=== PATIENT | female | born 1950 | race Caucasian/White ===

== ENCOUNTER → 2016-04-25 | Outpatient (CLI) | payer BC, OTHER ==
[~2016-04-25] MED LIST: BENA25CA2 PO; HYDRLIQ11 PO; LATA5OPD OU; NICO21PAT TD; OSEL75CA PO; PRED10TA PO; PROA1AER INH; SPIR1CAP INH; SYMB16INH INH
[2016-04-25 11:26] LABS: BASO % 0.6 % (0.0-1.0); EOS # 0.2 K/mm3 (0.0-0.50); EOS % 2.4 % (0.0-3.0); LARGE UNSTAINED CELL # 0.2 K/mm3 (0.0-0.4); LARGE UNSTAINED CELL % 2.7 % (0.0-4.0); LYMPH # 1.8 K/mm3 (1.5-4.5); LYMPH % 22.3 % (24.0-44.0); MEAN CORPUSCULAR HEMOGLOBIN 30.5 pg (27.0-33.0); MEAN CORPUSCULAR HGB CONC 31.4 g/dl (32.0-36.5); MONO # 0.5 K/mm3 (0.0-0.8); MONO % 6.4 % (0.0-5.0); NEUTROPHILS # 5.2 K/mm3 (1.8-7.7); NEUTROPHILS % 65.6 % (36.0-66.0); PLATELET COUNT, AUTOMATED 328 k/mm3 (150-450); RED CELL DISTRIBUTION WIDTH 12.5 % (11.5-14.5); WHITE BLOOD COUNT 7.9 K/mm3 (4.0-10.0)
[2016-04-25 11:40] LABS: ALBUMIN 3.9 GM/DL (3.2-5.2); ALBUMIN/GLOBULIN RATIO 1.15 (1.00-1.93); BILIRUBIN,TOTAL 0.4 MG/DL (0.2-1.0); CALCIUM LEVEL 9.1 MG/DL (8.8-10.2); CREATININE FOR GFR 1.33 MG/DL (0.55-1.02); GLOMERULAR FILTRATION RATE 42.8 (>45); POTASSIUM SERUM 5.1 MEQ/L (3.5-5.1); TOTAL PROTEIN 7.3 GM/DL (6.4-8.2)
== END | disposition home or self-care (01) ==
LOC: M WUC 09:20
PROVIDERS: ATTEND Family Medicine
DX: R73.01 Impaired fasting glucose (principal)

== ENCOUNTER → 2017-02-16 | Outpatient (CLI) | payer BC, OTHER ==
[~2017-02-16] MED LIST changes: +HYDR5LIQ2 PO; -HYDRLIQ11 PO; -PROA1AER INH; +PROAAER10 INH
[2017-02-16 20:01] LABS: MEAN CORPUSCULAR HEMOGLOBIN 32.1 pg (27.0-33.0); MEAN CORPUSCULAR HGB CONC 33.6 g/dl (32.0-36.5); MEAN CORPUSCULAR VOLUME 95.6 fl (80.0-96.0); PLATELET COUNT, AUTOMATED 347 10^3/uL (150-450)
[2017-02-16 20:07] LABS: ALBUMIN 3.2 GM/DL (3.2-5.2); ALBUMIN/GLOBULIN RATIO 0.8 (1.00-1.93); BILIRUBIN,TOTAL 0.9 MG/DL (0.2-1.0); CALCIUM LEVEL 9.3 MG/DL (8.8-10.2); CREATININE FOR GFR 1.38 MG/DL (0.55-1.02); GLOMERULAR FILTRATION RATE 40.8 (>45); POTASSIUM SERUM 4.8 MEQ/L (3.5-5.1); TOTAL PROTEIN 7.2 GM/DL (6.4-8.2)
[2017-02-16 20:16] LABS: ADD MANUAL DIFFER YES; DIFF SLIDE NUMBER 311; POSITIVE DIFF POS FLAG
[2017-02-16 21:09] LABS: BANDS 1 % (< 11)
== END ==
LOC: M WUC 16:21
PROVIDERS: ATTEND Family Medicine
DX: J18.1 Lobar pneumonia, unspecified organism (principal)

== ENCOUNTER → 2017-02-16 | Outpatient (CLI) | payer BC, OTHER ==
--- NOTE | 2017-02-16 17:34 | REP ---
Chest two views HISTORY: Cough Comparison: 06/14/2015 The lungs are hyperinflated. An increase in interstitial markings is present in the lungs consistent with chronic interstitial change. Patchy density is present in the left lower lobe consistent with an infiltrate. The heart is normal in size. The pulmonary vasculature is normal in appearance. Degenerative change is present in the thoracic spine. IMPRESSION: 1. Chronic interstitial fibrosis. 2. Left lower lobe infiltrate. Signed by Juan David Fisher MD 02/16/2017 05:26 P
== END ==
LOC: M WUC 16:26
PROVIDERS: ATTEND Family Medicine
DX: J18.1 Lobar pneumonia, unspecified organism (principal)

== ENCOUNTER → 2018-01-26 | Outpatient (REF) | payer BC, OTHER ==
[2018-01-29 10:12] LABS: HPV HYBRID CAPTURE II Negative (Negative)
== END ==
LOC: M LAB REF 13:33
DX: Z01.419 Encounter for gynecological examination (general) (routine) without abnormal findings (principal)

== ENCOUNTER → 2018-12-15 | Outpatient (CLI) | payer MEDICARE, BC, OTHER ==
[~2018-12-15] MED LIST changes: +BREO1INH INH; +INCR1INH INH; +LATA0.0013 OU; -LATA5OPD OU; +LISI-542 PO; +NICO21DI3 TD; -NICO21PAT TD; +PRED-351 PO; -PRED10TA PO
[2018-12-15 13:34] LABS: BASO # 0.1 10^3/uL (0.0-0.2); BASO % 0.7 % (0.0-1.0); EOS # 0.3 10^3/uL (0.0-0.5); EOS % 3.4 % (0.0-3.0); HEMATOCRIT 49.1 % (36.0-47.0); HEMOGLOBIN 15.9 g/dl (12.0-15.5); LYMPH # 1.8 10^3/uL (1.5-5.0); LYMPH % 25.1 % (24.0-44.0); MEAN CORPUSCULAR HEMOGLOBIN 30.1 pg (27.0-33.0); MEAN CORPUSCULAR HGB CONC 32.4 g/dl (32.0-36.5); MONO # 0.9 10^3/uL (0.0-0.8); MONO % 12.5 % (0.0-5.0); NEUTROPHILS # 4.3 10^3/uL (1.5-8.5); PLATELET COUNT, AUTOMATED 248 10^3/uL (150-450); RED BLOOD COUNT 5.28 10^6/uL (4.00-5.40); WHITE BLOOD COUNT 7.3 10^3/uL (4.0-10.0)
[2018-12-15 14:10] LABS: BILIRUBIN,TOTAL 0.5 MG/DL (0.2-1.0); CALCIUM LEVEL 9.2 MG/DL (8.8-10.2); CREATININE FOR GFR 1.18 MG/DL (0.55-1.30); GLOMERULAR FILTRATION RATE 48.8 (>45); POTASSIUM SERUM 5.1 MEQ/L (3.5-5.1); THYROID STIMULATING HORMONE 0.929 uIU/ML (0.358-3.740); TOTAL PROTEIN 7.6 GM/DL (6.4-8.2)
[2018-12-15 14:31] LABS: CHOLESTEROL RISK RATIO 1.381 (<5)
== END ==
LOC: M WUC 10:21
PROVIDERS: ATTEND Family Medicine
DX: R03.0 Elevated blood-pressure reading, without diagnosis of hypertension (principal)

== ENCOUNTER → 2018-12-22 | Outpatient (REF) | payer MEDICARE, OTHER ==
[~2018-12-22] MED LIST changes: -BREO1INH INH; -INCR1INH INH; -LISI-542 PO
[2018-12-22 17:10] LABS: PLATELET COUNT, AUTOMATED 234 10^3/uL (150-450)
[2018-12-22 17:32] LABS: INR 0.92
[2018-12-22 17:33] LABS: PARTIAL THROMBOPLASTIN TIME 29.8 SECONDS (25.0-38.4)
== END ==
LOC: M LAB REF 16:47
PROVIDERS: ATTEND Internal Medicine Pulmonary Disease
DX: R91.8 Other nonspecific abnormal finding of lung field (principal)

== ENCOUNTER → 2019-01-04 | Outpatient (CLI) | payer MEDICARE, BC, OTHER ==
[~2019-01-04] MED LIST changes: +BREO1INH INH; +INCR1INH INH; +LIDOCAINE 1% MDV 20ML VIAL As Ordered ONE; +LISI-542 PO
[2019-01-04 14:30] VITALS: BP 139/71
--- NOTE | 2019-01-04 15:21 | REP ---
CHEST, SINGLE VIEW: Single expiratory view of the chest is performed, status post left lung biopsy. There is no pneumothorax. Left retrocardiac mass is again seen. Mild dependent atelectatic changes are seen in the lung bases. IMPRESSION: No pneumothorax, status post left lung biopsy. Electronically Signed by Gianfranco Lacy MD 01/06/2019 12:55 A
--- NOTE | 2019-01-07 17:29 | REP ---
CT-guided left lower lobe lung biopsy The procedure is performed by NILA Wolf, under the direct supervision of Dr. Lacy. The risks and benefits of the procedure were explained to the patient and informed consent was obtained both orally and written. Directly prior to the start of the procedure, a formal timeout was done in the exam room. The left lower lobe lung nodule was localized using CT guidance. Skin was prepped and draped in the usual sterile fashion. 4 ml of 1% lidocaine was used as a local anesthetic. Using CT guidance a 19/20 gauge coaxial needle biopsy system was inserted and advanced into the nodule. 4 core biopsy samples were obtained and sent to the lab. CT images obtained directly after the biopsy show no evidence of pneumothorax. After the appropriate amount of monitored convalescence the patient was discharged from the department. Reviewed by NILA Szymanski 01/04/2019 03:16 P Electronically Signed by Gianfranco Lacy MD 01/07/2019 05:20 P
== END ==
LOC: M IRPRO 10:41
PROVIDERS: ATTEND Internal Medicine Pulmonary Disease
DX: R84.7 Abnormal histological findings in specimens from respiratory organs and thorax (principal)

== ENCOUNTER → 2019-01-17 | Outpatient (CLI) | payer MEDICARE, BC, OTHER ==
[~2019-01-17] MED LIST changes: +ALBU83IN NEB; +AUGM875T28 PO; -LIDOCAINE 1% MDV 20ML VIAL As Ordered ONE; +PROC10TA4 PO; +ZOFR8TAB24 PO
--- NOTE | 2019-01-18 07:12 | REP ---
PET/CT: HISTORY: Malignant neoplasm of the lower lobe of the left lung. Adenocarcinoma. Biopsy-proven in the left lower lobe. There is also an ill-defined nodule in the right middle lobe on recent CT. COMPARISONS: Comparison CT study of the chest is from December 19, 2018. TECHNIQUE: 45 minutes following the intravenous injection of a 8.54 mCi dose of F-18 FDG, three-dimensional PET scintigraphy is acquired from the skull base to the proximal thighs. Triplanar noncontrast CT scanning is acquired through the same anatomic range for attenuation correction, and image registration with scan parameters optimized to minimize radiation exposure to the patient. PET scintigraphy and CT datasets were fused and displayed on a workstation with multiplanar and projection display capability. PET/CT FINDINGS: The biopsy-proven left lower lobe adenocarcinoma is hypermetabolic, maximum standard uptake value is 16.59. There is mildly hypermetabolic uptake visible in aortopulmonary window region lymph nodes, maximum standard uptake value 3.88. These are normal in size. There is a visible but non-hypermetabolic uptake in the right middle lobe nodule. Nevertheless this may be considered somewhat suspicious given the small, subcentimeter size of this nodule. Maximum standard uptake value is 2.02. No other abnormal hypermetabolic uptake is seen in the chest. Head and neck soft tissues are unremarkable, except for the presence of a mildly hypermetabolic 1 cm focus of increased uptake in the deep lobe of the left parotid gland. Maximum standard uptake value here is 5.07. No abnormal adrenal hypermetabolic uptake is seen. No abnormal hypermetabolic uptake is seen in the abdomen or pelvis. IMPRESSION: There is hypermetabolic uptake in the known adenocarcinoma in the left lower lobe. Mildly hypermetabolic uptake is seen in two normal-sized lymph nodes in the aortopulmonary window region of the mediastinum. There is discernible but not hypermetabolic uptake in the right middle lobe nodule. Lastly, there is a hypermetabolic 1 cm focus of increased uptake in the deep lobe of the left parotid gland. This is of uncertain significance. Electronically Signed by Tam Sanchez MD 01/18/2019 07:53 A
== END ==
LOC: M PLARAD 15:07
PROVIDERS: ATTEND Internal Medicine Pulmonary Disease
DX: C34.32 Malignant neoplasm of lower lobe, left bronchus or lung (principal)
CPT/HCPCS: 78815; A9552

== ENCOUNTER → 2019-01-31 | Outpatient (CLI) | payer MEDICARE, BC, OTHER ==
[~2019-01-31] MED LIST changes: -ALBU83IN NEB; -AUGM875T28 PO; -PROC10TA4 PO; -ZOFR8TAB24 PO
--- NOTE | 2019-02-02 08:26 | RADONC ---
RADIATION ONCOLOGY CONSULTATION NOTE DATE OF SERVICE: 01/31/2019 CHART #: [id number] DIAGNOSIS: Left lower lobe lung cancer. STAGE: IIIA, T1c, N2, M0. ECOG PERFORMANCE STATUS: 1. CONSULTATION NOTE: Ms. Arellano is a 68-year-old white female with a diagnosis of what appears to be a Stage IIIA, T1c, N2, M0, highly suggestive atypical cells consistent with an adenocarcinoma of the left lower lobe who has an exceedingly poor pulmonary function and is presenting to us today to see whether or not external beam radiation therapy could be used as part of a combined modality treatment approach. HISTORY OF PRESENT ILLNESS: The patient has a long history of severe chronic obstructive pulmonary disease and a 76.5 pack year smoking history. In the past, the patient has been hospitalized for acute respiratory failure and overall has been unable to discontinue her smoking addiction until just a few weeks ago. Most recently, a CT scan of the chest was done on 12/19/2018. This revealed a 2.1 cm x 2.2 cm x 1.6 cm spiculated nodule in the left lower lobe. There were noted to be hyperexpanded and emphysematous changes throughout. There was an additional right middle lobe nodule as well. On 01/04/2019, the patient underwent a CT guided needle biopsy and pathology revealed highly atypical cells most suggestive of an adenocarcinoma. Subsequent PET scan done on 01/17/2019 revealed a hypermetabolic left lower lobe nodule with a SUV value of 16.59. There also was noted to be hypermetabolic uptake in the visible aortopulmonary window region lymph nodes with a maximum standard value of 3.88. The nodes were normal size. There was a visible, but non hypermetabolic uptake in the right middle lobe nodule, but this was still considered suspicious given the small sub centimeter size of this nodule. The SUV value was 2.02. Of greater significance, the patient had pulmonary function tests done and was found to have an FEV1 of 0.70. Her diffusion capacity was only 16%. PAST MEDICAL HISTORY: The patient's past medical history of course is positive for severe COPD and emphysema. She has had a history of influenza with respiratory failure in 2016 requiring hospitalization. She also has a history of hypertension. She has had kidney infections in the past, arthritis and cataracts. ALLERGIES: The patient is allergic to SULFA DRUGS and ALEVE. SOCIAL HISTORY: The patient has a 76.5 pack year smoking history, having smoked 1.5 packs of cigarettes per day for 51 years. She drinks alcohol daily. FAMILY HISTORY: The patient's family history is positive for cancer in her father, sister and brother. REVIEW OF SYSTEMS: The patient's review of systems is positive for some anxiety, anorexia and shortness of breath. Denies nausea, vomiting, fevers, chills, night sweats, diplopia, chest pain, urinary or bowel difficulties, bone pain or neurological problems. PHYSICAL EXAMINATION: The patient is a well-developed, well-nourished female in no acute distress. HEENT exam is normocephalic, atraumatic. Extraocular movements are intact. There is no palpable cervical, supraclavicular, infraclavicular, axillary, or inguinal lymphadenopathy present. Lungs have decreased breath sounds bilaterally, but are generally clear to auscultation and percussion. Heart has a regular rate and rhythm. Abdomen is benign with no hepatosplenomegaly, masses, or tenderness. Breast examination reveals no masses or discharge bilaterally. Skeletal examination reveals no tenderness to pressure or percussion of the bony skeleton. Extremities reveal no clubbing, cyanosis, or edema. Neurologic exam is grossly intact, as is the remainder of the physical examination. ASSESSMENT: I have been in close contact with her medical oncologist, Dr. Alfred Davis, as well as, with her thoracic surgeon, Dr. Lio Mckeon. I discussed with Dr. Mckeon whether or not he thinks it would be possible to biopsy the mediastinal lymph node safely in this patient with such an extremely poor pulmonary function. Dr. Mckeon did not believe the patient could tolerate such a procedure and that these nodes were not reachable safely. He made clear that he would consider these nodes positive, making this a minimum of Stage III A disease. Clearly, with this patient's extremely poor pulmonary function, she would not be able to tolerate radiation to the lymph node drainage sites and the primary site. Indeed, I do not believe she would be able to tolerate radiation just to the lung nodule itself. Its location puts it between the heart and spinal cord, thereby limiting the directions the beam can travel. In order to incorporate it, there would be undoubtedly a not insignificant portion of normal lung tissue that this patient would not be able to tolerate. Indeed, if this is actually Stage III disease, she would be undergoing radiation to the nodule for no clear reason as the disease has spread beyond this. The patient is scheduled for a redo of her CT guided lung biopsy. More tissue needs to be obtained to make a definitive diagnosis in order to choose the correct systemic agents which can be used to treat this. She is scheduled to have a port placed as well. In light of the fact that no radiation can be given to this patient safely, I have not set her up for any followup in our office except on a as needed basis. She has been instructed to feel free and contact us if we could answer any questions she may have. I have set her up to discuss her issues with our clinica nurse navigator, Maye Mason, as well. As noted above, the patient is scheduled for her biopsy and then to return to her medical oncologist for further discussion. Thank you for allowing us to participate in the care of this very pleasant woman. I wish that we could have been of more benefit to her. If I can provide you with any information, please feel free to contact me at any time. cc: MD Lio Vincetn MD Karen Williams, MD
== END ==
LOC: M ONCR 13:46
PROVIDERS: ATTEND Radiology Radiation Oncology
DX: C34.90 Malignant neoplasm of unspecified part of unspecified bronchus or lung (principal)

== ENCOUNTER → 2019-02-07 | Outpatient (CLI) | payer MEDICARE, BC, OTHER ==
[~2019-02-07] MED LIST changes: +ALBU83IN NEB; +AUGM875T28 PO; +LIDOCAINE 1% MDV 20ML VIAL As Ordered ONE; +PROC10TA4 PO; +ZOFR8TAB24 PO
[2019-02-07 12:50] VITALS: BP 134/73
--- NOTE | 2019-02-07 14:00 | REP ---
CHEST, SINGLE VIEW: Single view of the chest is performed status post left lung biopsy. There is no evidence of a pneumothorax. Mild bibasilar atelectatic changes are seen. The heart is normal in size. IMPRESSION: No evidence of pneumothorax status post left lung biopsy. Electronically Signed by Gianfranco Lacy MD 02/07/2019 02:33 P
--- NOTE | 2019-02-07 14:20 | REP ---
CT-guided left lobe lung biopsy The procedure is performed by NILA Wolf, under the direct supervision of Dr. Lacy. The risks and benefits of the procedure were explained to the patient and informed consent was obtained both orally and written. Directly prior to the start of the procedure, a formal timeout was done in the exam room. The left lobe lesion was localized using CT guidance. Skin was prepped and draped in the usual sterile fashion. 2 ml of 1% lidocaine was used as a local anesthetic. Under CT guidance multiple attempts were made from this position to access the lesion. It was decided to reposition the patient, and try a different window for targeted. The skin was then prepped and draped in the usual sterile fashion. Another 2 ml as a 1% lidocaine was used as a local anesthetic. Using CT guidance a 19/20 gauge coaxial needle biopsy system was inserted and advanced into the nodule. 5 core biopsy samples were obtained and sent to the lab. CT images obtained directly after the biopsy show no evidence of pneumothorax. After the appropriate amount of monitored convalescence the patient was discharged from the department. Reviewed by NILA Szymanski 02/07/2019 01:48 P Electronically Signed by Gianfranco Lacy MD 02/07/2019 02:12 P
== END ==
LOC: M IRPRO 08:12
PROVIDERS: ATTEND Internal Medicine Hematology
DX: C34.90 Malignant neoplasm of unspecified part of unspecified bronchus or lung (principal); Z79.899 Other long term (current) drug therapy

== ENCOUNTER → 2019-03-13 | Outpatient (CLI) | payer MEDICARE, BC, OTHER ==
[~2019-03-13] MED LIST changes: +B-12100021 PO; +DEXT30SU29 PO; +FOLI800C PO; -LIDOCAINE 1% MDV 20ML VIAL As Ordered ONE
--- NOTE | 2019-03-13 15:20 | REP ---
Two-view chest: 03/13/2019. Indication: Dyspnea. Comparison: 02/07/2019. Findings: There is no focal airspace consolidation. There is no pleural effusion or pneumothorax. Right-sided Port-A-Cath is present. The cardiomediastinal silhouette is unremarkable. The lungs are hyperinflated with chronic interstitial fibrotic changes consistent with COPD. The left lung mass is better demonstrated on the recent CT. Impression: No acute cardiopulmonary process. COPD. Electronically Signed by Ruslan Donahue DO 03/13/2019 03:11 P
== END ==
LOC: M RAD 14:43
PROVIDERS: ATTEND Internal Medicine Hematology
DX: J18.9 Pneumonia, unspecified organism (principal)

== ENCOUNTER → 2019-03-21 | Outpatient (POV) | payer MEDICARE, BC, OTHER ==
[~2019-03-21] VITALS: Ht 149.9 cm; Wt 50.0 kg
[~2019-03-21] MED LIST changes: +MARI5CAP PO
[2019-03-21 08:10] VITALS: BP 159/88
--- NOTE | 2019-03-22 16:33 | IRPN ---
[facility] IR Progress Note IR Progress Note DATE: Mar 21, 2019 FOLLOW-UP: Doing well status post port placement. No fevers, chills, pain or discomfort. Port functioning without any issues. ON EXAMINATION: Port site appears to be healing well. No pain, tenderness, fluctuance or discharge. IMPRESSION: Doing well status post port placement. No further follow-up scheduled unless initiated by patient or infusion. Thank you for this referral Allergies Coded Allergies: Sulfa (Sulfonamide Antibiotics) (Verified Allergy, Unknown, ITCHING/RASH, 01/04/19) naproxen (Verified Allergy, Unknown, RASH/ITCHING, 01/04/19) VS,Fishbone, I+O VS, Fishbone, I+O Vital Signs Date Time Temp Pulse Resp B/P (MAP) Pulse Ox O2 Delivery O2 Flow Rate FiO2 03/21/19 08:10 97.8 91 18 159/88 (111) 94 Room Air NICOLE DEY MD Mar 22, 2019 16:33
== END ==
LOC: M IRPOV 07:44
PROVIDERS: ATTEND Radiology Diagnostic Radiology
DX: Z45.2 Encounter for adjustment and management of vascular access device (principal); Z88.2 Allergy status to sulfonamides

== ENCOUNTER 2019-04-21 12:52 | Inpatient (IN) | payer MEDICARE, BC, OTHER ==
[~2019-04-21] VITALS: Ht 149.9 cm; Wt 49.9 kg
[~2019-04-21 12:52] MED LIST changes: +BREO1INH3 INH; +SODI1TAB12 PO
[2019-04-21] MEDS ORDERED: NS 1,000 ML IV SCH (13:27)
[2019-04-21] MEDS ORDERED: SODI1TAB6 PO (14:11)
[2019-04-21] MEDS ORDERED: [UNRECOGNIZED DRUG - OTHER] PO (14:11)
[2019-04-21] MEDS ORDERED: BREO1INH3 INH (14:11)
[2019-04-21] MEDS ORDERED: FOLI800C PO (14:11)
[2019-04-21] MEDS ORDERED: ONDANSETRON 4MG/2ML VIAL (J2405) IV PRN (15:15)
[2019-04-21] MEDS ORDERED: IPRATROPIUM 0.5MG/ALBUTEROL 2.5MG INH SOL UD 3ML (DUONEB)(J7620) NEB PRN (15:15)
--- NOTE | 2019-04-21 15:20 | REP ---
Chest x-ray: Sitting AP and lateral views. History: Short of breath. Comparison chest x-ray: March 13, 2019. Findings: A right-sided Rovlul-Z-Omhu catheter is seen in place with its tip in the expected location of the SVC right atrial junction. The patient is rotated somewhat to the right. The lungs are symmetrically aerated and free of infiltrate. There are somewhat hyperinflated overall. Pleural angles are sharp. Heart is not enlarged. Pulmonary vasculature is not increased. No significant bony abnormality is appreciated. Impression: Mild hyperinflation. Kdgmmk-H-Sxyx catheter. Otherwise no acute disease. Electronically Signed by Tam Sanchez MD 04/21/2019 03:11 P
[2019-04-21 16:00] VITALS: BP 168/83
--- NOTE | 2019-04-21 16:16 | HPEPDOC ---
[facility] Medical History & Physical Date of Admission Apr 21, 2019 Date of Service: Apr 21, 2019 Attending Physician: RAPHEAL CACERES MD History and Physical CHIEF COMPLAINT: Shortness of breath, macular rash and decreased appetite HISTORY OF PRESENT ILLNESS: This is a 68-year-old female with adenocarcinoma of the lungs presents to the ER for shortness of breath, macular rash and decreased appetite. She was sent to us from her oncologist office who she went to go see for an unscheduled visit. She states ever since she was discharged from the hospital shes been relatively well but after her last chemotherapy on April 13 she knows she is unable to keep down food and has had significant nausea as well. She also endorse a worsening cough and dyspnea but is unsure if it is secondary to her using her oxygen concentrator wrong. Noticed she is back at baseline oxygen status in the ER with no intervention but fluids. Lastly she also notes that she has a generalized erythematous rash that is very pruritic, which appeared 2-3 days ago. She is unsure if this is secondary to chemotherapy. She states that she has no new medications and she is compliant with all the medications prescribed to her. She denies any change in urine color or any painful urination. She denies any blood in her stool or urine as well. PAST MEDICAL HISTORY: 1. Adenocarcinoma of the lung, medically unresectable, stage I, 2. Severe emphysema secondary to chronic tobacco use 3. Hypertension HOME MEDICATIONS: Please see below. ALLERGIES: Please see below PAST SURGICAL HISTORY: 1. Tubal ligation SOCIAL HISTORY: Lives with: , Tobacco use: One pack per day for almost 50 years quit smoking December 2018. ETOH: Denies Illicit drug use: Denies, CODE STATUS: DNR/DNI FAMILY HISTORY: Reviewed, father lung cancer secondary to heavy tobacco use at the age of 73, mother , complications of stroke. Brother alive history of lymphoma. REVIEW OF SYSTEMS: 10 systems reviewed and negative other than HPI PHYSICAL EXAMINATION: VITAL SIGNS: See below GENERAL: Pleasant 68-year-old female laying comfortably in bed awake alert oriented speaking in complete sentences no acute distress HEENT: Atraumatic, normocephalic, pupils equal round and reactive, dry mucous membrane with no JVD trachea is midline. CARDIOVASCULAR: S1-S2, tachycardic rate regular rhythm, no audible murmurs rubs or gallops RESPIRATORY: Crackles appreciated bilaterally up to mid lung right worse than left. ABDOMINAL: Bowel sounds presents, abdomen is soft nontender nondistended EXTREMITIES: No lower extremity edema or calf tenderness noted NEUROLOGICAL: No gross focal deficits appreciated PSYCHOLOGICAL: Appropriate INTEGUMENTARY: Diffuse erythematous macular rash blanchable noted on the breast bilaterally, abdomen, upper thighs bilaterally and lateral aspect of the back. M inimal petechia appreciated on the shins bilaterally as well. No open wounds or ulcerations noted. LABORATORY DATA: See below. MICROBIOLOGY: Please see below. IMAGING: Chest x-ray 04/21/2019 Mild hyperinflation. Kzsinx-C-Tzec catheter. Otherwise no acute disease. ASSESSMENT & PLAN: This is a this is a 68-year-old female with a medically unresectable adenocarcinoma of the lung presented to SOB, macular rash and decreased appetite. PROBLEMS: 1. Acute on chronic kidney disease. Baseline creatinine in early March was 1.29 but she was admitted [facility] for a KATIA with a high of 3.51. When she was discharged on the the creatinine came down to a low of 2.34. They are creatinine is 2.67. Theyre treating this to volume depletion due to poor oral intake in the setting of cisplatin being induced renal damage. At this time well do aggressive IV hydration 150 mls/hr of normal saline the next 2 days. Zofran 16 mg every 24 hours. Because Zofran can cause QTC prolongation will meet her baseline EKG to document the QTC prior to giving the Zofran. Will also monitor her on telemetry while on high dose Zofran even though she is DNR/DNI. 2. Diffuse erythematous macular rash blanchable. Etiology rash is uncertain. It appeared last 3 days. Possible causes or medication toxicity versus allergic reaction versus viral exanthema. Decadron 10 mg IV every 24 hours for 2 days and we will monitor improvement of the rash. A call has been placed to Dr. Hathaway, Dermatology, and we will discuss the case with him prior to placing consult. I would like a punch biopsy while she is admitted. 3. History of adenocarcinoma of the lung. Medically unresectable stage I diagnosis. CEA has been rising and there is questioning of changing patients chemotherapy regimen due to problem 1. Chest x-ray negative for any acute processes. During our exam she was on 2 L of nasal cannula and not in any distress. This is her baseline O2 oxygen requirement. Maintain o2 stat 88-92%, Duonobs on board. 4. History of Hypertension. Hold home Lisinpril due katia. We will play her on Amlopdine 10mg qhs, and we will monitor her BP. DVT PROPHYLAXIS: Lovenox DISPOSITION: Input Med/Surg with telemetry at least 2 midnight Vital Signs Vital Signs Date Time Temp Pulse Resp B/P (MAP) Pulse Ox O2 Delivery O2 Flow Rate FiO2 04/21/19 15:10 114 18 160/83 (108) 94 Room Air 04/21/19 13:27 98.5 04/21/19 13:08 3.0 Home Medications Scheduled Calcium Carb/Mag Ox/Zinc Gluc (Rafwdqc-Tzvwbxaop-Aknz Tablet) 1 Each Tablet, 1 TAB PO DAILY Cyanocobalamin (Vitamin B-12) (B-12) 1,000 Mcg Tablet, 1,000 MCG PO QWEEK THURSDAYS Dronabinol (Marinol) 5 Mg Capsule, 5 MG PO BID for nausea/vomiting Take 5 mg po twice daily Folic Acid (Folic Acid) 0.8 Mg Capsule, 0.8 MG PO DAILY Lisinopril (Lisinopril) 5 Mg Tablet, 5 MG PO DAILY Ondansetron HCl (Zofran) 8 Mg Tablet, 8 MG PO TID for nausea/vomiting Take 8 mg t.i.d. for 3 days after [place] chemotherapy, then q 8 hrs prn nausea Sodium Chloride (Sodium Chloride) 1 Gm Tablet, 1 GM PO BID Scheduled PRN Albuterol Sulf (Albuterol Sulfate) 2.5 Mg/3 Ml Vial.neb, 1 VIAL NEB Q4H PRN for SHORTNESS OF BREATH Albuterol Sulfate (Proair Hfa) 8.5 Gm Hfa.aer.ad, 2 PUFF INH Q6H PRN for SHORTNESS OF BREATH Fluticasone/Vilanterol (Breo Ellipta 200-25 Mcg INH) 1 Each Blst.w.dev, 1 PUFF INH DAILY PRN for SHORTNESS OF BREATH PATIENT STATES USES ONLY WHEN NEEDED Prochlorperazine Maleate (Prochlorperazine Maleate) 10 Mg Tablet, 10 MG PO Q6H PRN for NAUSEA OR VOMITING Take 10 mg po q 6 hours prn nausea from chemotherapy not relieved by Zofran Allergies Coded Allergies: Sulfa (Sulfonamide Antibiotics) (Verified Allergy, Intermediate, ITCHING/RASH, 03/29/19) naproxen (Verified Allergy, Intermediate, RASH/ITCHING, 03/29/19) GME ATTESTATION GME ATTESTATION My faculty preceptor for this patient encounter was physically present during the encounter and was fully available. All aspects of the patient interview, examination, medical decision making process, and medical care plan development were reviewed and approved by the faculty preceptor. The faculty preceptor is aware and concurs with the plan as stated in the body of this note and will attest to such by his/her cosignature. ATTENDING NOTE Ms Arellano is a 68 yo W prior chronic smoker with a medically unresectable adenocarcinoma initially treated with cisplatin/premetrexed/pembro c/b KATIA and thus cisplatin was held and she was continued on premetrexed/pembro c/b some diarrhea for which she has been taking some loperamide who now presents with acute worsening of N/V/D and some SOB and new macular pruritic erythematouos rash and found to have persistent renal injury. She was sent in by her oncologist who is concerned about her renal function worsening as it had appeared to be improving since the initial insult in early 03/2019 and she now also has poor PO, N/V/D and a new confluent macular pruritic rash. In agreement with her oncologist, she appears dry on exam and will give cautious fluids as she has some R basilar crackles, review her UA for an active sediment, monitor her renal function with urine electrolytes, renal ultrasound and call dermatology for her rash while empirically starting her on dexamethasone. We may involve nephrology depending on the course of her KATIA. REBA WOODS DO Apr 21, 2019 16:16 RAPHAEL CACERES MD Apr 22, 2019 07:27
[2019-04-21 16:35] VITALS: BP 168/83
[2019-04-21] MEDS: NS 1,000 ML IV SCH ×2 (16:59→20:29)
[2019-04-21] MEDS: dexameTHASONE 4 MG/ML 1ML VIAL (J1100) IV SCH (16:59)
[2019-04-21] MEDS: amLODIPine 10 MG TAB PO SCH (20:17)
--- NOTE | 2019-04-21 20:19 | ECGEPIP ---
[facility] Test Date: 2019-04-21 Pat Name: KECIA RUSSELL Department: Room: [place] [address] Gender: Female [employer]ley [employer] Over[employer]uler: erlin : 1950 Requested By: REBA Worthington Order Number: [id number] Reading MD: Nelly Carrillo Measurements Intervals [place] Rate: 93 P: 73 WV: 136 QRS: 66 QRSD: 78 T: 59 QT: 354 QTc: 442 Interpretive Statements SINUS RHYTHM SINCE 06/14/15 T WAVE INVERSIONS ARE NO LONGER PRESENT Electronically Signed on 04-21-2019 20:18:51 EST by Nelly Carrillo
[2019-04-21 22:00] VITALS: BP 156/78
[2019-04-22] MEDS: NS 1,000 ML IV SCH ×3 (03:13→18:57)
[2019-04-22 06:00] VITALS: BP 137/83
[2019-04-22 07:08] LABS: HEMATOCRIT 27.4 % (36.0-47.0); HEMOGLOBIN 8.6 g/dl (12.0-15.5); MEAN CORPUSCULAR HEMOGLOBIN 28.8 pg (27.0-33.0); MEAN CORPUSCULAR HGB CONC 31.4 g/dl (32.0-36.5); MEAN CORPUSCULAR VOLUME 91.6 fl (80.0-96.0); PLATELET COUNT, AUTOMATED 102 10^3/uL (150-450); RED BLOOD COUNT 2.99 10^6/uL (4.00-5.40)
[2019-04-22 07:12] LABS: WHITE BLOOD COUNT 1.9 10^3/uL (4.0-10.0)
[2019-04-22 07:29] LABS: CALCIUM LEVEL 7.9 MG/DL (8.8-10.2); CREATININE FOR GFR 2.18 MG/DL (0.55-1.30); MAGNESIUM LEVEL 1.4 MG/DL (1.8-2.4); POTASSIUM SERUM 5.1 MEQ/L (3.5-5.1)
[2019-04-22] MEDS: ENOXAPARIN 40 MG/0.4 ML SYRINGE (J1650) SC SCH ×2 (07:49→07:53)
[2019-04-22] MEDS: MAG SULF 1GM/100ML (MAG RUN) 1 GM in IV 1 EA IV SCH ×2 (09:54→10:55)
[2019-04-22] MEDS ORDERED: ONDANSETRON 4MG/2ML VIAL (J2405) IV PRN (11:45)
--- NOTE | 2019-04-22 12:01 | IPNPDOC ---
Date Seen The patient was seen on 04/22/19. Progress Note SUBJECTIVE: Patient seen and examined this morning. She states she is doing a lot better since hes been admitted. She continues to urinate with no problems. The rash is still present on her breast, abdomen and legs but it is improving. She knows she is not as itchy as she was yesterday. She does notes that she has dry skin on her arms, legs and back and would like some lotion, if possible. Otherwise patient denies chest pain, shortness breath, nausea, vomiting, fevers, or chills OBJECTIVE PHYSICAL EXAMINATION: VITAL SIGNS: Please see below. GENERAL: Pleasant 68-year-old female laying comfortably in bed awake alert oriented speaking in complete sentences no acute distress stating appropriately on 2 L of oxygen HEENT: Atraumatic, normocephalic, pupils equal round and reactive, dry mucous membrane with chapped lips, no JVD, trachea is midline. CARDIOVASCULAR: S1-S2, Regular rate regular rhythm, no audible murmurs rubs or gallops RESPIRATORY: Bibasilar crackles right worse than left (improved from yesterday). ABDOMINAL: Bowel sounds presents, abdomen is soft nontender nondistended EXTREMITIES: No lower extremity edema or calf tenderness noted NEUROLOGICAL: No gross focal deficits appreciated PSYCHOLOGICAL: Appropriate INTEGUMENTARY: Diffuse erythematous macular rash blanchable noted on the breast bilaterally, abdomen, upper thighs bilaterally and lateral aspect of the back (improving). Minimal petechia appreciated on the shins bilaterally as well. No open wounds or ulcerations noted. Xerosis on arms, back and legs as well noted. LABORATORY DATA, MICROBIOLOGY: Please see below. IMAGING: Chest x-ray 04/21/2019 Mild hyperinflation. [id number] catheter. Otherwise no acute disease. ASSESSMENT & PLAN: This is a this is a 68-year-old female with a medically unresectable adenocarcinoma of the lung presented to SOB, macular rash and decreased appetite. PROBLEMS: 1. Acute on chronic kidney disease 2/2 decreased PO intake, chemotherapy and nausea -improving -Baseline creatinine in early March was 1.29 -c/w IV hydration, Zofran 4mg q6h prn nausea -continue to encourage good PO intake 2. Diffuse erythematous macular rash blanchable Etiology uncertain, possible causes: medication toxicity vs allergic reaction vs viral exanthema. -reponding to Decadron 10 mg IV q24h -will need to follow up with dermatology outpatient for the patient might be discharge prior to being seen inpatient 3. History of adenocarcinoma of the lung. Medically unresectable stage I diagnosis. - baseline 2L O2 -Maintain o2 stat >90%, -Duonobs on board -stable 4. History of Hypertension. -Hold home Lisinpril due KATIA -c/w Amlopdine 10mg qhs, possible will need to be discharged on this due to KATIA 5. Xerosis. -c/w Aquafor for arms, back and legs. 6. PFS -while working w/ PT that she is desaturating to low 80s, when using home c oncentrator -consults placed for concern with home portable oxygen concentrator 7. PT/OT -consult placed. DVT PROPHYLAXIS: Lovenox DISPOSITION: Possible discharge in 2 days. VS, I&O, 24H, Fishbone Vital Signs/I&O Vital Signs Date Time Temp Pulse Resp B/P (MAP) Pulse Ox O2 Delivery O2 Flow Rate FiO2 04/22/19 06:00 96.4 93 20 137/83 (101) 100 Nasal Cannula 3.0 I&O- Last 24 Hours up to 6 AM 04/22/19 06:00 Intake Total 2730 ml Output Total 1300 ml Balance 1430 ml Laboratory Data 24H LABS Laboratory Tests 2 04/22/19 06:27: Nucleated Red Blood Cells % (auto) 0.0, Anion Gap 6L, Glomerular Filtration Rate 24.0L, Calcium Level 7.9L, Magnesium Level 1.4L CBC/BMP Laboratory Tests 04/22/19 06:27 GME ATTESTATION GME ATTESTATION My faculty preceptor for this patient encounter was physically present during the encounter and was fully available. All aspects of the patient interview, examination, medical decision making process, and medical care plan development were reviewed and approved by the faculty preceptor. The faculty preceptor is aware and concurs with the plan as stated in the body of this note and will attest to such by his/her cosignature. ATTENDING NOTE 68 yo W with NSCLC recently on premetrexed/pembro with cisplatin held after development of KATIA who now presents with N/V/D and new macular pruritic rash, and found to have worsening KATIA who is now much improved after fluids and steroids. We attempted to consult derm as an inpatient without a response. Will continue dex for a 2nd day and may likely discharge her home tomorrow to follow up with onc and be directly to derm if rash persists. REBA WOODS DO Apr 22, 2019 12:01 RAPHAEL CACERES MD Apr 23, 2019 06:56
[2019-04-22 14:00] VITALS: BP 156/78
[2019-04-22] MEDS: DIMETHICONE 2% OINTMENT(VANIPLY) 70GM TUBE TOP SCH ×2 (16:14→20:27)
[2019-04-22] MEDS: dexameTHASONE 4 MG/ML 1ML VIAL (J1100) IV SCH (16:14)
[2019-04-22] MEDS ORDERED: CEPACOL LOZENGE PO PRN (18:45)
[2019-04-22] MEDS: amLODIPine 10 MG TAB PO SCH (20:28)
[2019-04-22 22:00] VITALS: BP 138/72
[2019-04-23 06:00] VITALS: BP 152/82
[2019-04-23 06:17] LABS: HEMATOCRIT 26.8 % (36.0-47.0); HEMOGLOBIN 8.6 g/dl (12.0-15.5); MEAN CORPUSCULAR HEMOGLOBIN 28.9 pg (27.0-33.0); MEAN CORPUSCULAR HGB CONC 32.1 g/dl (32.0-36.5); MEAN CORPUSCULAR VOLUME 89.9 fl (80.0-96.0); RED BLOOD COUNT 2.98 10^6/uL (4.00-5.40); WHITE BLOOD COUNT 2.3 10^3/uL (4.0-10.0)
[2019-04-23 06:25] LABS: CALCIUM LEVEL 8.4 MG/DL (8.8-10.2); CREATININE FOR GFR 1.92 MG/DL (0.55-1.30); GLOMERULAR FILTRATION RATE 27.7 (>45); MAGNESIUM LEVEL 1.7 MG/DL (1.8-2.4); POTASSIUM SERUM 5.4 MEQ/L (3.5-5.1)
[2019-04-23 06:47] LABS: PLATELET COUNT, AUTOMATED 80 10^3/uL (150-450)
[2019-04-23] MEDS: NS 1,000 ML IV SCH (08:00)
[2019-04-23] MEDS: DIMETHICONE 2% OINTMENT(VANIPLY) 70GM TUBE TOP SCH ×3 (08:00→21:00)
[2019-04-23] MEDS ORDERED: MAG SULF 1GM/100ML (MAG RUN) 1 GM in IV 1 EA IV ONE (08:15)
[2019-04-23] MEDS: ENOXAPARIN 40 MG/0.4 ML SYRINGE (J1650) SC SCH (08:56)
--- NOTE | 2019-04-23 11:58 | IPNPDOC ---
Text Note Date of Service The patient was seen on 04/23/19. NOTE SUBJECTIVE: -continues to feel better since admission. -Yesterday had some nausea and dry heaving after lunch but otherwise rash is improving with less itching now and resolving redness. -Worked with PT and walked with respiratory and did well and unfortunately her privately bought concentrator is mulfunctioning and they will try to return it. OBJECTIVE PHYSICAL EXAMINATION: VITAL SIGNS: Please see below. GENERAL:Sitting up comfortably in bed awake alert oriented speaking in complete sentences no acute distress stating appropriately on her home 2 L of oxygen HEENT: Atraumatic, normocephalic, pupils equal round and reactive, dry MM, no JVD CARDIOVASCULAR: S1-S2, Regular rate regular rhythm, no audible murmurs rubs or gallops RESPIRATORY: R>L bibasilar crackles persist ABDOMINAL: Normoactive bowel sounds, NTND EXTREMITIES: No lower extremity edema or calf tenderness, WWP, 2+ DP pulses NEUROLOGICAL: No gross focal deficits appreciated PSYCHOLOGICAL: Appropriate INTEGUMENTARY: Diffuse now resolving erythematous macular rash blanchable noted on the breast bilaterally, abdomen, upper thighs bilaterally and lateral aspect of the back . Minimal petechia appreciated on the shins bilaterally as well. No open wounds or ulcerations noted. Xerosis on arms, back and legs as well noted. LABORATORY DATA, MICROBIOLOGY: Please see below. ReviewedWBC 2.3, platelets downtrended to 80, Na 134, K 5.4, Cr 1.92, mag 1.7 (repleted) IMAGING: Chest x-ray 04/21/2019 Mild hyperinflation. Mdnbgi-D-Ttup catheter. Otherwise no acute disease. ASSESSMENT: 68-year-old W with a medically unresectable adenocarcinoma of the lung presented to SOB, macular rash and decreased appetite while on premetrexed/pembro as well as subchronic worsening KATIA. PROBLEMS: 1. Acute on subchronic kidney disease 2/2 decreased PO intake, chemotherapy and nausea -improving with hydration and better PO -Baseline creatinine in early March was 1.29 -c/w IV hydration, Zofran 4mg q6h prn nausea -continue to encourage good PO intake 2. Diffuse erythematous macular rash blanchable Etiology uncertain, possible causes: medication toxicity vs allergic reaction. -C/w to Decadron 10 mg IV q24h, will likely discontinue tomorrow given improvement, will need to follow up with dermatology outpatient for the patient might be discharge prior to being seen inpatient -continue topical lotion 3. History of adenocarcinoma of the lung. Medically unresectable stage I diagnosis on baseline 2L O2 -Maintain o2 stat >88% -Duonebs on board -stable 4. History of Hypertension. -Hold home Lisinpril in the setting of KATIA -c/w Amlopdine 10mg qhs 5. Xerosis. -c/w Aquafor for arms, back and legs. 6. PFS -while working w/ PT that she is desaturating to low 80s, when using home concentrator-->consult placed for concern with home portable oxygen concentrator 7. PT/OT -consult placed, doing well with them DVT PROPHYLAXIS: Hold lovenox DISPOSITION: Likely discharge home tomorrow VS,Rhonda, I+O VS, Rhonda, I+O Laboratory Tests 04/23/19 05:23 Vital Signs Date Time Temp Pulse Resp B/P (MAP) Pulse Ox O2 Delivery O2 Flow Rate FiO2 04/23/19 06:00 99.0 102 18 152/82 (105) 8 Room Air 04/22/19 21:00 2.0 I&O- Last 24 Hours up to 6 AM 04/23/19 06:00 Intake Total 2145 ml Output Total 3250 ml Balance -1105 ml RAPHAEL CACERES MD Apr 23, 2019 11:58
[2019-04-23 14:00] VITALS: BP 156/72
[2019-04-23 21:00] VITALS: BP 142/84
[2019-04-23] MEDS: amLODIPine 10 MG TAB PO SCH (21:00)
[2019-04-23 22:00] VITALS: BP 142/84
[2019-04-24 06:00] VITALS: BP 127/76
[2019-04-24 06:00] LABS: HEMOGLOBIN 8.4 g/dl (12.0-15.5); MEAN CORPUSCULAR HEMOGLOBIN 29.1 pg (27.0-33.0); MEAN CORPUSCULAR HGB CONC 32.3 g/dl (32.0-36.5); RED BLOOD COUNT 2.89 10^6/uL (4.00-5.40); WHITE BLOOD COUNT 2.8 10^3/uL (4.0-10.0)
[2019-04-24 06:22] LABS: CALCIUM LEVEL 8.1 MG/DL (8.8-10.2); CREATININE FOR GFR 1.88 MG/DL (0.55-1.30); GLOMERULAR FILTRATION RATE 28.4 (>45); MAGNESIUM LEVEL 1.7 MG/DL (1.8-2.4); POTASSIUM SERUM 4.9 MEQ/L (3.5-5.1)
[2019-04-24 06:42] LABS: PLATELET COUNT, AUTOMATED 50 10^3/uL (150-450)
[2019-04-24] MEDS: DIMETHICONE 2% OINTMENT(VANIPLY) 70GM TUBE TOP SCH (08:17)
[2019-04-24] MEDS ORDERED: LOPERAMIDE 2 MG CAPLET PO ONE (10:30)
--- NOTE | 2019-04-24 12:00 | DS.PDOC ---
Discharge Summary General Date of Admission Apr 21, 2019 at 13:57 Date of Discharge 04/24/2019 Attending Physician: RAPHAEL CACERES MD Discharge Summary PROCEDURES PERFORMED DURING STAY: None ADMITTING DIAGNOSES: 1. Acute pruritic macular rash 2. KATIA on subchronic CKD 3. N/V/D with poor nutritional status DISCHARGE DIAGNOSES: 1. Adenocarcinoma of the lung, medically unresectable, stage I 2. Severe emphysema secondary to chronic tobacco use 3. Hypertension 4. Chemo induced pancytopenia, nausea and diarrhea 5. Pruritic macular rash of unclear etiology likely chemo-induced vs. contact dermatitis COMPLICATIONS/CHIEF COMPLAINT: Acute Kidney Injury,Lung Cancer,Rash. HISTORY OF PRESENT ILLNESS: Ms Arellano is a 68 yo W prior chronic smoker with a medically unresectable a denocarcinoma initially treated with cisplatin/premetrexed/pembro c/b KATIA and thus cisplatin was held and she was continued on premetrexed/pembro c/b some diarrhea for which she has been taking some loperamide who now presents with acute worsening of N/V/D and some SOB and new macular pruritic erythematous rash and found to have persistent renal injury. HOSPITAL COURSE: She was sent in by her oncologist who was concerned about her renal function worsening as it had appeared to be improving since the initial insult in early 03/2019 and has recently been having poor PO, N/V/D and a new confluent macular pruritic rash. In the outpatient clinic note on the day of admission, her oncologist had suggested admission for fluids, dexamethasone 10 for a few days with possible dermatology consultation and monitoring of her worsening renal function with workup if not improving. In agreement with her oncologist, she appeared dry on exam on admission and we gave her cautious fluids as she has trace R basilar crackles, reviewed her UA for an active sediment but was bland, and monitor her renal function that improved with hydration to ~1.9 from ~2.6 and held resending urine electrolytes and a renal ultrasound that were recently done on last admission. We also gave her 3 days of dexamethasone 10mg daily with tremendous improvement in her pruritic rash and called dermatology for a consult without a response despite leaving multiple messages. Of note, on presentation she was on her home 2-3L but while working with respiratory and PT, it was noted that she was desaturating on ambulation using her home privately bought concentrator and it was investigated and found to not be functioning. Her returned it to the top tile decorator and she will use her portable tank for now. I am now discharging her home to follow up with her oncologist. While she was inpatient she was noted to have likely chemo-induced pancytopenia that was stable and did not require any blood transfusions. DISCHARGE MEDICATIONS: Please see below. ALLERGIES: Please see below. PHYSICAL EXAMINATION ON DISCHARGE: VITAL SIGNS: Please see below. GENERAL:Sitting up comfortably in bed awake alert oriented speaking in complete sentences no acute distress stating appropriately on her home 2 L of oxygen HEENT: Atraumatic, normocephalic, pupils equal round and reactive, dry MM, no JVD CARDIOVASCULAR: S1-S2, Regular rate regular rhythm, no audible murmurs rubs or gallops RESPIRATORY: Clear to auscultation, trace rare bibasilar crackles, no wheezing for rhonchi ABDOMINAL: Normoactive bowel sounds, NTND EXTREMITIES: No lower extremity edema or calf tenderness, WWP, 2+ DP pulses NEUROLOGICAL: No gross focal deficits appreciated PSYCHOLOGICAL: Appropriate INTEGUMENTARY: Mostly resolved erythematous macular rash blanchable noted on the breast bilaterally, abdomen, upper thighs bilaterally and lateral aspect of the back . Minimal petechia appreciated on the shins bilaterally are resolving as well. No open wounds or ulcerations noted. LABORATORY DATA: Please see below. IMAGING: CXR with no focal opacities or effusions PROGNOSIS: Fair ACTIVITY: As tolerated DIET: Regular DISCHARGE PLAN: Home with PCP and onc follow up DISPOSITION: Home DISCHARGE INSTRUCTIONS: 1. Please see your oncologist in the next few days to follow up on resolution of your rash and improvement of your appetite and possible referral to dermatology. ITEMS TO FOLLOWUP ON ON OUTPATIENT: 1. Chemo induced N/V/D management that affects nutritional status 2. Progression of renal injury in continuing improvement 3. Resolution pruritic macular rash 4. Lung cancer follow up and follow up of treatment plan with oncologist DISCHARGE CONDITION: Stable TIME SPENT ON DISCHARGE: 50 minutes. Vital Signs/I&Os Vital Signs Date Time Temp Pulse Resp B/P (MAP) Pulse Ox O2 Delivery O2 Flow Rate FiO2 04/24/19 08:30 2.0 04/24/19 06:00 98.5 94 17 127/76 (93) 99 Nasal Cannula I&O- Last 24 Hours up to 6 AM 04/24/19 05:59 Intake Total 2190 ml Output Total 2600 ml Balance -410 ml Laboratory Data Labs 24H Laboratory Tests 2 04/24/19 05:12: Nucleated Red Blood Cells % (auto) 0.0, Anion Gap 6L, Glomerular Filtration Rate 28.4L, Calcium Level 8.1L, Magnesium Level 1.7L CBC/BMP Laboratory Tests 04/24/19 05:12 Discharge Medications Scheduled Calcium Carb/Mag Ox/Zinc Gluc (Ztmwvdc-Cbayyftba-Pyxf Tablet) 1 Each Tablet, 1 TAB PO DAILY, (Reported) Cyanocobalamin (Vitamin B-12) (B-12) 1,000 Mcg Tablet, 1,000 MCG PO QWEEK, (Reported) THURSDAYS Dronabinol (Marinol) 5 Mg Capsule, 5 MG PO BID for nausea/vomiting Take 5 mg po twice daily Folic Acid (Folic Acid) 0.8 Mg Capsule, 0.8 MG PO DAILY, (Reported) Lisinopril (Lisinopril) 5 Mg Tablet, 5 MG PO DAILY, (Reported) Ondansetron HCl (Zofran) 8 Mg Tablet, 8 MG PO TID for nausea/vomiting Take 8 mg t.i.d. for 3 days after [facility] chemotherapy, then q 8 hrs prn nausea Sodium Chloride (Sodium Chloride) 1 Gm Tablet, 1 GM PO BID, (Reported) Scheduled PRN Albuterol Sulf (Albuterol Sulfate) 2.5 Mg/3 Ml Vial.neb, 1 VIAL NEB Q4H PRN for SHORTNESS OF BREATH, (Reported) Albuterol Sulfate (Proair Hfa) 8.5 Gm Hfa.aer.ad, 2 PUFF INH Q6H PRN for SHORTNESS OF BREATH, (Reported) Fluticasone/Vilanterol (Breo Ellipta 200-25 Mcg INH) 1 Each Blst.w.dev, 1 PUFF INH DAILY PRN for SHORTNESS OF BREATH, (Reported) PATIENT STATES USES ONLY WHEN NEEDED Prochlorperazine Maleate (Prochlorperazine Maleate) 10 Mg Tablet, 10 MG PO Q6H PRN for NAUSEA OR VOMITING Take 10 mg po q 6 hours prn nausea from chemotherapy not relieved by Zofran Allergies Coded Allergies: Sulfa (Sulfonamide Antibiotics) (Verified Allergy, Intermediate, ITCHING/RASH, 03/29/19) naproxen (Verified Allergy, Intermediate, RASH/ITCHING, 03/29/19) RAPHAEL CACERES MD Apr 24, 2019 11:46
[2019-04-24] MEDS ORDERED: AMLO10TA5 PO (13:29)
[2019-04-26] MEDS ORDERED: SLOWTAB2 PO (08:51)
[2019-04-26] MEDS ORDERED: [UNRECOGNIZED DRUG - CODE] (08:55)
[2019-04-26] MEDS ORDERED: [UNRECOGNIZED DRUG - OTHER] (14:32)
[2019-04-26] MEDS ORDERED: [UNRECOGNIZED DRUG - OTHER] (14:32)
== END 2019-04-24 13:20 | disposition home or self-care (01) | DRG 682 ==
LOC: M ED 12:52 → M ED INP 13:57 → ENRESERVDT 15:47 → ENRESERVTM 15:47 → M MSPAV 16:35
PROVIDERS: ADMIT Internal Medicine; ATTEND Internal Medicine
DX: N17.9 Acute kidney failure, unspecified (principal); D61.810 Antineoplastic chemotherapy induced pancytopenia; C34.90 Malignant neoplasm of unspecified part of unspecified bronchus or lung; L85.3 Xerosis cutis; J43.9 Emphysema, unspecified; N18.9 Chronic kidney disease, unspecified; L25.9 Unspecified contact dermatitis, unspecified cause; I12.9 Hypertensive chronic kidney disease with stage 1 through stage 4 chronic kidney disease, or unspecified chronic kidney disease; D69.6 Thrombocytopenia, unspecified; Z99.81 Dependence on supplemental oxygen; T45.1X5A Adverse effect of antineoplastic and immunosuppressive drugs, initial encounter; Z87.891 Personal history of nicotine dependence; Z79.899 Other long term (current) drug therapy; Z88.2 Allergy status to sulfonamides; Z88.6 Allergy status to analgesic agent

== ENCOUNTER → 2019-05-02 | Outpatient (CLI) | payer MEDICARE, BC, OTHER ==
[~2019-05-02] VITALS: Ht 149.9 cm; Wt 49.1 kg
[~2019-05-02] MED LIST changes: +ACETAMINOPHEN 325 MG TAB PO ONE; +AMLO10TA5 PO; +FOLI1TAB11 PO; +NS 1,000 ML IV ONE; +SLOWTAB2 PO; +SODI1TAB6 PO; +SODIUM CHLORIDE 0.9% INJ 10 ML SYR IV PRN; +SODIUM CHLORIDE 0.9% INJ 10 ML SYR IV SCH; +[UNRECOGNIZED DRUG - CODE]; +[UNRECOGNIZED DRUG - OTHER]; +[UNRECOGNIZED DRUG - OTHER]; +[UNRECOGNIZED DRUG - OTHER] PO; +diphenhydrAMINE 25 MG CAP PO ONE
[2019-05-02 12:00] VITALS: BP 134/58
[2019-05-02 14:00] VITALS: BP 115/60
[2019-05-02 15:00] VITALS: BP 102/57
[2019-05-02 15:50] VITALS: BP 121/63
[2019-05-02 17:05] VITALS: BP 136/82
[2019-05-02 19:08] VITALS: BP 143/72
== END ==
LOC: M INFU 11:55
PROVIDERS: ATTEND Internal Medicine Hematology
DX: C34.92 Malignant neoplasm of unspecified part of left bronchus or lung (principal); Z88.2 Allergy status to sulfonamides
CPT/HCPCS: 36430; 36591; 80053; 83735; 85027; 85049; 85055; 86850; 86900; 86901; 86920; 96360; 96361; G0463; J1642; P9016

== ENCOUNTER → 2019-05-20 | Outpatient (REF) | payer MEDICARE, BC, OTHER ==
[~2019-05-20] MED LIST changes: -ACETAMINOPHEN 325 MG TAB PO ONE; -NS 1,000 ML IV ONE; -SODIUM CHLORIDE 0.9% INJ 10 ML SYR IV PRN; -SODIUM CHLORIDE 0.9% INJ 10 ML SYR IV SCH; -diphenhydrAMINE 25 MG CAP PO ONE
== END ==
LOC: M LAB REF 11:28
PROVIDERS: ATTEND Physician Assistant
DX: J02.9 Acute pharyngitis, unspecified (principal)

== ENCOUNTER 2019-06-02 08:43 | Outpatient (CLI) | payer MEDICARE, BC, OTHER ==
[~2019-06-02] VITALS: Ht 149.9 cm; Wt 49.3 kg
[2019-06-02 08:45] VITALS: BP 139/67
[2019-06-02 09:55] VITALS: BP 111/62
[2019-06-02] MEDS ORDERED: diphenhydrAMINE 25 MG CAP PO ONE (10:00)
[2019-06-02] MEDS ORDERED: ACETAMINOPHEN TAB 650MG DOSE (2X325MG) PO ONE (10:00)
[2019-06-02 10:50] VITALS: BP 105/56
[2019-06-02 11:20] VITALS: BP 110/60
[2019-06-02 14:15] VITALS: BP 145/78
[2019-06-02] MEDS ORDERED: SODIUM CHLORIDE 0.9% INJ 10 ML SYR IV PRN (14:15)
[2019-06-03] MEDS ORDERED: SODIUM CHLORIDE 0.9% INJ 10 ML SYR IV SCH (09:00)
== END 2019-06-02 14:15 | disposition home or self-care (01) ==
LOC: M INFU 08:43
PROVIDERS: ATTEND Internal Medicine Hematology
DX: D64.9 Anemia, unspecified (principal); C34.90 Malignant neoplasm of unspecified part of unspecified bronchus or lung; Z88.2 Allergy status to sulfonamides; Z88.8 Allergy status to other drugs, medicaments and biological substances
CPT/HCPCS: J1642; P9016

== ENCOUNTER 2019-06-06 12:21 | Outpatient (CLI) | payer MEDICARE, BC, OTHER ==
[~2019-06-06] VITALS: Ht 149.9 cm; Wt 49.3 kg
[2019-06-06 12:30] VITALS: BP 139/68
[2019-06-06] MEDS ORDERED: D5W/0.45% SODIUM CHLORIDE 1,000 ML IV SCH (13:00)
[2019-06-06] MEDS ORDERED: SODIUM CHLORIDE 0.9% INJ 10 ML SYR IV ONE (14:00)
[2019-06-06] MEDS ORDERED: SODIUM CHLORIDE 0.9% INJ 10 ML SYR IV PRN (14:00)
[2019-06-06 16:20] VITALS: BP 142/66
== END 2019-06-07 16:20 | disposition home or self-care (01) ==
LOC: M INFU 12:21
PROVIDERS: ATTEND Internal Medicine Hematology
DX: D64.9 Anemia, unspecified (principal); C34.92 Malignant neoplasm of unspecified part of left bronchus or lung; Z88.2 Allergy status to sulfonamides; Z88.6 Allergy status to analgesic agent
CPT/HCPCS: 96365; 96366; J1642

== ENCOUNTER 2019-06-22 09:15 | Inpatient (IN) | payer MEDICARE, BC, OTHER ==
[2019-06-22] VITALS (11 sets, daily range): BP systolic 93–137; BP diastolic 55–74
[~2019-06-22] VITALS: Ht 149.9 cm; Wt 51.6 kg
[2019-06-22] MEDS ORDERED: [UNRECOGNIZED DRUG - CODE] (10:06)
--- NOTE | 2019-06-22 10:50 | HPEPDOC ---
[facility] Medical History & Physical Date of Admission Jun 22, 2019 Date of Service: Jun 22, 2019 Other Provider PCP- Dr. Jose Angel Hart Attending Physician: Elissa Rosas MD History and Physical CHIEF COMPLAINT: Abnormal blood levels HISTORY OF PRESENT ILLNESS: The patient is a 68-year-old female with past medical history of Stage I adenocarcinoma of the lung currently under going chemotherapy, chronic anemia, chronic kidney disease stage unknown, hypertension, COPD, vitamin B12 deficiency, iron deficiency anemia, hypomagnesemia, history of alcohol and tobacco use who presented to [facility] emergency room after being directly sent there from her oncology office for abnormal blood levels. The patient had originally presented to her oncologist office for chemotherapy. She is diagnosed with adenocarcinoma of the lung in December 2018. Since then she is undergone several different regimens for cancer treatment. She is currently on chemotherapy with carboplatin, alimta, katruda, last dose 3 weeks ago. She has had a history of pancytopenia with intermittent transfusions. Her last transfusion was 3 weeks ago. Also has a history of a GI bleed in the past. At her oncology office today H&H was found to be 4.4/13.0. A CMP showed a creatinine of 3.88, several weeks ago it was found to be 2.6. The patient admits to increased lethargy, nausea, vomiting, increased on bloody diarrhea from baseline, , weakness, lightheadedness and dizziness. She denies fevers, sick contacts, recent travel, cough, chest pain, hematuria, rectal bleeding. She does admit to some epistaxis several weeks ago. She has not had a good intake of fluids or food over the past week. She also states have some dark stools at home. In the emergency room the patient's blood pressure was 101/69, heart rate 92, temperature 97.4, respiratory rate 1922, 90% on 2 L NC. In trending labs the patient had labs done on 06/01/2019 showing creatinine 2.6 at the time. 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 She has seen a senior technical project manager in the past; however, does not follow regularly. She was resting comfortably in bed. She had some dry oral mucosa. Patient was admitted under inpatient status for symptomatic anemia, acute on chronic kidney disease, dehydration, pancytopenia. This admission was discussed in detail with Dr. Hart, oncology who was also consulted. REVIEW OF SYSTEMS: CONSTITUTIONAL: Denies unexplained weight gain fever, night sweats EYES: Denies eye drainage, eye pain, visual changes, dry/irritated eye EARS, NOSE, MOUTH, THROAT: Denies difficulty hearing, ringing in ears, mouth sores, loose teeth, sore throat, facial numbness or pain NECK: Denies swollen glands CARDIOVASCULAR: Denies irregular heartbeat, racing heart, chest pains, swelling of feet or legs, pain in legs with walking RESPIRATORY: Denies night sweats, wheezing, sputum production, oxygen at home, coughing up blood, cough lasting > 1 month GASTROINTESTINAL: Denies abdominal pain, constipation, bloody stool, diarrhea, heartburn GENITOURINARY: Denies painful urination, bloody urine, frequent urination, urgency, leaking urine, impotence MUSCULOSKELETAL: Denies joint pain, muscle pain, leg swelling INTEGUMENTARY: Denies rash, itching, new skin lesion, change in existing skin lesion, hair loss or increase, breast changes. NEUROLOGICAL: Denies headaches, dizziness, difficulty walking, numbness or tingling PSYCHIATRIC: Denies depression, anxiety, recurrent bad thoughts, mood swings, hallucinations PAST MEDICAL HISTORY: 1. Adenocarcinoma of the lung, medically unresectable, stage I 2. COPD 3. Hypertension 4. Hx of alcohol abuse 5. Hx of tobacco abuse PAST SURGICAL HISTORY: 1. Tubal ligation FAMILY HISTORY: Motherhypertension. at 91 years old Fatherlung cancer, at 73 years old Brotherdiabetes mellitus type 2, testicular cancer, lymph node cancer. Alive. SOCIAL HISTORY: Patient is a prior smoker 1 pack per day for 40 years. States to have quit 5 months ago. She does not wish to have a nicotine patch. She is a history of alcohol abuse but denies drinking over the past 5 months. She denies any drug use. She does not use a walker and is independent at home ambulating. Her primary care doctor is Nelly Uribe MD. Inter[employer] Professor/oncologistDrServando Davis, pulmonologistDr. [place]. The patient used to see nephrology; however, has not seen them in some time. She is a full code. ALLERGIES: Please see below. HOME MEDICATIONS: Please see below. PHYSICAL EXAMINATION: CONSTITUTIONAL: Thin appearing female, pale in color. No acute distress, resting comfortably, AAO x 3 EYES: PERRLA, EOM intact, pale conjunctivae HENT, MOUTH: Normocephalic, atraumatic, dry oral mucous membranes NECK: SUPPLE, no JVD, no lymphadenopathy, no carotid bruit CV: Regular rate and rhythm, S1S2 normal, no murmurs/rubs/gallops BACK: Mild kyphosis RESPIRATORY: Clear to auscultation bilaterally, no rales/rhonchi/wheezes GI: thin abdomen, BS positive in 4 quadrants, soft, nontender, nondistended, no rebound or guarding, no organomegaly : Deferred MUSCULOSKELETAL: Normal ROM. No cyanosis, clubbing, swelling, joint deformity, extremity edema INTEGUMENTARY: Dry skin, intact, no rashes, no lesions, no erythema NEUROLOGIC: Cranial Nerves II-XII are intact, no focal deficits PSYCHIATRIC: Mood and affect are normal LABORATORY DATA: Please see below Iron, TIBC, ferritin, LDH, haptoglobin, UA, troponin, BNP pending IMAGING: F/u renal US, CXR ASSESSMENT: The patient is a 68-year-old female admitted under inpatient status for symptomatic anemia, lung adenocarcinoma currently undergoing chemotherapy, pancytopenia, acute on chronic kidney disease. PLAN: 1. Symptomatic anemia. Hx of iron deficiency and Vitamin B12 anemia. History of frequent transfusions currently undergoing chemotherapy, last being 3 weeks ago. H&H 4.4. Ordered 3 units of PRBC to be transfused, follow-up posttransfusion H&H. Will cycle CBC every 6 hours, monitor for signs of bleeding. Follow-up occult blood with history of GI bleed. Monitor for any signs of bleeding. Avoid anticoagulation at this time. 2. Acute on chronic kidney disease, stage IIIIV. The patient does not follow with nephrology but did in the past. Baseline creatinine has been trending upwards over the past year, history of nephrotoxic chemotherapy. While transfusing attempting to avoid additional fluid that may dilute H/H, so will hold on continuous fluids for now. Consider starting gentle IVF hydration after transfusions. Follow-up daily CMP, consulting nephrology. 3. Hypotension likely secondary to dehydration. Hx of HTN. Baseline systolic blood pressures in the 130s mmHg, currently last blood pressure 101/69. Continue with transfusion of 3 units and monitor blood pressure closely. Can intermittently bolus small amounts of fluid if needed. Monitor on telemetry. Encourage fluid intake at the bedside. Avoid antihypertensive medications. 4. Acute on chronic diarrhea. Patient states that she has diarrhea at baseline; however, over the past several days it has picked up, nonbloody. Will order GI panel and rule out C. difficile. Contact precautions initiated. 5. Acute thrombocytopenia. Hx of intermittent thrombocytopenia. PLTs 14, on 05/31 PLTs were 74. Monitor with daily CBC. Heme/onc consulted to follow, monitor for signs of bleeding. 6. Epistaxis. States she had nose bleed over the past 2 weeks, will monitor closely with current hematological results. 7. Shortness of breath, likely due to acute anemia with hx of COPD. C/w plan under problem #1. F/u CXR, albuterol PRN. 8. Adenocarcinoma of the lung, medically unresectable, stage I. Currently undergoing chemotherapy with carboplatin, alimta, katruda, last dose 3 weeks ago. Heme/onc following. 9. Vitamin B12 deficiency. C/w supplementation. 10. Hypomagnesemia. F/u mag 11. DVT px. AC contraindicated at this time, SCDs TEDs DISPOSITION: Currently admitted under inpatient status. Plan on discharging home when medically improved. Heme/onc and nephrology consulted. Vital Signs Vital Signs Date Time Temp Pulse Resp B/P (MAP) Pulse Ox O2 Delivery O2 Flow Rate FiO2 06/22/19 10:30 89 102/55 (71) 100 06/22/19 09:45 Nasal Cannula 2.0 06/22/19 09:33 97.4 22 Home Medications Scheduled Amlodipine Besylate (Amlodipine Besylate) 10 Mg Tablet, 10 MG PO DAILY Cyanocobalamin (Vitamin B-12) (B-12) 1,000 Mcg Tablet, 1,000 MCG PO QWEEK THURSDAYS Folic Acid (Folic Acid) 1 Mg Tablet, 1 MG PO DAILY Magnesium Chloride (Slow-Mag) 71.5 Mg Tablet.dr, 1 TAB PO BID for hypomagnesemia Take 1 tablet po B.I.D. Ondansetron HCl (Zofran) 8 Mg Tablet, 8 MG PO TID for nausea/vomiting Take 8 mg t.i.d. for 3 days after [place] chemotherapy, then q 8 hrs prn nausea Sodium Chloride (Sodium Chloride) 1 Gm Tablet, 1 GM PO BID Scheduled PRN Albuterol Sulf (Albuterol Sulfate) 2.5 Mg/3 Ml Vial.neb, 1 VIAL NEB Q4H PRN for SHORTNESS OF BREATH Albuterol Sulfate (Proair Hfa) 8.5 Gm Hfa.aer.ad, 2 PUFF INH Q6H PRN for SHORTNESS OF BREATH Fluticasone/Vilanterol (Breo Ellipta 200-25 Mcg INH) 1 Each Blst.w.dev, 1 PUFF INH DAILY PRN for SHORTNESS OF BREATH PATIENT STATES USES ONLY WHEN NEEDED Prochlorperazine Maleate (Prochlorperazine Maleate) 10 Mg Tablet, 10 MG PO Q6H PRN for NAUSEA OR VOMITING Take 10 mg po q 6 hours prn nausea from chemotherapy not relieved by Zofran Tranexamic Acid (Tranexamic Acid) 1,000 Mg/10 Ml Vial, 1 SPRAY NA Q4H PRN for NOSE BLEEDS DRAW UP 10ML AND ADD TO SALINE NASAL SPRAY BOTTLE ACCORDING TO MD DIRECTIONS AND USE NASALLY EVERY 4 HOURS NEEDED FOR NOSE BLEEDING Allergies Coded Allergies: Sulfa (Sulfonamide Antibiotics) (Verified Allergy, Intermediate, ITCHING/RASH, 03/29/19) naproxen (Verified Allergy, Intermediate, RASH/ITCHING, 03/29/19) A-FIB/CHADSVASC A-FIB History Current/History of A-Fib/PAF?: No Current PO Anticoag Therapy: No Age/Risk Factor Scoring CHADSVASC: CHADSVASC Response (Comments) Value Age Risk Factor Age 65-74 years old 1 Gender Risk Factor Female 1 Hx of CHF No 0 Hx of HTN Yes 1 Hx of Stroke/TIA/or VTE No 0 Hx of Diabetes No 0 Hx of Vascular Disease No 0 Total 3 Treatment Treatment ordered: NONE Reason Anticoagulant not given: Other Other reason anticoagulant not: r/o bleed, anemia Elissa Rosas MD Jun 22, 2019 10:50
[2019-06-22] MEDS ORDERED: ALBUTEROL SULFATE 2.5 MG/0.5 ML INH NEB SOLN NEB PRN (13:30)
--- NOTE | 2019-06-22 14:12 | REP ---
CHEST, TWO VIEWS: Two views of the chest were performed and compared to prior studies, most recently 04/21/2019. I suspect a small right pleural effusion. There is hyperinflation. No acute infiltrate is seen. The heart is not enlarged. Mediastinal silhouette is unchanged. There is calcification of the thoracic aorta. Right central venous catheter is again noted. There are degenerative changes of the spine. IMPRESSION: Suspect small right pleural effusion. No evidence of acute infiltrate. Electronically Signed by Gianfranco Lacy MD 06/22/2019 02:49 P
[2019-06-22] MEDS ORDERED: SLF 3 ML SYR IV PRN (14:15)
--- NOTE | 2019-06-22 14:34 | REP ---
RENAL ULTRASOUND: Real-time sonographic evaluation of the kidneys performed. Right kidney is atrophic 6.6 x 4.7 x 3.4 cm. Left kidney is mildly atrophic 9.2 x 4.6 x 5.0 cm. There is no hydronephrosis bilaterally. There is a cyst in the upper pole of the right kidney 1.5 cm maximally and a cyst in the lower pole of the right kidney 1.9 cm maximally. There is a cyst in the mid to lower left kidney 1.4 cm maximally. Urinary bladder is mildly distended. Ureteral jets are not seen with Doppler color evaluation. IMPRESSION: Bilateral renal atrophy more so on the right than on the left. No hydronephrosis. Bilateral renal cysts. Electronically Signed by Gianfranco Lacy MD 06/22/2019 02:50 P
[2019-06-22] MEDS: FOLIC ACID 1 MG TAB PO SCH (14:40)
[2019-06-22] MEDS: MAGNESIUM CHLORIDE 64 MG TABCR (SLO MAG) PO SCH ×2 (14:40→21:14)
[2019-06-22] MEDS: SODIUM CHLORIDE 1 GM TAB PO SCH ×2 (14:41→21:13)
[2019-06-22] MEDS: ONDANSETRON 4 MG TAB (S0181) PO SCH ×3 (14:41→23:59)
[2019-06-22 15:17] LABS: APPEARANCE, URINE CLEAR (CLEAR); BACTERIA, URINE AUTO 1+ (NEGATIVE); BILIRUBIN, URINE AUTO NEGATIVE (NEGATIVE); BLOOD, URINE BLOOD 1+ (NEGATIVE); COLOR, URINE STRAW (YELLOW); GLUCOSE, URINE (UA) AUTO NEGATIVE (NEGATIVE); KETONE, URINE AUTO NEGATIVE (NEGATIVE); LEUKOCYTE ESTERASE, URINE AUTO NEGATIVE (NEGATIVE); NITRITE, URINE AUTO NEGATIVE (NEGATIVE); PROTEIN, URINE AUTO NEGATIVE (NEGATIVE); RBC, URINE AUTO 2 /HPF (0-3); SPECIFIC GRAVITY URINE AUTO 1.006 (1.002-1.035); SQUAMOUS EPITHELIAL CELL UR AU 1 /HPF (0-6); UROBILINOGEN, URINE AUTO 0.2 mg/dL (0.0-2.0); WBC, URINE AUTO 6 /HPF (0-3)
[2019-06-22 19:28] LABS: HEMOGLOBIN 8.5 g/dl (12.0-15.5)
[2019-06-22] MEDS: SYMBICORT 160/4.5MCG INHALER 6GM INH SCH (19:47)
[2019-06-22 19:53] LABS: FERRITIN 3180 NG/ML (8-252); IRON (FE) 238 UG/DL (50-170); LDH LACTATE DEHYDROGENASE 215 U/L (84-246); MAGNESIUM LEVEL 1.4 MG/DL (1.8-2.4); NT-PRO BNP 1024 PG/ML (<125); PERCENT SATURATION 94.4 % (13.2-45.0); PHOSPHORUS LEVEL 5.2 MG/DL (2.5-4.9); TOTAL IRON BINDING CAPACITY 252 UG/DL (250-450); TROPONIN I < 0.02 NG/ML (< 0.10)
[2019-06-22] MEDS: SLF 3 ML SYR IV SCH (21:14)
[2019-06-22] MEDS: VANCOMYCIN ORAL SOL 250MG/5ML ORAL SYRINGE PO SCH (23:59)
[2019-06-23] VITALS: BP 120/61
[2019-06-23 04:00] VITALS: BP_SYST 103; BP_SYST 120; BP_DIAS 56; BP_DIAS 71
[2019-06-23] MEDS: VANCOMYCIN ORAL SOL 250MG/5ML ORAL SYRINGE PO SCH ×4 (05:33→23:27)
[2019-06-23] MEDS: ONDANSETRON 4 MG TAB (S0181) PO SCH ×4 (05:33→23:27)
[2019-06-23] MEDS: SLF 3 ML SYR IV SCH ×3 (05:35→20:11)
[2019-06-23 06:16] LABS: EOS % 0.4 % (0.0-3.0); HEMATOCRIT 23.8 % (36.0-47.0); HEMOGLOBIN 8.2 g/dl (12.0-15.5); LYMPH # 0.8 10^3/uL (1.5-5.0); MEAN CORPUSCULAR HEMOGLOBIN 30.4 pg (27.0-33.0); MEAN CORPUSCULAR HGB CONC 34.5 g/dl (32.0-36.5); MEAN CORPUSCULAR VOLUME 88.1 fl (80.0-96.0); MONO # 0.5 10^3/uL (0.0-0.8); MONO % 17.1 % (0.0-5.0); NEUTROPHILS # 1.4 10^3/uL (1.5-8.5); NEUTROPHILS % 52.1 % (36.0-66.0); WHITE BLOOD COUNT 2.6 10^3/uL (4.0-10.0)
[2019-06-23 06:17] LABS: PLATELET COUNT, AUTOMATED 16 10^3/uL (150-450)
[2019-06-23 06:32] LABS: ALBUMIN 2.4 GM/DL (3.2-5.2); BILIRUBIN,TOTAL 0.3 MG/DL (0.2-1.0); CALCIUM LEVEL 8.5 MG/DL (8.8-10.2); CREATININE FOR GFR 3.54 MG/DL (0.55-1.30); GLOMERULAR FILTRATION RATE 13.7 (>45); POTASSIUM SERUM 4.6 MEQ/L (3.5-5.1); TOTAL PROTEIN 5.4 GM/DL (6.4-8.2)
[2019-06-23] MEDS: SYMBICORT 160/4.5MCG INHALER 6GM INH SCH ×2 (07:24→19:15)
[2019-06-23 08:00] VITALS: BP 97/54
[2019-06-23] MEDS ORDERED: MAG SULF 1GM/100ML (MAG RUN) SINGLE DOSE IV STA ×2 (08:06)
[2019-06-23] MEDS: FOLIC ACID 1 MG TAB PO SCH (08:33)
[2019-06-23] MEDS: SODIUM CHLORIDE 1 GM TAB PO SCH ×2 (08:33→20:10)
[2019-06-23] MEDS: MAGNESIUM CHLORIDE 64 MG TABCR (SLO MAG) PO SCH ×2 (08:33→20:10)
[2019-06-23] MEDS: NS 1,000 ML IV SCH ×2 (08:34→17:58)
[2019-06-23] MEDS ORDERED: MAG SULF 1GM/100ML (MAG RUN) SINGLE DOSE IV ONE ×2 (09:00)
[2019-06-23 12:00] VITALS: BP 114/57
--- NOTE | 2019-06-23 13:06 | CR ---
DATE OF CONSULTATION: 06/23/2019 CONSULTATION FOR: Elissa Rosas MD REASON FOR CONSULTATION: Acute renal failure superimposed on chronic kidney disease. HISTORY OF PRESENT ILLNESS: Mrs. Arellano is a 68-year-old female with multiple chronic medical problems including history of hypertension, chronic obstructive pulmonary disease (COPD), chronic kidney disease, anemia and adenocarcinoma of the lung. She has been on chemotherapy for the last few months and was not doing well. She was seen in the oncology office yesterday and hemoglobin was about 4 and creatinine was up to 3.88, due to which she was sent to the emergency room and got admitted. She has been given 3 units of packed red blood cells (RBCs) with improvement in her anemia. She is currently receiving IV fluid and a nephrology consultation was requested due to acute renal failure superimposed on chronic kidney disease. The patient does not have any recent nephrology followup and reportedly her baseline creatinine was about 2.6 mg/dl in May of this year. PAST MEDICAL AND SURGICAL HISTORY (Significant for): 1. Adenocarcinoma of the lung surgically unresectable. 2. COPD. 3. Hypertension. 4. History of chronic kidney disease. 5. Anemia. 6. History of alcohol use. 7. History of tobacco use in the past. PAST SURGICAL HISTORY: Significant for tubal ligation. PERSONAL AND SOCIAL HISTORY: The patient has prior history of smoking and heavy alcohol use, but she reports that she quit for about 5 months ago. FAMILY HISTORY: Noncontributory for this admission. ALLERGIES: She has allergy to SULFA and NAPROXEN. MEDICATIONS: Her home medications include amlodipine 10 mg daily, vitamin B12 1000 mcg daily, folic acid 1 mg daily, magnesium chloride 71.5 mg twice a day, Zofran 8 mg three times a day for nausea, and sodium chloride tablet 1 gram twice a day. She also uses albuterol inhaler and nebulizers as needed, Breo Ellipta 1 inhalation as needed. REVIEW OF SYSTEMS: She denies any fever or chills. She was feeling weak and nauseated prior to admission. Yesterday, she was very weak and had a hemoglobin of only 4. She has a [id number] in place which is currently being used for IV fluids. Ears, nose and throat are unremarkable. Cardiovascular system is significant for dyspnea on exertion, but denies any leg edema. Respiratory system with history of adenocarcinoma of the lung. She denies any hemoptysis or pleuritic type of chest pain. GI system is significant for nausea and poor oral intake. system negative for dysuria or hematuria. Endocrine system is negative for diabetes or thyroid problems. Hematological system is as per history of present illness. She has history of rectal bleeding and severe symptomatic anemia. She has been transfused frequently. Neurological system negative for seizures or stroke. Skin is negative for rash or ulcers. PHYSICAL EXAMINATION: Temperature 98.4 degrees Fahrenheit, heart rate 88 per minute and respiratory rate 18 per minute. Blood pressure 97/54 mmHg and oxygen saturation between 91% and 95%. Head is atraumatic. Neck is supple and jugular venous distention (JVD) not abnormally elevated. She has no oral thrush or ulcers. She has an Pohsar-H-Iplv on the right upper chest which is currently being used for IV fluids. Heart sounds are regular and lungs sound clear to auscultation. Abdomen: Soft and nontender. Bowel sounds are normal. Extremities have no cyanosis or clubbing. Neurologically, she seems to be grossly intact. LABORATORY DATA: Her stool has tested positive for Clostridium difficile and blood cultures are pending. Occult blood was also positive in her stools. Other labs today show WBC count 2.6, hemoglobin 8.2 and hematocrit 23.8. Platelets 16,000. Sodium 137, potassium 4.6, CO2 19, BUN 69 and creatinine 3.54. Glucose 8.5. PROBLEMS: 1. Acute renal failure superimposed on chronic kidney disease. The patient has known history of chronic kidney disease with atrophic right kidney and mildly atrophic left kidney. There was no hydronephrosis noticed on the renal ultrasound. Most likely her acute renal failure is due to dehydration and is gradually improving with IV fluid hydration. 2. Anemia. Most likely her anemia is multifactorial as she has been on chemotherapy and also reports rectal bleeding. She has been transfused 3 units of packed RBCs and is likely to require further transfusion. 3. Thrombocytopenia. Patient has severe thrombocytopenia related to her chemotherapy. I will defer any decision for platelet transfusion to oncology service. 4. Clostridium difficile colitis. Her stool tested positive for C diff and she is very high risk for a prolonged episode. She is currently on oral vancomycin and I would recommend to consider Dificid. 5. Metabolic acidosis. She has mild metabolic acidosis related to diarrhea and acute renal failure. At present, we will hold off on sodium bicarbonate and continue with IV normal saline. Chemistry should be checked again tomorrow. Thank you for involving the nephrology service in the care of Ms. Arellano. We will follow her along with you.
--- NOTE | 2019-06-23 14:40 | CR.PDOC ---
General Date of Consultation: Jun 23, 2019 Consultation THIS IS A TELEHEALTH NOTE GIVEN THE COVID19 PANDEMIC REASON FOR CONSULTATION/CHIEF COMPLAINT: [Pancytopenia, unresectable non-small cell carcinoma of the lung]. HISTORY OF PRESENT ILLNESS: Jamila Arellano is a 68-year-old woman with a long history of tobacco use who presents for follow-up with regards to her non-small cell carcinoma of the left lung, medically unresectable. This has been complicated by severe chronic exertional dyspnea, with emphysema that has been documented both by imaging studies as well as pulmonary function testing. In 2018, she underwent CT scan that documented an abnormality suspicious for a left-sided lung cancer. CT-guided core biopsy performed February 07, 2019 ultimately documented poorly differentiated non small cell carcinoma of the lung (pathology specimen number [id number]). PD-L1 target protein expression was 80%. No other molecular targets were identified. She began systemic antineoplastic therapy using cisplatin with Alimta in February 2019. A second cycle of treatment was administered on March 16, 2019, but was complicated by nausea, vomiting and volume depletion with acute kidney injury. She was hospitalized at [facility] on March 29, 2019 with creatinine markedly elevated at 3.51 mg per deciliter and sodium depressed at 117. With hydration, she improved clinically and was discharged home on March 31, 2019. She returned for outpatient evaluation on April 21, 2019, at which time, she was experiencing recurrent nausea along with a generalized erythematous rash. She was again hospitalized and received high-dose dexamethasone for 3 days together with intravenous fluid hydration. With this intervention, creatinine fell to 1.88 mg per deciliter and rash resolved. Throughout April 2019, the patient experienced recurrent episodes of fatigue and anorexia and required outpatient intravenous fluid hydration. She developed severe pancytopenia in mid April 2019 with platelet count falling to 14,000 per microliter. Chemotherapy was therefore deferred and she continued to receive outpatient intravenous fluid hydration. Her Karnofsky performance status gradually improved, and antineoplastic therapy was changed from cisplatin to carboplatin together with pemetrexed at and pembrolizumab. The patient received pembrolizumab with pemetrexed without a paiute-shoshone agent on March 27, 2019, and received her first cycle of carboplatin with pemetrexed and pembrolizumab on May 11, 2019. She has since been receiving intravenous fluid hydration as an outpatient. The patient last received carboplatin, Alimta, and Keytruda on 06/01/19. She also received 1 L D5 1/2 normal saline on that date. She required transfusion of 2 units packed red blood cells as well. The patient presented to [facility] for cancer care on 06/22/2023 cycle 3, day 1 of carboplatin, Alimta, and kidney treated. She was noted to have shortness of breath, fatigue, and pallor. She was noting occasional diarrhea. Laboratory data was found to show severe anemia and thrombocytopenia as well as neutropenia and acute on chronic kidney disease. Physical exam revealed tachycardia. As result, the patient was sent to [facility] emergency Department for further evaluation. She is now been admitted for further care. Since admission, she has received transfusion of 2 units packed red blood cell. She was noted to have blood in her stool. Testing revealed Clostridium difficile colitis. She is currently receiving oral vancomycin. Renal ultrasound was performed which shows new hydronephrosis. Nephrology has been consulted. I called the patient and her room to talk to her. She notes she feels much better today after transfusion of blood. She did have some slightly pink disch arge from her nose yesterday. She has noticed dark stools. However, these are resolving. Her respiratory status has improved and she is no longer requiring supplemental oxygen. She has had return of appetite and eating lunch. ALLERGIES: Please see below. HOME MEDICATIONS: Please see below. REVIEW OF SYSTEMS: A 14 point review of systems was conducted and negative other than as stated above. PHYSICAL EXAMINATION: VITAL SIGNS: Please see below. Unable to perform as this is a telehealth visit. LABORATORY DATA: Please see below. ASSESSMENT/PLAN: 1. [Pancytopenia]. Leukopenia and thrombocytopenia likely secondary to chemotherapy. Both are stable today. However, anemia is likely multifactorial and related to chemotherapy, acute blood loss from epistaxis and GI bleeding, and chronic kidney disease. LDH is within normal limits and thus the patient is not hemolyzing. She may benefit from erythropoietin injections. I recommend transfusing the patient to maintain hemoglobin greater than 8. We recommend transfusing platelets to maintain greater than 10. If the patient is actively bleeding, we would recommend transfusing platelets to maintain greater than 50. I recommend continuing to closely monitor the patient's hemoglobin and hematocrit for need for further transfusion. 2. [Unresectable non-small cell carcinoma of the lung]: The patient was due to receive cycle 3 of carboplatin AUC 5, Alimta (at 50% dose reduction), and Keytruda yesterday this will be held given profound pancytopenia as well as acute on chronic kidney injury. It is unclear when we will resume chemotherapy at this time. This was discussed with the patient and she voiced understanding. 3. [Acute on chronic kidney injury]: The patient's serum creatinine has slightly improved today. Renal ultrasound was reviewed and shows new hydronephrosis. Nephrology is following. 4. [GI bleeding]: Per primary team. Monitor carefully hemoglobin and hematocrit. The patient may need platelet transfusion if GI bleeding becomes more brisk. 5. [Clostridium difficile colitis]: The patient is on oral vancomycin. This is likely a contributing source to the patient's GI bleeding. Restasis per primary team. We appreciate their assistance in care in this complicated patient. The case was discussed in detail with Dr. Rosas. Please call over the weekend with questions. Vital Signs/I&O Vital Signs Date Time Temp Pulse Resp B/P (MAP) Pulse Ox O2 Delivery O2 Flow Rate FiO2 06/23/19 12:00 98.0 84 18 114/57 (76) 94 Room Air 06/22/19 18:17 2.0 I&O- Last 24 Hours up to 6 AM 06/23/19 06:00 Intake Total 1100 ml Output Total 1900 ml Balance -800 ml Laboratory Data Labs 24H Laboratory Tests 2 06/22/19 18:57: Phosphorus Level 5.2H, Magnesium Level 1.4L, Iron Level 238H, Total Iron Binding Capacity 252, Transferrin % Saturation 94.4H, Ferritin 3180H, Lactate Dehydrogenase 215, Troponin I < 0.02, QY-Abk-S-Type Natriuretic Peptide 1024H 06/23/19 05:42: Immature Granulocyte % (Auto) 0.4, Neutrophils (%) (Auto) 52.1, Lymphocytes (%) (Auto) 30.0, Monocytes (%) (Auto) 17.1H, Eosinophils (%) (Auto) 0.4, Basophils (%) (Auto) 0.0, Neutrophils # (Auto) 1.4L, Lymphocytes # (Auto) 0.8L, Monocytes # (Auto) 0.5, Eosinophils # (Auto) 0.0, Basophils # (Auto) 0.0, Nucleated Red Blood Cells % (auto) 0.0, Anion Gap 8, Glomerular Filtration Rate 13.7L, Calcium Level 8.5L, Total Bilirubin 0.3#, Aspartate Amino Transf (AST/SGOT) 36, Alanine Aminotransferase (ALT/SGPT) 40, Alkaline Phosphatase 92, Total Protein 5.4L, Albumin 2.4L, Albumin/Globulin Ratio 0.80L CBC/BMP Laboratory Tests 06/22/19 18:57 06/23/19 05:42 Microbiology Microbiology 06/23/19 Blood Culture, Received Pending 06/23/19 Blood Culture, Received Pending 06/22/19 Stool Occult Blood (MAYDA) - Final, Complete 06/22/19 Gastrointestinal Tract Panel (PCR) - Final, Complete Clostridium Difficile A/B Allergies Coded Allergies: Sulfa (Sulfonamide Antibiotics) (Verified Allergy, Intermediate, ITCHING/RASH, 03/29/19) naproxen (Verified Allergy, Intermediate, RASH/ITCHING, 03/29/19) Home Medications Scheduled Amlodipine Besylate (Amlodipine Besylate) 10 Mg Tablet, 10 MG PO DAILY, (Reported) Cyanocobalamin (Vitamin B-12) (B-12) 1,000 Mcg Tablet, 1,000 MCG PO QWEEK, (R eported) THURSDAYS Folic Acid (Folic Acid) 1 Mg Tablet, 1 MG PO DAILY, (Reported) Magnesium Chloride (Slow-Mag) 71.5 Mg Tablet.dr, 1 TAB PO BID for hypomagnesemia for 30 Days, #60 Take 1 tablet po B.I.D. Ondansetron HCl (Zofran) 8 Mg Tablet, 8 MG PO TID for nausea/vomiting for 10 Days, #30 Take 8 mg t.i.d. for 3 days after paiute-shoshone chemotherapy, then q 8 hrs prn nausea Sodium Chloride (Sodium Chloride) 1 Gm Tablet, 1 GM PO BID, (Reported) Scheduled PRN Albuterol Sulf (Albuterol Sulfate) 2.5 Mg/3 Ml Vial.neb, 1 VIAL NEB Q4H PRN for SHORTNESS OF BREATH, (Reported) Albuterol Sulfate (Proair Hfa) 8.5 Gm Hfa.aer.ad, 2 PUFF INH Q6H PRN for SHORTNESS OF BREATH, (Reported) Fluticasone/Vilanterol (Breo Ellipta 200-25 Mcg INH) 1 Each Blst.w.dev, 1 PUFF INH DAILY PRN for SHORTNESS OF BREATH, (Reported) PATIENT STATES USES ONLY WHEN NEEDED Prochlorperazine Maleate (Prochlorperazine Maleate) 10 Mg Tablet, 10 MG PO Q6H PRN for NAUSEA OR VOMITING for 5 Days, #40 Take 10 mg po q 6 hours prn nausea from chemotherapy not relieved by Zofran Tranexamic Acid (Tranexamic Acid) 1,000 Mg/10 Ml Vial, 1 SPRAY NA Q4H PRN for NOSE BLEEDS, (Reported) DRAW UP 10ML AND ADD TO SALINE NASAL SPRAY BOTTLE ACCORDING TO MD DIRECTIONS AND USE NASALLY EVERY 4 HOURS NEEDED FOR NOSE BLEEDING OTF MCCRARY MD Jun 23, 2019 14:40
[2019-06-23 16:00] VITALS: BP 102/59
--- NOTE | 2019-06-23 19:25 | IPNPDOC ---
Date Seen The patient was seen on 06/23/19. Progress Note SUBJECTIVE: C. difficile positive, started on vancomycin over the evening. The patient feels as though her diarrhea has decreased since admission. I spoke with both nephrology and hematology/oncology and they are to see the patient today. The patient appears more awake, alert and comfortable sitting in bed on evaluation. She denies chest pain, shortness of breath, nausea, vomiting, fevers or chills. OBJECTIVE: VITAL SIGNS: Please see below PHYSICAL EXAMINATION: CONSTITUTIONAL: Thin appearing female. No acute distress, resting in bed, AAO x 3 EYES: PERRLA, EOM intact HENT, MOUTH: Normocephalic, atraumatic, dry oral mucous membranes NECK: SUPPLE, no JVD, no lymphadenopathy, no carotid bruit CV: Regular rate and rhythm, S1S2 normal, no murmurs/rubs/gallops BACK: Mild kyphosis RESPIRATORY: Clear to auscultation bilaterally, no rales/rhonchi/wheezes GI: thin abdomen, BS positive in 4 quadrants, soft, nontender, nondistended, no rebound or guarding, no organomegaly : Deferred MUSCULOSKELETAL: Normal ROM. No cyanosis, clubbing, swelling, joint deformity, extremity edema INTEGUMENTARY: Improved skin turgor, skin intact, no rashes, no lesions, no erythema NEUROLOGIC: Cranial Nerves II-XII are intact, no focal deficits PSYCHIATRIC: Mood and affect are normal LABORATORY DATA: Please see below IMAGING: Renal US: Bilateral renal atrophy more so on the right than on the left. No hydronephrosis. Bilateral renal cysts. CXR: Suspect small right pleural effusion ASSESSMENT: The patient is a 68-year-old female admitted under inpatient status for symptomatic anemia, lung adenocarcinoma currently undergoing chemotherapy, pancytopenia, acute on chronic kidney disease. PLAN: 1. Anemia likely multifactorial and related to chemotherapy, acute blood loss fr om epistaxis, chronic kidney disease. Low syspicion but cannot r/o GI bleed. S/p 2 units PRBC transfused, H/H corrected appropriately. History of frequent transfusions currently undergoing chemotherapy, last being 3 weeks ago. LDH is within normal limits and patient is not hemolyzing. Occult blood + ;however, with C. diff present this may be cause. She may benefit from erythropoietin injections per heme/onc. Goal Hgb >8. Cycle CBC Q12 hrs, monitor for signs of bleeding. Monitor for any signs of bleeding. Avoid anticoagulation at this time. Heme/onc following. 2. Thrombocytopenia, pancytopenia 2/2 to chemotherapy. PLTs 16, goal >10. If the patient is actively bleeding, we would recommend transfusing platelets to maintain greater than 50. CBC Q12 hrs. 3. Acute on chronic kidney disease likely prerenal cause. Known history of chronic kidney disease with atrophic right kidney and mildly atrophic left kidney. Renal US above. There was no hydronephrosis noticed on the renal ultrasound. C/w IVF hydration, monitoring CBC Q12hrs and watching for hemodilution. Nephrology consulted. 4. C. difficile infection. <4 BM today, loose, at times watery. Started on oral vancomycin 125 mg QID x 14 days. Contact precautions in place. 5. Right pleural effusion. R/o HF with BNP elevated, new pleural effusion. Monitor for worsening SOB, fluid status while hydrating for KATIA. On RA, albuterol PRN. 6. Hypomagnesemia. Mag 1.4, s/p 2 gm IV mag sulfate. F/u mag in AM. 7. Adenocarcinoma of the lung, medically unresectable, stage I. Currently undergoing chemotherapy with carboplatin, alimta, keytruda, last dose 3 weeks ago. Heme/onc following. 8. Vitamin B12 deficiency. C/w supplementation. 9. DVT px. AC contraindicated at this time, SCDs TEDs DISPOSITION: Currently admitted under inpatient status. Plan on discharging home when medically improved. Heme/onc and nephrology consulted. VS, I&O, 24H, Fishbone Vital Signs/I&O Vital Signs Date Time Temp Pulse Resp B/P (MAP) Pulse Ox O2 Delivery O2 Flow Rate FiO2 06/23/19 16:00 98.2 77 18 102/59 (73) 94 Room Air 06/22/19 18:17 2.0 I&O- Last 24 Hours up to 6 AM 06/23/19 06:00 Intake Total 1100 ml Output Total 1900 ml Balance -800 ml Laboratory Data 24H LABS Laboratory Tests 2 06/23/19 05:42: Immature Granulocyte % (Auto) 0.4, Neutrophils (%) (Auto) 52.1, Lymphocytes (%) (Auto) 30.0, Monocytes (%) (Auto) 17.1H, Eosinophils (%) (Auto) 0.4, Basophils (%) (Auto) 0.0, Neutrophils # (Auto) 1.4L, Lymphocytes # (Auto) 0.8L, Monocytes # (Auto) 0.5, Eosinophils # (Auto) 0.0, Basophils # (Auto) 0.0, Nucleated Red Blood Cells % (auto) 0.0, Anion Gap 8, Glomerular Filtration Rate 13.7L, Calcium Level 8.5L, Total Bilirubin 0.3#, Aspartate Amino Transf (AST/SGOT) 36, Alanine Aminotransferase (ALT/SGPT) 40, Alkaline Phosphatase 92, Total Protein 5.4L, Albumin 2.4L, Albumin/Globulin Ratio 0.80L CBC/BMP Laboratory Tests 06/23/19 05:42 Microbiology Microbiology 06/23/19 Blood Culture, Received Pending 06/23/19 Blood Culture, Received Pending 06/22/19 Stool Occult Blood (MAYDA) - Final, Complete 06/22/19 Gastrointestinal Tract Panel (PCR) - Final, Complete Clostridium Difficile A/B Current Medications Current Medications Medications (Trade) Dose Ordered Sig/Alonso Route PRN Reason Start Time Stop Time Status Last Admin Dose Admin Albuterol Sulfate (Proventil Neb) 2.5 mg Q2HP PRN NEB SOB/WHEEZING 06/22/19 13:30 Budesonide/ Formoterol Fumarate (Symbicort 160/ 4.5mcg) 2 puff RBID INH 06/22/19 20:00 06/23/19 19:15 Folic Acid (Folic Acid) 1 mg DAILY PO 06/22/19 09:00 06/23/19 08:33 Home Med (Med Rec Complete!) ASDIRECTED XX 06/22/19 10:15 06/22/19 10:10 DC Magnesium Chloride (Slow-Mag) 64 mg BID PO 06/22/19 09:00 06/23/19 08:33 Magnesium Sulfate/ Dextrose 1 gm/IV Miscellaneous Supplies 100 ml @ 100 mls/hr STAT STAT IV 06/23/19 08:06 06/23/19 09:05 DC 06/23/19 08:34 Ondansetron HCl (Zofran) 4 mg Q6H PO 06/22/19 12:00 06/23/19 18:37 Sodium Chloride 1,000 ml @ 100 mls/hr Q10H IV 06/23/19 07:45 06/23/19 17:58 Sodium Chloride (Saline Lock Flush) 2 ml ASDIRECTED PRN IV SEE LABEL COMMENTS 06/22/19 14:15 Sodium Chloride (Saline Lock Flush) 2 ml SLF IV 06/22/19 22:00 06/23/19 14:01 Sodium Chloride (Sodium Chloride) 1 gm BID PO 06/22/19 09:00 06/23/19 08:33 Vancomycin HCl (First-Vancomycin 50(Firvanq)- 250mg/5ml) 125 mg Q6H PO 06/23/19 00:00 06/23/19 18:41 Allergies Coded Allergies: Sulfa (Sulfonamide Antibiotics) (Verified Allergy, Intermediate, ITCHING/RASH, 03/29/19) naproxen (Verified Allergy, Intermediate, RASH/ITCHING, 03/29/19) Elissa Rosas MD Jun 23, 2019 19:25
[2019-06-23 20:00] VITALS: BP 118/66
[2019-06-23 21:05] LABS: EOS % 0.4 % (0.0-3.0); HEMATOCRIT 23.1 % (36.0-47.0); HEMOGLOBIN 7.9 g/dl (12.0-15.5); LYMPH # 0.8 10^3/uL (1.5-5.0); LYMPH % 30.1 % (24.0-44.0); MEAN CORPUSCULAR HEMOGLOBIN 29.8 pg (27.0-33.0); MEAN CORPUSCULAR HGB CONC 34.2 g/dl (32.0-36.5); MEAN CORPUSCULAR VOLUME 87.2 fl (80.0-96.0); MONO # 0.4 10^3/uL (0.0-0.8); MONO % 16.4 % (0.0-5.0); NEUTROPHILS # 1.4 10^3/uL (1.5-8.5); NEUTROPHILS % 53.1 % (36.0-66.0); RED BLOOD COUNT 2.65 10^6/uL (4.00-5.40); WHITE BLOOD COUNT 2.6 10^3/uL (4.0-10.0)
[2019-06-23 21:07] LABS: PLATELET COUNT, AUTOMATED 15 10^3/uL (150-450)
[2019-06-24] VITALS: BP 139/64
[2019-06-24] MEDS: SLF 3 ML SYR IV SCH ×3 (03:42→21:01)
[2019-06-24] MEDS: NS 1,000 ML IV SCH (03:42)
[2019-06-24 04:00] VITALS: BP 101/56
[2019-06-24 05:55] LABS: ALBUMIN 1.9 GM/DL (3.2-5.2); BILIRUBIN,TOTAL 0.2 MG/DL (0.2-1.0); CALCIUM LEVEL 7.7 MG/DL (8.8-10.2); CREATININE FOR GFR 3.45 MG/DL (0.55-1.30); GLOMERULAR FILTRATION RATE 14.1 (>45); POTASSIUM SERUM 3.9 MEQ/L (3.5-5.1); TOTAL PROTEIN 5.2 GM/DL (6.4-8.2)
[2019-06-24] MEDS: ONDANSETRON 4 MG TAB (S0181) PO SCH ×4 (05:55→23:32)
[2019-06-24] MEDS: VANCOMYCIN ORAL SOL 250MG/5ML ORAL SYRINGE PO SCH ×4 (05:55→23:32)
[2019-06-24 07:42] VITALS: BP 110/57
[2019-06-24] MEDS: FOLIC ACID 1 MG TAB PO SCH (08:16)
[2019-06-24] MEDS: MAGNESIUM CHLORIDE 64 MG TABCR (SLO MAG) PO SCH ×2 (08:16→21:01)
[2019-06-24] MEDS: SODIUM CHLORIDE 1 GM TAB PO SCH (08:16)
[2019-06-24] MEDS: SYMBICORT 160/4.5MCG INHALER 6GM INH SCH ×2 (08:16→21:07)
[2019-06-24] MEDS ORDERED: DARBEPOETIN 100 MCG/0.5 ML *NON-DIALYSIS* SYRINGE (J0881) SC SCH (09:00)
[2019-06-24 09:13] LABS: EOS % 0.3 % (0.0-3.0); HEMATOCRIT 25.4 % (36.0-47.0); HEMOGLOBIN 8.7 g/dl (12.0-15.5); LYMPH # 0.7 10^3/uL (1.5-5.0); LYMPH % 24.8 % (24.0-44.0); MEAN CORPUSCULAR HEMOGLOBIN 30.4 pg (27.0-33.0); MEAN CORPUSCULAR HGB CONC 34.3 g/dl (32.0-36.5); MEAN CORPUSCULAR VOLUME 88.8 fl (80.0-96.0); MONO # 0.4 10^3/uL (0.0-0.8); MONO % 12.6 % (0.0-5.0); NEUTROPHILS # 1.8 10^3/uL (1.5-8.5); RED BLOOD COUNT 2.86 10^6/uL (4.00-5.40); WHITE BLOOD COUNT 2.9 10^3/uL (4.0-10.0)
[2019-06-24 09:15] LABS: PLATELET COUNT, AUTOMATED 19 10^3/uL (150-450)
[2019-06-24] MEDS: SODIUM BICARBONATE 75 MEQ in NS 0.45% 1,000 ML IV SCH ×2 (11:35→23:33)
[2019-06-24 11:56] VITALS: BP 113/59
--- NOTE | 2019-06-24 13:45 | IPNPDOC ---
Date Seen The patient was seen on 06/24/19. Progress Note SUBJECTIVE: < 2 BMs over the evening. IVFs switched to sodium bicarb at 80 cc/hr. Saturating well on RA, faint crackles heard at lung bases- careful to no overload due to getting hydrated. Addressed code status and changed MOLST form to designate DNR/DNI. Switching from Q12 hr labs to Qdaily. PLTs improved slightly. She denies chest pain, shortness of breath, nausea, vomiting, fevers or chills. OBJECTIVE: VITAL SIGNS: Please see below PHYSICAL EXAMINATION: CONSTITUTIONAL: Thin appearing female. No acute distress, resting in bed, AAO x 3 EYES: PERRLA, EOM intact HENT, MOUTH: Normocephalic, atraumatic, dry oral mucous membranes NECK: SUPPLE, no JVD, no lymphadenopathy, no carotid bruit CV: Regular rate and rhythm, S1S2 normal, no murmurs/rubs/gallops BACK: Mild kyphosis RESPIRATORY: Faint crackles in bilateral lower lung matute. no rales/rhonchi/wheezes GI: thin abdomen, BS positive in 4 quadrants, soft, nontender, nondistended, no rebound or guarding, no organomegaly : Deferred MUSCULOSKELETAL: Normal ROM. No cyanosis, clubbing, swelling, joint deformity, e xtremity edema INTEGUMENTARY: Improved skin turgor, skin intact, no rashes, no lesions, no erythema NEUROLOGIC: Cranial Nerves II-XII are intact, no focal deficits PSYCHIATRIC: Mood and affect are normal LABORATORY DATA: Please see below IMAGING: No new imaging. ASSESSMENT: The patient is a 68-year-old female admitted under inpatient status for acute on chronic kidney disease, anemia, lung adenocarcinoma currently undergoing chemotherapy, pancytopenia. PLAN: 1. Acute on chronic kidney disease likely prerenal cause. Cr slightly improved with worsened acidosis, stopped NS and started sodium bicarb at 80 cc/hr. C/w IVF hydration, monitoring CMP daily. Nephrology following. 2. Hyperchloremic metabolic acidosis 2/2 to normal saline fluids. Stopped fluids, nephrology started sodium bicarbonate. Monitor closely. 3. Thrombocytopenia, pancytopenia 2/2 to chemotherapy. PLTs 19, goal >10. If the patient is actively bleeding, we would recommend transfusing platelets to maintain greater than 50. CBC Q12 hrs. 4. Anemia likely multifactorial and related to chemotherapy, acute blood loss from epistaxis, chronic kidney disease. Low suspicion but cannot r/o GI bleed. No acute bleeding, H/H slightly lower today but likely dilutional effect from fluids. Goal Hgb >8. Cycle CBC daily, avoid anticoagulation at this time. Heme/onc following. 5. C. difficile infection. <2 BM today, more firm today. C/w oral vancomycin 125 mg QID x 14 days. Contact precautions in place. 6. Right pleural effusion. On room air, denies shortness of breath or cough. May need to intermittently diureses if signs of fluid overload. F/u echocardiogram to r/o HF with BNP elevated, new pleural effusion. Monitor for worsening SOB, fluid status while hydrating for KATIA. On RA, albuterol PRN. 7. Hypomagnesemia. Mag 2.0, wnl s/p 2 gm IV mag sulfate. F/u mag daily. 8. Adenocarcinoma of the lung, medically unresectable, stage I. Currently undergoing chemotherapy with carboplatin, alimta, keytruda, last dose 3 weeks ago. Holding chemo for now, Heme/onc following. 9. Vitamin B12 deficiency. C/w supplementation. 10. DVT px. AC contraindicated at this time, SCDs TEDs DISPOSITION: Currently admitted under inpatient status. Plan on discharging home when medically improved. Heme/onc and nephrology consulted. VS, I&O, 24H, Fishbone Vital Signs/I&O Vital Signs Date Time Temp Pulse Resp B/P (MAP) Pulse Ox O2 Delivery O2 Flow Rate FiO2 06/24/19 11:56 97.2 91 18 113/59 (77) 95 Room Air 06/22/19 18:17 2.0 I&O- Last 24 Hours up to 6 AM 06/24/19 06:00 Intake Total 2500 ml Output Total 2150 ml Balance 350 ml Laboratory Data 24H LABS Laboratory Tests 2 06/23/19 20:54: Immature Granulocyte % (Auto) 0.0, Neutrophils (%) (Auto) 53.1, Lymphocytes (%) (Auto) 30.1, Monocytes (%) (Auto) 16.4H, Eosinophils (%) (Auto) 0.4, Basophils (%) (Auto) 0.0, Neutrophils # (Auto) 1.4L, Lymphocytes # (Auto) 0.8L, Monocytes # (Auto) 0.4, Eosinophils # (Auto) 0.0, Basophils # (Auto) 0.0, Nucleated Red Blood Cells % (auto) 0.0, Immature Platelet Fraction 1.9 06/24/19 04:56: Anion Gap 10, Glomerular Filtration Rate 14.1L, Calcium Level 7.7L, Magnesium Level 2.0, Total Bilirubin 0.2, Aspartate Amino Transf (AST/SGOT) 26, Alanine Aminotransferase (ALT/SGPT) 30, Alkaline Phosphatase 87, Total Protein 5.2L, Albumin 1.9#L, Albumin/Globulin Ratio 0.58L 06/24/19 09:00: Immature Granulocyte % (Auto) 0.3, Neutrophils (%) (Auto) 62.0, Lymphocytes (%) (Auto) 24.8, Monocytes (%) (Auto) 12.6H, Eosinophils (%) (Auto) 0.3, Basophils (%) (Auto) 0.0, Neutrophils # (Auto) 1.8, Lymphocytes # (Auto) 0.7L, Monocytes # (Auto) 0.4, Eosinophils # (Auto) 0.0, Basophils # (Auto) 0.0, Nucleated Red Blood Cells % (auto) 0.0 CBC/BMP Laboratory Tests 06/23/19 20:54 06/24/19 04:56 06/24/19 09:00 Microbiology Microbiology 06/23/19 Blood Culture - Preliminary, Resulted No growth after 24 hours . All specim... 06/23/19 Blood Culture - Preliminary, Resulted No growth after 24 hours . All specim... 06/22/19 Stool Occult Blood (MAYDA) - Final, Complete 06/22/19 Gastrointestinal Tract Panel (PCR) - Final, Complete Clostridium Difficile A/B Current Medications Current Medications Medications (Trade) Dose Ordered Sig/Alonso Route PRN Reason Start Time Stop Time Status Last Admin Dose Admin Albuterol Sulfate (Proventil Neb) 2.5 mg Q2HP PRN NEB SOB/WHEEZING 06/22/19 13:30 Budesonide/ Formoterol Fumarate (Symbicort 160/ 4.5mcg) 2 puff RBID INH 06/22/19 20:00 06/24/19 08:16 Folic Acid (Folic Acid) 1 mg DAILY PO 06/22/19 09:00 06/24/19 08:16 Home Med (Med Rec Complete!) ASDIRECTED XX 06/22/19 10:15 06/22/19 10:10 DC Magnesium Chloride (Slow-Mag) 64 mg BID PO 06/22/19 09:00 06/24/19 08:16 Magnesium Sulfate/ Dextrose 1 gm/IV Miscellaneous Supplies 100 ml @ 100 mls/hr STAT STAT IV 06/23/19 08:06 06/23/19 09:05 DC 06/23/19 08:34 Ondansetron HCl (Zofran) 4 mg Q6H PO 06/22/19 12:00 06/24/19 12:18 Sodium Bicarbonate 75 meq/Sodium Chloride 1,075 ml @ 80 mls/hr [id number] IV 06/24/19 11:00 06/24/19 11:35 Sodium Chloride 1,000 ml @ 80 mls/hr [id number] IV 06/23/19 07:45 06/24/19 09:39 DC 06/24/19 03:42 Sodium Chloride (Saline Lock Flush) 2 ml ASDIRECTED PRN IV SEE LABEL COMMENTS 06/22/19 14:15 Sodium Chloride (Saline Lock Flush) 2 ml SLF IV 06/22/19 22:00 06/23/19 20:11 Sodium Chloride (Sodium Chloride) 1 gm BID PO 06/22/19 09:00 06/24/19 09:37 DC 06/24/19 08:16 Vancomycin HCl (First-Vancomycin 50(Firvanq)- 250mg/5ml) 125 mg Q6H PO 06/23/19 00:00 06/24/19 12:18 Allergies Coded Allergies: Sulfa (Sulfonamide Antibiotics) (Verified Allergy, Intermediate, ITCHING/RASH, 03/29/19) naproxen (Verified Allergy, Intermediate, RASH/ITCHING, 03/29/19) Elissa Rosas MD Jun 24, 2019 13:45
[2019-06-24 16:00] VITALS: BP 107/55
[2019-06-24 20:00] VITALS: BP 132/59
[2019-06-25] VITALS: BP 121/68
[2019-06-25 04:00] VITALS: BP 133/72
[2019-06-25] MEDS: VANCOMYCIN ORAL SOL 250MG/5ML ORAL SYRINGE PO SCH ×3 (05:20→18:06)
[2019-06-25] MEDS: ONDANSETRON 4 MG TAB (S0181) PO SCH ×3 (05:20→18:04)
[2019-06-25] MEDS: SLF 3 ML SYR IV SCH ×2 (05:21→13:27)
[2019-06-25 06:07] LABS: EOS % 0.3 % (0.0-3.0); HEMOGLOBIN 7.2 g/dl (12.0-15.5); LYMPH # 0.8 10^3/uL (1.5-5.0); LYMPH % 25.6 % (24.0-44.0); MEAN CORPUSCULAR HEMOGLOBIN 30.8 pg (27.0-33.0); MEAN CORPUSCULAR HGB CONC 34.8 g/dl (32.0-36.5); MEAN CORPUSCULAR VOLUME 88.5 fl (80.0-96.0); MONO # 0.5 10^3/uL (0.0-0.8); MONO % 16.7 % (0.0-5.0); NEUTROPHILS # 1.8 10^3/uL (1.5-8.5); NEUTROPHILS % 57.4 % (36.0-66.0); RED BLOOD COUNT 2.34 10^6/uL (4.00-5.40); WHITE BLOOD COUNT 3.1 10^3/uL (4.0-10.0)
[2019-06-25 06:11] LABS: HEMATOCRIT 20.7 % (36.0-47.0)
[2019-06-25 06:12] LABS: PLATELET COUNT, AUTOMATED 21 10^3/uL (150-450)
[2019-06-25 06:19] LABS: BILIRUBIN,TOTAL 0.2 MG/DL (0.2-1.0); CALCIUM LEVEL 7.4 MG/DL (8.8-10.2); CREATININE FOR GFR 3.35 MG/DL (0.55-1.30); GLOMERULAR FILTRATION RATE 14.6 (>45); POTASSIUM SERUM 3.9 MEQ/L (3.5-5.1); TOTAL PROTEIN 4.8 GM/DL (6.4-8.2)
[2019-06-25] MEDS: SYMBICORT 160/4.5MCG INHALER 6GM INH SCH ×2 (07:17→20:04)
[2019-06-25 07:35] VITALS: BP 111/62
[2019-06-25] MEDS: MAGNESIUM CHLORIDE 64 MG TABCR (SLO MAG) PO SCH ×2 (08:46→20:17)
[2019-06-25] MEDS: FOLIC ACID 1 MG TAB PO SCH (08:46)
[2019-06-25] MEDS ORDERED: FUROSEMIDE 40 MG/4 ML VIAL (J1940) IV SCH (09:00)
--- NOTE | 2019-06-25 12:55 | IPNPDOC ---
Date Seen The patient was seen on 06/25/19. Progress Note SUBJECTIVE: + 700-900 daily over past 2 days with decrease in resting O2. Given 40 mg IV lasix, started daily. 1 BM over past 24 hours. H/H slightly lower today, could be dilutional so watching closely. Cr slowly improving. PLTs continue to improve, no signs of acute bleeding. She denies chest pain, shortness of breath, nausea, vomiting, fevers or chills. OBJECTIVE: VITAL SIGNS: Please see below PHYSICAL EXAMINATION: CONSTITUTIONAL: Thin appearing female. No acute distress, resting in bed, AAO x 3 EYES: PERRLA, EOM intact HENT, MOUTH: Normocephalic, atraumatic, dry oral mucous membranes NECK: SUPPLE, no JVD, no lymphadenopathy, no carotid bruit CV: Regular rate and rhythm, S1S2 normal, no murmurs/rubs/gallops CHEST: Right side chest port BACK: Mild kyphosis RESPIRATORY: Faint crackles in bilateral lower lung matute. no rales/rhonchi/wheezes GI: thin abdomen, BS positive in 4 quadrants, soft, nontender, nondistended, no rebound or guarding, no organomegaly : Deferred MUSCULOSKELETAL: Normal ROM. No cyanosis, clubbing, swelling, joint deformity, extremity edema INTEGUMENTARY: Improved skin turgor, skin intact, no rashes, no lesions, no erythema NEUROLOGIC: Cranial Nerves II-XII are intact, no focal deficits PSYCHIATRIC: Mood and affect are normal LABORATORY DATA: Please see below IMAGING: No new imaging. ASSESSMENT: The patient is a 68-year-old female admitted under inpatient status for acute on chronic kidney disease, anemia, lung adenocarcinoma currently undergoing chemotherapy, pancytopenia. PLAN: 1. Acute kidney injury on chronic kidney disease likely prerenal cause. Cr and acidosis improving slowly. C/w IVF hydration, monitoring CMP daily. Nephrology following. 2. Right pleural effusion. On room air, but lower O2 sat than previous days at rest. Crackles, denies shortness of breath or cough. Given lasix 40 mg IV x 1. F/u echocardiogram likely after weekend to r/o HF with BNP elevated, new pleural effusion. Albuterol PRN. 3. Thrombocytopenia, pancytopenia 2/2 to chemotherapy. PLTs 21, goal >10. If the patient is actively bleeding, we would recommend transfusing platelets to maintain greater than 50. CBC daily. 4. Anemia likely multifactorial and related to chemotherapy, acute blood loss from epistaxis, chronic kidney disease. Low suspicion but cannot r/o GI bleed. No acute bleeding, H/H slightly lower today but could be dilutional effect from fluids. Goal Hgb >7. Cycle CBC daily, avoid anticoagulation at this time. Heme/onc following. 5. C. difficile infection. 1 BM over past 24 hrs. C/w oral vancomycin 125 mg QID x 14 days (Day 3). Contact precautions in place. 6. Hypomagnesemia. F/u mag daily. 7. Adenocarcinoma of the lung, medically unresectable, stage I. Currently undergoing chemotherapy with carboplatin, alimta, keytruda, last dose 3 weeks ago. Holding chemo for now, Heme/onc following. 8. Vitamin B12 deficiency. C/w supplementation. 9. DVT px. AC contraindicated at this time, SCDs TEDs DISPOSITION: Currently admitted under inpatient status. Plan on discharging home when medically improved. Heme/onc and nephrology consulted. VS, I&O, 24H, Fishbone Vital Signs/I&O Vital Signs Date Time Temp Pulse Resp B/P (MAP) Pulse Ox O2 Delivery O2 Flow Rate FiO2 06/25/19 07:35 97.3 86 18 111/62 (78) 91 Room Air 06/22/19 18:17 2.0 I&O- Last 24 Hours up to 6 AM 06/25/19 06:00 Intake Total 3370 ml Output Total 2300 ml Balance 1070 ml Laboratory Data 24H LABS Laboratory Tests 2 06/25/19 05:21: Immature Granulocyte % (Auto) 0.0, Neutrophils (%) (Auto) 57.4, Lymphocytes (%) (Auto) 25.6, Monocytes (%) (Auto) 16.7H, Eosinophils (%) (Auto) 0.3, Basophils (%) (Auto) 0.0, Neutrophils # (Auto) 1.8, Lymphocytes # (Auto) 0.8L, Monocytes # (Auto) 0.5, Eosinophils # (Auto) 0.0, Basophils # (Auto) 0.0, Nucleated Red Blood Cells % (auto) 0.0, Immature Platelet Fraction 2.9, Anion Gap 8, Glomerular Filtration Rate 14.6L, Calcium Level 7.4L, Total Bilirubin 0.2, Aspartate Amino Transf (AST/SGOT) 24, Alanine Aminotransferase (ALT/SGPT) 31, Alkaline Phosphatase 106, Total Protein 4.8L, Albumin 2.0L, Albumin/Globulin Ratio 0.71L CBC/BMP Laboratory Tests 06/25/19 05:21 Microbiology Microbiology 06/23/19 Blood Culture - Preliminary, Resulted No Growth after 48 hours. All Specime... 06/23/19 Blood Culture - Preliminary, Resulted No Growth after 48 hours. All Specime... 06/22/19 Stool Occult Blood (MAYDA) - Final, Complete 06/22/19 Gastrointestinal Tract Panel (PCR) - Final, Complete Clostridium Difficile A/B Current Medications Current Medications Medications (Trade) Dose Ordered Sig/Alonso Route PRN Reason Start Time Stop Time Status Last Admin Dose Admin Albuterol Sulfate (Proventil Neb) 2.5 mg Q2HP PRN NEB SOB/WHEEZING 06/22/19 13:30 Budesonide/ Formoterol Fumarate (Symbicort 160/ 4.5mcg) 2 puff RBID INH 06/22/19 20:00 06/25/19 07:17 Darbepoetin Felipe (Aranesp) 100 mcg Sa@09 SC 06/24/19 09:00 06/24/19 18:35 Folic Acid (Folic Acid) 1 mg DAILY PO 06/22/19 09:00 06/25/19 08:46 Furosemide (LASIX injection) 40 mg DAILY IV 06/25/19 09:00 06/25/19 08:47 Home Med (Med Rec Complete!) ASDIRECTED XX 06/22/19 10:15 06/22/19 10:10 DC Magnesium Chloride (Slow-Mag) 64 mg BID PO 06/22/19 09:00 06/25/19 08:46 Magnesium Sulfate/ Dextrose 1 gm/IV Miscellaneous Supplies 100 ml @ 100 mls/hr STAT STAT IV 06/23/19 08:06 06/23/19 09:05 DC 06/23/19 08:34 Ondansetron HCl (Zofran) 4 mg Q6H PO 06/22/19 12:00 06/25/19 05:20 Sodium Bicarbonate 75 meq/Sodium Chloride 1,075 ml @ 80 mls/hr [id number] IV 06/24/19 11:00 06/24/19 23:33 Sodium Chloride 1,000 ml @ 80 mls/hr [id number] IV 06/23/19 07:45 06/24/19 09:39 DC 06/24/19 03:42 Sodium Chloride (Saline Lock Flush) 2 ml ASDIRECTED PRN IV SEE LABEL COMMENTS 06/22/19 14:15 Sodium Chloride (Saline Lock Flush) 2 ml SLF IV 06/22/19 22:00 06/24/19 21:01 Sodium Chloride (Sodium Chloride) 1 gm BID PO 06/22/19 09:00 06/24/19 09:37 DC 06/24/19 08:16 Vancomycin HCl (First-Vancomycin 50(Firvanq)- 250mg/5ml) 125 mg Q6H PO 06/23/19 00:00 06/25/19 05:20 Allergies Coded Allergies: Sulfa (Sulfonamide Antibiotics) (Verified Allergy, Intermediate, ITCHING/RASH, 03/29/19) naproxen (Verified Allergy, Intermediate, RASH/ITCHING, 03/29/19) Elissa Rosas MD Jun 25, 2019 12:55
[2019-06-25] MEDS: SODIUM BICARBONATE 75 MEQ in NS 0.45% 1,000 ML IV SCH (13:26)
[2019-06-25 14:02] VITALS: BP 117/84
--- NOTE | 2019-06-25 19:18 | IPN ---
DATE: 06/25/2019 SUBJECTIVE: The patient was seen and examined at the bedside today in the afternoon. She is awake and alert. She is making good amount of urine; however, renal function is very slowly improving. Metabolic acidosis is improving with the intravenous (IV) bicarbonate-containing fluid. She reports that frequency of the diarrhea is improving and also stools are more formed. OBJECTIVE: VITAL SIGNS: Temperature is 98.6 degrees Fahrenheit, blood pressure 117/84, pulse is 96, respiratory rate of 16, saturating 96% on room air. INTAKE AND OUTPUT: Urine output recorded is 2.1 liters yesterday, 1.5 liters so far today since overnight. Weight in the bed scale is 51.6 kg. PHYSICAL EXAMINATION: GENERAL: The patient is awake, alert, oriented times three, sitting up in the bed in no apparent distress. HEAD AND NECK EXAM: Extraocular muscles intact. Pupils equally round and reactive to light. Mucous membranes are moist. Neck is supple. There is no jugular venous distention (JVD). CARDIOVASCULAR: S1, S2. Regular rate. No edema of the bilateral lower extremities. RESPIRATORY: Chest is clear to auscultation bilaterally. Bilateral equal air entry. No rales or rhonchi. She has a right anterior chest wall Port-A-Cath. ABDOMEN: Soft, positive bowel sounds. Nontender. No organomegaly. MUSCULOSKELETAL: No clubbing or cyanosis. Pulses are 2+. CENTRAL NERVOUS SYSTEM (PARAPROFESSIONAL INTERPRETER): No focal deficit. Power is 05/05 in all extremities. LABORATORY REVIEW: Complete blood count (CBC) showed a WBC of 3.1, hemoglobin 7.2, platelets are 21. Basic metabolic panel (BMP) showed sodium 142, potassium 3.9, chloride 112, bicarbonate 22, BUN 43, creatinine is 3.3, it was 3.4 yesterday, calcium 7.4, albumin is 2. CURRENT INPATIENT MEDICATIONS: The patient is getting bicarbonate-containing IV fluid. I have changes the stop date to 06/25/2019 at 08:00 p.m. today. She was also given a dose of Lasix 40 mg IV. I am going to stop it and make it as needed only. She was given a dose of Aranesp 100 mcg subcutaneous yesterday morning. No other change in the medications today as compared with yesterday. PROBLEMS: 1. Acute kidney injury superimposed on chronic kidney disease. Majority of the renal function is from the left kidney. Acute kidney injury (KATIA) is most likely secondary to dehydration and use of chemotherapy. Renal function is improving. Patient is nonoliguric. Electrolytes are within the acceptable range. Continue to monitor for renal improvement. No urgent need of hemodialysis. 2. Metabolic acidosis. The patient is getting bicarbonate-containing fluid. Bicarbonate level is improved. IV fluid will be stopped tonight. If needed, she will be started on oral bicarbonate tomorrow morning. 3. Anemia. The patient was started on Aranesp injections yesterday. Hemoglobin level is still low. If hemoglobin drops below 7, she will be given packed red blood cells (PRBC) transfusion. 4. Thrombocytopenia. Platelet levels are improving. 5. Clostridium (C) difficile colitis. The patient's diarrhea is improving. IV fluids will be stopped tonight. Continue to encourage oral hydration. She continues to be on oral vancomycin. 6. Non small-cell cancer of the lung. Patient was getting chemotherapy as outpatient. Management will be done as per hematology/oncology recommendations.
[2019-06-25 22:00] VITALS: BP 116/80
[2019-06-26] VITALS (8 sets, daily range): BP systolic 112–130; BP diastolic 60–75
[2019-06-26] MEDS: ONDANSETRON 4 MG TAB (S0181) PO SCH ×4 (00:07→18:07)
[2019-06-26] MEDS: SLF 3 ML SYR IV SCH ×4 (00:07→22:10)
[2019-06-26] MEDS: VANCOMYCIN ORAL SOL 250MG/5ML ORAL SYRINGE PO SCH ×4 (00:07→18:07)
[2019-06-26 06:16] LABS: MEAN CORPUSCULAR HEMOGLOBIN 30.1 pg (27.0-33.0); MEAN CORPUSCULAR HGB CONC 34.3 g/dl (32.0-36.5); MEAN CORPUSCULAR VOLUME 87.8 fl (80.0-96.0); RED BLOOD COUNT 2.29 10^6/uL (4.00-5.40); WHITE BLOOD COUNT 3.6 10^3/uL (4.0-10.0)
[2019-06-26 06:19] LABS: HEMATOCRIT 20.1 % (36.0-47.0); HEMOGLOBIN 6.9 g/dl (12.0-15.5); PLATELET COUNT, AUTOMATED 25 10^3/uL (150-450)
[2019-06-26 06:46] LABS: ALBUMIN 2.1 GM/DL (3.2-5.2); BILIRUBIN,TOTAL 0.5 MG/DL (0.2-1.0); CALCIUM LEVEL 7.7 MG/DL (8.8-10.2); CREATININE FOR GFR 3.28 MG/DL (0.55-1.30); GLOMERULAR FILTRATION RATE 14.9 (>45); MAGNESIUM LEVEL 1.4 MG/DL (1.8-2.4); POTASSIUM SERUM 3.9 MEQ/L (3.5-5.1); TOTAL PROTEIN 4.7 GM/DL (6.4-8.2)
[2019-06-26] MEDS: SYMBICORT 160/4.5MCG INHALER 6GM INH SCH ×2 (07:42→19:23)
[2019-06-26] MEDS: FOLIC ACID 1 MG TAB PO SCH (10:10)
[2019-06-26] MEDS: MAGNESIUM OXIDE 400 MG TAB (MAG-OX) PO SCH ×2 (10:11→20:16)
--- NOTE | 2019-06-26 11:46 | IPN ---
DATE OF SERVICE: 06/26/2019 SUBJECTIVE: The patient was seen and examined at the bedside today morning. The patient is afebrile, hemodynamically stable. Renal function is very slowly improving. Her hemoglobin level has dropped. She is supposed to get 20 units of packed red blood cells (PRBC) transfusion today. She reports diarrhea is significantly better. OBJECTIVE: Vital signs: Temperature is 98.9 degree Fahrenheit, blood pressure 112/74, pulse is 96, respiratory of 18, saturating 92% on room air. Intake and output - urine output recorded is 2 liters yesterday, 815 mL so far today since overnight. Weight in the bed scale was 51.6 mL yesterday. PHYSICAL EXAMINATION: General: The patient is awake, alert, oriented times three, sitting up in the bed in no apparent distress. Head and neck exam: Extraocular muscles intact. Pupils equally round and reactive to light. Mucous membranes are moist. Neck is supple. There is no jugular venous distention (JVD). Cardiovascular: S1, S2 regular rate. No edema of the bilateral lower extremities. Respiratory: Chest is clear to auscultation in the upper lung zones, mild crepitations in bases on deep inspiration. She has a right anterior chest wall [id number]. Abdomen: Soft, positive bowel sounds. Nontender. Musculoskeletal: No clubbing or cyanosis. Pulses are 2+. RESEARCH STATISTICIAN: No focal deficit. Power is 5/5 in all extremities. LAB REVIEW: CBC showed a WBC of 3.6, hemoglobin 6.9, platelets are 25. BMP showed sodium 137, potassium 3.9, chloride 104, bicarb 28, BUN 38, creatinine is 3.2, it was 3.3 yesterday, magnesium 1.4, Pro-BNP is 1686. CURRENT INPATIENT MEDICATIONS: The patient's medications were all reviewed by myself. IV bicarb drip was stopped yesterday. No other change in the medications today as compared with yesterday. ASSESSMENT AND PLAN: 1. Acute kidney injury superimposed on chronic kidney disease. Patient's renal function is improving very slowly. Her electrolytes are within the acceptable range. Metabolic acidosis is improving. 2. Anemia. The patient recently had chemotherapy done, hemoglobin level has dropped to 6.9. She is going to get 1 unit of PRBC transfusion. She is also receiving once a week Aranesp injections. 3. Thrombocytopenia. Platelet count is slowly and steadily coming up. There are no signs of active bleeding. 4. C. diff colitis. She continues to be on vancomycin. Diarrhea is significantly better. 5. [id number] cancer of the lung. Management is as per Hematology/Oncology. Chemotherapy is on hold because of pancytopenia and acute renal failure. 6. Disposition. If patient's renal function continues to improve and her hemoglobin level stays stable hopefully we should be able to send her home over the next 1-2 days.
[2019-06-26] MEDS ORDERED: FUROSEMIDE 40 MG/4 ML VIAL (J1940) IV ONE (14:00)
--- NOTE | 2019-06-26 18:01 | REP ---
CHEST, TWO VIEWS: Two views of the chest is performed. COMPARISON: 06/22/2019 as well as other prior exams. There appear to be small bilateral pleural effusions. There is mild patchy infiltrate in each lung base. The heart is not enlarged. Mediastinal structures unchanged. Central venous catheter is unchanged. There are mild degenerative changes of the spine. IMPRESSION: Small bilateral effusions with mild bibasilar infiltrate. Electronically Signed by Gianfranco Lacy MD 06/26/2019 07:52 P
[2019-06-26] MEDS ORDERED: ACETAMINOPHEN TAB 650MG DOSE (2X325MG) PO PRN (18:15)
[2019-06-26 19:24] LABS: HEMATOCRIT 26.3 % (36.0-47.0); MEAN CORPUSCULAR HEMOGLOBIN 30.3 pg (27.0-33.0); MEAN CORPUSCULAR HGB CONC 34.2 g/dl (32.0-36.5); MEAN CORPUSCULAR VOLUME 88.6 fl (80.0-96.0); RED BLOOD COUNT 2.97 10^6/uL (4.00-5.40); WHITE BLOOD COUNT 4.6 10^3/uL (4.0-10.0)
--- NOTE | 2019-06-26 19:30 | ECHO ---
DATE OF PROCEDURE: 06/26/2019 REFERRING PHYSICIAN: Elissa Rosas MD. REFERRING DIAGNOSIS: Congestive heart failure. HEIGHT: 150 cm. WEIGHT: 50 kg. DIMENSIONS: IVS - 0.7 LV - 4.1 LVPW - 0.7 LA - 3.1 Aorta - 2.9 IVC - 1.7 Mitral E wave velocity - 62, A-wave 82 E prime septal - 6.7 E prime lateral -12.0 FINDINGS: The study is of fair technical quality with somewhat challenging visualization. The patient is in sinus rhythm. Normal LV size with preserved LV systolic function and estimated LVEF 60-65%. Right ventricle does not appear enlarged and appears normally contractile. Both atria appear normal. Aortic valve is minimally sclerotic but has normal mobility. Mitral, tricuspid and pulmonic valves appear normal. No pericardial effusion is present. Inferior vena cava is normal size and appropriately collapses with respiration suggestive of normal central venous pressure. Aortic root is normal. Aortic arch and abdominal aorta were not well seen. Doppler interrogation reveals competent aortic valve. There is mild mitral and trace tricuspid insufficiency. Calculated pulmonary artery pressure is in high 30s corresponding to mild pulmonary hypertension. Pulmonic valve is functionally competent. Mitral inflow pattern and tissue Doppler imaging of mitral annulus reveal grade 1 diastolic dysfunction. CONCLUSION: 1. Study is of acceptable technical quality, the patient is in sinus rhythm. 2. Normal LV size and systolic function, grade 1 diastolic dysfunction. 3. No hemodynamically significant valvular disease. 4. Likely normal central venous pressure and mild pulmonary hypertension. COMMENT: Subacute bacterial endocarditis (SBE) prophylaxis is not recommended. The study is not overly supportive of diagnosis of congestive heart failure.
[2019-06-26 20:00] LABS: PLATELET COUNT, AUTOMATED 32 10^3/uL (150-450)
[2019-06-26] MEDS ORDERED: LevoFLOXacin 750 MG TABLET PO SCH (21:00)
--- NOTE | 2019-06-26 22:17 | IPNPDOC ---
Date Seen The patient was seen on 06/26/19. Progress Note SUBJECTIVE: + 500. Increased SOB with desaturation into 70's with movement. Placed on 2 L NC. Repeat CXR showed small bilateral pleural effusions, mild patchy infiltrates in each lung. Spiked fever of 100.1-100.8F throughout day. Started on HCAP coverage. F/u blood cultures, UA. Cr improving, stopped fluid due to effusions, incr BNP. PLTs improving. Transfused 1 unit PRBC with Hgb from 6.9 to 9.0. She denies chest pain, shortness of breath, nausea, vomiting, fevers or chills. OBJECTIVE: VITAL SIGNS: Please see below PHYSICAL EXAMINATION: CONSTITUTIONAL: Thin appearing female. No acute distress, resting in bed, AAO x 3 EYES: PERRLA, EOM intact HENT, MOUTH: Normocephalic, atraumatic, dry oral mucous membranes NECK: SUPPLE, no JVD, no lymphadenopathy, no carotid bruit CV: Regular rate and rhythm, S1S2 normal, no murmurs/rubs/gallops CHEST: Right side chest port BACK: Mild kyphosis RESPIRATORY: Increased rhonchi on exam, crackles in lower lung matute. no rales/rhonchi/wheezes GI: thin abdomen, BS positive in 4 quadrants, soft, nontender, nondistended, no rebound or guarding, no organomegaly : Deferred MUSCULOSKELETAL: Normal ROM. No cyanosis, clubbing, swelling, joint deformity, extremity edema INTEGUMENTARY: Improved skin turgor, skin intact, no rashes, no lesions, no erythema NEUROLOGIC: Cranial Nerves II-XII are intact, no focal deficits PSYCHIATRIC: Mood and affect are normal LABORATORY DATA: Please see below IMAGING: CXR: There appear to be small bilateral pleural effusions. There is mild patchy infiltrate in each lung base. The heart is not enlarged. Mediastinal structures unchanged. Central venous catheter is unchanged. There are mild degenerative changes of the spine. Echo: Normal LV size and systolic function, grade 1 diastolic dysfunction. No hemodynamically significant valvular disease. Likely normal central venous pressure and mild pulmonary hypertension, estimated LVEF 60-65%. ASSESSMENT: The patient is a 68-year-old female admitted under inpatient status for healthcare associated PNA, bilateral pleural effusions, acute on chronic kidney disease, anemia, lung adenocarcinoma currently undergoing chemotherapy, pancytopenia. PLAN: 1. Healthcare associated PNA. Fevers with increased SOB, acute hypoxia earlier. Started on levofloxacin and, depending on MRSA PCR, may add Vancomycin. Hx of C. diff and with current incr BNP cautious not to add abx if not indicated at this time. F/u sputum culture, repeat blood cultures, acapella, daily labs. 2. Bilateral pleural effusion, CHF. Increased BNP after receiving gently fluids for kidney injury. On 2 L NC, increased crackles and rhonchi. S/p 40 mg lasix today. Started daiyl. F/u echocardiogram likely after weekend to r/o HF with BNP elevated, new pleural effusion. Albuterol PRN. 3. Acute kidney injury on chronic kidney disease likely prerenal cause. Cr and acidosis improving slowly. Stopped hydration due to fluid overload, monitoring CMP daily. There is no "goal" Cr for this patient so if she is showing improvement steadily then can hopefully discharge with follow up with Nephrology. 4. Diastolic CHF, EF 60-65%. See echo above. C/w lasix, consider adding BB if tolerates with diuresis. 5. Thrombocytopenia, pancytopenia 2/2 to chemotherapy. PLTs 25, goal >10. CBC daily. Heme/onc consulted. 6. Anemia likely multifactorial and related to chemotherapy, acute blood loss from epistaxis, chronic kidney disease. S/p 1 unit of PRBC today, improved H/H. Goal Hgb >7. CBC daily, avoid anticoagulation at this time. 7. C. difficile infection. C/w oral vancomycin 125 mg QID x 14 days (Day 4). Contact precautions in place. 8. Hypomagnesemia. Improved. 9. Adenocarcinoma of the lung, medically unresectable, stage I. Currently u ndergoing chemotherapy with carboplatin, alimta, keytruda, last dose 3 weeks ago. Holding chemo for now. 10. Vitamin B12 deficiency. C/w supplementation. 11. DVT px. AC contraindicated at this time, SCDs TEDs DISPOSITION: Currently admitted under inpatient status. Plan on discharging home when medically improved. Heme/onc and nephrology consulted. VS, I&O, 24H, Fishbone Vital Signs/I&O Vital Signs Date Time Temp Pulse Resp B/P (MAP) Pulse Ox O2 Delivery O2 Flow Rate FiO2 06/26/19 15:30 100.8 95 15 126/64 90 Nasal Cannula 2.0 I&O- Last 24 Hours up to 6 AM 06/26/19 06:00 Intake Total 1800 ml Output Total 1600 ml Balance 200 ml Laboratory Data 24H LABS Laboratory Tests 2 06/26/19 05:29: Nucleated Red Blood Cells % (auto) 0.0, Immature Platelet Fraction 3.8, Anion Gap 5L, Glomerular Filtration Rate 14.9L, Calcium Level 7.7L, Magnesium Level 1.4L, Total Bilirubin 0.5#, Aspartate Amino Transf (AST/SGOT) 23, Alanine Aminotransferase (ALT/SGPT) 26, Alkaline Phosphatase 102, [id number] Natriuretic Peptide 1686H, Total Protein 4.7L, Albumin 2.1L, Albumin/Globulin Ratio 0.81L 06/26/19 18:20: Urine Color COLORLESS, Urine Appearance CLEAR, Urine pH 5.0, Urine Specific [place] 1.003, Urine Protein NEGATIVE, Urine Glucose (UA) NEGATIVE, Urine Ketones NEGATIVE, Urine Blood NEGATIVE, Urine Nitrite NEGATIVE, Urine Bilirubin NEGATIVE, Urine Urobilinogen 0.2, Urine Leukocyte Esterase NEGATIVE, Urine WBC (Auto) 1, Urine RBC (Auto) 0, Urine Hyaline Casts (Auto) 0, Urine Bacteria (Auto) NEGATIVE, Urine Squamous Epithelial Cells 1, Urine Sperm (Auto) 06/26/19 19:06: Nucleated Red Blood Cells % (auto) 0.0 06/26/19 20:38: Methicillin-Resist S.aureus DNA PCR NOT DETECTED CBC/BMP Laboratory Tests 06/26/19 05:29 06/26/19 19:06 Microbiology Microbiology 06/26/19 Blood Culture, Received Pending 06/26/19 Blood Culture, Received Pending 06/26/19 Stool Occult Blood (MAYDA) - Final, Complete 06/23/19 Blood Culture - Preliminary, Resulted No Growth after 72 hours. All specime... 06/23/19 Blood Culture - Preliminary, Resulted No Growth after 72 hours. All specime... 06/22/19 Stool Occult Blood (MAYDA) - Final, Complete 06/22/19 Gastrointestinal Tract Panel (PCR) - Final, Complete Clostridium Difficile A/B Current Medications Current Medications Medications (Trade) Dose Ordered Sig/Alonso Route PRN Reason Start Time Stop Time Status Last Admin Dose Admin Acetaminophen (Tylenol Tab) 650 mg Q6HP PRN PO PAIN / FEVER 06/26/19 18:15 06/26/19 18:43 Albuterol Sulfate (Proventil Neb) 2.5 mg Q2HP PRN NEB SOB/WHEEZING 06/22/19 13:30 Budesonide/ Formoterol Fumarate (Symbicort 160/ 4.5mcg) 2 puff RBID INH 06/22/19 20:00 06/26/19 19:23 Darbepoetin Felipe (Aranesp) 100 mcg Sa@09 SC 06/24/19 09:00 06/24/19 18:35 Folic Acid (Folic Acid) 1 mg DAILY PO 06/22/19 09:00 06/26/19 10:10 Furosemide (LASIX injection) 40 mg DAILY IV 06/25/19 09:00 06/25/19 18:57 DC 06/25/19 08:47 Furosemide (LASIX injection) 40 mg DAILY IV 06/27/19 09:00 Home Med (Med Rec Complete!) ASDIRECTED XX 06/22/19 10:15 06/22/19 10:10 DC Levofloxacin (Levaquin) 500 mg Q48H PO 06/28/19 21:00 Levofloxacin (Levaquin) 750 mg DAILY@2100 PO 06/26/19 21:00 06/26/19 21:01 DC 06/26/19 20:16 Magnesium Chloride (Slow-Mag) 64 mg BID PO 06/22/19 09:00 06/26/19 07:43 DC 06/25/19 20:17 Magnesium Oxide (Mag-Ox) 400 mg BID PO 06/26/19 09:00 06/26/19 20:16 Magnesium Sulfate/ Dextrose 1 gm/IV Miscellaneous Supplies 100 ml @ 100 mls/hr STAT STAT IV 06/23/19 08:06 06/23/19 09:05 DC 06/23/19 08:34 Ondansetron HCl (Zofran) 4 mg Q6H PO 06/22/19 12:00 06/26/19 18:07 Sodium Bicarbonate 75 meq/Sodium Chloride 1,075 ml @ 80 mls/hr [id number] IV 06/24/19 11:00 06/25/19 20:00 DC 06/25/19 13:26 Sodium Chloride 1,000 ml @ 80 mls/hr [id number] IV 06/23/19 07:45 06/24/19 09:39 DC 06/24/19 03:42 Sodium Chloride (Saline Lock Flush) 2 ml ASDIRECTED PRN IV SEE LABEL COMMENTS 06/22/19 14:15 Sodium Chloride (Saline Lock Flush) 2 ml SLF IV 06/22/19 22:00 06/26/19 22:10 Sodium Chloride (Sodium Chloride) 1 gm BID PO 06/22/19 09:00 06/24/19 09:37 DC 06/24/19 08:16 Vancomycin HCl (First-Vancomycin 50(Firvanq)- 250mg/5ml) 125 mg Q6H PO 06/23/19 00:00 06/26/19 18:07 Allergies Coded Allergies: Sulfa (Sulfonamide Antibiotics) (Verified Allergy, Intermediate, ITCHING/RASH, 03/29/19) naproxen (Verified Allergy, Intermediate, RASH/ITCHING, 03/29/19) Elissa Rosas MD Jun 26, 2019 22:17
[2019-06-27] MEDS: VANCOMYCIN ORAL SOL 250MG/5ML ORAL SYRINGE PO SCH ×3 (00:09→12:17)
[2019-06-27] MEDS: ONDANSETRON 4 MG TAB (S0181) PO SCH ×3 (00:10→12:16)
[2019-06-27] MEDS: SLF 3 ML SYR IV SCH (05:28)
[2019-06-27 05:46] LABS: HEMATOCRIT 24.5 % (36.0-47.0); HEMOGLOBIN 8.4 g/dl (12.0-15.5); MEAN CORPUSCULAR HEMOGLOBIN 30.3 pg (27.0-33.0); MEAN CORPUSCULAR HGB CONC 34.3 g/dl (32.0-36.5); MEAN CORPUSCULAR VOLUME 88.4 fl (80.0-96.0); RED BLOOD COUNT 2.77 10^6/uL (4.00-5.40); WHITE BLOOD COUNT 4.2 10^3/uL (4.0-10.0)
[2019-06-27 05:56] LABS: PLATELET COUNT, AUTOMATED 32 10^3/uL (150-450)
[2019-06-27 06:00] VITALS: BP 100/60
[2019-06-27 06:16] LABS: BILIRUBIN,TOTAL 0.6 MG/DL (0.2-1.0); CREATININE FOR GFR 3.54 MG/DL (0.55-1.30); GLOMERULAR FILTRATION RATE 13.7 (>45); POTASSIUM SERUM 3.9 MEQ/L (3.5-5.1); TOTAL PROTEIN 4.9 GM/DL (6.4-8.2)
[2019-06-27] MEDS: SYMBICORT 160/4.5MCG INHALER 6GM INH SCH (07:47)
[2019-06-27] MEDS ORDERED: FUROSEMIDE 40 MG/4 ML VIAL (J1940) IV SCH (09:00)
[2019-06-27] MEDS ORDERED: MAG SULF 1GM/100ML (MAG RUN) 1 GM in IV 1 EA IV ONE (09:00)
[2019-06-27] MEDS: MAGNESIUM OXIDE 400 MG TAB (MAG-OX) PO SCH (09:41)
[2019-06-27] MEDS: FOLIC ACID 1 MG TAB PO SCH (09:41)
[2019-06-27] MEDS ORDERED: MAG400TA PO (10:45)
[2019-06-27] MEDS ORDERED: FIRV50SO PO (10:45)
[2019-06-27] MEDS ORDERED: LEVA1TAB2 PO (10:45)
--- NOTE | 2019-06-27 11:13 | IPN ---
DATE: 06/24/2019 SUBJECTIVE: The patient was seen and examined at the bedside. The patient is awake and alert. She was getting intravenous (IV) normal saline, which was changed to bicarbonate-containing fluid because of her worsening metabolic acidosis. There is no significant improvement in the renal function. Creatinine has been fluctuating at 3.4; however, patient is nonoliguric at this time, and she reports that she is feeling better today as compared with yesterday, and her diarrhea is also getting better. OBJECTIVE: Vital signs: Temperature is 97.8 degrees Fahrenheit, blood pressure 107/55, pulse is 91, respiratory of 16, saturating 100% on room air. Intake and output: Urine output recorded is 1.8 liters yesterday, 1.3 liters so far today since overnight. Weight in the bed scale is 51.5 kg. PHYSICAL EXAMINATION: GENERAL: The patient is awake, alert, oriented times three, sitting up in the bed in no apparent distress. HEAD AND NECK: Extraocular muscles intact. Pupils equally round and reactive to light. Mucous membranes are moist. Neck is supple. There is no jugular venous distention (JVD). CARDIOVASCULAR: S1, S2, regular rate. No edema of the bilateral lower extremities. RESPIRATORY: Chest is clear to auscultation bilaterally. Bilateral equal air entry. She has a Port-A-Cath in the right anterior chest wall. ABDOMEN: Soft. Positive bowel sounds. Nontender. No organomegaly. MUSCULOSKELETAL: No clubbing or cyanosis. Pulses are 2+. CENTRAL NERVOUS SYSTEM: No focal deficit. At this time power is 5/5 in all extremities. LABORATORY REVIEW: CBC showed WBC 2.9, hemoglobin 8.7, platelets are . BMP showed sodium 139, potassium 3.9, chloride 115, bicarbonate 14, BUN 53, creatinine is 3.4; it was 3.5 yesterday. Calcium 7.7, magnesium is 2 Albumin 1.9. CURRENT INPATIENT MEDICATIONS: The patient's medications were all reviewed by myself. I stopped her IV normal saline today, and I changed the fluid to half-normal saline with 75 mEq of bicarbonate at 80 mL an hour. Her oral sodium chloride tablets have been stopped. She continues to be on vancomycin 125 mg by mouth every hours, which was started yesterday. ASSESSMENT AND PLAN: 1. Acute nonoliguric renal failure. Patient has atrophic right kidney and mildly atrophic left kidney. Most likely majority of the function is coming from the left kidney. The patient has Clostridium (C) difficile colitis and pancytopenia. She is getting IV fluid hydration. She is making good amount of urine. I am hopeful over the next 2-3 days her renal function should start improving. No urgent need of hemodialysis. 2. Anemia. The patient has adequate are not levels. She is on chemotherapy. She has been started on Aranesp injections. 3. C. difficile colitis. The patient is currently on oral vancomycin. Diarrhea is getting better. Continue the IV fluid hydration. 4. Metabolic acidosis. The patient was getting normal saline. IV fluids have been changed to bicarbonate-containing fluids. 5. Thrombocytopenia. Platelet count is slowly improving. No need of platelet transfusion until the platelet count drops to below 10. 6. Neutropenia. White cell count is slowly improving. Further management is as per recommendations by hematology/oncology. 7. [id number] cancer of the lung. The patient is getting chemotherapy as outpatient. Chemotherapy on hold because of acute renal failure and C. difficile colitis.
--- NOTE | 2019-06-27 13:01 | IPN ---
DATE OF SERVICE: 06/27/2019 SUBJECTIVE: Patient was seen and examined at the bedside today morning. She is afebrile, hemodynamically stable. She got 1 unit of packed red blood cells (PRBC) transfusion. Hemoglobin is stable. No significant improvement in the renal function. However, patient was given Lasix with blood transfusion and she is made more than 2 liters of urine. Patient denies any diarrhea at this time. OBJECTIVE: VITAL SIGNS: Temperature is 98.8 degrees Fahrenheit, blood pressure 100/60, pulse is 84, respiratory rate of 15, saturating 95% on nasal cannula at 1 liter. INTAKE AND OUTPUT: Urine output recorded is 2.7 liters yesterday. Weight in the bed scale is not available. PHYSICAL EXAMINATION: GENERAL: Patient is awake, alert, oriented times three, sitting up in the bed, in no apparent distress. HEAD AND NECK EXAM: Extraocular muscles intact. Pupils equally round and reactive to light. Mucous membranes are moist. Neck is supple. There is no jugular venous distention (JVD). CARDIOVASCULAR: S1, S2, regular rate. No edema of the bilateral lower extremities. RESPIRATORY: Mildly decreased breath sounds at the bases with mild respiratory crackles. Otherwise, no active rales or rhonchi. Right anterior chest wall Port-a-Cath was noted. ABDOMEN: Soft. Positive bowel sounds. Nontender. No organomegaly. MUSCULOSKELETAL: No clubbing or cyanosis. Pulses are 2+. 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 Power is 5/5 in all extremities. LAB REVIEW: CBC showed WBC 4.2, hemoglobin 8.4, platelets are 32. Urinalysis done yesterday showed no proteinuria or hematuria. BMP done today morning showed sodium 134, potassium 3.9, chloride 100, bicarbonate 29, BUN 41. Creatinine is 3.58, it was 3.2 yesterday. AST, ALT, and alkaline phosphatase are within the acceptable range. Albumin is 2. IMAGING: A chest x-ray was done yesterday, which showed small bilateral pleural effusions with mild bibasilar infiltrates. CURRENT INPATIENT MEDICATIONS: The patient's medications were all reviewed by myself. She was given a run of magnesium sulfate today morning. She was started on Lasix 40 mg IV daily and she has been started on Levaquin 500 mg by mouth every 48 hours. No other change in the medications today as compared with yesterday. ASSESSMENT AND PLAN: 1. Acute kidney injury superimposed on chronic kidney disease. There is no significant improvement in the renal function. Creatinine has been fluctuating about 3. However, patient is nonoliguric. Electrolytes are within the acceptable range. Acid base status is acceptable. No urgent need of dialysis at this time. Patient has only solitary functioning left kidney. Right kidney is atrophic. 2. Anemia after recent chemotherapy. Patient is status post 1 unit of PRBC transfusion yesterday. She was also started on Aranesp. She might need erythropoietin stimulating agent (GEETHA) as outpatient as well. 3. Clostridium (C) difficile colitis. It is controlled with oral vancomycin now. 4. Thrombocytopenia. Platelet counts are gradually improving every day. 5. Bilateral infiltrates on chest x-ray. Patient is empirically being covered with Levaquin. However, she has non-small cell cancer as well. 6. Non-small cell carcinoma of the lung. Chemotherapy is on hold because of acute renal failure. She will need to followup with Hematology/Oncology as outpatient. DISPOSITION: Although there is no significant improvement in patient's renal function and there is no urgent need of dialysis, the patient that can be discharged and she will need to followup with nephrology within 1 week after discharge from the hospital. The patient's labs will be closely monitored as outpatient.
--- NOTE | 2019-06-27 13:07 | DS.PDOC ---
Discharge Summary General Date of Admission Jun 22, 2019 at 11:01 Date of Discharge 06/27/19 Discharge Summary PROCEDURES PERFORMED DURING STAY: None. ADMITTING DIAGNOSES: 1. Healthcare associated pneumonia. DISCHARGE DIAGNOSES: 1. Healthcare associated pneumonia, bilateral pleural effusion, C. difficile infection. Acute on chronic renal failure, carcinoma lung, COPD, hypertension, vitamin B12 deficiency, iron deficiency anemia, hypomagnesemia, pancytopenia. COMPLICATIONS/CHIEF COMPLAINT: Acute On Chronic Renal Failure. HISTORY OF PRESENT ILLNESS: The patient is a 68-year-old female with past [facility] history of Stage I adenocarcinoma of the lung currently under going chemotherapy, chronic anemia, chronic kidney disease stage unknown, hypertension, COPD, vitamin B12 deficiency, iron deficiency anemia, hypomagnesemia, history of alcohol and tobacco use who presented to [facility] emergency room after being directly sent there from her oncology office for abnormal blood levels. The patient had originally presented to her oncologist office for chemotherapy. She is diagnosed with adenocarcinoma of the lung in December 2018. Since then she is undergone several different regimens for cancer treatment. She is currently on chemotherapy with carboplatin, alimta, katruda, last dose 3 weeks ago. She has had a history of pancytopenia with intermittent transfusions. Her last transfusion was 3 weeks ago. Also has a history of a GI bleed in the past. At her oncology office today H&H was found to be 4.4/13.0. A CMP showed a creatinine of 3.88, several weeks ago it was found to be 2.6. The patient admits to increased lethargy, nausea, vomiting, increased on bloody diarrhea from baseline, , weakness, lightheadedness and dizziness. She denies fevers, sick contacts, recent travel, cough, chest pain, hematuria, rectal bleeding. She does admit to some epistaxis several weeks ago. She has not had a good intake of fluids or food over the past week. She also states have some dark stools at home. In the emergency room the patient's blood pressure was 101/69, heart rate 92, temperature 97.4, respiratory rate 1922, 90% on 2 L NC. In trending labs the patient had labs done on 06/01/2019 showing creatinine 2.6 at the time. 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 She has seen a supervisor slate splitting in the past; however, does not follow regularly. She was resting comfortably in bed. She had some dry oral mucosa. Patient was admitted under inpatient status for symptomatic anemia, acute on chronic kidney disease, dehydration, pancytopenia. This admission was discussed in detail with Dr. Hart, oncology who was also consulted. . HOSPITAL COURSE: Patient was admitted with the diagnoses of pancytopenia from oncology office. Patient has been receiving chemotherapy for stage I adenocarcinoma of lung. Patient was admitted with increasing lethargy, nausea, vomiting and bloody diarrhea. She was started on IV fluids. Oncology also was called for consultation. Patient was started on darbipoitin and was also started on Vanco and Levaquin as well. That was started by mouth for C. difficile infection and Levaquin for healthcare associated pneumonia. Patient is clinically stable, afebrile, asymptomatic. Laboratory work is essentially normal. She'll be discharged home on by mouth Levaquin and vancomycin, as per recommended dose and follow with oncology clinic as an outpatient.. DISCHARGE MEDICATIONS: Please see below. ALLERGIES: Please see below. PHYSICAL EXAMINATION ON DISCHARGE: VITAL SIGNS: Please see below. GENERAL: Normal HEENT: PERRLA. Extraocular muscles intact NECK: Supple CARDIOVASCULAR EXAMINATION: S1, S2, regular RESPIRATORY EXAMINATION: Clear to A&P ABDOMINAL EXAMINATION: , Soft, nontender, bowel sounds present EXTREMITIES: No clubbing, cyanosis, edema SKIN: Normal NEUROLOGICAL EXAMINATION: . No focal motor sensory deficit PSYCHIATRIC EXAMINATION: Normal LABORATORY DATA: Please see below. IMAGING: Chest x-ray:Small bilateral effusions with mild bibasilar infiltrate. PROGNOSIS: Good ACTIVITY: As tolerated. DIET: As tolerated DISCHARGE PLAN: Home DISPOSITION: . Home DISCHARGE INSTRUCTIONS: 1. As per discharge instructions. ITEMS TO FOLLOWUP ON ON OUTPATIENT: 1. Follow with oncology clinic in one week. DISCHARGE CONDITION: Stable. TIME SPENT ON DISCHARGE: 46 minutes. Vital Signs/I&Os Vital Signs Date Time Temp Pulse Resp B/P (MAP) Pulse Ox O2 Delivery O2 Flow Rate FiO2 06/27/19 06:00 98.8 84 15 100/60 (73) 95 Nasal Cannula 1.0 I&O- Last 24 Hours up to 6 AM 06/27/19 06:00 Intake Total 1760 ml Output Total 2450 ml Balance -690 ml Laboratory Data Labs 24H Laboratory Tests 2 06/26/19 18:20: Urine Color COLORLESS, Urine Appearance CLEAR, Urine pH 5.0, Urine Specific Hamilton 1.003, Urine Protein NEGATIVE, Urine Glucose (UA) NEGATIVE, Urine Ketones NEGATIVE, Urine Blood NEGATIVE, Urine Nitrite NEGATIVE, Urine Bilirubin NEGATIVE, Urine Urobilinogen 0.2, Urine Leukocyte Esterase NEGATIVE, Urine WBC (Auto) 1, Urine RBC (Auto) 0, Urine Hyaline Casts (Auto) 0, Urine Bacteria (Auto) NEGATIVE, Urine Squamous Epithelial Cells 1, Urine Sperm (Auto) 06/26/19 19:06: Nucleated Red Blood Cells % (auto) 0.0 06/26/19 20:38: Methicillin-Resist S.aureus DNA PCR NOT DETECTED 06/27/19 05:15: Nucleated Red Blood Cells % (auto) 0.0 06/27/19 05:16: Anion Gap 5L, Glomerular Filtration Rate 13.7L, Calcium Level 8.0L, Total Bilirubin 0.6, Aspartate Amino Transf (AST/SGOT) 20, Alanine Aminotransferase (ALT/SGPT) 26, Alkaline Phosphatase 96, Total Protein 4.9L, Albumin 2.0L, Albumin/Globulin Ratio 0.69L 06/27/19 08:50: CBC/BMP Laboratory Tests 06/26/19 19:06 06/27/19 05:15 06/27/19 05:16 Microbiology Microbiology 06/26/19 Blood Culture, Received Pending 06/26/19 Blood Culture, Received Pending 06/26/19 Stool Occult Blood (MAYDA) - Final, Complete 06/23/19 Blood Culture - Preliminary, Resulted No Growth after 72 hours. All specime... 06/23/19 Blood Culture - Preliminary, Resulted No Growth after 72 hours. All specime... 06/22/19 Stool Occult Blood (MAYDA) - Final, Complete 06/22/19 Gastrointestinal Tract Panel (PCR) - Final, Complete Clostridium Difficile A/B Discharge Medications Scheduled Amlodipine Besylate (Amlodipine Besylate) 10 Mg Tablet, 10 MG PO DAILY, (Reported) Cyanocobalamin (Vitamin B-12) (B-12) 1,000 Mcg Tablet, 1,000 MCG PO QWEEK, (Reported) THURSDAYS Folic Acid (Folic Acid) 1 Mg Tablet, 1 MG PO DAILY, (Reported) Levofloxacin (Levaquin) 500 Mg Tablet, 500 MG PO Q48H Magnesium Oxide (Magnesium Oxide) 400 Mg Tablet, 400 MG PO BID Ondansetron HCl (Zofran) 8 Mg Tablet, 8 MG PO TID for nausea/vomiting Take 8 mg t.i.d. for 3 days after [facility] chemotherapy, then q 8 hrs prn nausea Sodium Chloride (Sodium Chloride) 1 Gm Tablet, 1 GM PO BID, (Reported) Vancomycin HCl (Firvanq) 50 Mg/1 Ml Soln.recon, 125 MG PO Q6H Scheduled PRN Albuterol Sulf (Albuterol Sulfate) 2.5 Mg/3 Ml Vial.neb, 1 VIAL NEB Q4H PRN for SHORTNESS OF BREATH, (Reported) Albuterol Sulfate (Proair Hfa) 8.5 Gm Hfa.aer.ad, 2 PUFF INH Q6H PRN for SHORTNESS OF BREATH, (Reported) Fluticasone/Vilanterol (Breo Ellipta 200-25 Mcg INH) 1 Each Blst.w.dev, 1 PUFF INH DAILY PRN for SHORTNESS OF BREATH, (Reported) PATIENT STATES USES ONLY WHEN NEEDED Prochlorperazine Maleate (Prochlorperazine Maleate) 10 Mg Tablet, 10 MG PO Q6H PRN for NAUSEA OR VOMITING Take 10 mg po q 6 hours prn nausea from chemotherapy not relieved by Zofran Tranexamic Acid (Tranexamic Acid) 1,000 Mg/10 Ml Vial, 1 SPRAY NA Q4H PRN for NOSE BLEEDS, (Reported) DRAW UP 10ML AND ADD TO SALINE NASAL SPRAY BOTTLE ACCORDING TO MD DIRECTIONS AND USE NASALLY EVERY 4 HOURS NEEDED FOR NOSE BLEEDING Allergies Coded Allergies: Sulfa (Sulfonamide Antibiotics) (Verified Allergy, Intermediate, ITCHING/RASH, 03/29/19) naproxen (Verified Allergy, Intermediate, RASH/ITCHING, 03/29/19) CAMELIA LONG MD Jun 27, 2019 13:07
[2019-06-28] MEDS ORDERED: LevoFLOXacin 500 MG TABLET PO SCH (21:00)
== END 2019-06-27 13:15 | disposition home or self-care (01) | DRG 808 ==
LOC: M ED 09:15 → M ED INP 11:01 → ENRESERVTM 11:21 → ENRESERVDT 11:21 → M PCU 12:35 → M MSPAV 06-25 13:56
PROVIDERS: ADMIT Internal Medicine; ATTEND Internal Medicine
PROC: 30233N1 Transfusion of Nonautologous Red Blood Cells into Peripheral Vein, Percutaneous Approach (ICD-10-PCS; principal; 2019-06-22)
DX: D61.810 Antineoplastic chemotherapy induced pancytopenia (principal); J18.9 Pneumonia, unspecified organism; A04.72 Enterocolitis due to Clostridium difficile, not specified as recurrent; C34.92 Malignant neoplasm of unspecified part of left bronchus or lung; N18.4 Chronic kidney disease, stage 4 (severe); E87.2 Acidosis; N17.9 Acute kidney failure, unspecified; K92.2 Gastrointestinal hemorrhage, unspecified; J90 Pleural effusion, not elsewhere classified; I50.32 Chronic diastolic (congestive) heart failure; D62 Acute posthemorrhagic anemia; Z66 Do not resuscitate; I12.9 Hypertensive chronic kidney disease with stage 1 through stage 4 chronic kidney disease, or unspecified chronic kidney disease; J44.9 Chronic obstructive pulmonary disease, unspecified; E53.8 Deficiency of other specified B group vitamins; E86.0 Dehydration; I95.9 Hypotension, unspecified; D50.9 Iron deficiency anemia, unspecified; D64.81 Anemia due to antineoplastic chemotherapy; E83.42 Hypomagnesemia; Z87.891 Personal history of nicotine dependence; Z79.899 Other long term (current) drug therapy; Z88.2 Allergy status to sulfonamides; Z88.6 Allergy status to analgesic agent; Y95 Nosocomial condition

== ENCOUNTER → 2019-07-07 | Outpatient (REF) | payer MEDICARE, OTHER ==
[~2019-07-07] MED LIST changes: +FIRV50SO PO; +LEVA1TAB2 PO; +MAG400TA PO; +NU-M1TAB PO
[2019-07-07 18:18] LABS: PERCENT SATURATION 14.2 % (13.2-45.0)
== END ==
LOC: M LAB REF 16:38
PROVIDERS: ATTEND Internal Medicine Nephrology
DX: D64.9 Anemia, unspecified (principal)

== ENCOUNTER → 2019-07-11 | Outpatient (CLI) | payer MEDICARE, BC, OTHER ==
--- NOTE | 2019-07-11 10:25 | REP ---
PET/CT: HISTORY: Non-small cell lung carcinoma left lung. Treated with chemotherapy. Therapy interrupted due to pancytopenia and renal insufficiency. COMPARISONS: Comparison PET/CT study January 17, 2019. Comparison chest CT study December 19, 2018. TECHNIQUE: 55 minutes following the intravenous injection of a 9.20 mCi dose of F-18 FDG, three-dimensional PET scintigraphy is acquired from the skull base to the proximal thighs. Triplanar noncontrast CT scanning is acquired through the same anatomic range for attenuation correction, and image registration with scan parameters optimized to minimize radiation exposure to the patient. PET scintigraphy and CT datasets were fused and displayed on a workstation with multiplanar and projection display capability. PET/CT FINDINGS: There is a new small right pleural effusion. There is a tiny zone of linear discoid atelectasis in the left upper lobe. There is a peribronchovascular nodular neodensity in the left upper lobe on page 52 of 227 in series 2 of today's study. This is a new finding 6 mm in diameter. There is plate-like atelectasis in the right upper lobe, which is a new finding. Both the left lower lobe malignant nodule and the previously noted right middle lobe nodule have regressed significantly since the prior PET/CT and chest CT studies from January and December 2018. No other new pulmonary parenchymal nodule. The previously noted focus of hypermetabolic uptake in the deep lobe of the left parotid gland is again seen. It has decreased metabolic uptake compared to the prior study with maximum standard uptake value today 2.61, previously 5.07. Head and neck soft tissues are otherwise unremarkable on today's PET scintigraphy. There is a small stable non hypermetabolic lymph node at the thoracic inlet along the right lateral margin of the upper thoracic esophagus. This is unchanged. There is minimally hypermetabolic uptake in a pretracheal lymph node 1 cm in diameter, maximum SUV value 2.55. AP window region lymph node uptake is again seen, only slightly increased at that 2.54 today. There is a possible ronald focus of uptake in the right hilus today which is new, maximum standard uptake value 2.89. The right pleural space does not show hypermetabolic uptake. There is no hypermetabolic uptake at the regressed left lower lobe nodule, 0.95, previously 16.59. Similarly there is no discernible FDP uptake at the regressed right middle lobe nodule. The new nodular opacity in the left upper lobe is also not metabolically active, maximum SUV value 0.75. In the abdomen and pelvis, there is normal distribution of tracer. No abnormal hypermetabolic uptake is seen in the abdomen or pelvis. IMPRESSION: 1. Significant improvement in the previously noted malignant left lower lobe nodule, the previously noted right middle lobe nodule, and decreased in avidity in the AP window region lymph node and in the left parotid focus noted previously. 2. New small right pleural effusion. Suspect new ronald focus of mildly hypermetabolic uptake right hilus. 3. New 6 mm spiculated nodule in the left upper lobe. This does not show FDG accumulation. Electronically Signed by Tam Sanchez MD 07/11/2019 01:16 P
== END ==
LOC: M PLARAD 07:29
PROVIDERS: ATTEND Internal Medicine Medical Oncology
DX: C34.82 Malignant neoplasm of overlapping sites of left bronchus and lung (principal)
CPT/HCPCS: 78815; A9552

== ENCOUNTER → 2019-08-30 | Outpatient (REF) | payer MEDICARE, OTHER ==
[~2019-08-30] MED LIST changes: +FERR32TA PO
[2019-08-31 19:18] LABS: CHOLESTEROL LEVEL 221 MG/DL (<200); CHOLESTEROL RISK RATIO 2.351 (<5); HDL CHOLESTEROL 94 MG/DL (>40); LDL CHOLESTEROL 107 MG/DL (<100); NON-HDL-C 127 MG/DL; TRIGLYCERIDES LEVEL 100 MG/DL (<150)
[2019-09-01 19:03] LABS: HEPATITIS B SURFACE ANTIBODY NEGATIVE (POSITIVE)
[2019-09-01 19:13] LABS: HEPATITIS B SURFACE ANTIGEN NEGATIVE (NEGATIVE)
[2019-09-01 19:41] LABS: HEPATITIS C VIRUS ABY INDEX 0.2 INDEX (<0.8)
[2019-09-01 19:42] LABS: HEPATITIS B CORE ANTIBODY IGM NEGATIVE (NEGATIVE)
== END ==
LOC: M LAB REF 16:33
PROVIDERS: ATTEND Internal Medicine Nephrology
DX: N17.9 Acute kidney failure, unspecified (principal); Z85.118 Personal history of other malignant neoplasm of bronchus and lung; I12.9 Hypertensive chronic kidney disease with stage 1 through stage 4 chronic kidney disease, or unspecified chronic kidney disease

== ENCOUNTER → 2019-09-06 | Outpatient (CLI) | payer MEDICARE, BC, OTHER ==
[~2019-09-06] MED LIST changes: +LIDOCAINE 1% MDV 20ML VIAL As Ordered ONE; +MIDAZOLAM INJ 2MG/2ML VIAL (J2250 PER 1MG) As Ordered ONE; +ceFAZolin 2 GM/D5W 50 ML IV BAG (J0690 PER 500MG) As Ordered ONE; +diphenhydrAMINE 50MG/ML VIAL (J1200) As Ordered ONE; +fentaNYL 100 MCG/2 ML INJECTION (J3010) As Ordered ONE
[2019-09-06 16:15] VITALS: BP 105/61
--- NOTE | 2019-09-07 07:37 | POST-OPPD ---
Postoperative Procedure Note Date Of Procedure: Sep 06, 2019 Time Of Procedure: 14:00 PREOPERATIVE DIAGNOSIS: RF POSTOPERATIVE DIAGNOSIS: same FINDINGS: patent left IJ. right sided port in place PROCEDURE: left sided permcath placed. ready to use SURGEON: Katie ANESTHESIA: mod sed ESTIMATED BLOOD LOSS: < 5 ml COMPLICATIONS: none POSTOPERATIVE CONDITION: stable NICOLE DEY MD Sep 07, 2019 07:37
--- NOTE | 2019-09-07 12:31 | REP ---
IR Permcath placement. IR Ultrasound of the left neck. IR Permcath insertion under fluoroscopy and ultrasound guidance. IR Moderate sedation. Clinical information: Renal failure. Needs dialysis. Physician: Dr. Wilson. Procedure: The patient was advised of the benefits, risks and alternatives of the procedure and informed consent was obtained. The time-out was performed with verification of the patient's name, MRN, site of procedure and type of procedure to be performed. The patient was positioned in the supine position on the angiographic table. The site was prepped and draped in the usual sterile fashion. Moderate sedation was performed by the physician including the presence of an independent trained observer that assisted in monitoring the patient's level of consciousness and physiologic status. Following the administration of fentanyl and Versed , the physician spent 45 minutes of continuous face to face time with the patient. Ultrasound of the left neck reveals a patent and compressible left internal jugular vein. A brake drum lathe operator radiograph reveals a right-sided port. The neck and anterior chest wall were anesthetized with lidocaine. The internal jugular vein was accessed under ultrasound guidance, using a micro introducer needle, via a lateral approach. An 018 cope wire was advanced into the inferior vena cava. Incision at the internal jugular access site and anterior chest wall were made using a scalpel. The needle was removed and the tract was serially dilated under fluoroscopy guidance. A peel away sheath was advanced over the wire under fluoroscopy guidance into the Superior vena cava. The catheter was inserted through the subcutaneous tissues of the chest wall with a tunneling device. The catheter was then advanced through the peel-away sheath under fluoroscopy guidance to the right atrium. The peel-away sheath was removed. The catheter was positioned with the tip in the right atrium. The puncture site was closed. The catheter was secured in place using 2-0 Prolene. Both sites were cleansed and sterile dressings applied. At the conclusion of the procedure, the ports of the catheter aspirate and flush freely. The catheter was locked with high-dose heparin. The patient tolerated the procedure well and was returned to the PRU in stable condition. EBL: < 5 ml. Complications: None. Conclusion: Successful placement of left sided Palindrome Permcath for dialysis. The catheter is ready for immediate use. Thank you this referral. Electronically Signed by Shaila Wilson MD 09/07/2019 12:30 P
== END ==
LOC: M IRPRO 12:18
PROVIDERS: ATTEND Internal Medicine Nephrology
DX: N17.9 Acute kidney failure, unspecified (principal); I10 Essential (primary) hypertension; Z85.118 Personal history of other malignant neoplasm of bronchus and lung
CPT/HCPCS: 36558; 99152; 99153; C1750; C1769; C1894; J0690; J1644; J2250; J3010

== ENCOUNTER → 2019-10-19 | Outpatient (CLI) | payer MEDICARE, BC, OTHER ==
[~2019-10-19] MED LIST changes: +ADVA230A; -AMLO10TA5 PO; +AMLO1TAB25 PO; +ISOVUE-370 76% 100ML VIAL As Ordered ONE; +KEYT1INJ IV; -LIDOCAINE 1% MDV 20ML VIAL As Ordered ONE; -MIDAZOLAM INJ 2MG/2ML VIAL (J2250 PER 1MG) As Ordered ONE; +PERC5TAB12 PO; +RENV2TAB PO; -ceFAZolin 2 GM/D5W 50 ML IV BAG (J0690 PER 500MG) As Ordered ONE; -diphenhydrAMINE 50MG/ML VIAL (J1200) As Ordered ONE; -fentaNYL 100 MCG/2 ML INJECTION (J3010) As Ordered ONE
--- NOTE | 2019-12-06 07:50 | REP ---
CT CHEST WITH IV CONTRAST HISTORY: Follow-up lung cancer. Patient has a history of renal failure on dialysis. COMPARISON: Chest CT study 12/19/2018. Follow-up PET CT scan 07/11/2019. CT CONTRAST DOSE: 75 mL of intravenous Isovue-[address] FINDINGS: The previously noted spiculated left lower lobe nodule has decreased since the 12/19/[address] study and currently measures 9 mm in greatest diameter. It is a little less prominent than on the 07/11/2019 study. The previously noted right pleural effusion is resolved. Emphysematous changes are again noted in the lung matute bilaterally. There is a right hilar lymph node measuring 12 x 17 mm, which is essentially unchanged from the comparison CT study with contrast. No new adenopathy is appreciated. The small spiculated nodule identified on the PET CT 07/11/2019 in the left upper lobe is seen 4-5 mm in greatest diameter on todays CT study unchanged. The right middle lobe nodular changes are improved the 07/11/2019 CT study and new when compared with the 12/19/2018 exam. There is a new 7 mm pleural-based nodular opacity in the right lower lobe medially adjacent to the lumbar spine, which is not apparent on the 12/19/2018 study. It was not apparent on CT from 07/11/2019; however, there was a right pleural effusion in this region. This may be pleural parenchymal scarring. No adrenal lesion is seen. Bilateral renal cortical atrophy is observed. This is unchanged. No bony destructive lesion is seen. There is an accessory splenule. Preliminary insurance territory manager radiograph demonstrates a tunnel catheter via the left and an Infusaport catheter via the right internal jugular veins. IMPRESSION: Stable spiculated nodule left lower lobe. Stable small nodule left upper lobe. Right pleural effusion resolved. New pleural-based 7 mm nodule right lower lobe. Left upper lobe nodule seen on prior PET CT is unchanged. There is a small subpleural nodule in the left lower lobe as well 5 mm in diameter. This is a new finding also. MTDD
== END ==
LOC: M RAD 09:25
PROVIDERS: ATTEND Internal Medicine Hematology & Oncology
DX: N18.9 Chronic kidney disease, unspecified (principal); Z99.2 Dependence on renal dialysis; Z85.118 Personal history of other malignant neoplasm of bronchus and lung
CPT/HCPCS: 71260; Q9967

== ENCOUNTER → 2019-11-07 | Outpatient (CLI) | payer MEDICARE, BC, OTHER ==
[~2019-11-07] MED LIST changes: -ISOVUE-370 76% 100ML VIAL As Ordered ONE
--- NOTE | 2019-11-21 15:22 | REP ---
BILATERAL UPPER EXTREMITY ARTERIAL AND VENOUS DOPPLER ULTRASOUND: VEIN MAPPING STUDY HISTORY: Arteriovenous fistula placement, chronic kidney disease stage IV end- stage, renal dialysis. SONOGRAPHIC FINDINGS: There is no evidence of superficial or deep venous thrombosis in the upper extremities on either side on two-dimensional and pulsed wave Doppler interrogation. Normal triphasic arterial waveforms are seen throughout. No evidence of stenosis or occlusion in the arterial tree in either upper extremity. RIGHT UPPER EXTREMITY VEIN DIAMETER CHART: RIGHT BASILIC CEPHALIC Upper humerus 7.7 mm 4.2 mm Lower humerus 4.7 mm 3.8 mm Upper forearm 3.2 mm 3.2 mm Lower forearm 1.2 mm 2.6 mm Median cubital 3.0 mm LEFT UPPER EXTREMITY VEIN DIAMETER CHART: LEFT BASILIC CEPHALIC Upper humerus 7.8 mm 4.0 mm Lower humerus 4.4 mm 4.0 mm Upper forearm 1.3 mm 1.5 mm Lower forearm 1.1 mm 3.2 mm Median cubital 3.0 mm RIGHT UPPER EXTREMITY ARTERIAL DOPPLER VELOCITY AND SIZE DIAMETER CHART: RIGHT PSV Axillary artery 51 cm/s, 5.7 mm Brachial artery 79 cm/s, 3.1 mm Proximal radial artery 48 cm/s, 2.5 mm Proximal ulnar artery 57 cm/s, 2.0 mm LEFT UPPER EXTREMITY ARTERIAL DOPPLER VELOCITY AND SIZE DIAMETER CHART: LEFT PSV Axillary artery 59 cm/s, 4.7 mm Brachial artery 69 cm/s, 3.8 mm Proximal radial artery 55 cm/s, 2.6 mm Proximal ulnar artery 55 cm/s, 2.9 mm MTDD
== END ==
LOC: M RAD 10:44
PROVIDERS: ATTEND Physician Assistant
DX: N18.6 End stage renal disease (principal)

== ENCOUNTER → 2019-12-29 | Outpatient (CLI) | payer MEDICARE, BC, OTHER ==
--- NOTE | 2019-12-29 16:19 | ECGEPIP ---
[facility] Test Date: 2019-12-29 Pat Name: KECIA RUSSELL Department: Room: - Gender: Female [employer]: : 1950 Requested By: Ignacio Burks Order Number: [id number] Reading MD: Elham Whyte Measurements Intervals [place] Rate: 96 P: 81 CT: 144 QRS: 69 QRSD: 81 T: 82 QT: 348 QTc: 440 Interpretive Statements SINUS RHYTHM POSSIBLE RIGHT ATRIAL ENLARGEMENT SIMILAR TO 04/21/19 Electronically Signed on 12-29-2019 16:19:28 EDT by Elham Whyte
== END ==
LOC: M EKG 15:30
PROVIDERS: ATTEND Anesthesiology
DX: R00.0 Tachycardia, unspecified (principal); Z86.2 Personal history of diseases of the blood and blood-forming organs and certain disorders involving the immune mechanism

== ENCOUNTER → 2020-01-06 | Outpatient (CLI) | payer MEDICARE, BC, OTHER | LOC: M LABSMTC 08:39 | PROVIDERS: ATTEND Anesthesiology | DX: Z01.812 Encounter for preprocedural laboratory examination (principal); Z20.828 Contact with and (suspected) exposure to other viral communicable diseases | CPT/HCPCS: C9803; U0003 ==

== ENCOUNTER 2020-01-11 09:52 | Day surgery (SDC) | payer MEDICARE, BC, OTHER ==
[~2020-01-11] VITALS: Ht 149.9 cm; Wt 50.8 kg
[~2020-01-11 09:52] MED LIST changes: +LR 1,000 ML IV ONE; +MIDAZOLAM INJ 2MG/2ML VIAL (J2250 PER 1MG) IV SCH; -PERC5TAB12 PO; +ceFAZolin SOD 2 GM in IV 1 EA IV ONE; +fentaNYL 100 MCG/2 ML INJECTION (J3010) IV SCH
[2020-01-11] MEDS ORDERED: ROPIvacaine 0.5% 30ML INJECTION (J2795 PER 1MG) ONE (09:53)
[2020-01-11] MEDS ORDERED: EPINEPHrine INJ 1 MG/ML 1ML AMP ONE (09:53)
[2020-01-11] MEDS ORDERED: NS 1,000 ML IV ONE (10:45)
[2020-01-11] MEDS ORDERED: LIDOCAINE 1% SDV 30ML VIAL As Ordered ONE (11:56)
[2020-01-11] MEDS ORDERED: HEPARIN SOD (PORCINE) 5000UNITS/ML 1ML VIAL/SYRINGE As Ordered ONE (11:57)
[2020-01-11] MEDS ORDERED: ISOVUE-300 61% 50ML VIAL As Ordered ONE (11:57)
[2020-01-11] MEDS ORDERED: BUPIVACAINE HCL 0.5% 30 ML VIAL As Ordered ONE (11:57)
[2020-01-11] MEDS ORDERED: MIDAZOLAM INJ 2MG/2ML VIAL (J2250 PER 1MG) As Ordered ONE ×2 (12:22→12:45)
[2020-01-11] MEDS ORDERED: fentaNYL 100 MCG/2 ML INJECTION (J3010) As Ordered ONE ×2 (12:22→12:45)
[2020-01-11] MEDS ORDERED: BUPIVACAINE/EPIN 0.5% 30 ML VIAL As Ordered ONE (12:25)
[2020-01-11] MEDS ORDERED: propofoL 200 MG/20 ML VIAL As Ordered ONE (12:45)
[2020-01-11] MEDS ORDERED: LIDOCAINE 2% 100MG/5ML SDV (FOR ANES.) As Ordered ONE (12:45)
[2020-01-11] MEDS ORDERED: ePHEDrine SULFATE 25 MG/5 ML(5MG/ML) SYRINGE As Ordered ONE (13:36)
[2020-01-11] MEDS ORDERED: PHENYLephrine HCL 500 MCG/5 ML (100MCG/ML) SYRINGE (J2370) As Ordered ONE (13:53)
[2020-01-11] MEDS ORDERED: dexameTHASONE 4 MG/ML 1ML VIAL (J1100 PER 1MG) As Ordered ONE (13:55)
[2020-01-11] MEDS ORDERED: ONDANSETRON 4MG/2ML VIAL As Ordered ONE (13:55)
--- NOTE | 2020-01-11 14:40 | ROOPDOC ---
[facility] Report Of Operation Report of Operation DATE OF PROCEDURE: 01/11/20 PREPROCEDURE DIAGNOSES: End-stage renal disease requiring access for dialysis POSTPROCEDURE DIAGNOSES: Same PROCEDURE: Left brachiocephalic AV fistula creation SURGEON: Donald Christianson MD ANESTHESIA: Monitored anesthesia care, left scalene nerve block, local anesthesia INDICATION FOR PROCEDURE: This a very pleasant 69-year-old patient with renal failure requiring access for dialysis. Risks benefits and alternatives to left brachiocephalic AV fistula were discussed with the patient and she is agreeable to proceed. Informed consent was obtained. REPORT OF OPERATION: Patient was brought to the OR in stable condition after a left scalene nerve block was placed in preop holding. Monitored anesthesia care and antibiotics were administered without complication. Her left upper extremity was prepped and draped in a sterile fashion. A timeout was performed. Local anesthesia was a computer installation engineer to the skin and subcutaneous tissue 1 finger breadth distal to the antecubital crease over the brachial artery pulse. A transverse incision was made and carried down to the subcutaneous tissues. The cephalic vein was skeletonized proximally and distally within the incision. 2 distal branch points were suture ligated and divided. The branch points were combined with a pot scissors to make a larger patch for anastomosis. Serial dilators were passed through the fistula including 3, 3.5, and 4 mm dilated. A bulldog clamp was placed on the vein after flushing with saline. Next, we dissected down to the brachial artery which was skeletonized proximally and distally. Vessels were placed on the vessel and secured and a 5 mm arteriotomy was made. The vein was anastomosed to the artery and an end-to-side fashion. Both the artery and the vein were a little small, but the vein seem to dilate well. 6-0 Prolene suture was using a running fashion to anastomose the vessels and before the final sutures are placed with flushed the inflow and outflow arteries and flushed with saline. Final sutures are placed and will flow was restored through the inflow artery and the vein, then the outflow artery to the hand. Her hand was warm and well-perfused. There was excellent thrill over the cephalic vein. There was strong Doppler flow distal to the anastomosis and the brachial artery. We irrigated with saline, additional local anesthesia was administered, the deep tissues were approximated with 2-0 Vicryl suture, the superficial fascia was closed with 3-0 Vicryl suture, the deep dermal layer was approximated with interrupted 4-0 Vicryl suture and the skin was closed with 4-0 subcuticular Monocryl suture. The incision was clean and dry. Mastisol and Steri-Strips were used to dress the incision, and a 2 x 2 and Tegaderm were placed over the incision at the final dressing. The patient was led to waking from anesthesia and taken to recovery in stable condition. She tolerated the sedation and the procedure well. ESTIMATED BLOOD LOSS: Approximately 15 mL. COMPLICATIONS: None. PLAN: Okay to remove sling after nerve block wears off and motor and sensory function returned. Okay to remove Tegaderm and gauze after 24 hours. The Steri- Strips intact 7 days. Okay if the Steri-Strips get wet in the shower, just paten t dry. No swimming or tub baths for 3 weeks. Continue to use squeeze ball to help mature fistula and improve circulation left upper extremity. Follow-up in one week to check incision and thrill. We appreciate the opportunity to participate in the care of this patient. DONALD CHRISTIANSON MD Jan 11, 2020 14:40
[2020-01-11] MEDS ORDERED: PERC5TAB12 PO (14:46)
[2020-01-11 15:15] VITALS: BP 88/52
== END 2020-01-11 16:10 | disposition home or self-care (01) ==
LOC: M SDC 09:52
PROVIDERS: ATTEND Surgery Vascular Surgery
DX: N18.6 End stage renal disease (principal); I12.0 Hypertensive chronic kidney disease with stage 5 chronic kidney disease or end stage renal disease; C34.90 Malignant neoplasm of unspecified part of unspecified bronchus or lung; J44.9 Chronic obstructive pulmonary disease, unspecified; R19.7 Diarrhea, unspecified; F41.9 Anxiety disorder, unspecified; M12.9 Arthropathy, unspecified; F32.9 Major depressive disorder, single episode, unspecified; Z79.899 Other long term (current) drug therapy; Z87.891 Personal history of nicotine dependence; Z88.2 Allergy status to sulfonamides; Z88.6 Allergy status to analgesic agent; Z92.21 Personal history of antineoplastic chemotherapy; Z92.3 Personal history of irradiation; Z96.1 Presence of intraocular lens; Z98.51 Tubal ligation status; Z99.2 Dependence on renal dialysis
CPT/HCPCS: 36415; 36821; 84132; J0171; J0690; J1100; J1644; J2250; J2370; J2405; J2795; J3010

== ENCOUNTER → 2020-01-30 | Outpatient (CLI) | payer MEDICARE, BC, OTHER ==
[~2020-01-30] MED LIST changes: -LR 1,000 ML IV ONE; -MIDAZOLAM INJ 2MG/2ML VIAL (J2250 PER 1MG) IV SCH; +PERC5TAB12 PO; -ceFAZolin SOD 2 GM in IV 1 EA IV ONE; -fentaNYL 100 MCG/2 ML INJECTION (J3010) IV SCH
--- NOTE | 2020-01-30 11:36 | REP ---
INDICATION: END STAGE RENAL DISEASE---UPPER EXTREMITY COMPARISON: None. TECHNIQUE: Real time compression and duplex Doppler evaluation of the Bilateral upper extremity deep venous system is performed. The right upper extremity study was performed with a tourniquet, the left without. FINDINGS: The Bilateral subclavian, jugular, axillary, brachial, basilic and cephalic veins are fully compressible where accessible with transducer pressure, and demonstrate no intraluminal thrombus and normal venous waveforms. There is no evidence of deep venous thrombosis. However there is thrombosis and occlusion of the left forearm AV fistula. Right: Basilic vein size (mm)/ Cephalic vein size (mm) Upper humerus: 4/5 Lower humerus:4/3 Upper forearm: 3/3 Lower forearm/wrist: 2/3 Median cubital:3 Right arterial structures: Peak systolic velocity (cm/s)/waveform/size (mm) Axillary: 61.2/biphasic/5 Brachial: 82.4/triphasic/3 Radial: 46.5/triphasic/2 Ulnar:62.5/triphasic/2 Left: Basilic vein size (mm)/ Cephalic vein size (mm) Upper humerus: 4/4 Lower humerus:4/3 Upper forearm: 2/- Lower forearm/wrist:1/ Median cubital:3 Left arterial structures: Peak systolic velocity (cm/s)/waveform/size (mm) Axillary: 48.9/monophasic/5 Brachial: -/monophasic/2 Radial: 30.4/monophasic/1 Ulnar: 24.7/monophasic/1 IMPRESSION: No evidence of deep venous thrombosis of the Bilateral upper extremity deep vein system. Arterial and venous sizes are given above. Occluded left forearm AV fistula. <Electronically signed by Gianfranco Lacy > 01/30/20 0136
== END ==
LOC: M RAD 07:17
PROVIDERS: ATTEND Surgery Vascular Surgery
DX: Z01.818 Encounter for other preprocedural examination (principal); N18.6 End stage renal disease; T82.898A Other specified complication of vascular prosthetic devices, implants and grafts, initial encounter; Y83.1 Surgical operation with implant of artificial internal device as the cause of abnormal reaction of the patient, or of later complication, without mention of misadventure at the time of the procedure

== ENCOUNTER → 2020-02-02 | Outpatient (REF) | payer MEDICARE, BC, OTHER ==
[2020-02-02 10:26] LABS: CHOLESTEROL RISK RATIO 1.747 (<5)
[2020-02-02 10:33] LABS: TOTAL 25(OH) VITAMIN D 84.9 NG/ML (30.0-100.0)
== END ==
LOC: M LAB REF 09:27
PROVIDERS: ATTEND Nurse Practitioner Family
DX: I10 Essential (primary) hypertension (principal)

== ENCOUNTER → 2020-03-30 | Outpatient (CLI) | payer MEDICARE, BC, OTHER ==
[~2020-03-30] MED LIST changes: -ADVA230A; +ADVA230A INH
== END ==
LOC: M LABSMTC 08:40
PROVIDERS: ATTEND Anesthesiology
DX: Z01.812 Encounter for preprocedural laboratory examination (principal); Z20.822 Contact with and (suspected) exposure to COVID-19

== ENCOUNTER 2020-04-04 07:17 | Day surgery (SDC) | payer MEDICARE, BC, OTHER ==
[~2020-04-04] VITALS: Ht 149.9 cm; Wt 51.7 kg
[~2020-04-04 07:17] MED LIST changes: +D5W/0.2% SODIUM CHLORIDE 1,000 ML IV ONE; -LISI-542 PO; +LISI-898 PO; -MAG400TA PO; +MAGN400T35 PO; +MIDAZOLAM INJ 2MG/2ML VIAL (J2250 PER 1MG) IV PRN; +ceFAZolin SOD 2 GM in IV 1 EA IV ONE; +fentaNYL 100 MCG/2 ML INJECTION (J3010) IV PRN
--- OUTSIDE RECORDS SUMMARY | 2020-04-04 07:22 | CCD | Continuity of Care Document ---
Author Author Jamila [facility] Organization Unknown Address [address] [place] [address] Phone [phone] Care Team Providers Care Solution Engineer Name Role Phone Mariusz Will MD AUTM [phone] MD Corrina Christianson AUTM [phone] Problems Active Problems Provider Date Impaired fasting glycemia Nelly Uribe M.D. Onset: Essential hypertension Nelly Uribe M.D. Onset: 05/26 Essential hypertension Nelly Uribe M.D. Onset: 11/22 Social History Type Date Description Comments Sex Unknown Tobacco Use Start: Unknown Never Used Smokeless Tobacco ETOH Use Consumes 4-5 beers per day Recreational Drug Use Denies Drug Use Tobacco Use Start: Unknown End: Unknown Patient is a former smoker quit smoking 12/22/18 after 1 ppd since age 20. Smoking Status Reviewed: 03/27/20 Patient is a former smoker qu it smoking 12/22/18 after 1 ppd since age 20. Exercise Type/Frequency Does not exercise Tattoo/Piercing Pierced ears Sun Exposure Minimum amount of sun exposure Sun Exposure Does not use sunscreen Seat Belt/Car Seat Always uses seat belt Smoke Alarms Yes Smoke Alarms Carbon Monoxide Detector: Yes Allergies, Adverse Reactions, Alerts Active Allergies Reaction Severity Comments Date Aleve severe skin rash with itchin g 03/10/2006 Sulfamethoxazole w/Trimethoprim icthing a ll over 10/28/2012 Medications Active Medications SIG Qnty Indications Ordering Provide r Date Tranexamic Acid Nasal [place] 1000 mg/10 ml 1 spray in e ffected nare for nosebleed.as needed Unknown 06/27/2019 Folic Acid 1mg Tablets 1 by mouth every day Unknown 06/26/2019 Albuterol Sulfate (2 .5mg/3ML) 0.083% Nebulizer 1 unit dose ampule in nebulizer and inha led up to 4 times a day for coughing and wheezing Unknown 06/26/2019 Vitamin B-12 1000mcg Tablets 1 by mouth every day Unknown 04/24/2019 Proair HFA 108(90Base) mcg/Act Aer osol inhale two puffs by mouth every 4 hours as needed 8.5units J06.9 Nelly Uribe M.D. 06/14/2014 Magnesium 500mg Tablets 1 by mouth daily Unknown Advair HFA 230-21mcg/Act Aerosol 2 puffs every 12 hours for maintenance Unknown 0 Renvela 800mg Tablets 1 tab po prior to meals Unknown Keytruda 100mg/4ML Solution every 3 weeks Unknown Immunizations CPT Code Status Date Vaccine Lot # 52870 Given 12/29/2018 Influenza Virus Vaccine, Quadrivalent,age 3 and up,multidose vial [id number] Given 01/26/2018 Prevnar 13 For Adults [id number] Given 12/28/2017 Boostrix (Tdap) Tetnus, Diphtheria Toxoids & Acellular Pertussis [id number] Given 12/28/2017 Influenza Virus Vaccine, Quadrivalent,age 3 and up,multidose vial [id number] 37625 Given 11/13/2016 Influenza Vaccination/preser vative free [id number] 70852 Given 11/19/2015 Pneumococcal Vaccine 31600 Given 11/19/2015 Influenza Vaccination Vital Signs Date Vital Result Comment 03/27/2020 9:38am BP Systolic 149 mmHg BP Diastolic 95 mmHg BP Systolic Recheck 143 mmHg recheck BP Diastolic Recheck 79 mmHg recheck Heart Rate 122 /min Body Temperature 96.9 F Respiratory Rate 18 /min Height 59 inches 4'11" Weight 117.38 lb O2 % BldC Oximetry 95 % Peak Expiratory Flow Rate 292 Estimated Peak Flow Rate [place] Body Weight 100 lb BMI (Body Mass Index) 23.7 kg/m2 01/25/2020 10:49am BP Systolic 127 mmHg BP Diastolic 84 mmHg Heart Rate 125 /min Body Temperature 97.5 F Respiratory Rate 22 /min Height 59 inches 4'11" Weight 116.00 lb O2 % dC Oximetry 90 % 2L oxygen Peak Expiratory Flow Rate 292 Estimated Peak Flow Rate [place] Body Weight 100 lb BMI (Body Mass Index) 23.4 kg/m2 Results Test Acquired Date Facility Test Result H/L Range Note CBC With Differential 03/13/2020 [place] [address] [phone] White Blood Count 8.9 10 Normal 4.0-10.0 Red Blood Count 3.48 10 Low 4.00-5.40 Hemoglobin 11.0 g/dL Low 12.0-15.5 Hematocrit 36.6 % Normal 36.0-47.0 Mean Corpuscular Volume 105.2 fl High 80.0-96.0 Mean Corpuscular Hemoglobin 31.6 pg Normal 27.0-33.0 Mean Corpuscular HGB Conc 30.1 g/dL Low 32.0-36.5 Red Cell Distribution Width 13.6 % Normal 11.5-14.5 Platelet Count, Automated 132 10 Low 150-450 Neutrophils % 61.6 % Normal 36.0-66.0 Lymph % 21.4 % Low 24.0-44.0 [place] % 10.8 % High 0.0-5.0 Eos % 5.2 % High 0.0-3.0 Baso % 0.5 % Normal 0.0-1.0 Immature Granulocyte % 0.5 % Normal 0-3.0 Nucleated Red Blood Cell % 0.0 % Normal 0-0 Neutrophils # 5.5 10 Normal 1.5-8.5 Lymph # 1.9 10 Normal 1.5-5.0 [place] # 1.0 10 High 0.0-0.8 Eos # 0.5 10 Normal 0.0-0.5 Baso # 0.0 10 Normal 0.0-0.2 Comprehensive Metabolic Profil 03/13/2020 [place] [address] [phone] Glucose, Fasting 113 mg/dL High 70-100 Blood Urea Nitrogen 27 mg/dL High 7-18 Creatinine For GFR 4.66 mg/dL High 0.55-1.30 Glomerular Filtration Rate 9.9 Low >45 1 Sodium Level 139 mEq/L Normal 136-145 Potassium Serum 3.6 mEq/L Normal 3.5-5.1 Chloride Level 101 mEq/L Normal 98-107 Carbon Dioxide Level 33 mEq/L High 21-32 Anion Gap 5 mEq/L Low 8-16 Calcium Level 9.1 mg/dL Normal 8.8-10.2 Ast/Sgot 16 U/L Normal 7-37 Alt/SGPT 18 U/L Normal 12-78 Alkaline Phosphatase 108 U/L Normal 45-117 Bilirubin,Total 0.2 mg/dL Normal 0.2-1.0 Total Protein 7.7 GM/DL Normal 6.4-8.2 Albumin 3.5 GM/DL Normal 3.2-5.2 Albumin/Globulin Ratio 0.8 Low 1.2-2.2 Laboratory test finding 03/13/2020 [facility] [place], [place] [id number] [phone] Thyroid Stimulating Hormone 1.210 uIU/ML Normal 0. 358-3.740 2 Free T4 0.97 ng/dL Normal 0.76-1.46 3 CBC With Differential 02/23/2020 Patient [facility]ter [place], [place] [id number] [phone] White Blood Count 7.7 10 Normal 4.0-10.0 Red Blood Count 3.48 10 Low 4.00-5.40 Hemoglobin 11.1 g/dL Low 12.0-15.5 Hematocrit 36.7 % Normal 36.0-47.0 Mean Corpuscular Volume 105.5 fl High 80.0-96.0 Mean Corpuscular Hemoglobin 31.9 pg Normal 27.0-33.0 Mean Corpuscular HGB Conc 30.2 g/dL Low 32.0-36.5 Red Cell Distribution Width 14.8 % High 11.5-14.5 Platelet Count, Automated 108 10 Low 150-450 Neutrophils % 57.8 % Normal 36.0-66.0 Lymph % 23.9 % Low 24.0-44.0 [place] % 11.4 % High 0.0-5.0 Eos % 6.1 % High 0.0-3.0 Baso % 0.5 % Normal 0.0-1.0 Immature Granulocyte % 0.3 % Normal 0-3.0 Nucleated Red Blood Cell % 0.3 % High 0-0 Neutrophils # 4.5 10 Normal 1.5-8.5 Lymph # 1.9 10 Normal 1.5-5.0 [place] # 0.9 10 High 0.0-0.8 Eos # 0.5 10 Normal 0.0-0.5 Baso # 0.0 10 Normal 0.0-0.2 Comprehensive Metabolic Profil 02/23/2020 [facility] [place] [facility] [place] [address] [phone] Glucose, Fasting 153 mg/dL High 70-100 Blood Urea Nitrogen 20 mg/dL High 7-18 Creatinine For GFR 4.77 mg/dL High 0.55-1.30 Glomerular Filtration Rate 9.7 Low >45 4 Sodium Level 138 mEq/L Normal 136-145 Potassium Serum 3.0 mEq/L Low 3.5-5.1 Chloride Level 100 mEq/L Normal 98-107 Carbon Dioxide Level 32 mEq/L Normal 21-32 Anion Gap 6 mEq/L Low 8-16 Calcium Level 9.3 mg/dL Normal 8.8-10.2 Ast/Sgot 13 U/L Normal 7-37 Alt/SGPT 21 U/L Normal 12-78 Alkaline Phosphatase 108 U/L Normal 45-117 Bilirubin,Total 0.3 mg/dL Normal 0.2-1.0 Total Protein 7.5 GM/DL Normal 6.4-8.2 Albumin 3.5 GM/DL Normal 3.2-5.2 Albumin/Globulin Ratio 0.9 Low 1.2-2.2 Laboratory test finding 02/23/2020 [place] [address] [phone] Thyroid Stimulating Hormone 1.260 uIU/ML Normal 0. 358-3.740 5 Free T4 1.02 ng/dL Normal 0.76-1.46 6 CBC With Differential 02/02/2020 [place] [address] [phone] White Blood Count 6.8 10 Normal 4.0-10.0 Red Blood Count 3.34 10 Low 4.00-5.40 Hemoglobin 10.5 g/dL Low 12.0-15.5 Hematocrit 34.9 % Low 36.0-47.0 Mean Corpuscular Volume 104.5 fl High 80.0-96.0 Mean Corpuscular Hemoglobin 31.4 pg Normal 27.0-33.0 Mean Corpuscular HGB Conc 30.1 g/dL Low 32.0-36.5 Red Cell Distribution Width 14.4 % Normal 11.5-14.5 Platelet Count, Automated 135 10 Low 150-450 Neutrophils % 55.9 % Normal 36.0-66.0 Lymph % 25.7 % Normal 24.0-44.0 [place] % 11.8 % High 0.0-5.0 Eos % 6.1 % High 0.0-3.0 Baso % 0.4 % Normal 0.0-1.0 Immature Granulocyte % 0.1 % Normal 0-3.0 Nucleated Red Blood Cell % 0.0 % Normal 0-0 Neutrophils # 3.8 10 Normal 1.5-8.5 Lymph # 1.8 10 Normal 1.5-5.0 [place] # 0.8 10 Normal 0.0-0.8 Eos # 0.4 10 Normal 0.0-0.5 Baso # 0.0 10 Normal 0.0-0.2 Comprehensive Metabolic Profil 02/02/2020 Patient S [place], [place] [id number] [phone] Glucose, Fasting 97 mg/dL Normal 70-100 Blood Urea Nitrogen 33 mg/dL High 7-18 Creatinine For GFR 5.65 mg/dL High 0.55-1.30 Glomerular Filtration Rate 8.0 Low >45 7 Sodium Level 136 mEq/L Normal 136-145 Potassium Serum 3.4 mEq/L Low 3.5-5.1 Chloride Level 99 mEq/L Normal 98-107 Carbon Dioxide Level 32 mEq/L Normal 21-32 Anion Gap 5 mEq/L Low 8-16 Calcium Level 8.8 mg/dL Normal 8.8-10.2 Ast/Sgot 13 U/L Normal 7-37 Alt/SGPT 14 U/L Normal 12-78 Alkaline Phosphatase 102 U/L Normal 45-117 Bilirubin,Total 0.2 mg/dL Normal 0.2-1.0 Total Protein 7.4 GM/DL Normal 6.4-8.2 Albumin 3.4 GM/DL Normal 3.2-5.2 Albumin/Globulin Ratio 0.9 Low 1.2-2.2 Laboratory test finding 02/02/2020 [place] [address] [phone] Thyroid Stimulating Hormone 1.040 uIU/ML Normal 0. 358-3.740 8 Free T4 1.06 ng/dL Normal 0.76-1.46 9 Lipid Panel 02/02/2020 [facility] nter [phone] Triglycerides Level 127 mg/dL Normal <150 Cholesterol Level 215 mg/dL High <200 HDL Cholesterol 123 mg/dL Normal >40 LDL Cholesterol 67 mg/dL Normal <100 Non-HDL-C 92 mg/dL Normal Cholesterol Risk Ratio 1.747 Normal <5 Laboratory test finding 02/02/2020 [facility] [phone] Total 25(Oh) Vitamin D 84.9 NG/ML Normal 30.0-100. 0 10 Laboratory test finding 01/12/2020 Patient Service [place], [place] [id number] [phone] Magnesium Level 2.1 mg/dL Normal 1.8-2.4 11 Thyroid Stimulating Hormone 0.637 uIU/ML Normal 0.358-3.740 12 Free T4 1.07 ng/dL Normal 0.76-1.46 13 Vitamin B12 Level 1171 pg/mL High 247-911 14 Folate > 24.0 NG/ML Normal >5.4 15 Comprehensive Metabolic Profil 01/12/2020 [place] [address] [phone] Glucose, Fasting 93 mg/dL Normal 70-100 Blood Urea Nitrogen 32 mg/dL High 7-18 Creatinine For GFR 6.09 mg/dL High 0.55-1.30 Glomerular Filtration Rate 7.3 Low >45 1 6 Sodium Level 138 mEq/L Normal 136-145 Potassium Serum 3.7 mEq/L Normal 3.5-5.1 Chloride Level 102 mEq/L Normal 98-107 Carbon Dioxide Level 29 mEq/L Normal 21-32 Anion Gap 7 mEq/L Low 8-16 Calcium Level 8.9 mg/dL Normal 8.8-10.2 Ast/Sgot 17 U/L Normal 7-37 Alt/SGPT 8 U/L Low 12-78 Alkaline Phosphatase 98 U/L Normal 45-117 Bilirubin,Total 0.2 mg/dL Normal 0.2-1.0 Total Protein 6.8 GM/DL Normal 6.4-8.2 Albumin 3.4 GM/DL Normal 3.2-5.2 Albumin/Globulin Ratio 1.0 Low 1.2-2.2 CBC With Differential 01/12/2020 [place] [address] [phone] White Blood Count 10.2 10 High 4.0-10.0 Red Blood Count 3.10 10 Low 4.00-5.40 Hemoglobin 9.6 g/dL Low 12.0-15.5 Hematocrit 31.6 % Low 36.0-47.0 Mean Corpuscular Volume 101.9 fl High 80.0-96.0 Mean Corpuscular Hemoglobin 31.0 pg Normal 27.0-33.0 Mean Corpuscular HGB Conc 30.4 g/dL Low 32.0-36.5 Red Cell Distribution Width 13.3 % Normal 11.5-14.5 Platelet Count, Automated 110 10 Low 150-450 Neutrophils % 67.7 % High 36.0-66.0 Lymph % 20.6 % Low 24.0-44.0 [place] % 9.4 % High 0.0-5.0 Eos % 1.5 % Normal 0.0-3.0 Baso % 0.3 % Normal 0.0-1.0 Immature Granulocyte % 0.5 % Normal 0-3.0 Nucleated Red Blood Cell % 0.0 % Normal 0-0 Neutrophils # 6.9 10 Normal 1.5-8.5 Lymph # 2.1 10 Normal 1.5-5.0 [place] # 1.0 10 High 0.0-0.8 Eos # 0.2 10 Normal 0.0-0.5 Baso # 0.0 10 Normal 0.0-0.2 Laboratory test finding 01/11/2020 [place] [address] [phone] Potassium Serum 3.6 mEq/L Normal 3.5-5.1 17 CBC With Differential 12/22/2019 [place] [address] [phone] White Blood Count 6.5 10 Normal 4.0-10.0 Red Blood Count 3.62 10 Low 4.00-5.40 Hemoglobin 11.6 g/dL Low 12.0-15.5 Hematocrit 37.8 % Normal 36.0-47.0 Mean Corpuscular Volume 104.4 fl High 80.0-96.0 Mean Corpuscular Hemoglobin 32.0 pg Normal 27.0-33.0 Mean Corpuscular HGB Conc 30.7 g/dL Low 32.0-36.5 Red Cell Distribution Width 14.5 % Normal 11.5-14.5 Platelet Count, Automated 129 10 Low 150-450 Neutrophils % 50.7 % Normal 36.0-66.0 Lymph % 28.4 % Normal 24.0-44.0 [place] % 11.0 % High 0.0-5.0 Eos % 9.0 % High 0.0-3.0 Baso % 0.6 % Normal 0.0-1.0 Immature Granulocyte % 0.3 % Normal 0-3.0 Nucleated Red Blood Cell % 0.0 % Normal 0-0 Neutrophils # 3.3 10 Normal 1.5-8.5 Lymph # 1.8 10 Normal 1.5-5.0 [place] # 0.7 10 Normal 0.0-0.8 Eos # 0.6 10 High 0.0-0.5 Baso # 0.0 10 Normal 0.0-0.2 Comprehensive Metabolic Profil 12/22/2019 Patient S [place] [id number] [phone] Glucose, Fasting 167 mg/dL High 70-100 Blood Urea Nitrogen 18 mg/dL Normal 7-18 Creatinine For GFR 5.08 mg/dL High 0.55-1.30 Glomerular Filtration Rate 9.0 Low >45 1 8 Sodium Level 139 mEq/L Normal 136-145 Potassium Serum 3.2 mEq/L Low 3.5-5.1 Chloride Level 98 mEq/L Normal 98-107 Carbon Dioxide Level 34 mEq/L High 21-32 Anion Gap 7 mEq/L Low 8-16 Calcium Level 9.2 mg/dL Normal 8.8-10.2 Ast/Sgot 19 U/L Normal 7-37 Alt/SGPT 17 U/L Normal 12-78 Alkaline Phosphatase 81 U/L Normal 45-117 Bilirubin,Total 0.3 mg/dL Normal 0.2-1.0 Total Protein 7.5 GM/DL Normal 6.4-8.2 Albumin 3.5 GM/DL Normal 3.2-5.2 Albumin/Globulin Ratio 0.9 Low 1.2-2.2 Laboratory test finding 12/22/2019 [place] [address] [phone] Thyroid Stimulating Hormone 1.050 uIU/ML Normal 0. 358-3.740 19 Free T4 1.11 ng/dL Normal 0.76-1.46 20 CBC With Differential 11/30/2019 [place] [address] [phone] White Blood Count 6.7 10 Normal 4.0-10.0 Red Blood Count 3.57 10 Low 4.00-5.40 Hemoglobin 11.6 g/dL Low 12.0-15.5 Hematocrit 36.9 % Normal 36.0-47.0 Mean Corpuscular Volume 103.4 fl High 80.0-96.0 Mean Corpuscular Hemoglobin 32.5 pg Normal 27.0-33.0 Mean Corpuscular HGB Conc 31.4 g/dL Low 32.0-36.5 Red Cell Distribution Width 14.1 % Normal 11.5-14.5 Platelet Count, Automated 117 10 Low 150-450 Neutrophils % 70.7 % High 36.0-66.0 Lymph % 11.1 % Low 24.0-44.0 [place] % 11.4 % High 0.0-5.0 Eos % 6.4 % High 0.0-3.0 Baso % 0.3 % Normal 0.0-1.0 Immature Granulocyte % 0.1 % Normal 0-3.0 Nucleated Red Blood Cell % 0.0 % Normal 0-0 Neutrophils # 4.7 10 Normal 1.5-8.5 Lymph # 0.7 10 Low 1.5-5.0 [place] # 0.8 10 Normal 0.0-0.8 Eos # 0.4 10 Normal 0.0-0.5 Baso # 0.0 10 Normal 0.0-0.2 Comprehensive Metabolic Profil 11/30/2019 Patient [place] [address] [phone] Glucose, Fasting 129 mg/dL High 70-100 Blood Urea Nitrogen 26 mg/dL High 7-18 Creatinine For GFR 5.06 mg/dL High 0.55-1.30 Glomerular Filtration Rate 9.1 Low >45 2 1 Sodium Level 135 mEq/L Low 136-145 Potassium Serum 3.9 mEq/L Normal 3.5-5.1 Chloride Level 99 mEq/L Normal 98-107 Carbon Dioxide Level 32 mEq/L Normal 21-32 Anion Gap 4 mEq/L Low 8-16 Calcium Level 9.3 mg/dL Normal 8.8-10.2 Ast/Sgot 18 U/L Normal 7-37 Alt/SGPT 23 U/L Normal 12-78 Alkaline Phosphatase 111 U/L Normal 45-117 Bilirubin,Total 0.3 mg/dL Normal 0.2-1.0 Total Protein 7.7 GM/DL Normal 6.4-8.2 Albumin 3.5 GM/DL Normal 3.2-5.2 Albumin/Globulin Ratio 0.8 Low 1.2-2.2 Laboratory test finding 11/30/2019 [place] [address] [phone] Thyroid Stimulating Hormone 1.060 uIU/ML Normal 0. 358-3.740 22 Free T4 0.94 ng/dL Normal 0.76-1.46 23 CBC With Differential 11/24/2019 Patient Service [place], [place] [address] [phone] White Blood Count 6.4 10 Normal 4.0-10.0 Red Blood Count 3.38 10 Low 4.00-5.40 Hemoglobin 11.0 g/dL Low 12.0-15.5 Hematocrit 35.7 % Low 36.0-47.0 Mean Corpuscular Volume 105.6 fl High 80.0-96.0 Mean Corpuscular Hemoglobin 32.5 pg Normal 27.0-33.0 Mean Corpuscular HGB Conc 30.8 g/dL Low 32.0-36.5 Red Cell Distribution Width 14.6 % High 11.5-14.5 Platelet Count, Automated 127 10 Low 150-450 Neutrophils % 60.6 % Normal 36.0-66.0 Lymph % 21.3 % Low 24.0-44.0 [place] % 11.2 % High 0.0-5.0 Eos % 6.1 % High 0.0-3.0 Baso % 0.5 % Normal 0.0-1.0 Immature Granulocyte % 0.3 % Normal 0-3.0 Nucleated Red Blood Cell % 0.0 % Normal 0-0 Neutrophils # 3.9 10 Normal 1.5-8.5 Lymph # 1.4 10 Low 1.5-5.0 [place] # 0.7 10 Normal 0.0-0.8 Eos # 0.4 10 Normal 0.0-0.5 Baso # 0.0 10 Normal 0.0-0.2 CBC With Differential 11/03/2019 [place] [address] [phone] White Blood Count 10.9 10 High 4.0-10.0 Red Blood Count 3.09 10 Low 4.00-5.40 Hemoglobin 9.9 g/dL Low 12.0-15.5 Hematocrit 32.0 % Low 36.0-47.0 Mean Corpuscular Volume 103.6 fl High 80.0-96.0 Mean Corpuscular Hemoglobin 32.0 pg Normal 27.0-33.0 Mean Corpuscular HGB Conc 30.9 g/dL Low 32.0-36.5 Red Cell Distribution Width 14.5 % Normal 11.5-14.5 Platelet Count, Automated 132 10 Low 150-450 Neutrophils % 65.3 % Normal 36.0-66.0 Lymph % 20.3 % Low 24.0-44.0 [place] % 7.6 % High 0.0-5.0 Eos % 4.9 % High 0.0-3.0 Baso % 0.5 % Normal 0.0-1.0 Immature Granulocyte % 1.4 % Normal 0-3.0 Nucleated Red Blood Cell % 0.0 % Normal 0-0 Neutrophils # 7.1 10 Normal 1.5-8.5 Lymph # 2.2 10 Normal 1.5-5.0 [place] # 0.8 10 Normal 0.0-0.8 Eos # 0.5 10 Normal 0.0-0.5 Baso # 0.1 10 Normal 0.0-0.2 Comprehensive Metabolic Profil 11/03/2019 [place] [address] [phone] Glucose, Fasting 111 mg/dL High 70-100 Blood Urea Nitrogen 43 mg/dL High 7-18 Creatinine For GFR 4.85 mg/dL High 0.55-1.30 Glomerular Filtration Rate 9.5 Low >45 2 4 Sodium Level 140 mEq/L Normal 136-145 Potassium Serum 3.9 mEq/L Normal 3.5-5.1 Chloride Level 103 mEq/L Normal 98-107 Carbon Dioxide Level 32 mEq/L Normal 21-32 Anion Gap 5 mEq/L Low 8-16 Calcium Level 9.1 mg/dL Normal 8.8-10.2 Ast/Sgot 21 U/L Normal 7-37 Alt/SGPT 24 U/L Normal 12-78 Alkaline Phosphatase 141 U/L High 45-117 Bilirubin,Total 0.2 mg/dL Normal 0.2-1.0 Total Protein 7.2 GM/DL Normal 6.4-8.2 Albumin 3.6 GM/DL Normal 3.2-5.2 Albumin/Globulin Ratio 1.0 Low 1.2-2.2 Laboratory test finding 11/03/2019 [place] [address] [phone] Thyroid Stimulating Hormone 1.370 uIU/ML Normal 0. 358-3.740 25 Free T4 0.95 ng/dL Normal 0.76-1.46 26 CBC With Differential 10/13/2019 [place] [address] [phone] White Blood Count 6.2 10 Normal 4.0-10.0 Red Blood Count 3.10 10 Low 4.00-5.40 Hemoglobin 9.6 g/dL Low 12.0-15.5 Hematocrit 31.4 % Low 36.0-47.0 Mean Corpuscular Volume 101.3 fl High 80.0-96.0 Mean Corpuscular Hemoglobin 31.0 pg Normal 27.0-33.0 Mean Corpuscular HGB Conc 30.6 g/dL Low 32.0-36.5 Red Cell Distribution Width 14.3 % Normal 11.5-14.5 Platelet Count, Automated 131 10 Low 150-450 Neutrophils % 52.8 % Normal 36.0-66.0 Lymph % 22.4 % Low 24.0-44.0 [place] % 12.8 % High 0.0-5.0 Eos % 11.2 % High 0.0-3.0 Baso % 0.6 % Normal 0.0-1.0 Immature Granulocyte % 0.2 % Normal 0-3.0 Nucleated Red Blood Cell % 0.0 % Normal 0-0 Neutrophils # 3.3 10 Normal 1.5-8.5 Lymph # 1.4 10 Low 1.5-5.0 [place] # 0.8 10 Normal 0.0-0.8 Eos # 0.7 10 High 0.0-0.5 Baso # 0.0 10 Normal 0.0-0.2 Comprehensive Metabolic Profil 10/13/2019 [facility] [place] [facility] [place] [address] [phone] Glucose, Fasting 137 mg/dL High 70-100 Blood Urea Nitrogen 24 mg/dL High 7-18 Creatinine For GFR 3.74 mg/dL High 0.55-1.30 Glomerular Filtration Rate 12.8 Low >45 2 7 Sodium Level 138 mEq/L Normal 136-145 Potassium Serum 3.9 mEq/L Normal 3.5-5.1 Chloride Level 98 mEq/L Normal 98-107 Carbon Dioxide Level 32 mEq/L Normal 21-32 Anion Gap 8 mEq/L Normal 8-16 Calcium Level 8.9 mg/dL Normal 8.8-10.2 Ast/Sgot 23 U/L Normal 7-37 Alt/SGPT 19 U/L Normal 12-78 Alkaline Phosphatase 122 U/L High 45-117 Bilirubin,Total 0.2 mg/dL Normal 0.2-1.0 Total Protein 7.5 GM/DL Normal 6.4-8.2 Albumin 3.5 GM/DL Normal 3.2-5.2 Albumin/Globulin Ratio 0.9 Low 1.2-2.2 Laboratory test finding 10/13/2019 [place] [address] [phone] Thyroid Stimulating Hormone 1.210 uIU/ML Normal 0. 358-3.740 28 Free T4 0.99 ng/dL Normal 0.76-1.46 29 1 Units are mL/min/1.73 m2 Chronic Kidney Disease Staging per NKF: Stage I & II GFR >=60 Normal to Mildly Decreased Stage III GFR 30-59 Moderately Decreased Stage IV GFR 15-29 Severely Decreased Stage V GFR <15 Very Little GFR Left ESRD GFR <15 on PRICING DIRECTOR 2 note:<nlbl:demographic_ ed> 3 note:<nlbl:demographic_ ed> 4 Units are mL/min/1.73 m2 Chronic Kidney Disease Staging per NKF: Stage I & II GFR >=60 Normal to Mildly Decreased Stage III GFR 30-59 Moderately Decreased Stage IV GFR 15-29 Severely Decreased Stage V GFR <15 Very Little GFR Left ESRD GFR <15 on PRICING DIRECTOR 5 note:<nlbl:demographic_ ed> 6 note:<nlbl:demographic_ ed> 7 Units are mL/min/1.73 m2 Chronic Kidney Disease Staging per NKF: Stage I & II GFR >=60 Normal to Mildly Decreased Stage III GFR 30-59 Moderately Decreased Stage IV GFR 15-29 Severely Decreased Stage V GFR <15 Very Little GFR Left ESRD GFR <15 on PRICING DIRECTOR 8 note:<nlbl:demographic_ ed> 9 note:<nlbl:demographic_ ed> 10 note:<nlbl:demographic_ ed> note:<nlbl:demographic_changed> 11 note:<nlbl:demographic_ ed> 12 note:<nlbl:demographic_ ed> 13 note:<nlbl:_ ed> 14 VITAMIN B12 NORMAL RANGE NORMAL 247 - 911 PG/ML INDETERMINATE 211 - 246 PG/ML DEFICIENT LESS THAN 211 PG/ML 15 FOLATE NORMAL RANGE NORMAL GREATER THAN 5.4 NG/ML INDETERMINATE 3.4-5.4 NG/ML DEFICIENT LESS THAN 3.4 NG/ML 16 Units are mL/min/1.73 m2 Chronic Kidney Disease Staging per NKF: Stage I & II GFR >=60 Normal to Mildly Decreased Stage III GFR 30-59 Moderately Decreased Stage IV GFR 15-29 Severely Decreased Stage V GFR <15 Very Little GFR Left ESRD GFR <15 on PRICING DIRECTOR 17 By: QI Time: 958 note:<nlbl:demographic_changed> By: Time: 958 18 Units are mL/min/1.73 m2 Chronic Kidney Disease Staging per NKF: Stage I & II GFR >=60 Normal to Mildly Decreased Stage III GFR 30-59 Moderately Decreased Stage IV GFR 15-29 Severely Decreased Stage V GFR <15 Very Little GFR Left ESRD GFR <15 on PRICING DIRECTOR 19 note:<nlbl:demographic_ ed> 20 note:<nlbl:demographic_ ed> 21 Units are mL/min/1.73 m2 Chronic Kidney Disease Staging per NKF: Stage I & II GFR >=60 Normal to Mildly Decreased Stage III GFR 30-59 Moderately Decreased Stage IV GFR 15-29 Severely Decreased Stage V GFR <15 Very Little GFR Left ESRD GFR <15 on PRICING DIRECTOR 22 note:<nlbl:demographic_chang ed> 23 note:<nlbl:demographic_ ed> 24 Units are mL/min/1.73 m2 Chronic Kidney Disease Staging per NKF: Stage I & II GFR >=60 Normal to Mildly Decreased Stage III GFR 30-59 Moderately Decreased Stage IV GFR 15-29 Severely Decreased Stage V GFR <15 Very Little GFR Left ESRD GFR <15 on PRICING DIRECTOR 25 note:<nlbl:demographic_ ed> note:<nlbl:demographic_changed> note:<nlbl:demographic_changed> 26 note:<nlbl:demographic_ ed> note:<nlbl:demographic_changed> note:<nlbl:demographic_changed> 27 Units are mL/min/1.73 m2 Chronic Kidney Disease Staging per NKF: Stage I & II GFR >=60 Normal to Mildly Decreased Stage III GFR 30-59 Moderately Decreased Stage IV GFR 15-29 Severely Decreased Stage V GFR <15 Very Little GFR Left ESRD GFR <15 on PRICING DIRECTOR 28 note:<nlbl:demographic_ ed> 29 note:<nlbl:demographic_ ed> Procedures Description No Information Available Medical Devices Description No Information Available Encounters Type Date Location Provider Dx Diagnosis Office Visit 03/27/2020 9:30a Main Office Lynda Clifton FNP Z01.8 18 Encounter for other preprocedural examination N18.5 Chronic kidney disease, stag e 5 I10 Essential (primary) hyperten yadi J44.9 Chronic obstructive pulmonar y disease, unspecified 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 Office Visit 01/25/2020 10:45a Main Office Lynda Clifton [employer] I10 Essential (primary) hypertension J44.9 Chronic obstructive pulmonar y disease, unspecified 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 Office Visit 12/29/2019 10:45a Main Office Lynda Clifton [employer] I10 Essential (primary) hypertension J44.9 Chronic obstructive pulmonar y disease, unspecified 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 Z71.89 Other specified counseling Office Visit 10/17/2019 10:15a Main Office Lynda Clifton, [employer] I10 Essential (primary) hypertension Assessments Date Code Description Provider 03/27/2020 Z01.818 Encounter for other preprocedura l examination Lynda Clifton, [employer] 03/27/2020 N18.5 Chronic kidney disease, stage 5 Pleskach Lynda, [employer] 03/27/2020 I10 Essential (primary) hypertension Pleskach, Lynda, SANDWICH PEDDLER 03/27/2020 J44.9 Chronic obstructive pulmonary di sease, unspecified Pleskach, Lynda, SANDWICH PEDDLER 03/27/2020 C34.92 Malignant neoplasm o f unspecified part of left bronchus or lung Pleskach, Lynda, SANDWICH PEDDLER 01/25/2020 I10 Essential (primary) hypertension Pleskach, Lynda, SANDWICH PEDDLER 01/25/2020 J44.9 Chronic obstructive pulmonary di sease, unspecified Pleskach, Lynda, SANDWICH PEDDLER 01/25/2020 C34.92 Malignant neoplasm o f unspecified part of left bronchus or lung Pleskach, Lynda, SANDWICH PEDDLER 12/29/2019 I10 Essential (primary) hypertension Pleskach, Lynda, SANDWICH PEDDLER 12/29/2019 J44.9 Chronic obstructive pulmonary di sease, unspecified Pleskach, Lynda, SANDWICH PEDDLER 12/29/2019 C34.92 Malignant neoplasm o f unspecified part of left bronchus or lung Pleskach, Lynda, SANDWICH PEDDLER 12/29/2019 Z71.89 Other specified counseling Plesk ach, Lynda, SANDWICH PEDDLER 10/17/2019 I10 Essential (primary) hypertension Pleskach, Lynda, SANDWICH PEDDLER Plan of Treatment Future Appointment(s):* 07/25/2020 10:30 am - Lynda Clifton FNP at Main Office 03/27/2020 - Lynda Clifton, SANDWICH PEDDLER* Z01.818 Encounter for other preprocedural examination* Comments:* Patient is medically optimized for the planned procedure. * N18.5 Chronic kidney disease, stage 5* Comments:* scheduled for fistula removal (it is not usable) Receives dialysis three times a weekFollows with Dr. Cerda * I10 Essential (primary) hypertension* Comments:* well controlled off medications, continue to monitor * J44.9 Chronic obstructive pulmonary disease, unspecified* Comments:* uses continuous O2, continue inhalers. Follows with pulmonology. * C34.92 Malignant neoplasm of unspecified part of left bronchus or lung* Comments:* in remission, following with oncology and pulmonology Functional Status Functional Condition Comment Date Status Complete lower and upper and lower dentures Active Independent with all ADL's Activ e Independent with all IADL's Acti ve Glasses magnifiers for reading Active dialysis 3 times per week Active Mental Status Mental Condition Comment Date Status None Active Referrals Description No Information Available
--- OUTSIDE RECORDS SUMMARY | 2020-04-04 07:22 | CCD | Continuity of Care Document ---
Author Author Jamila [facility] Organization Unknown Address [address] [place] [address] Phone [phone] Care Team Providers Care Special Education Science Teacher Name Role Phone Mariusz Will MD AUTM [phone] Problems Active Problems Provider Date Impaired fasting [...] Ordering Provide r Date Tranexamic Acid Nasal [place] 1000 mg/10 ml 1 spray in e [...] CPT Code Status Date Vaccine Lot # [id number] Given 12/29/2018 Influenza Virus Vaccine, Quadrivalent,age 3 and up,multidose vial [id number] Given 01/26/2018 Prevnar 13 For Adults [id number] Given 12/28/2017 Boostrix (Tdap) Tetnus, Diphtheria Toxoids & Acellular Pertussis [id number] 15601 Given 12/28/2017 Influenza Virus Vaccine, Quadrivalent,age 3 and up,multidose vial [id number] 55492 Given 11/13/2016 Influenza Vaccination/preser vative free [id number] 53002 Given 11/19/2015 Pneumococcal Vaccine [id number] Given 11/19/2015 Influenza Vaccination Vital Signs Date [...] Flow Rate 292 Estimated Peak Flow Rate [place] Body Weight 100 lb BMI (Body Mass Index) 23.7 kg/m2 01/25/2020 10:49am BP Systolic 127 mmHg BP Diastolic 84 mmHg Heart Rate 125 /min Body Temperature 97.5 F Respiratory Rate 22 /min Height 59 inches 4'11" Weight 116.00 lb O2 % BldC Oximetry 90 % 2L oxygen Peak Expiratory Flow Rate 292 Estimated Peak Flow Rate [place] Body Weight 100 lb BMI (Body Mass Index) 23.4 kg/m2 Results Test Acquired Date Facility Test Result H/L Range Note CBC With Differential 03/13/2020 [place] [address] [phone] White Blood Count 8.9 10 Normal 4.0-10.0 [...] 36.0-66.0 Lymph % 21.4 % Low 24.0-44.0 [place] % 10.8 % High 0.0-5.0 Eos % 5.2 % High 0.0-3.0 Baso % 0.5 % Normal 0.0-1.0 Immature Granulocyte % 0.5 % Normal 0-3.0 Nucleated Red Blood Cell % 0.0 % Normal 0-0 Neutrophils # 5.5 10 Normal 1.5-8.5 Lymph # 1.9 10 Normal 1.5-5.0 [place] # 1.0 10 High 0.0-0.8 Eos # 0.5 10 Normal 0.0-0.5 Baso # 0.0 10 Normal 0.0-0.2 Comprehensive Metabolic Profil 03/13/2020 [place] [address] [phone] Glucose, Fasting 113 mg/dL High 70-100 Blood [...] Laboratory test finding 03/13/2020 [place] [address] [phone] Thyroid Stimulating Hormone 1.210 uIU/ML Normal 0. 358-3.740 2 Free T4 0.97 ng/dL Normal 0.76-1.46 3 CBC With Differential 02/23/2020 [place] [address] [phone] White Blood Count 7.7 10 Normal 4.0-10.0 [...] 36.0-66.0 Lymph % 23.9 % Low 24.0-44.0 [place] % 11.4 % High 0.0-5.0 Eos % 6.1 % High 0.0-3.0 Baso % 0.5 % Normal 0.0-1.0 Immature Granulocyte % 0.3 % Normal 0-3.0 Nucleated Red Blood Cell % 0.3 % High 0-0 Neutrophils # 4.5 10 Normal 1.5-8.5 Lymph # 1.9 10 Normal 1.5-5.0 [place] # 0.9 10 High 0.0-0.8 Eos # 0.5 10 Normal 0.0-0.5 Baso # 0.0 10 Normal 0.0-0.2 Comprehensive Metabolic Profil 02/23/2020 Patient S ervice [place], [place] [id number] [phone] Glucose, Fasting 153 mg/dL High 70-100 Blood [...] 1.2-2.2 Laboratory test finding 02/23/2020 [place] [address] [phone] Thyroid Stimulating Hormone 1.260 uIU/ML Normal 0. 358-3.740 5 Free T4 1.02 ng/dL Normal 0.76-1.46 6 CBC With Differential 02/02/2020 [place] [address] [phone] White Blood Count 6.8 10 Normal 4.0-10.0 [...] 36.0-66.0 Lymph % 25.7 % Normal 24.0-44.0 [place] % 11.8 % High 0.0-5.0 Eos % 6.1 % High 0.0-3.0 Baso % 0.4 % Normal 0.0-1.0 Immature Granulocyte % 0.1 % Normal 0-3.0 Nucleated Red Blood Cell % 0.0 % Normal 0-0 Neutrophils # 3.8 10 Normal 1.5-8.5 Lymph # 1.8 10 Normal 1.5-5.0 [place] # 0.8 10 Normal 0.0-0.8 Eos # 0.4 10 Normal 0.0-0.5 Baso # 0.0 10 Normal 0.0-0.2 Comprehensive Metabolic Profil 02/02/2020 [place] [address] [phone] Glucose, Fasting 97 mg/dL Normal 70-100 Blood [...] 1.2-2.2 Laboratory test finding 02/02/2020 [place] [address] [phone] Thyroid Stimulating Hormone 1.040 uIU/ML Normal 0. 358-3.740 8 Free T4 1.06 ng/dL Normal 0.76-1.46 9 Lipid Panel 02/02/2020 [facility]ter [phone] Triglycerides Level 127 mg/dL Normal <150 Cholesterol Level 215 mg/dL High <200 HDL Cholesterol 123 mg/dL Normal >40 LDL Cholesterol 67 mg/dL Normal <100 Non-HDL-C 92 mg/dL Normal Cholesterol Risk Ratio 1.747 Normal <5 Laboratory test finding 02/02/2020 [facility] [phone] Total 25(Oh) Vitamin D 84.9 NG/ML Normal 30.0-100. 0 10 Laboratory test finding 01/12/2020 [place] [address] [phone] Magnesium Level 2.1 mg/dL Normal 1.8-2.4 11 Thyroid Stimulating Hormone 0.637 uIU/ML Normal 0.358-3.740 12 Free T4 1.07 ng/dL Normal 0.76-1.46 13 Vitamin B12 Level 1171 pg/mL High 247-911 14 Folate > 24.0 NG/ML Normal >5.4 15 Comprehensive Metabolic Profil 01/12/2020 Patient [place], [place] [id number] [phone] Glucose, Fasting 93 mg/dL Normal 70-100 Blood [...] CBC With Differential 01/12/2020 [place] [address] [phone] White Blood Count 10.2 10 High 4.0-10.0 [...] 36.0-66.0 Lymph % 20.6 % Low 24.0-44.0 [place] % 9.4 % High 0.0-5.0 Eos % 1.5 % Normal 0.0-3.0 Baso % 0.3 % Normal 0.0-1.0 Immature Granulocyte % 0.5 % Normal 0-3.0 Nucleated Red Blood Cell % 0.0 % Normal 0-0 Neutrophils # 6.9 10 Normal 1.5-8.5 Lymph # 2.1 10 Normal 1.5-5.0 [place] # 1.0 10 High 0.0-0.8 Eos # 0.2 10 Normal 0.0-0.5 Baso # 0.0 10 Normal 0.0-0.2 Laboratory test finding 01/11/2020 [place] [address] [phone] Potassium Serum 3.6 mEq/L Normal 3.5-5.1 17 CBC With Differential 12/22/2019 [place] [address] [phone] White Blood Count 6.5 10 Normal 4.0-10.0 [...] 36.0-66.0 Lymph % 28.4 % Normal 24.0-44.0 [place] % 11.0 % High 0.0-5.0 Eos % 9.0 % High 0.0-3.0 Baso % 0.6 % Normal 0.0-1.0 Immature Granulocyte % 0.3 % Normal 0-3.0 Nucleated Red Blood Cell % 0.0 % Normal 0-0 Neutrophils # 3.3 10 Normal 1.5-8.5 Lymph # 1.8 10 Normal 1.5-5.0 [place] # 0.7 10 Normal 0.0-0.8 Eos # 0.6 10 High 0.0-0.5 Baso # 0.0 10 Normal 0.0-0.2 Comprehensive Metabolic Profil 12/22/2019 Patient S [place] [id number] [phone] Glucose, Fasting 167 mg/dL High 70-100 Blood [...] Laboratory test finding 12/22/2019 [place] [address] [phone] Thyroid Stimulating Hormone 1.050 uIU/ML Normal 0. 358-3.740 19 Free T4 1.11 ng/dL Normal 0.76-1.46 20 CBC With Differential 11/30/2019 [place] [address] [phone] White Blood Count 6.7 10 Normal 4.0-10.0 [...] 36.0-66.0 Lymph % 11.1 % Low 24.0-44.0 [place] % 11.4 % High 0.0-5.0 Eos % 6.4 % High 0.0-3.0 Baso % 0.3 % Normal 0.0-1.0 Immature Granulocyte % 0.1 % Normal 0-3.0 Nucleated Red Blood Cell % 0.0 % Normal 0-0 Neutrophils # 4.7 10 Normal 1.5-8.5 Lymph # 0.7 10 Low 1.5-5.0 [place] # 0.8 10 Normal 0.0-0.8 Eos # 0.4 10 Normal 0.0-0.5 Baso # 0.0 10 Normal 0.0-0.2 Comprehensive Metabolic Profil 11/30/2019 Patient [place] [address] [phone] Glucose, Fasting 129 mg/dL High 70-100 Blood [...] 1.2-2.2 Laboratory test finding 11/30/2019 [place] [address] [phone] Thyroid Stimulating Hormone 1.060 uIU/ML Normal 0. 358-3.740 22 Free T4 0.94 ng/dL Normal 0.76-1.46 23 CBC With Differential 11/24/2019 [place] [address] [phone] White Blood Count 6.4 10 Normal 4.0-10.0 [...] 36.0-66.0 Lymph % 21.3 % Low 24.0-44.0 [place] % 11.2 % High 0.0-5.0 Eos % 6.1 % High 0.0-3.0 Baso % 0.5 % Normal 0.0-1.0 Immature Granulocyte % 0.3 % Normal 0-3.0 Nucleated Red Blood Cell % 0.0 % Normal 0-0 Neutrophils # 3.9 10 Normal 1.5-8.5 Lymph # 1.4 10 Low 1.5-5.0 [place] # 0.7 10 Normal 0.0-0.8 Eos # 0.4 10 Normal 0.0-0.5 Baso # 0.0 10 Normal 0.0-0.2 CBC With Differential 11/03/2019 [place] [address] [phone] White Blood Count 10.9 10 High 4.0-10.0 [...] 36.0-66.0 Lymph % 20.3 % Low 24.0-44.0 [place] % 7.6 % High 0.0-5.0 Eos % 4.9 % High 0.0-3.0 Baso % 0.5 % Normal 0.0-1.0 Immature Granulocyte % 1.4 % Normal 0-3.0 Nucleated Red Blood Cell % 0.0 % Normal 0-0 Neutrophils # 7.1 10 Normal 1.5-8.5 Lymph # 2.2 10 Normal 1.5-5.0 [place] # 0.8 10 Normal 0.0-0.8 Eos # 0.5 10 Normal 0.0-0.5 Baso # 0.1 10 Normal 0.0-0.2 Comprehensive Metabolic Profil 11/03/2019 [place] [address] [phone] Glucose, Fasting 111 mg/dL High 70-100 Blood [...] 1.2-2.2 Laboratory test finding 11/03/2019 [facility] [place], [place] [address] [phone] Thyroid Stimulating Hormone 1.370 uIU/ML Normal 0. 358-3.740 25 Free T4 0.95 ng/dL Normal 0.76-1.46 26 CBC With Differential 10/13/2019 [place] [address] [phone] White Blood Count 6.2 10 Normal 4.0-10.0 [...] 36.0-66.0 Lymph % 22.4 % Low 24.0-44.0 [place] % 12.8 % High 0.0-5.0 Eos % 11.2 % High 0.0-3.0 Baso % 0.6 % Normal 0.0-1.0 Immature Granulocyte % 0.2 % Normal 0-3.0 Nucleated Red Blood Cell % 0.0 % Normal 0-0 Neutrophils # 3.3 10 Normal 1.5-8.5 Lymph # 1.4 10 Low 1.5-5.0 [place] # 0.8 10 Normal 0.0-0.8 Eos # 0.7 10 High 0.0-0.5 Baso # 0.0 10 Normal 0.0-0.2 Comprehensive Metabolic Profil 10/13/2019 [facility] [place], [place] [address] [phone] Glucose, Fasting 137 mg/dL High 70-100 Blood [...] 1.2-2.2 Laboratory test finding 10/13/2019 Patient Service [place], [place] [address] [phone] Thyroid Stimulating Hormone 1.210 uIU/ML Normal 0. 358-3.740 28 Free T4 0.99 ng/dL Normal 0.76-1.46 29 1 Units are mL/min/1.73 m2 Chronic Kidney Disease Staging per NKF: Stage I & II GFR >=60 Normal to Mildly Decreased Stage III GFR 30-59 Moderately Decreased Stage IV GFR 15-29 Severely Decreased Stage V GFR <15 Very Little GFR Left ESRD GFR <15 on J[employer]EL [employer] FINISH OPENER 2 note:<nlbl:demographic_chang ed> 3 note:<nlbl:demographic_ ed> 4 Units are mL/min/1.73 m2 Chronic Kidney Disease Staging per NKF: Stage I & II GFR >=60 Normal to Mildly Decreased Stage III GFR 30-59 Moderately Decreased Stage IV GFR 15-29 Severely Decreased Stage V GFR <15 Very Little GFR Left ESRD GFR <15 on JEWEL [employer] FINISH OPENER 5 note:<nlbl:demographic_ ed> 6 note:<nlbl:demographic_ ed> 7 Units are mL/min/1.73 m2 Chronic Kidney Disease Staging per NKF: Stage I & II GFR >=60 Normal to Mildly Decreased Stage III GFR 30-59 Moderately Decreased Stage IV GFR 15-29 Severely Decreased Stage V GFR <15 Very Little GFR Left ESRD GFR <15 on JEWEL [employer] FINISH OPENER 8 note:<nlbl:_ ed> 9 note:<nlbl:_ ed> 10 note:<nlbl:demographic_ ed> note:<nlbl:demographic_changed> 11 note:<nlbl:_ ed> 12 note:<nlbl:_ ed> 13 note:<nlbl: ed> 14 VITAMIN B12 NORMAL RANGE NORMAL [...] Little GFR Left ESRD GFR <15 on [employer]ENER 17 By: Time: 958 note:<nlbl:demographic_changed> By: Time: 958 18 Units are mL/min/1.73 m2 Chronic Kidney Disease Staging per NKF: Stage I & II GFR >=60 Normal to Mildly Decreased Stage III GFR 30-59 Moderately Decreased Stage IV GFR 15-29 Severely Decreased Stage V GFR <15 Very Little GFR Left ESRD GFR <15 on [employer]ENER 19 note:<nlbl:_ ed> 20 note:<nlbl:_ ed> 21 Units are mL/min/1.73 m2 Chronic Kidney Disease Staging per NKF: Stage I & II GFR >=60 Normal to Mildly Decreased Stage III GFR 30-59 Moderately Decreased Stage IV GFR 15-29 Severely Decreased Stage V GFR <15 Very Little GFR Left ESRD GFR <15 on JEWEL [employer] OPENER 22 note:<nlbl:demographic_chang ed> 23 note:<nlbl:demographic_chang ed> 24 Units are mL/min/1.73 m2 Chronic Kidney Disease Staging per NKF: Stage I & II GFR >=60 Normal to Mildly Decreased Stage III GFR 30-59 Moderately Decreased Stage IV GFR 15-29 Severely Decreased Stage V GFR <15 Very Little GFR Left ESRD GFR <15 on JEW[employer] OPENER 25 note:<nlbl:demographic_chang ed> note:<nlbl:demographic_changed> note:<nlbl:demographic_changed> 26 note:<nlbl:demographic_chang ed> note:<nlbl:demographic_changed> note:<nlbl:demographic_changed> 27 Units are mL/min/1.73 m2 Chronic Kidney Disease Staging per NKF: Stage I & II GFR >=60 Normal to Mildly Decreased Stage III GFR 30-59 Moderately Decreased Stage IV GFR 15-29 Severely Decreased Stage V GFR <15 Very Little GFR Left ESRD GFR <15 on JEWEL [employer]ISH OPENER 28 note:<nlbl:demographic_ ed> 29 note:<nlbl:demographic_ ed> Procedures Description No Information Available Medical Devices Description No Information Available Encounters Type Date Location Provider Dx Diagnosis Office Visit 03/27/2020 9:30a Main Office Lynda Clifton, CIGARETTE INSPECTOR Z01.8 18 Encounter for other preprocedural examination N18.5 Chronic kidney disease, stag e 5 I10 Essential (primary) hyperten yadi J44.9 Chronic obstructive pulmonar y disease, unspecified 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 Office Visit 01/25/2020 10:45a Main Office Lynda Clifton, CIGARETTE INSPECTOR I10 Essential (primary) hypertension J44.9 Chronic obstructive pulmonar y disease, unspecified 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 Office Visit 12/29/2019 10:45a Main Office Lynda Clifton, CIGARETTE INSPECTOR I10 Essential (primary) hypertension J44.9 Chronic obstructive pulmonar y disease, unspecified 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 Z71.89 Other specified counseling Office Visit 10/17/2019 10:15a Main Office PleLien puentesy, CIGARETTE INSPECTOR I10 Essential (primary) hypertension Assessments Date Code Description Provider 03/27/2020 Z01.818 Encounter for other preprocedura l examination Lien Cliftony, CIGARETTE INSPECTOR 03/27/2020 N18.5 Chronic kidney disease, stage 5 Pleskach, Lynda, CIGARETTE INSPECTOR 03/27/2020 I10 Essential (primary) hypertension Pleskach, Lynda, CIGARETTE INSPECTOR 03/27/2020 J44.9 Chronic obstructive pulmonary di sease, unspecified Pleskach, Lynda, CIGARETTE INSPECTOR 03/27/2020 C34.92 Malignant neoplasm o f unspecified part of left bronchus or lung Pleskach, Lynda, CIGARETTE INSPECTOR 01/25/2020 I10 Essential (primary) hypertension Pleskach, Lynda, CIGARETTE INSPECTOR 01/25/2020 J44.9 Chronic obstructive pulmonary di sease, unspecified Pleskach, Lynda, CIGARETTE INSPECTOR 01/25/2020 C34.92 Malignant neoplasm o f unspecified part of left bronchus or lung Pleskach, Lynda, CIGARETTE INSPECTOR 12/29/2019 I10 Essential (primary) hypertension Pleskach, Lynda, CIGARETTE INSPECTOR 12/29/2019 J44.9 Chronic obstructive pulmonary di sease, unspecified Pleskach, Lynda, CIGARETTE INSPECTOR 12/29/2019 C34.92 Malignant neoplasm o f unspecified part of left bronchus or lung Pleskach, Lynda, CIGARETTE INSPECTOR 12/29/2019 Z71.89 Other specified counseling Plesk ach Lynda, CIGARETTE INSPECTOR 10/17/2019 I10 Essential (primary) hypertension Pleskach, Lynda, CIGARETTE INSPECTOR Plan of Treatment Future Appointment(s):* 07/25/2020 10:30 am - Lynda Clifton CIGARETTE INSPECTOR at Main Office 03/27/2020 - PleLien puentesy, CIGARETTE INSPECTOR* Z01.818 Encounter for other preprocedural examination* Comments:* [...]
--- OUTSIDE RECORDS SUMMARY | 2020-04-04 07:23 | CCD | Continuity of Care Document ---
Author Author Jamila CHRISTIANSON MD Organization Unknown Address [address] [facility] [address] [facility], [address] [place] [address] Phone [phone] Care Team Providers Care Operating System Designer Name Role Phone Nelly Uribe M.D. AUTM [phone] Alfred Davis M.D. AUTM [phone] Tory Jackson M.D. AUTM AUTM Unavailable Problems Active Problems Provider Date Essential hypertension PATY Lowery Onset: 09/12/2019 Social History Type Date Description Comments Sex Unknown ETOH Use Denies alcohol use Tobacco Use Start: Unknown End: Unknown Patient is a former smoker 1 PPD FOR 47 YEARS QUIT 2019 Recreational Drug Use Denies Drug Use Smoking Status Reviewed: 01/18/20 Patient is a former smoker 1 PPD FOR 47 YEARS QUIT 2019 Allergies, Adverse Reactions, Alerts Active Allergies Reaction Severity Comments Date Sulfa 12/22/2018 Aleve 12/22/2018 Medications Active Medications SIG Qnty Indications Ordering Provide r Date Advair HFA 230-21mcg/Act Aerosol 2 puff twice a day 12gm Luoie Birmingham MD 12/26/2019 Albuterol Sulfate (2 .5mg/3ML) 0.083% Nebulizer 1 vial four times a day as needed 1080ml J44.9 Padmini Birmingham MD 01/12/2019 Oxygen 2L 24hours-Verónica Cardoso 01/03/2019 Proair HFA 108(90Base) mcg/Act Aer osol 2 puffs every 4 hours as needed 8.500gm Unknown Magnesium Oxide 400mg Tablets Take One Tablet By Mouth Once A Day Unknown Folic Acid 1mg Tablets one tablet by mouth every day after meals Unknown Vitamin B 12 1 tab once weekly Unknown Iron Infusion Gets at dialysis Unknown Renvela 800mg Tablets 1 Tab 3 times daily with meals Unknown Keytruda 100mg/4ML Solution once every 3 weeks Unknown Vitamin D (Ergocalciferol) 1.25mg (30489 Ut) Capsules 1 Q Week Unknown Immunizations Description No Information Available Vital Signs Date Vital Result Comment 02/15/2020 10:29am BP Systolic 106 mmHg BP Diastolic 71 mmHg Height 58.5 inches 4'10.50" Weight 116.00 lb BMI (Body Mass Index) 23.8 kg/m2 [place] Body Weight 100 lb Weight 52.618 kg BSA (Body Surface Area) 1.45 m2 01/18/2020 8:46am BP Systolic 122 mmHg BP Diastolic 56 mmHg Height 58.5 inches 4'10.50" Weight 112.50 lb BMI (Body Mass Index) 23.1 kg/m2 [place] Body Weight 100 lb Weight 51.030 kg BSA (Body Surface Area) 1.44 m2 Results Test Acquired Date Facility Test Result H/L Range Note Laboratory test finding 01/11/2020 [facility] Lab [address] [place] [address] [phone] Potassium Serum 3.6 mEq/L Normal 3.5-5.1 1 1 By: Time: 958 note:<nlbl:demographic_changed> By: Time: 958 Procedures Date Code Description Status 01/11/[address] Fistula Artery-Vein Completed 12/26/2019 92816 Spirometry Completed Medical Devices Description No Information Available Encounters Type Date Location Provider Dx Diagnosis Office Visit 01/18/2020 9:00a [facility] PATY Hernandez N18.6 End stage renal disease Z99.2 Dependence on renal dialysis Z48.812 Encntr for surgical aftcr fo llowing surgery on the circ sys Office Visit 12/26/2019 1:45p [facility] Pulmonary/Thoracic Padmini Birmingham MD J43.1 Panlobular emphysema J96.11 Chronic respiratory failure with hypoxia 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 Z87.891 Personal history of nicotine dependence Z85.118 Personal history of malignan t neoplasm of bronchus and lung Z79.899 Other nursing home (current) dr ava therapy Office Visit 11/27/2019 1:30p [facility] PATY Hernandez N18.6 End stage renal disease Z99.2 Dependence on renal dialysis Office Visit 09/14/2019 9:15a [facility] PATY Hernandez N18.6 End stage renal disease Z99.2 Dependence on renal dialysis Office Visit 09/11/2019 11:30a [facility] Pulmonary/Thoracic Lawreli Birmingham MD J43.1 Panlobular emphysema J96.11 Chronic respiratory failure with hypoxia 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 Z87.891 Personal history of nicotine dependence Z85.118 Personal history of malignan t neoplasm of bronchus and lung Assessments Date Code Description Provider 01/18/2020 N18.6 End stage renal disease PATY Torres 01/18/2020 Z99.2 Dependence on renal dialysis PATY Serna 01/18/2020 Z48.812 Encounter for surgic al aftercare following surgery on the circulatory system PATY Lowery 01/11/2020 N18.6 End stage renal disease Corrina funk MD 12/26/2019 J43.1 Panlobular emphysema Louie peoples MD 12/26/2019 J96.11 Chronic respiratory failure with hypoxia Louie Birmingham MD 12/26/2019 Z99.81 Dependence on supplemental oxyge n Louie Birmingham MD 12/26/2019 Z87.891 Personal history of nicotine dep endence Louie Birmingham MD 12/26/2019 Z85.118 Personal history of other malignant neoplasm of bronchus and lung Louie Birmingham MD 12/26/2019 Z79.899 Other nursing home (current) drug t herapy Louie Birmingham MD 11/27/2019 N18.6 End stage renal disease PATY Torres 11/27/2019 Z99.2 Dependence on renal dialysis PATY Serna 09/14/2019 N18.6 End stage renal disease PATY Torres 09/14/2019 Z99.2 Dependence on renal dialysis PATY Serna 09/11/2019 J43.1 Panlobular emphysema Louie peoples MD 09/11/2019 J96.11 Chronic respiratory failure with hypoxia Louie Birmingham MD 09/11/2019 Z99.81 Dependence on supplemental oxyge n Louie Birmingham MD 09/11/2019 Z87.891 Personal history of nicotine dep endence Louie Birmingham MD 09/11/2019 Z85.118 Personal history of other malignant neoplasm of bronchus and lung Louie Birmingham MD Plan of Treatment Future Appointment(s):* 04/09/2020 9:30 am - Louie Birmingham MD at [facility] Pulmonary/Thoracic 01/18/2020 - PATY Lowery* N18.6 End stage renal disease * Z99.2 Dependence on renal dialysis * Z48.812 Encounter for surgical aftercare following surgery on the circulatory system Functional Status Description No Information Available Mental Status Description No Information Available Referrals Refer to Reason for Referral Status Appt Date Corrina Christianson MD [facility] Closed 09/14/2019 [address] [facility] [facility], [address] [place] [address] [phone]
--- OUTSIDE RECORDS SUMMARY | 2020-04-04 07:23 | CCD | Continuity of Care Document ---
Author Author Jamila DICKSON M.D. Organization Unknown Address [address] [place] [address] Phone [phone] Care Team Providers Care Plasterer Tender Name Role Phone Mariusz Will MD AUTM [phone] Problems Active Problems Provider Date Impaired fasting glycemia Nelly Dickson M.D. Onset: Essential hypertension Nelly Dickson M.D. Onset: 05/26 Essential hypertension Nelly Dickson M.D. Onset: 11/22 Social History Type Date Description Comments Sex Unknown Tobacco Use Start: Unknown Never Used Smokeless Tobacco ETOH Use Consumes 4-5 beers per day Recreational Drug Use Denies Drug Use Tobacco Use Start: Unknown End: Unknown Patient is a former smoker quit smoking 12/22/18 after 1 ppd since age 20. Smoking Status Reviewed: 01/25/20 Patient is a former smoker qu it [...] Ordering Provide r Date Tranexamic Acid Nasal Zenda 1000 mg/10 ml 1 spray in e [...] 4 hours as needed 8.5units J06.9 Nelly Dickson M.D. 06/14/2014 Magnesium 500mg Tablets 1 by mouth daily Unknown Vitamin D 2 [id number] Capsules 1 by mouth weekly Unknown Advair HFA 230-21mcg/Act Aerosol 2 puffs every 12 hours for maintenance Unknown 0 Renvela 800mg Tablets 1 tab po prior to meals Unknown Keytruda 100mg/4ML Solution every 3 weeks Unknown History Medications Amlodipine Besylate 5mg Tablets take one/half tablet by mouth every day for blood pressure 90tabs Lynda Clifton FNP 09/14/2019 - 01/25/2020 Immunizations CPT Code Status Date Vaccine Lot # [id number] Given 12/29/2018 Influenza Virus Vaccine, Quadrivalent,age 3 and up,multidose vial [id number] Given 01/26/2018 Prevnar 13 For Adults [id number] Given 12/28/2017 Boostrix (Tdap) Tetnus, Diphtheria Toxoids & Acellular Pertussis [id number] Given 12/28/2017 Influenza Virus Vaccine, Quadrivalent,age 3 and up,multidose vial [id number] 83823 Given 11/13/2016 Influenza Vaccination/preser vative free [id number] 14250 Given 11/19/2015 Pneumococcal Vaccine [id number] Given 11/19/2015 Influenza Vaccination Vital Signs Date Vital Result Comment 01/25/2020 10:49am BP Systolic 127 mmHg BP Diastolic 84 mmHg Heart Rate 125 /min Body Temperature 97.5 F Respiratory Rate 22 /min Height 59 inches 4'11" Weight 116.00 lb O2 % BldC Oximetry 90 % 2L oxygen Peak Expiratory Flow Rate 292 Estimated Peak Flow Rate [place] Body Weight 100 lb BMI (Body Mass Index) 23.4 kg/m2 12/29/2019 11:02am BP Systolic 140 mmHg BP Diastolic 71 mmHg Heart Rate 112 /min Body Temperature 96.8 F Respiratory Rate 20 /min Height 59 inches 4'11" Weight 116.00 lb O2 % BldC Oximetry 97 % 02 2L Peak Expiratory Flow Rate 292 Estimated Peak Flow Rate [place]ia Body Weight 100 lb BMI (Body Mass Index) 23.4 kg/m2 Results Test Acquired Date Facility Test Result H/L Range Note CBC With Differential 02/23/2020 Patient Service [facility] [place] [address] [phone] White Blood Count 7.7 10 Normal 4.0-10.0 [...] 36.0-66.0 Lymph % 23.9 % Low 24.0-44.0 Ch[place]ot % 11.4 % High 0.0-5.0 Eos % 6.1 % High 0.0-3.0 Baso % 0.5 % Normal 0.0-1.0 Immature Granulocyte % 0.3 % Normal 0-3.0 Nucleated Red Blood Cell % 0.3 % High 0-0 Neutrophils # 4.5 10 Normal 1.5-8.5 Lymph # 1.9 10 Normal 1.5-5.0 Chicot # 0.9 10 High 0.0-0.8 Eos # 0.5 10 Normal 0.0-0.5 Baso # 0.0 10 Normal 0.0-0.2 Comprehensive Metabolic Profil 02/23/[place] [address] [phone] Glucose, Fasting 153 mg/dL High 70-100 Blood Urea Nitrogen 20 mg/dL High 7-18 Creatinine For GFR 4.77 mg/dL High 0.55-1.30 Glomerular Filtration Rate 9.7 Low >45 1 Sodium Level 138 mEq/L Normal 136-145 Potassium [...] 1.2-2.2 Laboratory test finding 02/23/2020 [facility] [place] [id number] [phone] Thyroid Stimulating Hormone 1.260 uIU/ML Normal 0. 358-3.740 2 Free T4 1.02 ng/dL Normal 0.76-1.46 3 Laboratory test finding 02/02/2020 [facility] [phone] Total 25(Oh) Vitamin D 84.9 NG/ML Normal 30.0-100. 0 4 Lipid Panel 02/02/2020 [facility] nt [phone] Triglycerides Level 127 mg/dL Normal <150 Cholesterol Level 215 mg/dL High <200 HDL Cholesterol 123 mg/dL Normal >40 LDL Cholesterol 67 mg/dL Normal <100 Non-HDL-C 92 mg/dL Normal Cholesterol Risk Ratio 1.747 Normal <5 Laboratory test finding 02/02/2020 [place] [address] [phone] Thyroid Stimulating Hormone 1.040 uIU/ML Normal 0. 358-3.740 5 Free T4 1.06 ng/dL Normal 0.76-1.46 6 Comprehensive Metabolic Profil 02/02/2020 [place] [address] [phone] Glucose, Fasting 97 mg/dL Normal 70-100 Blood [...] Normal 3.2-5.2 Albumin/Globulin Ratio 0.9 Low 1.2-2.2 CBC With Differential 02/02/2020 Patient Service [place] [id number] [phone] White Blood Count 6.8 10 Normal 4.0-10.0 [...] 36.0-66.0 Lymph % 25.7 % Normal 24.0-44.0 Chicot % 11.8 % High 0.0-5.0 Eos % 6.1 % High 0.0-3.0 Baso % 0.4 % Normal 0.0-1.0 Immature Granulocyte % 0.1 % Normal 0-3.0 Nucleated Red Blood Cell % 0.0 % Normal 0-0 Neutrophils # 3.8 10 Normal 1.5-8.5 Lymph # 1.8 10 Normal 1.5-5.0 Chicot # 0.8 10 Normal 0.0-0.8 Eos # 0.4 10 Normal 0.0-0.5 Baso # 0.0 10 Normal 0.0-0.2 CBC With Differential 01/12/2020 [place] [address] [phone] White Blood Count 10.2 10 High 4.0-10.0 [...] 36.0-66.0 Lymph % 20.6 % Low 24.0-44.0 Chicot % 9.4 % High 0.0-5.0 Eos % 1.5 % Normal 0.0-3.0 Baso % 0.3 % Normal 0.0-1.0 Immature Granulocyte % 0.5 % Normal 0-3.0 Nucleated Red Blood Cell % 0.0 % Normal 0-0 Neutrophils # 6.9 10 Normal 1.5-8.5 Lymph # 2.1 10 Normal 1.5-5.0 Chicot # 1.0 10 High 0.0-0.8 Eos # 0.2 10 Normal 0.0-0.5 Baso # 0.0 10 Normal 0.0-0.2 Comprehensive Metabolic Profil 01/12/2020 [place] [address] [phone] Glucose, Fasting 93 mg/dL Normal 70-100 Blood Urea Nitrogen 32 mg/dL High 7-18 Creatinine For GFR 6.09 mg/dL High 0.55-1.30 Glomerular Filtration Rate 7.3 Low >45 8 Sodium Level 138 mEq/L Normal 136-145 Potassium [...] Ratio 1.0 Low 1.2-2.2 Laboratory test finding 01/12/2020 [place] [address] [phone] Magnesium Level 2.1 mg/dL Normal 1.8-2.4 9 Thyroid Stimulating Hormone 0.637 uIU/ML Normal 0.358-3.740 10 Free T4 1.07 ng/dL Normal 0.76-1.46 11 Vitamin B12 Level 1171 pg/mL High 247-911 12 Folate > 24.0 NG/ML Normal >5.4 13 Laboratory test finding 01/11/2020 [place] [address] [phone] Potassium Serum 3.6 mEq/L Normal 3.5-5.1 14 CBC With Differential 12/22/2019 [place] [address] [phone] White Blood Count 6.5 10 Normal 4.0-10.0 [...] 36.0-66.0 Lymph % 28.4 % Normal 24.0-44.0 Chicot % 11.0 % High 0.0-5.0 Eos % 9.0 % High 0.0-3.0 Baso % 0.6 % Normal 0.0-1.0 Immature Granulocyte % 0.3 % Normal 0-3.0 Nucleated Red Blood Cell % 0.0 % Normal 0-0 Neutrophils # 3.3 10 Normal 1.5-8.5 Lymph # 1.8 10 Normal 1.5-5.0 Chicot # 0.7 10 Normal 0.0-0.8 Eos # 0.6 10 High 0.0-0.5 Baso # 0.0 10 Normal 0.0-0.2 Comprehensive Metabolic Profil 12/22/2019 [place] [address] [phone] Glucose, Fasting 167 mg/dL High 70-100 Blood Urea Nitrogen 18 mg/dL Normal 7-18 Creatinine For GFR 5.08 mg/dL High 0.55-1.30 Glomerular Filtration Rate 9.0 Low >45 1 5 Sodium Level 139 mEq/L Normal 136-145 Potassium [...] Laboratory test finding 12/22/2019 [place] [address] [phone] Thyroid Stimulating Hormone 1.050 uIU/ML Normal 0. 358-3.740 16 Free T4 1.11 ng/dL Normal 0.76-1.46 17 Laboratory test finding 11/30/2019 [place] [address] [phone] Thyroid Stimulating Hormone 1.060 uIU/ML Normal 0. 358-3.740 18 Free T4 0.94 ng/dL Normal 0.76-1.46 19 Comprehensive Metabolic Profil 11/30/2019 Patient [place], [place] [id number] [phone] Glucose, Fasting 129 mg/dL High 70-100 Blood Urea Nitrogen 26 mg/dL High 7-18 Creatinine For GFR 5.06 mg/dL High 0.55-1.30 Glomerular Filtration Rate 9.1 Low >45 2 0 Sodium Level 135 mEq/L Low 136-145 Potassium [...] Normal 3.2-5.2 Albumin/Globulin Ratio 0.8 Low 1.2-2.2 CBC With Differential 11/30/2019 Patient Service [place], [place] [id number] [phone] White Blood Count 6.7 10 Normal 4.0-10.0 [...] 36.0-66.0 Lymph % 11.1 % Low 24.0-44.0 Chicot % 11.4 % High 0.0-5.0 Eos % 6.4 % High 0.0-3.0 Baso % 0.3 % Normal 0.0-1.0 Immature Granulocyte % 0.1 % Normal 0-3.0 Nucleated Red Blood Cell % 0.0 % Normal 0-0 Neutrophils # 4.7 10 Normal 1.5-8.5 Lymph # 0.7 10 Low 1.5-5.0 Chicot # 0.8 10 Normal 0.0-0.8 Eos # 0.4 10 Normal 0.0-0.5 Baso # 0.0 10 Normal 0.0-0.2 CBC With Differential 11/24/2019 [place] [address] [phone] White Blood Count 6.4 10 Normal 4.0-10.0 [...] 36.0-66.0 Lymph % 21.3 % Low 24.0-44.0 Chicot % 11.2 % High 0.0-5.0 Eos % 6.1 % High 0.0-3.0 Baso % 0.5 % Normal 0.0-1.0 Immature Granulocyte % 0.3 % Normal 0-3.0 Nucleated Red Blood Cell % 0.0 % Normal 0-0 Neutrophils # 3.9 10 Normal 1.5-8.5 Lymph # 1.4 10 Low 1.5-5.0 Chicot # 0.7 10 Normal 0.0-0.8 Eos # 0.4 10 Normal 0.0-0.5 Baso # 0.0 10 Normal 0.0-0.2 CBC With Differential 11/03/2019 [place] [address] [phone] White Blood Count 10.9 10 High 4.0-10.0 [...] 36.0-66.0 Lymph % 20.3 % Low 24.0-44.0 Chicot % 7.6 % High 0.0-5.0 Eos % 4.9 % High 0.0-3.0 Baso % 0.5 % Normal 0.0-1.0 Immature Granulocyte % 1.4 % Normal 0-3.0 Nucleated Red Blood Cell % 0.0 % Normal 0-0 Neutrophils # 7.1 10 Normal 1.5-8.5 Lymph # 2.2 10 Normal 1.5-5.0 Chicot # 0.8 10 Normal 0.0-0.8 Eos # 0.5 10 Normal 0.0-0.5 Baso # 0.1 10 Normal 0.0-0.2 Comprehensive Metabolic Profil 11/03/2019 [place] [address] [phone] Glucose, Fasting 111 mg/dL High 70-100 Blood Urea Nitrogen 43 mg/dL High 7-18 Creatinine For GFR 4.85 mg/dL High 0.55-1.30 Glomerular Filtration Rate 9.5 Low >45 2 1 Sodium Level 140 mEq/L Normal 136-145 Potassium [...] Laboratory test finding 11/03/2019 [place] [address] [phone] Thyroid Stimulating Hormone 1.370 uIU/ML Normal 0. 358-3.740 22 Free T4 0.95 ng/dL Normal 0.76-1.46 23 Laboratory test finding 10/13/2019 [place] [address] [phone] Thyroid Stimulating Hormone 1.210 uIU/ML Normal 0. 358-3.740 24 Free T4 0.99 ng/dL Normal 0.76-1.46 25 Comprehensive Metabolic Profil 10/13/2019 [place] [address] [phone] Glucose, Fasting 137 mg/dL High 70-100 Blood Urea Nitrogen 24 mg/dL High 7-18 Creatinine For GFR 3.74 mg/dL High 0.55-1.30 Glomerular Filtration Rate 12.8 Low >45 2 6 Sodium Level 138 mEq/L Normal 136-145 [...] Normal 3.2-5.2 Albumin/Globulin Ratio 0.9 Low 1.2-2.2 CBC With Differential 10/13/2019 [place] [address] [phone] White Blood Count 6.2 10 Normal 4.0-10.0 [...] 36.0-66.0 Lymph % 22.4 % Low 24.0-44.0 Chicot % 12.8 % High 0.0-5.0 Eos % 11.2 % High 0.0-3.0 Baso % 0.6 % Normal 0.0-1.0 Immature Granulocyte % 0.2 % Normal 0-3.0 Nucleated Red Blood Cell % 0.0 % Normal 0-0 Neutrophils # 3.3 10 Normal 1.5-8.5 Lymph # 1.4 10 Low 1.5-5.0 Chicot # 0.8 10 Normal 0.0-0.8 Eos # 0.7 10 High 0.0-0.5 Baso # 0.0 10 Normal 0.0-0.2 Type & Screen -Incl Blood Type,Quan,AB SC 09/22/2019 [place] [address] [phone] Blood Type O POSITIVE Normal AB Screen (Indirect Maggie)Vis NEGATIVE Normal Laboratory test finding 09/22/2019 [place] [address] [phone] Packed Cells TRANSFUSED PRODU <SEE NOTE> 27 CBC With Differential 09/22/2019 [place] [address] [phone] White Blood Count 7.0 10 Normal 4.0-10.0 Red Blood Count 2.59 10 Low 4.00-5.40 Hemoglobin 8.1 g/dL Low 12.0-15.5 Hematocrit 25.6 % Low 36.0-47.0 Mean Corpuscular Volume 98.8 fl High 80.0-96.0 Mean Corpuscular Hemoglobin 31.3 pg Normal 27.0-33.0 Mean Corpuscular HGB Conc 31.6 g/dL Low 32.0-36.5 Red Cell Distribution Width 13.1 % Normal 11.5-14.5 Platelet Count, Automated 172 10 Normal 150-450 Neutrophils % 60.3 % Normal 36.0-66.0 Lymph % 20.4 % Low 24.0-44.0 Chicot % 11.8 % High 0.0-5.0 Eos % 6.5 % High 0.0-3.0 Baso % 0.6 % Normal 0.0-1.0 Immature Granulocyte % 0.4 % Normal 0-3.0 Nucleated Red Blood Cell % 0.0 % Normal 0-0 Neutrophils # 4.2 10 Normal 1.5-8.5 Lymph # 1.4 10 Low 1.5-5.0 Chicot # 0.8 10 Normal 0.0-0.8 Eos # 0.5 10 Normal 0.0-0.5 Baso # 0.0 10 Normal 0.0-0.2 Comprehensive Metabolic Profil 09/22/2019 Patient S [place] [id number] [phone] Glucose, Fasting 160 mg/dL High 70-100 Blood Urea Nitrogen 22 mg/dL High 7-18 Creatinine For GFR 3.69 mg/dL High 0.55-1.30 Glomerular Filtration Rate 13.0 Low >45 2 8 Sodium Level 136 mEq/L Normal 136-145 Potassium Serum 3.5 mEq/L Normal 3.5-5.1 Chloride Level 98 mEq/L Normal 98-107 Carbon Dioxide Level 34 mEq/L High 21-32 Anion Gap 4 mEq/L Low 8-16 Calcium Level 9.1 mg/dL Normal 8.8-10.2 Ast/Sgot 23 U/L Normal 7-37 Alt/SGPT 12 U/L Normal 12-78 Alkaline Phosphatase 105 U/L Normal 45-117 Bilirubin,Total 0.2 mg/dL Normal 0.2-1.0 Total Protein 7.9 GM/DL Normal 6.4-8.2 Albumin 3.1 GM/DL Low 3.2-5.2 Albumin/Globulin Ratio 0.6 Low 1.2-2.2 Laboratory test finding 09/22/2019 [place] [address] [phone] Thyroid Stimulating Hormone 0.954 uIU/ML Normal 0. 358-3.740 29 Free T4 1.07 ng/dL Normal 0.76-1.46 30 CBC With Differential 09/01/2019 [place] [address] [phone] White Blood Count 7.0 10 Normal 4.0-10.0 Red Blood Count 2.85 10 Low 4.00-5.40 Hemoglobin 8.8 g/dL Low 12.0-15.5 Hematocrit 27.8 % Low 36.0-47.0 Mean Corpuscular Volume 97.5 fl High 80.0-96.0 Mean Corpuscular Hemoglobin 30.9 pg Normal 27.0-33.0 Mean Corpuscular HGB Conc 31.7 g/dL Low 32.0-36.5 Red Cell Distribution Width 14.6 % High 11.5-14.5 Platelet Count, Automated 149 10 Low 150-450 Neutrophils % 58.2 % Normal 36.0-66.0 Lymph % 21.3 % Low 24.0-44.0 Chicot % 9.9 % High 0.0-5.0 Eos % 9.8 % High 0.0-3.0 Baso % 0.4 % Normal 0.0-1.0 Immature Granulocyte % 0.4 % Normal 0-3.0 Nucleated Red Blood Cell % 0.0 % Normal 0-0 Neutrophils # 4.0 10 Normal 1.5-8.5 Lymph # 1.5 10 Normal 1.5-5.0 Ch[place]ot # 0.7 10 Normal 0.0-0.8 Eos # 0.7 10 High 0.0-0.5 Baso # 0.0 10 Normal 0.0-0.2 Comprehensive Metabolic Profil 09/01/2019 [place] [address] [phone] Glucose, Fasting 163 mg/dL High 70-100 Blood Urea Nitrogen 48 mg/dL High 7-18 Creatinine For GFR 4.12 mg/dL High 0.55-1.30 Glomerular Filtration Rate 11.5 Low >45 3 1 Sodium Level 140 mEq/L Normal 136-145 Potassium Serum 3.9 mEq/L Normal 3.5-5.1 Chloride Level 105 mEq/L Normal 98-107 Carbon Dioxide Level 28 mEq/L Normal 21-32 Anion Gap 7 mEq/L Low 8-16 Calcium Level 9.0 mg/dL Normal 8.8-10.2 Ast/Sgot 17 U/L Normal 7-37 Alt/SGPT 17 U/L Normal 12-78 Alkaline Phosphatase 104 U/L Normal 45-117 Bilirubin,Total 0.2 mg/dL Normal 0.2-1.0 Total Protein 7.8 GM/DL Normal 6.4-8.2 Albumin 3.2 GM/DL Normal 3.2-5.2 Albumin/Globulin Ratio 0.7 Low 1.2-2.2 Laboratory test finding 09/01/2019 Patient [facility] [place], [place] [address] [phone] Thyroid Stimulating Hormone 2.050 uIU/ML Normal 0. 358-3.740 32 Free T4 0.99 ng/dL Normal 0.76-1.46 33 1 Units are mL/min/1.73 m2 Chronic Kidney Disease Staging per NKF: Stage I & II GFR >=60 Normal to Mildly Decreased Stage III GFR 30-59 Moderately Decreased Stage IV GFR 15-29 Severely Decreased Stage V GFR <15 Very Little GFR Left ESRD GFR <15 on CHARGE MANAGER 2 note:<nlbl:demographic_chang ed> 3 note:<nlbl:demographic_chang ed> 4 note:<nlbl:demographic_chang ed> note:<nlbl:demographic_changed> 5 note:<nlbl:demographic_chang ed> 6 note:<nlbl:demographic_chang ed> 7 Units are mL/min/1.73 m2 Chronic Kidney Disease Staging per NKF: Stage I & II GFR >=60 Normal to Mildly Decreased Stage III GFR 30-59 Moderately Decreased Stage IV GFR 15-29 Severely Decreased Stage V GFR <15 Very Little GFR Left ESRD GFR <15 on CHARGE MANAGER 8 Units are mL/min/1.73 m2 Chronic Kidney Disease Staging per NKF: Stage I & II GFR >=60 Normal to Mildly Decreased Stage III GFR 30-59 Moderately Decreased Stage IV GFR 15-29 Severely Decreased Stage V GFR <15 Very Little GFR Left ESRD GFR <15 on CHARGE MANAGER 9 note:<nlbl:demographic_chang ed> 10 note:<nlbl:demographic_ ed> 11 note:<nlbl:_ ed> 12 VITAMIN B12 NORMAL RANGE NORMAL 247 - 911 PG/ML INDETERMINATE 211 - 246 PG/ML DEFICIENT LESS THAN 211 PG/ML 13 FOLATE NORMAL RANGE NORMAL GREATER THAN 5.4 NG/ML INDETERMINATE 3.4-5.4 NG/ML DEFICIENT LESS THAN 3.4 NG/ML 14 By: Time: 958 note:<nlbl:demographic_changed> By: Time: 958 15 Units are mL/min/1.73 m2 Chronic Kidney Disease Staging per NKF: Stage I & II GFR >=60 Normal to Mildly Decreased Stage III GFR 30-59 Moderately Decreased Stage IV GFR 15-29 Severely Decreased Stage V GFR <15 Very Little GFR Left ESRD GFR <15 on CHARGE MANAGER 16 note:<nlbl:demographic_ ed> 17 note:<nlbl:demographic_ ed> 18 note:<nlbl:_ ed> 19 note:<nlbl:_ ed> 20 Units are mL/min/1.73 m2 Chronic Kidney Disease Staging per NKF: Stage I & II GFR >=60 Normal to Mildly Decreased Stage III GFR 30-59 Moderately Decreased Stage IV GFR 15-29 Severely Decreased Stage V GFR <15 Very Little GFR Left ESRD GFR <15 on CHARGE MANAGER 21 Units are mL/min/1.73 m2 Chronic Kidney Disease Staging per NKF: Stage I & II GFR >=60 Normal to Mildly Decreased Stage III GFR 30-59 Moderately Decreased Stage IV GFR 15-29 Severely Decreased Stage V GFR <15 Very Little GFR Left ESRD GFR <15 on CHARGE MANAGER 22 note:<nlbl:demographic_ ed> note:<nlbl:demographic_changed> note:<nlbl:demographic_changed> 23 note:<nlbl:demographic_ ed> note:<nlbl:demographic_changed> note:<nlbl:demographic_changed> 24 note:<nlbl:demographic_ ed> 25 note:<nlbl:demographic_ ed> 26 Units are mL/min/1.73 m2 Chronic Kidney Disease Staging per NKF: Stage I & II GFR >=60 Normal to Mildly Decreased Stage III GFR 30-59 Moderately Decreased Stage IV GFR 15-29 Severely Decreased Stage V GFR <15 Very Little GFR Left ESRD GFR <15 on CHARGE MANAGER 27 TRANSFUSED PRODUCT: PACKED C ELLS COUNT: 1 28 Units are mL/min/1.73 m2 Chronic Kidney Disease Staging per NKF: Stage I & II GFR >=60 Normal to Mildly Decreased Stage III GFR 30-59 Moderately Decreased Stage IV GFR 15-29 Severely Decreased Stage V GFR <15 Very Little GFR Left ESRD GFR <15 on CHARGE MANAGER 29 note:<nlbl:demographic_[facility] ed> 30 note:<nlbl:demographic_[facility] ed> 31 Units are mL/min/1.73 m2 Chronic Kidney Disease Staging per NKF: Stage I & II GFR >=60 Normal to Mildly Decreased Stage III GFR 30-59 Moderately Decreased Stage IV GFR 15-29 Severely Decreased Stage V GFR <15 Very Little GFR Left ESRD GFR <15 on CHARGE MANAGER 32 note:<nlbl:demographic_[facility] ed> 33 note:<nlbl:[facility] ed> Procedures Description No Information Available Medical Devices Description No Information Available Encounters Type Date Location Provider Dx Diagnosis Office Visit 01/25/2020 10:45a Main Office Pleskach, Lynda, [place] I10 Essential (primary) hypertension J44.9 Chronic obstructive pulmonar y disease, unspecified 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 Office Visit 12/29/2019 10:45a Main Office Pleskach, Lynda, [place] I10 Essential (primary) hypertension J44.9 Chronic obstructive pulmonar y disease, unspecified 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 Z71.89 Other specified counseling Office Visit 10/17/2019 10:15a Main Office Pleskach, Lynda, [place] I10 Essential (primary) hypertension Office Visit 09/14/2019 8:45a Main Office Pleskach, Lynda, [place] I10 Essential (primary) hypertension Assessments Date Code Description Provider 01/25/2020 I10 Essential (primary) hypertension Pleskach, Lynda, [place]MAN 01/25/2020 J44.9 Chronic obstructive pulmonary di sease, unspecified Pleskach, Lynda, O[place]STERMAN 01/25/2020 C34.92 Malignant neoplasm o f unspecified part of left bronchus or lung Pleskach, Lynda, [place]MAN 12/29/2019 I10 Essential (primary) hypertension Pleskach, Lynda, O[place]STERMAN 12/29/2019 J44.9 Chronic obstructive pulmonary di sease, unspecified Pleskach, Lynda, [place]MAN 12/29/2019 C34.92 Malignant neoplasm o f unspecified part of left bronchus or lung Lynda Clifton FNP 12/29/2019 Z71.89 Other specified counseling Lynda Jones FNP 10/17/2019 I10 Essential (primary) hypertension Lynda Clifton FNP 09/14/2019 I10 Essential (primary) hypertension Lynda Clifton FNP Plan of Treatment Future Appointment(s):* 03/27/2020 9:30 am - Lynda Clifton FNP at Main Office * 07/25/2020 10:30 am - Lynda Clifton FNP at Main Office 01/25/2020 - Lynda Clifton FNP* I10 Essential (primary) hypertension* Comments:* well controlled off medications, continue to monitor * Follow up:* 6 months for annual, labs now * J44.9 Chronic obstructive pulmonary disease, unspecified* Comments:* continue inhalers, follows with pulmonology * C34.92 Malignant neoplasm of unspecified part [...]
--- OUTSIDE RECORDS SUMMARY | 2020-04-04 07:23 | CCD | Continuity of Care Document ---
Author Author Jamila DICKSON M.D. Organization Unknown Address [address] [place] [address] Phone [phone] Care Team Providers Care Cupola Liner Name Role Phone Mariusz Will MD AUTM [phone] Problems Active Problems Provider Date Impaired fasting [...] Ordering Provide r Date Tranexamic Acid Nasal Cranberry 1000 mg/10 ml 1 spray in e [...] by mouth daily Unknown Vitamin D 2 [id number] Capsules 1 by mouth weekly Unknown Advair HFA 230-21mcg/Act Aerosol 2 puffs every 12 hours for maintenance Unknown 0 Renvela 800mg Tablets 1 tab po prior to meals Unknown Keytruda 100mg/4ML Solution every 3 weeks Unknown Immunizations CPT Code Status Date Vaccine Lot # 66052 Given 12/29/2018 Influenza Virus Vaccine, Quadrivalent,age 3 and up,multidose vial [id number] Given 01/26/2018 Prevnar 13 For Adults [id number] Given 12/28/2017 Boostrix (Tdap) Tetnus, Diphtheria Toxoids & Acellular Pertussis [id number] Given 12/28/2017 Influenza Virus Vaccine, Quadrivalent,age 3 and up,multidose vial [id number] Given 11/13/2016 Influenza Vaccination/preser vative free [id number] Given 11/19/2015 Pneumococcal Vaccine [id number] Given 11/19/2015 Influenza Vaccination Vital Signs Date Vital Result Comment 01/25/2020 10:49am BP Systolic 127 mmHg BP Diastolic 84 mmHg Heart Rate 125 /min Body Temperature 97.5 F Respiratory Rate 22 /min Height 59 inches 4'11" Weight 116.00 lb O2 % BldC Oximetry 90 % 2L oxygen Peak Expiratory Flow Rate 292 Estimated Peak Flow Rate [place] Body Weight 100 lb BMI (Body Mass Index) 23.4 kg/m2 12/29/2019 11:02am BP Systolic 140 mmHg BP Diastolic 71 mmHg Heart Rate 112 /min Body Temperature 96.8 F Respiratory Rate 20 /min Height 59 inches 4'11" Weight 116.00 lb O2 % BldC Oximetry 97 % 02 2L Peak Expiratory Flow Rate 292 Estimated Peak Flow Rate [place] Body Weight 100 lb BMI (Body Mass Index) 23.4 kg/m2 Results Test Acquired Date Facility Test Result H/L Range Note CBC With Differential 03/13/2020 [facility] [place] [address] [phone] White Blood Count 8.9 10 Normal 4.0-10.0 [...] 36.0-66.0 Lymph % 21.4 % Low 24.0-44.0 Hettinger % 10.8 % High 0.0-5.0 Eos % 5.2 % High 0.0-3.0 Baso % 0.5 % Normal 0.0-1.0 Immature Granulocyte % 0.5 % Normal 0-3.0 Nucleated Red Blood Cell % 0.0 % Normal 0-0 Neutrophils # 5.5 10 Normal 1.5-8.5 Lymph # 1.9 10 Normal 1.5-5.0 Hettinger # 1.0 10 High 0.0-0.8 Eos # 0.5 10 Normal 0.0-0.5 Baso # 0.0 10 Normal 0.0-0.2 Comprehensive Metabolic Profil 03/13/[address] [place] [address] [phone] Glucose, Fasting 113 mg/dL High 70-100 Blood [...] Laboratory test finding 03/13/2020 [facility] [place] [address] [phone] Thyroid Stimulating Hormone 1.210 uIU/ML Normal 0. 358-3.740 2 Free T4 0.97 ng/dL Normal 0.76-1.46 3 CBC With Differential 02/23/2020 [place] [address] [phone] White Blood Count 7.7 10 Normal 4.0-10.0 [...] 36.0-66.0 Lymph % 23.9 % Low 24.0-44.0 Hettinger % 11.4 % High 0.0-5.0 Eos % 6.1 % High 0.0-3.0 Baso % 0.5 % Normal 0.0-1.0 Immature Granulocyte % 0.3 % Normal 0-3.0 Nucleated Red Blood Cell % 0.3 % High 0-0 Neutrophils # 4.5 10 Normal 1.5-8.5 Lymph # 1.9 10 Normal 1.5-5.0 Hettinger # 0.9 10 High 0.0-0.8 Eos # 0.5 10 Normal 0.0-0.5 Baso # 0.0 10 Normal 0.0-0.2 Comprehensive Metabolic Profil 02/23/2020 [facility] [place] [address] [phone] Glucose, Fasting 153 mg/dL High 70-100 Blood [...] Laboratory test finding 02/23/2020 [place] [address] [phone] Thyroid Stimulating Hormone 1.260 uIU/ML Normal 0. 358-3.740 5 Free T4 1.02 ng/dL Normal 0.76-1.46 6 Laboratory test finding 02/02/2020 [facility] [phone] Total 25(Oh) Vitamin D 84.9 NG/ML Normal 30.0-100. 0 7 Lipid Panel 02/02/2020 [facility] nt [phone] Triglycerides Level 127 mg/dL Normal <150 Cholesterol Level 215 mg/dL High <200 HDL Cholesterol 123 mg/dL Normal >40 LDL Cholesterol 67 mg/dL Normal <100 Non-HDL-C 92 mg/dL Normal Cholesterol Risk Ratio 1.747 Normal <5 Laboratory test finding 02/02/2020 [place] [address] [phone] Thyroid Stimulating Hormone 1.040 uIU/ML Normal 0. 358-3.740 8 Free T4 1.06 ng/dL Normal 0.76-1.46 9 Comprehensive Metabolic Profil 02/02/2020 [place] [address] [phone] Glucose, Fasting 97 mg/dL Normal 70-100 Blood Urea Nitrogen 33 mg/dL High 7-18 Creatinine For GFR 5.65 mg/dL High 0.55-1.30 Glomerular Filtration Rate 8.0 Low >45 1 0 Sodium Level 136 mEq/L Normal 136-145 Potassium [...] 1.2-2.2 CBC With Differential 02/02/2020 [place] [address] [phone] White Blood Count 6.8 10 Normal 4.0-10.0 [...] 36.0-66.0 Lymph % 25.7 % Normal 24.0-44.0 Hettinger % 11.8 % High 0.0-5.0 Eos % 6.1 % High 0.0-3.0 Baso % 0.4 % Normal 0.0-1.0 Immature Granulocyte % 0.1 % Normal 0-3.0 Nucleated Red Blood Cell % 0.0 % Normal 0-0 Neutrophils # 3.8 10 Normal 1.5-8.5 Lymph # 1.8 10 Normal 1.5-5.0 Hettinger # 0.8 10 Normal 0.0-0.8 Eos # 0.4 10 Normal 0.0-0.5 Baso # 0.0 10 Normal 0.0-0.2 CBC With Differential 01/12/2020 [place] [address] [phone] White Blood Count 10.2 10 High 4.0-10.0 [...] 36.0-66.0 Lymph % 20.6 % Low 24.0-44.0 Hettinger % 9.4 % High 0.0-5.0 Eos % 1.5 % Normal 0.0-3.0 Baso % 0.3 % Normal 0.0-1.0 Immature Granulocyte % 0.5 % Normal 0-3.0 Nucleated Red Blood Cell % 0.0 % Normal 0-0 Neutrophils # 6.9 10 Normal 1.5-8.5 Lymph # 2.1 10 Normal 1.5-5.0 Hettinger # 1.0 10 High 0.0-0.8 Eos # 0.2 10 Normal 0.0-0.5 Baso # 0.0 10 Normal 0.0-0.2 Comprehensive Metabolic Profil 01/12/[address] [place] [address] [phone] Glucose, Fasting 93 mg/dL Normal 70-100 Blood Urea Nitrogen 32 mg/dL High 7-18 Creatinine For GFR 6.09 mg/dL High 0.55-1.30 Glomerular Filtration Rate 7.3 Low >45 1 1 Sodium Level 138 mEq/L Normal 136-145 [...] 1.2-2.2 Laboratory test finding 01/12/2020 [place] [address] [phone] Magnesium Level 2.1 mg/dL Normal 1.8-2.4 12 Thyroid Stimulating Hormone 0.637 uIU/ML Normal 0.358-3.740 13 Free T4 1.07 ng/dL Normal 0.76-1.46 14 Vitamin B12 Level 1171 pg/mL High 247-911 15 Folate > 24.0 NG/ML Normal >5.4 16 Laboratory test finding 01/11/2020 [place] [address] [phone] Potassium Serum 3.6 mEq/L Normal 3.5-5.1 17 Laboratory test finding 12/22/2019 [place] [address] [phone] Thyroid Stimulating Hormone 1.050 uIU/ML Normal 0. 358-3.740 18 Free T4 1.11 ng/dL Normal 0.76-1.46 19 Comprehensive Metabolic Profil 12/22/2019 Patient [place], [place] [id number] [phone] Glucose, Fasting 167 mg/dL High 70-100 Blood Urea Nitrogen 18 mg/dL Normal 7-18 Creatinine For GFR 5.08 mg/dL High 0.55-1.30 Glomerular Filtration Rate 9.0 Low >45 2 0 Sodium Level 139 mEq/L Normal 136-145 Potassium [...] Ratio 0.9 Low 1.2-2.2 CBC With Differential 12/22/2019 Patient Service [place], [place] [id number] [phone] White Blood Count 6.5 10 Normal 4.0-10.0 [...] 36.0-66.0 Lymph % 28.4 % Normal 24.0-44.0 Hettinger % 11.0 % High 0.0-5.0 Eos % 9.0 % High 0.0-3.0 Baso % 0.6 % Normal 0.0-1.0 Immature Granulocyte % 0.3 % Normal 0-3.0 Nucleated Red Blood Cell % 0.0 % Normal 0-0 Neutrophils # 3.3 10 Normal 1.5-8.5 Lymph # 1.8 10 Normal 1.5-5.0 Hettinger # 0.7 10 Normal 0.0-0.8 Eos # 0.6 10 High 0.0-0.5 Baso # 0.0 10 Normal 0.0-0.2 CBC With Differential 11/30/2019 [place] [address] [phone] White Blood Count 6.7 10 Normal 4.0-10.0 [...] 36.0-66.0 Lymph % 11.1 % Low 24.0-44.0 Hettinger % 11.4 % High 0.0-5.0 Eos % 6.4 % High 0.0-3.0 Baso % 0.3 % Normal 0.0-1.0 Immature Granulocyte % 0.1 % Normal 0-3.0 Nucleated Red Blood Cell % 0.0 % Normal 0-0 Neutrophils # 4.7 10 Normal 1.5-8.5 Lymph # 0.7 10 Low 1.5-5.0 Hettinger # 0.8 10 Normal 0.0-0.8 Eos # 0.4 10 Normal 0.0-0.5 Baso # 0.0 10 Normal 0.0-0.2 Comprehensive Metabolic Profil 11/30/[address] [place] [address] [phone] Glucose, Fasting 129 mg/dL High 70-100 Blood [...] Laboratory test finding 11/30/2019 [place] [address] [phone] Thyroid Stimulating Hormone 1.060 uIU/ML Normal 0. 358-3.740 22 Free T4 0.94 ng/dL Normal 0.76-1.46 23 CBC With Differential 11/24/2019 [place] [address] [phone] White Blood Count 6.4 10 Normal 4.0-10.0 [...] 36.0-66.0 Lymph % 21.3 % Low 24.0-44.0 Hettinger % 11.2 % High 0.0-5.0 Eos % 6.1 % High 0.0-3.0 Baso % 0.5 % Normal 0.0-1.0 Immature Granulocyte % 0.3 % Normal 0-3.0 Nucleated Red Blood Cell % 0.0 % Normal 0-0 Neutrophils # 3.9 10 Normal 1.5-8.5 Lymph # 1.4 10 Low 1.5-5.0 Hettinger # 0.7 10 Normal 0.0-0.8 Eos # 0.4 10 Normal 0.0-0.5 Baso # 0.0 10 Normal 0.0-0.2 Laboratory test finding 11/03/2019 [place] [address] [phone] Thyroid Stimulating Hormone 1.370 uIU/ML Normal 0. 358-3.740 24 Free T4 0.95 ng/dL Normal 0.76-1.46 25 Comprehensive Metabolic Profil 11/03/2019 [place] [address] [phone] Glucose, Fasting 111 mg/dL High 70-100 Blood Urea Nitrogen 43 mg/dL High 7-18 Creatinine For GFR 4.85 mg/dL High 0.55-1.30 Glomerular Filtration Rate 9.5 Low >45 2 6 Sodium Level 140 mEq/L Normal 136-145 Potassium [...] Ratio 1.0 Low 1.2-2.2 CBC With Differential 11/03/2019 [place] [address] [phone] White Blood Count 10.9 10 High 4.0-10.0 [...] 36.0-66.0 Lymph % 20.3 % Low 24.0-44.0 Hettinger % 7.6 % High 0.0-5.0 Eos % 4.9 % High 0.0-3.0 Baso % 0.5 % Normal 0.0-1.0 Immature Granulocyte % 1.4 % Normal 0-3.0 Nucleated Red Blood Cell % 0.0 % Normal 0-0 Neutrophils # 7.1 10 Normal 1.5-8.5 Lymph # 2.2 10 Normal 1.5-5.0 Hettinger # 0.8 10 Normal 0.0-0.8 Eos # 0.5 10 Normal 0.0-0.5 Baso # 0.1 10 Normal 0.0-0.2 CBC With Differential 10/13/2019 Patient Service [place] [id number] [phone] White Blood Count 6.2 10 Normal 4.0-10.0 [...] 36.0-66.0 Lymph % 22.4 % Low 24.0-44.0 Hettinger % 12.8 % High 0.0-5.0 Eos % 11.2 % High 0.0-3.0 Baso % 0.6 % Normal 0.0-1.0 Immature Granulocyte % 0.2 % Normal 0-3.0 Nucleated Red Blood Cell % 0.0 % Normal 0-0 Neutrophils # 3.3 10 Normal 1.5-8.5 Lymph # 1.4 10 Low 1.5-5.0 Hettinger # 0.8 10 Normal 0.0-0.8 Eos # 0.7 10 High 0.0-0.5 Baso # 0.0 10 Normal 0.0-0.2 Comprehensive Metabolic Profil 10/13/2019 [id number] [phone] Glucose, Fasting 137 mg/dL High 70-100 Blood [...] 1.2-2.2 Laboratory test finding 10/13/2019 [place] [address] [phone] Thyroid Stimulating Hormone 1.210 uIU/ML Normal 0. 358-3.740 28 Free T4 0.99 ng/dL Normal 0.76-1.46 29 Type & Screen -Incl Blood Type,Quan,AB SC 09/22/2019 [place] [address] [phone] Blood Type O POSITIVE Normal AB Screen (Indirect Maggie)Vis NEGATIVE Normal Laboratory test finding 09/22/2019 [place] [address] [phone] Packed Cells TRANSFUSED PRODU <SEE NOTE> 30 CBC With Differential 09/22/2019 [place] [address] [phone] White Blood Count 7.0 10 Normal 4.0-10.0 [...] 36.0-66.0 Lymph % 20.4 % Low 24.0-44.0 Hettinger % 11.8 % High 0.0-5.0 Eos % 6.5 % High 0.0-3.0 Baso % 0.6 % Normal 0.0-1.0 Immature Granulocyte % 0.4 % Normal 0-3.0 Nucleated Red Blood Cell % 0.0 % Normal 0-0 Neutrophils # 4.2 10 Normal 1.5-8.5 Lymph # 1.4 10 Low 1.5-5.0 Hettinger # 0.8 10 Normal 0.0-0.8 Eos # 0.5 10 Normal 0.0-0.5 Baso # 0.0 10 Normal 0.0-0.2 Comprehensive Metabolic Profil 09/22/2019 [place] [address] [phone] Glucose, Fasting 160 mg/dL High 70-100 Blood Urea Nitrogen 22 mg/dL High 7-18 Creatinine For GFR 3.69 mg/dL High 0.55-1.30 Glomerular Filtration Rate 13.0 Low >45 3 1 Sodium Level 136 mEq/L Normal 136-145 Potassium [...] Laboratory test finding 09/22/2019 [facility] [place], [place] [id number] [phone] Thyroid Stimulating Hormone 0.954 uIU/ML Normal 0. 358-3.740 32 Free T4 1.07 ng/dL Normal 0.76-1.46 33 1 Units are mL/min/1.73 m2 Chronic Kidney Disease Staging per NKF: Stage I & II GFR >=60 Normal to Mildly Decreased Stage III GFR 30-59 Moderately Decreased Stage IV GFR 15-29 Severely Decreased Stage V GFR <15 Very Little GFR Left ESRD GFR <15 on ADDRESSING MACHINE OPERATOR 2 note:<nlbl:demographic_chang ed> 3 note:<nlbl:demographic_chang ed> 4 Units are mL/min/1.73 m2 Chronic Kidney Disease Staging per NKF: Stage I & II GFR >=60 Normal to Mildly Decreased Stage III GFR 30-59 Moderately Decreased Stage IV GFR 15-29 Severely Decreased Stage V GFR <15 Very Little GFR Left ESRD GFR <15 on ADDRESSING MACHINE OPERATOR 5 note:<nlbl:demographic_chang ed> 6 note:<nlbl:demographic_chang ed> 7 note:<nlbl:demographic_chang ed> note:<nlbl:demographic_changed> 8 note:<nlbl:demographic_chang ed> 9 note:<nlbl:demographic_chang ed> 10 Units are mL/min/1.73 m2 Chronic Kidney Disease Staging per NKF: Stage I & II GFR >=60 Normal to Mildly Decreased Stage III GFR 30-59 Moderately Decreased Stage IV GFR 15-29 Severely Decreased Stage V GFR <15 Very Little GFR Left ESRD GFR <15 on ADDRESSING MACHINE OPERATOR 11 Units are mL/min/1.73 m2 Chronic Kidney Disease Staging per NKF: Stage I & II GFR >=60 Normal to Mildly Decreased Stage III GFR 30-59 Moderately Decreased Stage IV GFR 15-29 Severely Decreased Stage V GFR <15 Very Little GFR Left ESRD GFR <15 on ADDRESSING MACHINE OPERATOR 12 note:<nlbl:demographic_ ed> 13 note:<nlbl:demographic_ ed> 14 note:<nlbl:_ ed> 15 VITAMIN B12 NORMAL RANGE NORMAL 247 - 911 PG/ML INDETERMINATE 211 - 246 PG/ML DEFICIENT LESS THAN 211 PG/ML 16 FOLATE NORMAL RANGE NORMAL GREATER THAN 5.4 NG/ML INDETERMINATE 3.4-5.4 NG/ML DEFICIENT LESS THAN 3.4 NG/ML 17 By: Time: 958 note:<nlbl:demographic_changed> By: Time: 958 18 note:<nlbl:demographic_ ed> 19 note:<nlbl:demographic_ ed> 20 Units are mL/min/1.73 m2 Chronic Kidney Disease Staging per NKF: Stage I & II GFR >=60 Normal to Mildly Decreased Stage III GFR 30-59 Moderately Decreased Stage IV GFR 15-29 Severely Decreased Stage V GFR <15 Very Little GFR Left ESRD GFR <15 on ADDRESSING MACHINE OPERATOR 21 Units are mL/min/1.73 m2 Chronic Kidney Disease Staging per NKF: Stage I & II GFR >=60 Normal to Mildly Decreased Stage III GFR 30-59 Moderately Decreased Stage IV GFR 15-29 Severely Decreased Stage V GFR <15 Very Little GFR Left ESRD GFR <15 on ADDRESSING MACHINE OPERATOR 22 note:<nlbl:demographic_ ed> 23 note:<nlbl:demographic_ ed> 24 note:<nlbl:demographic_ ed> note:<nlbl:demographic_changed> note:<nlbl:demographic_changed> 25 note:<nlbl:demographic_ ed> note:<nlbl:demographic_changed> note:<nlbl:demographic_changed> 26 Units are mL/min/1.73 m2 Chronic Kidney Disease Staging per NKF: Stage I & II GFR >=60 Normal to Mildly Decreased Stage III GFR 30-59 Moderately Decreased Stage IV GFR 15-29 Severely Decreased Stage V GFR <15 Very Little GFR Left ESRD GFR <15 on ADDRESSING MACHINE OPERATOR 27 Units are mL/min/1.73 m2 Chronic Kidney Disease Staging per NKF: Stage I & II GFR >=60 Normal to Mildly Decreased Stage III GFR 30-59 Moderately Decreased Stage IV GFR 15-29 Severely Decreased Stage V GFR <15 Very Little GFR Left ESRD GFR <15 on ADDRESSING MACHINE OPERATOR 28 note:<nlbl:demographic_[facility] ed> 29 note:<nlbl:demographic_[facility] ed> 30 TRANSFUSED PRODUCT: PACKED C ELLS COUNT: 1 31 Units are mL/min/1.73 m2 Chronic Kidney Disease Staging per NKF: Stage I & II GFR >=60 Normal to Mildly Decreased Stage III GFR 30-59 Moderately Decreased Stage IV GFR 15-29 Severely Decreased Stage V GFR <15 Very Little GFR Left ESRD GFR <15 on ADDRESSING MACHINE OPERATOR 32 note:<nlbl:demographic_[facility] ed> 33 note:<nlbl:[facility] ed> Procedures Description No Information Available Medical Devices Description No Information Available Encounters Type Date Location Provider Dx Diagnosis Office Visit 01/25/2020 10:45a Main Office Pleskach, Lynda, QUALITY CONTROL SCIENTIST I10 Essential (primary) hypertension J44.9 Chronic obstructive pulmonar y disease, unspecified 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 Office Visit 12/29/2019 10:45a Main Office Pleskach, Lynda, QUAL[employer] CONTROL SCIENTIST I10 Essential (primary) hypertension J44.9 Chronic obstructive pulmonar y disease, unspecified 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 Z71.89 Other specified counseling Office Visit 10/17/2019 10:15a Main Office Pleskach, Lynda, [employer]AL[employer] CONTROL SCIENTIST I10 Essential (primary) hypertension Assessments Date Code Description Provider 01/25/2020 I10 Essential (primary) hypertension Pleskach, Lynda, [employer] CONTROL SCIENTIST 01/25/2020 J44.9 Chronic obstructive pulmonary di sease, unspecified Pleskach, Lynda, QUALITY CONTROL SCIENTIST 01/25/2020 C34.92 Malignant neoplasm o f unspecified part of left bronchus or lung Pleskach, Lynda, QUAL[employer] CONTROL SCIENTIST 12/29/2019 I10 Essential (primary) hypertension Pleskach, Lynda, QUAL[employer] CONTROL SCIENTIST 12/29/2019 J44.9 Chronic obstructive pulmonary di sease, unspecified Pleskach, Lynda, QUALITY CONTROL SCIENTIST 12/29/2019 C34.92 Malignant neoplasm o f unspecified part of left bronchus or lung Pleskach, Lynda, [employer]AL[employer] SCIENTIST 12/29/2019 Z71.89 Other specified counseling Plesk ach, Lynda, QUAL[employer] CONTROL SCIENTIST 10/17/2019 I10 Essential (primary) hypertension Lynda Clifton [...]
--- OUTSIDE RECORDS SUMMARY | 2020-04-04 07:24 | CCD | Continuity of Care Document ---
Author Author Jamila [facility] Organization Unknown Address [address] [place] [address] Phone [phone] Care Team Providers Care Obiee Lead Developer Name Role Phone Mariusz Will MD AUTM [phone] Problems Active Problems Provider Date Impaired fasting [...] Ordering Provide r Date Tranexamic Acid Nasal [place] Level 1000 mg/10 ml 1 spray in e [...] by mouth daily Unknown Vitamin D 2 [id number] Capsules 1 by mouth weekly Unknown Advair [...] CPT Code Status Date Vaccine Lot # 80161 Given 12/29/2018 Influenza Virus Vaccine, Quadrivalent,age 3 and up,multidose vial [id number] Given 01/26/2018 Prevnar 13 For Adults [id number] Given 12/28/2017 Boostrix (Tdap) Tetnus, Diphtheria Toxoids & Acellular Pertussis [id number] Given 12/28/2017 Influenza Virus Vaccine, Quadrivalent,age 3 and up,multidose vial [id number] 49929 Given 11/13/2016 Influenza Vaccination/preser vative free [id number] Given 11/19/2015 Pneumococcal Vaccine [id number] Given 11/19/2015 Influenza Vaccination Vital Signs Date Vital Result Comment 01/25/2020 10:49am BP Systolic 127 mmHg BP Diastolic 84 mmHg Heart Rate 125 /min Body Temperature 97.5 F Respiratory Rate 22 /min Height 59 inches 4'11" Weight 116.00 lb O2 % BldC Oximetry 90 % 2L oxygen Peak Expiratory Flow Rate 292 Estimated Peak Flow Rate [place] Body Weight 100 lb BMI (Body Mass Index) 23.4 kg/m2 12/29/2019 11:02am BP Systolic 140 mmHg BP Diastolic 71 mmHg Heart Rate 112 /min Body Temperature 96.8 F Respiratory Rate 20 /min Height 59 inches 4'11" Weight 116.00 lb O2 % BldC Oximetry 97 % 02 2L Peak Expiratory Flow Rate 292 Estimated Peak Flow Rate [place] Body Weight 100 lb BMI (Body Mass Index) 23.4 kg/m2 Results Test Acquired Date Facility Test Result H/L Range Note CBC With Differential 01/12/2020 Patient Service [facility] [place] [address] [phone] White Blood Count 10.2 10 High 4.0-10.0 [...] 36.0-66.0 Lymph % 20.6 % Low 24.0-44.0 Latimer % 9.4 % High 0.0-5.0 Eos % 1.5 % Normal 0.0-3.0 Baso % 0.3 % Normal 0.0-1.0 Immature Granulocyte % 0.5 % Normal 0-3.0 Nucleated Red Blood Cell % 0.0 % Normal 0-0 Neutrophils # 6.9 10 Normal 1.5-8.5 Lymph # 2.1 10 Normal 1.5-5.0 Latimer # 1.0 10 High 0.0-0.8 Eos # 0.2 10 Normal 0.0-0.5 Baso # 0.0 10 Normal 0.0-0.2 Comprehensive Metabolic Profil 01/12/2020 [place] [address] [phone] Glucose, Fasting 93 mg/dL Normal 70-100 Blood Urea Nitrogen 32 mg/dL High 7-18 Creatinine For GFR 6.09 mg/dL High 0.55-1.30 Glomerular Filtration Rate 7.3 Low >45 1 Sodium Level 138 mEq/L [...] Laboratory test finding 01/12/2020 [place] [address] [phone] Magnesium Level 2.1 mg/dL Normal 1.8-2.4 2 Thyroid Stimulating Hormone 0.637 uIU/ML Normal 0.358-3.740 3 Free T4 1.07 ng/dL Normal 0.76-1.46 4 Vitamin B12 Level 1171 pg/mL High 247-911 5 Folate > 24.0 NG/ML Normal >5.4 6 Laboratory test finding 01/11/2020 Patient Service [place], [place] [id number] [phone] Potassium Serum 3.6 mEq/L Normal 3.5-5.1 7 CBC With Differential 12/22/2019 [place] [address] [phone] White Blood Count 6.5 10 Normal 4.0-10.0 [...] 36.0-66.0 Lymph % 28.4 % Normal 24.0-44.0 Latimer % 11.0 % High 0.0-5.0 Eos % 9.0 % High 0.0-3.0 Baso % 0.6 % Normal 0.0-1.0 Immature Granulocyte % 0.3 % Normal 0-3.0 Nucleated Red Blood Cell % 0.0 % Normal 0-0 Neutrophils # 3.3 10 Normal 1.5-8.5 Lymph # 1.8 10 Normal 1.5-5.0 Latimer # 0.7 10 Normal 0.0-0.8 Eos # 0.6 10 High 0.0-0.5 Baso # 0.0 10 Normal 0.0-0.2 Comprehensive Metabolic Profil 12/22/2019 [place] [address] [phone] Glucose, Fasting 167 mg/dL High 70-100 Blood Urea Nitrogen 18 mg/dL Normal 7-18 Creatinine For GFR 5.08 mg/dL High 0.55-1.30 Glomerular Filtration Rate 9.0 Low >45 8 Sodium Level 139 mEq/L Normal 136-145 [...] 1.2-2.2 Laboratory test finding 12/22/2019 [place] [address] [phone] Thyroid Stimulating Hormone 1.050 uIU/ML Normal 0. 358-3.740 9 Free T4 1.11 ng/dL Normal 0.76-1.46 10 CBC With Differential 11/30/2019 [place] [address] [phone] White Blood Count 6.7 10 Normal 4.0-10.0 [...] 36.0-66.0 Lymph % 11.1 % Low 24.0-44.0 Latimer % 11.4 % High 0.0-5.0 Eos % 6.4 % High 0.0-3.0 Baso % 0.3 % Normal 0.0-1.0 Immature Granulocyte % 0.1 % Normal 0-3.0 Nucleated Red Blood Cell % 0.0 % Normal 0-0 Neutrophils # 4.7 10 Normal 1.5-8.5 Lymph # 0.7 10 Low 1.5-5.0 Latimer # 0.8 10 Normal 0.0-0.8 Eos # 0.4 10 Normal 0.0-0.5 Baso # 0.0 10 Normal 0.0-0.2 Comprehensive Metabolic Profil 11/30/2019 Patient [place], [place] [id number] [phone] Glucose, Fasting 129 mg/dL High 70-100 Blood Urea Nitrogen 26 mg/dL High 7-18 Creatinine For GFR 5.06 mg/dL High 0.55-1.30 Glomerular Filtration Rate 9.1 Low >45 1 1 Sodium Level 135 mEq/L Low 136-145 [...] Laboratory test finding 11/30/2019 [place] [address] [phone] Thyroid Stimulating Hormone 1.060 uIU/ML Normal 0. 358-3.740 12 Free T4 0.94 ng/dL Normal 0.76-1.46 13 CBC With Differential 11/24/2019 [place] [address] [phone] White Blood Count 6.4 10 Normal 4.0-10.0 [...] 36.0-66.0 Lymph % 21.3 % Low 24.0-44.0 Latimer % 11.2 % High 0.0-5.0 Eos % 6.1 % High 0.0-3.0 Baso % 0.5 % Normal 0.0-1.0 Immature Granulocyte % 0.3 % Normal 0-3.0 Nucleated Red Blood Cell % 0.0 % Normal 0-0 Neutrophils # 3.9 10 Normal 1.5-8.5 Lymph # 1.4 10 Low 1.5-5.0 Latimer # 0.7 10 Normal 0.0-0.8 Eos # 0.4 10 Normal 0.0-0.5 Baso # 0.0 10 Normal 0.0-0.2 CBC With Differential 11/03/2019 [place] [address] [phone] White Blood Count 10.9 10 High 4.0-10.0 [...] 36.0-66.0 Lymph % 20.3 % Low 24.0-44.0 Latimer % 7.6 % High 0.0-5.0 Eos % 4.9 % High 0.0-3.0 Baso % 0.5 % Normal 0.0-1.0 Immature Granulocyte % 1.4 % Normal 0-3.0 Nucleated Red Blood Cell % 0.0 % Normal 0-0 Neutrophils # 7.1 10 Normal 1.5-8.5 Lymph # 2.2 10 Normal 1.5-5.0 Latimer # 0.8 10 Normal 0.0-0.8 Eos # 0.5 10 Normal 0.0-0.5 Baso # 0.1 10 Normal 0.0-0.2 Comprehensive Metabolic Profil 11/03/[address] [place] [address] [phone] Glucose, Fasting 111 mg/dL High 70-100 Blood Urea Nitrogen 43 mg/dL High 7-18 Creatinine For GFR 4.85 mg/dL High 0.55-1.30 Glomerular Filtration Rate 9.5 Low >45 1 4 Sodium Level 140 mEq/L Normal 136-145 [...] Laboratory test finding 11/03/2019 [place] [address] [phone] Thyroid Stimulating Hormone 1.370 uIU/ML Normal 0. 358-3.740 15 Free T4 0.95 ng/dL Normal 0.76-1.46 16 Laboratory test finding 10/13/2019 [place] [address] [phone] Thyroid Stimulating Hormone 1.210 uIU/ML Normal 0. 358-3.740 17 Free T4 0.99 ng/dL Normal 0.76-1.46 18 Comprehensive Metabolic Profil 10/13/2019 [place] [address] [phone] Glucose, Fasting 137 mg/dL High 70-100 Blood Urea Nitrogen 24 mg/dL High 7-18 Creatinine For GFR 3.74 mg/dL High 0.55-1.30 Glomerular Filtration Rate 12.8 Low >45 1 9 Sodium Level 138 mEq/L Normal 136-145 Potassium [...] 1.2-2.2 CBC With Differential 10/13/2019 [place] [address] [phone] White Blood Count 6.2 10 Normal 4.0-10.0 [...] 36.0-66.0 Lymph % 22.4 % Low 24.0-44.0 Latimer % 12.8 % High 0.0-5.0 Eos % 11.2 % High 0.0-3.0 Baso % 0.6 % Normal 0.0-1.0 Immature Granulocyte % 0.2 % Normal 0-3.0 Nucleated Red Blood Cell % 0.0 % Normal 0-0 Neutrophils # 3.3 10 Normal 1.5-8.5 Lymph # 1.4 10 Low 1.5-5.0 Latimer # 0.8 10 Normal 0.0-0.8 Eos # 0.7 10 High 0.0-0.5 Baso # 0.0 10 Normal 0.0-0.2 Type & Screen -Incl Blood Type,Quan,AB SC 09/22/2019 [place] [address] [phone] Blood Type O POSITIVE Normal AB Screen (Indirect Maggie)Vis NEGATIVE Normal Laboratory test finding 09/22/2019 [place] [address] [phone] Packed Cells TRANSFUSED PRODU <SEE NOTE> 20 CBC With Differential 09/22/2019 [place] [address] [phone] White Blood Count 7.0 10 Normal 4.0-10.0 [...] 36.0-66.0 Lymph % 20.4 % Low 24.0-44.0 Latimer % 11.8 % High 0.0-5.0 Eos % 6.5 % High 0.0-3.0 Baso % 0.6 % Normal 0.0-1.0 Immature Granulocyte % 0.4 % Normal 0-3.0 Nucleated Red Blood Cell % 0.0 % Normal 0-0 Neutrophils # 4.2 10 Normal 1.5-8.5 Lymph # 1.4 10 Low 1.5-5.0 Latimer # 0.8 10 Normal 0.0-0.8 Eos # 0.5 10 Normal 0.0-0.5 Baso # 0.0 10 Normal 0.0-0.2 Comprehensive Metabolic Profil 09/22/2019 [place] [address] [phone] Glucose, Fasting 160 mg/dL High 70-100 Blood Urea Nitrogen 22 mg/dL High 7-18 Creatinine For GFR 3.69 mg/dL High 0.55-1.30 Glomerular Filtration Rate 13.0 Low >45 2 1 Sodium Level 136 mEq/L Normal 136-145 [...] Laboratory test finding 09/22/2019 [place] [address] [phone] Thyroid Stimulating Hormone 0.954 uIU/ML Normal 0. 358-3.740 22 Free T4 1.07 ng/dL Normal 0.76-1.46 23 CBC With Differential 09/01/2019 [place] [address] [phone] White Blood Count 7.0 10 Normal 4.0-10.0 [...] 36.0-66.0 Lymph % 21.3 % Low 24.0-44.0 Latimer % 9.9 % High 0.0-5.0 Eos % 9.8 % High 0.0-3.0 Baso % 0.4 % Normal 0.0-1.0 Immature Granulocyte % 0.4 % Normal 0-3.0 Nucleated Red Blood Cell % 0.0 % Normal 0-0 Neutrophils # 4.0 10 Normal 1.5-8.5 Lymph # 1.5 10 Normal 1.5-5.0 Latimer # 0.7 10 Normal 0.0-0.8 Eos # 0.7 10 High 0.0-0.5 Baso # 0.0 10 Normal 0.0-0.2 Comprehensive Metabolic Profil 09/01/2019 [place] [address] [phone] Glucose, Fasting 163 mg/dL High 70-100 Blood Urea Nitrogen 48 mg/dL High 7-18 Creatinine For GFR 4.12 mg/dL High 0.55-1.30 Glomerular Filtration Rate 11.5 Low >45 2 4 Sodium Level 140 [...] 1.2-2.2 Laboratory test finding 09/01/2019 [place] [address] [phone] Thyroid Stimulating Hormone 2.050 uIU/ML Normal 0. 358-3.740 25 Free T4 0.99 ng/dL Normal 0.76-1.46 26 Complete Blood Count 08/11/[address] [place] [address] [phone] White Blood Count 9.0 10 Normal 4.0-10.0 Red Blood Count 2.90 10 Low 4.00-5.40 Hemoglobin 9.0 g/dL Low 12.0-15.5 Hematocrit 28.2 % Low 36.0-47.0 Mean Corpuscular Volume 97.2 fl High 80.0-96.0 Mean Corpuscular Hemoglobin 31.0 pg Normal 27.0-33.0 Mean Corpuscular HGB Conc 31.9 g/dL Low 32.0-36.5 Red Cell Distribution Width 15.1 % High 11.5-14.5 Platelet Count, Automated 159 10 Normal 150-450 Nucleated Red Blood Cell % 0.0 % Normal 0-0 Differential Automated 08/11/2019 [place] [address] [phone] Neutrophils % 46.9 % Normal 36.0-66.0 Lymph % 23.4 % Low 24.0-44.0 Latimer % 12.3 % High 0.0-5.0 Eos % 16.5 % High 0.0-3.0 Baso % 0.7 % Normal 0.0-1.0 Immature Granulocyte % 0.2 % Normal 0-3.0 Neutrophils # 4.2 10 Normal 1.5-8.5 Lymph # 2.1 10 Normal 1.5-5.0 Latimer # 1.1 10 High 0.0-0.8 Eos # 1.5 10 High 0.0-0.5 Baso # 0.1 10 Normal 0.0-0.2 Comprehensive Metabolic Profil 08/11/2019 [place] [address] [phone] Glucose, Fasting 152 mg/dL High 70-100 Blood Urea Nitrogen 60 mg/dL High 7-18 Creatinine For GFR 3.74 mg/dL High 0.55-1.30 Glomerular Filtration Rate 12.8 Low >45 2 7 Sodium Level 141 mEq/L Normal 136-145 Potassium Serum 4.4 mEq/L Normal 3.5-5.1 Chloride Level 104 mEq/L Normal 98-107 Carbon Dioxide Level 29 mEq/L Normal 21-32 Anion Gap 8 mEq/L Normal 8-16 Calcium Level 9.1 mg/dL Normal 8.8-10.2 Ast/Sgot 23 U/L Normal 7-37 Alt/SGPT 25 U/L Normal 12-78 Alkaline Phosphatase 115 U/L Normal 45-117 Bilirubin,Total 0.2 mg/dL Normal 0.2-1.0 Total Protein 7.9 GM/DL Normal 6.4-8.2 Albumin 3.1 GM/DL Low 3.2-5.2 Albumin/Globulin Ratio 0.6 Low 1.2-2.2 Laboratory test finding 08/11/2019 [place] [address] [phone] Carcinoembryonic Antigen 5.4 NG/ML High <2.5 28 Thyroid Stimulating Hormone 2.040 uIU/ML Normal 0.358-3.740 29 Free T4 0.99 ng/dL Normal 0.76-1.46 30 1 Units are mL/min/1.73 m2 Chronic Kidney Disease Staging per NKF: Stage I & II GFR >=60 Normal to Mildly Decreased Stage III GFR 30-59 Moderately Decreased Stage IV GFR 15-29 Severely Decreased Stage V GFR <15 Very Little GFR Left ESRD GFR <15 on ENAMEL PULVERIZER 2 note:<nlbl:demographic_ ed> 3 note:<nlbl:demographic_ ed> 4 note:<nlbl:demographic_ ed> 5 VITAMIN B12 NORMAL RANGE NORMAL 247 - 911 PG/ML INDETERMINATE 211 - 246 PG/ML DEFICIENT LESS THAN 211 PG/ML 6 FOLATE NORMAL RANGE NORMAL GREATER THAN 5.4 NG/ML INDETERMINATE 3.4-5.4 NG/ML DEFICIENT LESS THAN 3.4 NG/ML 7 By: Time: 958 note:<nlbl:demographic_changed> By: Time: 958 8 Units are mL/min/1.73 m2 Chronic Kidney Disease Staging per NKF: Stage I & II GFR >=60 Normal to Mildly Decreased Stage III GFR 30-59 Moderately Decreased Stage IV GFR 15-29 Severely Decreased Stage V GFR <15 Very Little GFR Left ESRD GFR <15 on ENAMEL PULVERIZER 9 note:<nlbl:demographic_ ed> 10 note:<nlbl:demographic_ ed> 11 Units are mL/min/1.73 m2 Chronic Kidney Disease Staging per NKF: Stage I & II GFR >=60 Normal to Mildly Decreased Stage III GFR 30-59 Moderately Decreased Stage IV GFR 15-29 Severely Decreased Stage V GFR <15 Very Little GFR Left ESRD GFR <15 on ENAMEL PULVERIZER 12 note:<nlbl:demographic_ ed> 13 note:<nlbl:demographic_ ed> 14 Units are mL/min/1.73 m2 Chronic Kidney Disease Staging per NKF: Stage I & II GFR >=60 Normal to Mildly Decreased Stage III GFR 30-59 Moderately Decreased Stage IV GFR 15-29 Severely Decreased Stage V GFR <15 Very Little GFR Left ESRD GFR <15 on ENAMEL PULVERIZER 15 note:<nlbl:demographic_ ed> note:<nlbl:demographic_changed> note:<nlbl:demographic_changed> 16 note:<nlbl:demographic_ ed> note:<nlbl:demographic_changed> note:<nlbl:demographic_changed> 17 note:<nlbl:demographic_ ed> 18 note:<nlbl:demographic_chang ed> 19 Units are mL/min/1.73 m2 Chronic Kidney Disease Staging per NKF: Stage I & II GFR >=60 Normal to Mildly Decreased Stage III GFR 30-59 Moderately Decreased Stage IV GFR 15-29 Severely Decreased Stage V GFR <15 Very Little GFR Left ESRD GFR <15 on ENAMEL PULVERIZER 20 TRANSFUSED PRODUCT: PACKED C ELLS COUNT: 1 21 Units are mL/min/1.73 m2 Chronic Kidney Disease Staging per NKF: Stage I & II GFR >=60 Normal to Mildly Decreased Stage III GFR 30-59 Moderately Decreased Stage IV GFR 15-29 Severely Decreased Stage V GFR <15 Very Little GFR Left ESRD GFR <15 on ENAMEL PULVERIZER 22 note:<nlbl:demographic_chang ed> 23 note:<nlbl:demographic_chang ed> 24 Units are mL/min/1.73 m2 Chronic Kidney Disease Staging per NKF: Stage I & II GFR >=60 Normal to Mildly Decreased Stage III GFR 30-59 Moderately Decreased Stage IV GFR 15-29 Severely Decreased Stage V GFR <15 Very Little GFR Left ESRD GFR <15 on ENAMEL PULVERIZER 25 note:<nlbl:demographic_chang ed> 26 note:<nlbl:demographic_chang ed> 27 Units are mL/min/1.73 m2 Chronic Kidney Disease Staging per NKF: Stage I & II GFR >=60 Normal to Mildly Decreased Stage III GFR 30-59 Moderately Decreased Stage IV GFR 15-29 Severely Decreased Stage V GFR <15 Very Little GFR Left ESRD GFR <15 on ENAMEL PULVERIZER 28 THE CEA ASSAY IS PERFORMED O N THE [employer]AUR BY CHEMILUMINESCENCE AND SHOULD NOT BE COMPARED INTERCHANGEABLY WITH OTHER METHODS. IT SHOULD NOT BE USED ALONE A SCREENING TEST OR DIAGNOSIS FOR THE PRESENCE OR ABSENCE OF MALIGNANT DISEASE. PREDICTIONS OF DISEASE RECURRENCE SHOULD NOT BE BASED SOLELY ON VALUES OBTAINED FROM SERIAL PATIENT SERUM VALUES. 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 Office Visit 12/29/2019 10:45a Main Office Pleskach, Lynda, INFECTION CONTROL MANAGER I10 Essential (primary) hypertension J44.9 Chronic obstructive pulmonar y disease, unspecified 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 Z71.89 Other specified counseling Office Visit 10/17/2019 10:15a Main Office Pleskach, Lynda, INFECTION CONTROL MANAGER I10 Essential (primary) hypertension Office Visit 09/14/2019 8:45a Main Office Pleskach, Lynda, INFECTION CONTROL MANAGER I10 Essential (primary) hypertension Assessments Date Code Description Provider 01/25/2020 I10 Essential (primary) hypertension Pleskach, Lynda, INFECTION CONTROL MANAGER 01/25/2020 J44.9 Chronic obstructive pulmonary di sease, unspecified Pleskach, Lynda, INFECTION CONTROL MANAGER 01/25/2020 C34.92 Malignant neoplasm o f unspecified part of left bronchus or lung Pleskach, Lynda, INFECTION CONTROL MANAGER 12/29/2019 I10 Essential (primary) hypertension Pleskach, Lynda, INFECTION CONTROL MANAGER 12/29/2019 J44.9 Chronic obstructive pulmonary di sease, unspecified Pleskach, Lynda, INFECTION CONTROL MANAGER 12/29/2019 C34.92 Malignant neoplasm o f unspecified part of left bronchus or lung Pleskach, Lynda, INFECTION CONTROL MANAGER 12/29/2019 Z71.89 Other specified counseling Plesk ach, Lynda, INFECTION CONTROL MANAGER 10/17/2019 I10 Essential (primary) hypertension PleskachLieny, INFECTION CONTROL MANAGER 09/14/2019 I10 Essential (primary) hypertension Pleaugustinaach, Lynda, INFECTION CONTROL MANAGER Plan of Treatment Future Appointment(s):* 07/25/2020 10:30 am - PleLien puentesy, INFECTION CONTROL MANAGER at Main Office 01/25/2020 - Pleskach, Lynda, INFECTION CONTROL MANAGER* I10 Essential (primary) hypertension* New Labs:* Lipid Panel, Scheduled: 01/25/20 * TSH And T4 Free (Rahul), Scheduled: 01/25/20 * Vitamin D 25-Hydroxy, Scheduled: 01/25/20 * Comprehensive Metabolic Profil, Scheduled: 01/25/20 * Comments:* well controlled off medications, continue to [...]
--- OUTSIDE RECORDS SUMMARY | 2020-04-04 07:24 | CCD | Continuity of Care Document ---
Author Author Jamila DICKSON M.D. Organization Unknown Address [address] [place] [address] Phone [phone] Care Team Providers Care Access Rn Name Role Phone Mariusz Will MD AUTM [phone] Problems Active Problems Provider Date Impaired fasting [...] Ordering Provide r Date Tranexamic Acid Nasal [place] 1000 mg/10 ml 1 spray in e [...] by mouth daily Unknown Vitamin D 2 [id number] Capsules 1 by mouth weekly Unknown Advair [...] CPT Code Status Date Vaccine Lot # 14984 Given 12/29/2018 Influenza Virus Vaccine, Quadrivalent,age 3 and up,multidose vial [id number] 10163 Given 01/26/2018 Prevnar 13 For Adults [id number] Given 12/28/2017 Boostrix (Tdap) Tetnus, Diphtheria Toxoids & Acellular Pertussis [id number] Given 12/28/2017 Influenza Virus Vaccine, Quadrivalent,age 3 and up,multidose vial [id number] Given 11/13/2016 Influenza Vaccination/preser vative free [id number] Given 11/19/2015 Pneumococcal Vaccine 98781 Given 11/19/2015 Influenza Vaccination Vital Signs Date Vital Result Comment 01/25/2020 10:49am BP Systolic 127 mmHg BP Diastolic 84 mmHg Heart Rate 125 /min Body Temperature 97.5 F Respiratory Rate 22 /min Height 59 inches 4'11" Weight 116.00 lb O2 % BldC Oximetry 90 % 2L oxygen Peak Expiratory Flow Rate 292 Estimated Peak Flow Rate [place] Body Weight 100 lb BMI (Body Mass Index) 23.4 kg/m2 12/29/2019 11:02am BP Systolic 140 mmHg BP Diastolic 71 mmHg Heart Rate 112 /min Body Temperature 96.8 F Respiratory Rate 20 /min Height 59 inches 4'11" Weight 116.00 lb O2 % BldC Oximetry 97 % 02 2L Peak Expiratory Flow Rate 292 Estimated Peak Flow Rate [place] Body Weight 100 lb BMI (Body Mass Index) 23.4 kg/m2 Results Test Acquired Date Facility Test Result H/L Range Note CBC With Differential 02/02/2020 Patient Service [facility] [place] [address] [phone] White Blood Count 6.8 10 Normal 4.0-10.0 [...] 36.0-66.0 Lymph % 25.7 % Normal 24.0-44.0 [place] % 11.8 % High 0.0-5.0 Eos % 6.1 % High 0.0-3.0 Baso % 0.4 % Normal 0.0-1.0 Immature Granulocyte % 0.1 % Normal 0-3.0 Nucleated Red Blood Cell % 0.0 % Normal 0-0 Neutrophils # 3.8 10 Normal 1.5-8.5 Lymph # 1.8 10 Normal 1.5-5.0 [place] # 0.8 10 Normal 0.0-0.8 Eos # 0.4 10 Normal 0.0-0.5 Baso # 0.0 10 Normal 0.0-0.2 Comprehensive Metabolic Profil 02/02/2020 [place] [address] [phone] Glucose, Fasting 97 mg/dL Normal 70-100 Blood Urea Nitrogen 33 mg/dL High 7-18 Creatinine For GFR 5.65 mg/dL High 0.55-1.30 Glomerular Filtration Rate 8.0 Low >45 1 Sodium Level 136 mEq/L Normal 136-145 [...] 1.2-2.2 Laboratory test finding 02/02/2020 Patient Service [facility] [place], [place] [id number] [phone] Thyroid Stimulating Hormone 1.040 uIU/ML Normal 0. 358-3.740 2 Free T4 1.06 ng/dL Normal 0.76-1.46 3 Lipid Panel 02/02/2020 [facility] nt [phone] Triglycerides Level 127 mg/dL Normal <150 Cholesterol Level 215 mg/dL High <200 HDL Cholesterol 123 mg/dL Normal >40 LDL Cholesterol 67 mg/dL Normal <100 Non-HDL-C 92 mg/dL Normal Cholesterol Risk Ratio 1.747 Normal <5 Laboratory test finding 02/02/2020 [facility] [phone] Total 25(Oh) Vitamin D 84.9 NG/ML Normal 30.0-100. 0 4 Laboratory test finding 01/12/2020 [place] [address] [phone] Magnesium Level 2.1 mg/dL Normal 1.8-2.4 5 Thyroid Stimulating Hormone 0.637 uIU/ML Normal 0.358-3.740 6 Free T4 1.07 ng/dL Normal 0.76-1.46 7 Vitamin B12 Level 1171 pg/mL High 247-911 8 Folate > 24.0 NG/ML Normal >5.4 9 Comprehensive Metabolic Profil 01/12/2020 Patient S [place], [place] [address] [phone] Glucose, Fasting 93 mg/dL Normal 70-100 Blood Urea Nitrogen 32 mg/dL High 7-18 Creatinine For GFR 6.09 mg/dL High 0.55-1.30 Glomerular Filtration Rate 7.3 Low >45 1 0 Sodium Level 138 mEq/L Normal 136-145 Potassium [...] CBC With Differential 01/12/2020 Patient Service [place], [place] 4[address]179 [phone] White Blood Count 10.2 10 High 4.0-10.0 [...] 36.0-66.0 Lymph % 20.6 % Low 24.0-44.0 [place] % 9.4 % High 0.0-5.0 Eos % 1.5 % Normal 0.0-3.0 Baso % 0.3 % Normal 0.0-1.0 Immature Granulocyte % 0.5 % Normal 0-3.0 Nucleated Red Blood Cell % 0.0 % Normal 0-0 Neutrophils # 6.9 10 Normal 1.5-8.5 Lymph # 2.1 10 Normal 1.5-5.0 [place] # 1.0 10 High 0.0-0.8 Eos # 0.2 10 Normal 0.0-0.5 Baso # 0.0 10 Normal 0.0-0.2 Laboratory test finding 01/11/2020 Patient [facility] [place], [place] [id number] [phone] Potassium Serum 3.6 mEq/L Normal 3.5-5.1 11 CBC With Differential 12/22/2019 [place] [address] [phone] White Blood Count 6.5 10 Normal 4.0-10.0 [...] 36.0-66.0 Lymph % 28.4 % Normal 24.0-44.0 [place] % 11.0 % High 0.0-5.0 Eos % 9.0 % High 0.0-3.0 Baso % 0.6 % Normal 0.0-1.0 Immature Granulocyte % 0.3 % Normal 0-3.0 Nucleated Red Blood Cell % 0.0 % Normal 0-0 Neutrophils # 3.3 10 Normal 1.5-8.5 Lymph # 1.8 10 Normal 1.5-5.0 [place] # 0.7 10 Normal 0.0-0.8 Eos # 0.6 10 High 0.0-0.5 Baso # 0.0 10 Normal 0.0-0.2 Comprehensive Metabolic Profil 12/22/2019 Patient S ervice Center [place], [place] [address] [phone] Glucose, Fasting 167 mg/dL High 70-100 Blood Urea Nitrogen 18 mg/dL Normal 7-18 Creatinine For GFR 5.08 mg/dL High 0.55-1.30 Glomerular Filtration Rate 9.0 Low >45 1 2 Sodium Level 139 mEq/L Normal 136-145 Potassium [...] Laboratory test finding 12/22/2019 [place] [address] [phone] Thyroid Stimulating Hormone 1.050 uIU/ML Normal 0. 358-3.740 13 Free T4 1.11 ng/dL Normal 0.76-1.46 14 CBC With Differential 11/30/2019 [place] [address] [phone] White Blood Count 6.7 10 Normal 4.0-10.0 [...] 36.0-66.0 Lymph % 11.1 % Low 24.0-44.0 [place] % 11.4 % High 0.0-5.0 Eos % 6.4 % High 0.0-3.0 Baso % 0.3 % Normal 0.0-1.0 Immature Granulocyte % 0.1 % Normal 0-3.0 Nucleated Red Blood Cell % 0.0 % Normal 0-0 Neutrophils # 4.7 10 Normal 1.5-8.5 Lymph # 0.7 10 Low 1.5-5.0 [place] # 0.8 10 Normal 0.0-0.8 Eos # 0.4 10 Normal 0.0-0.5 Baso # 0.0 10 Normal 0.0-0.2 Comprehensive Metabolic Profil 11/30/2019 [place] [address] [phone] Glucose, Fasting 129 mg/dL High 70-100 Blood Urea Nitrogen 26 mg/dL High 7-18 Creatinine For GFR 5.06 mg/dL High 0.55-1.30 Glomerular Filtration Rate 9.1 Low >45 1 5 Sodium Level 135 mEq/L Low 136-145 Potassium [...] Laboratory test finding 11/30/2019 [place] [address] [phone] Thyroid Stimulating Hormone 1.060 uIU/ML Normal 0. 358-3.740 16 Free T4 0.94 ng/dL Normal 0.76-1.46 17 CBC With Differential 11/24/2019 [place] [address] [phone] White Blood Count 6.4 10 Normal 4.0-10.0 [...] 36.0-66.0 Lymph % 21.3 % Low 24.0-44.0 [place] % 11.2 % High 0.0-5.0 Eos % 6.1 % High 0.0-3.0 Baso % 0.5 % Normal 0.0-1.0 Immature Granulocyte % 0.3 % Normal 0-3.0 Nucleated Red Blood Cell % 0.0 % Normal 0-0 Neutrophils # 3.9 10 Normal 1.5-8.5 Lymph # 1.4 10 Low 1.5-5.0 [place] # 0.7 10 Normal 0.0-0.8 Eos # 0.4 10 Normal 0.0-0.5 Baso # 0.0 10 Normal 0.0-0.2 Laboratory test finding 11/03/2019 [place] [address] [phone] Thyroid Stimulating Hormone 1.370 uIU/ML Normal 0. 358-3.740 18 Free T4 0.95 ng/dL Normal 0.76-1.46 19 Comprehensive Metabolic Profil 11/03/2019 [place] [address] [phone] Glucose, Fasting 111 mg/dL High 70-100 Blood Urea Nitrogen 43 mg/dL High 7-18 Creatinine For GFR 4.85 mg/dL High 0.55-1.30 Glomerular Filtration Rate 9.5 Low >45 2 0 Sodium Level 140 mEq/L Normal 136-145 Potassium [...] 1.2-2.2 CBC With Differential 11/03/2019 [place] [address] [phone] White Blood Count 10.9 10 High 4.0-10.0 [...] 36.0-66.0 Lymph % 20.3 % Low 24.0-44.0 [place] % 7.6 % High 0.0-5.0 Eos % 4.9 % High 0.0-3.0 Baso % 0.5 % Normal 0.0-1.0 Immature Granulocyte % 1.4 % Normal 0-3.0 Nucleated Red Blood Cell % 0.0 % Normal 0-0 Neutrophils # 7.1 10 Normal 1.5-8.5 Lymph # 2.2 10 Normal 1.5-5.0 [place] # 0.8 10 Normal 0.0-0.8 Eos # 0.5 10 Normal 0.0-0.5 Baso # 0.1 10 Normal 0.0-0.2 CBC With Differential 10/13/2019 [place] [address] [phone] White Blood Count 6.2 10 Normal 4.0-10.0 [...] 36.0-66.0 Lymph % 22.4 % Low 24.0-44.0 [place] % 12.8 % High 0.0-5.0 Eos % 11.2 % High 0.0-3.0 Baso % 0.6 % Normal 0.0-1.0 Immature Granulocyte % 0.2 % Normal 0-3.0 Nucleated Red Blood Cell % 0.0 % Normal 0-0 Neutrophils # 3.3 10 Normal 1.5-8.5 Lymph # 1.4 10 Low 1.5-5.0 [place] # 0.8 10 Normal 0.0-0.8 Eos # 0.7 10 High 0.0-0.5 Baso # 0.0 10 Normal 0.0-0.2 Comprehensive Metabolic Profil 10/13/2019 Patient S [place], [place] [address] [phone] Glucose, Fasting 137 mg/dL High 70-100 Blood Urea Nitrogen 24 mg/dL High 7-18 Creatinine For GFR 3.74 mg/dL High 0.55-1.30 Glomerular Filtration Rate 12.8 Low >45 2 1 Sodium Level 138 mEq/L Normal 136-145 [...] 1.2-2.2 Laboratory test finding 10/13/2019 [place] [address] [phone] Thyroid Stimulating Hormone 1.210 uIU/ML Normal 0. 358-3.740 22 Free T4 0.99 ng/dL Normal 0.76-1.46 23 Laboratory test finding 09/22/2019 [place] [address] [phone] Thyroid Stimulating Hormone 0.954 uIU/ML Normal 0. 358-3.740 24 Free T4 1.07 ng/dL Normal 0.76-1.46 25 Comprehensive Metabolic Profil 09/22/2019 [place] [address] [phone] Glucose, Fasting 160 mg/dL High 70-100 Blood Urea Nitrogen 22 mg/dL High 7-18 Creatinine For GFR 3.69 mg/dL High 0.55-1.30 Glomerular Filtration Rate 13.0 Low >45 2 6 Sodium Level 136 mEq/L Normal 136-145 Potassium [...] Low 3.2-5.2 Albumin/Globulin Ratio 0.6 Low 1.2-2.2 CBC With Differential 09/22/2019 [place] [address] [phone] White Blood Count 7.0 10 Normal 4.0-10.0 [...] 36.0-66.0 Lymph % 20.4 % Low 24.0-44.0 [place] % 11.8 % High 0.0-5.0 Eos % 6.5 % High 0.0-3.0 Baso % 0.6 % Normal 0.0-1.0 Immature Granulocyte % 0.4 % Normal 0-3.0 Nucleated Red Blood Cell % 0.0 % Normal 0-0 Neutrophils # 4.2 10 Normal 1.5-8.5 Lymph # 1.4 10 Low 1.5-5.0 [place] # 0.8 10 Normal 0.0-0.8 Eos # 0.5 10 Normal 0.0-0.5 Baso # 0.0 10 Normal 0.0-0.2 Laboratory test finding 09/22/2019 [place] [address] [phone] Packed Cells TRANSFUSED PRODU <SEE NOTE> 27 Type & Screen -Incl Blood Type,Quan,AB SC 09/22/2019 [place] [address] [phone] Blood Type O POSITIVE Normal AB Screen (Indirect Maggie)Vis NEGATIVE Normal CBC With Differential 09/01/2019 [place] [address] [phone] White Blood Count 7.0 10 Normal 4.0-10.0 [...] 36.0-66.0 Lymph % 21.3 % Low 24.0-44.0 [place] % 9.9 % High 0.0-5.0 Eos % 9.8 % High 0.0-3.0 Baso % 0.4 % Normal 0.0-1.0 Immature Granulocyte % 0.4 % Normal 0-3.0 Nucleated Red Blood Cell % 0.0 % Normal 0-0 Neutrophils # 4.0 10 Normal 1.5-8.5 Lymph # 1.5 10 Normal 1.5-5.0 [place] # 0.7 10 Normal 0.0-0.8 Eos # 0.7 10 High 0.0-0.5 Baso # 0.0 10 Normal 0.0-0.2 Comprehensive Metabolic Profil 09/01/2019 [place] [address] [phone] Glucose, Fasting 163 mg/dL High 70-100 Blood Urea Nitrogen 48 mg/dL High 7-18 Creatinine For GFR 4.12 mg/dL High 0.55-1.30 Glomerular Filtration Rate 11.5 Low >45 2 8 Sodium Level 140 mEq/L Normal 136-145 Potassium [...] Laboratory test finding 09/01/2019 [place] [address] [phone] Thyroid Stimulating Hormone 2.050 uIU/ML Normal 0. 358-3.740 29 Free T4 0.99 ng/dL Normal 0.76-1.46 30 Complete Blood Count 08/11/[address] [place] [address] [phone] White Blood Count 9.0 10 Normal 4.0-10.0 [...] Differential Automated 08/11/2019 [place] [address] [phone] Neutrophils % 46.9 % Normal 36.0-66.0 Lymph % 23.4 % Low 24.0-44.0 [place] % 12.3 % High 0.0-5.0 Eos % 16.5 % High 0.0-3.0 Baso % 0.7 % Normal 0.0-1.0 Immature Granulocyte % 0.2 % Normal 0-3.0 Neutrophils # 4.2 10 Normal 1.5-8.5 Lymph # 2.1 10 Normal 1.5-5.0 [place] # 1.1 10 High 0.0-0.8 Eos # 1.5 10 High 0.0-0.5 Baso # 0.1 10 Normal 0.0-0.2 Comprehensive Metabolic Profil 08/11/2019 Patient [place] [address] [phone] Glucose, Fasting 152 mg/dL High 70-100 Blood Urea Nitrogen 60 mg/dL High 7-18 Creatinine For GFR 3.74 mg/dL High 0.55-1.30 Glomerular Filtration Rate 12.8 Low >45 3 1 Sodium Level 141 mEq/L Normal 136-145 Potassium [...] 1.2-2.2 Laboratory test finding 08/11/2019 [place] [address] [phone] Carcinoembryonic Antigen 5.4 NG/ML High <2.5 32 Thyroid Stimulating Hormone 2.040 uIU/ML Normal 0.358-3.740 33 Free T4 0.99 ng/dL Normal 0.76-1.46 34 1 Units are mL/min/1.73 m2 Chronic Kidney Disease Staging per NKF: Stage I & II GFR >=60 Normal to Mildly Decreased Stage III GFR 30-59 Moderately Decreased Stage IV GFR 15-29 Severely Decreased Stage V GFR <15 Very Little GFR Left ESRD GFR <15 on MOLDED GOODS CONTROLS OPERATOR 2 note:<nlbl:demographic_chang ed> 3 note:<nlbl:demographic_chang ed> 4 note:<nlbl:demographic_[facility] ed> note:<nlbl:demographic_changed> 5 note:<nlbl:demographic_[facility] ed> 6 note:<nlbl:demographic_chang ed> 7 note:<nlbl:demographic_chang ed> 8 VITAMIN B12 NORMAL RANGE NORMAL 247 - 911 PG/ML INDETERMINATE 211 - 246 PG/ML DEFICIENT LESS THAN 211 PG/ML 9 FOLATE NORMAL RANGE NORMAL GREATER THAN 5.4 NG/ML INDETERMINATE 3.4-5.4 NG/ML DEFICIENT LESS THAN 3.4 NG/ML 10 Units are mL/min/1.73 m2 Chronic Kidney Disease Staging per NKF: Stage I & II GFR >=60 Normal to Mildly Decreased Stage III GFR 30-59 Moderately Decreased Stage IV GFR 15-29 Severely Decreased Stage V GFR <15 Very Little GFR Left ESRD GFR <15 on MOLDED [employer]S OPERATOR 11 By: Time: 958 note:<nlbl:demographic_changed> By: Time: 958 12 Units are mL/min/1.73 m2 Chronic Kidney Disease Staging per NKF: Stage I & II GFR >=60 Normal to Mildly Decreased Stage III GFR 30-59 Moderately Decreased Stage IV GFR 15-29 Severely Decreased Stage V GFR <15 Very Little GFR Left ESRD GFR <15 on MOLDED [employer] CONTROLS OPERATOR 13 note:<nlbl:demographic_ ed> 14 note:<nlbl:demographic_ ed> 15 Units are mL/min/1.73 m2 Chronic Kidney Disease Staging per NKF: Stage I & II GFR >=60 Normal to Mildly Decreased Stage III GFR 30-59 Moderately Decreased Stage IV GFR 15-29 Severely Decreased Stage V GFR <15 Very Little GFR Left ESRD GFR <15 on MOLDED [employer] CONTROLS OPERATOR 16 note:<nlbl:demographic_ ed> 17 note:<nlbl:demographic_ ed> 18 note:<nlbl:demographic_ ed> note:<nlbl:demographic_changed> note:<nlbl:demographic_changed> 19 note:<nlbl:demographic_chang ed> note:<nlbl:demographic_changed> note:<nlbl:demographic_changed> 20 Units are mL/min/1.73 m2 Chronic Kidney Disease Staging per NKF: Stage I & II GFR >=60 Normal to Mildly Decreased Stage III GFR 30-59 Moderately Decreased Stage IV GFR 15-29 Severely Decreased Stage V GFR <15 Very Little GFR Left ESRD GFR <15 on MOLDED [employer] CONTROLS OPERATOR 21 Units are mL/min/1.73 m2 Chronic Kidney Disease Staging per NKF: Stage I & II GFR >=60 Normal to Mildly Decreased Stage III GFR 30-59 Moderately Decreased Stage IV GFR 15-29 Severely Decreased Stage V GFR <15 Very Little GFR Left ESRD GFR <15 on MOLDED GOODS CONTROLS OPERATOR 22 note:<nlbl:demographic_ ed> 23 note:<nlbl:demographic_ ed> 24 note:<nlbl:demographic_ ed> 25 note:<nlbl:demographic_ ed> 26 Units are mL/min/1.73 m2 Chronic Kidney Disease Staging per NKF: Stage I & II GFR >=60 Normal to Mildly Decreased Stage III GFR 30-59 Moderately Decreased Stage IV GFR 15-29 Severely Decreased Stage V GFR <15 Very Little GFR Left ESRD GFR <15 on MOLDED [employer] CONTROLS OPERATOR 27 TRANSFUSED PRODUCT: PACKED C ELLS COUNT: 1 28 Units are mL/min/1.73 m2 Chronic Kidney Disease Staging per NKF: Stage I & II GFR >=60 Normal to Mildly Decreased Stage III GFR 30-59 Moderately Decreased Stage IV GFR 15-29 Severely Decreased Stage V GFR <15 Very Little GFR Left ESRD GFR <15 on MOLDED GOODS CONTROLS OPERATOR 29 note:<nlbl:demographic_chang ed> 30 note:<nlbl:demographic_chang ed> 31 Units are mL/min/1.73 m2 Chronic Kidney Disease Staging per NKF: Stage I & II GFR >=60 Normal to Mildly Decreased Stage III GFR 30-59 Moderately Decreased Stage IV GFR 15-29 Severely Decreased Stage V GFR <15 Very Little GFR Left ESRD GFR <15 on MOLDED GOODS CONTROLS OPERATOR 32 THE CEA ASSAY IS PERFORMED O N THE [employer] BY CHEMILUMINESCENCE AND SHOULD NOT BE COMPARED INTERCHANGEABLY WITH OTHER METHODS. IT SHOULD NOT BE USED ALONE A SCREENING TEST OR DIAGNOSIS FOR THE PRESENCE OR ABSENCE OF MALIGNANT DISEASE. PREDICTIONS OF DISEASE RECURRENCE SHOULD NOT BE BASED SOLELY ON VALUES OBTAINED FROM SERIAL PATIENT SERUM VALUES. 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 Office Visit 12/29/2019 10:45a Main Office Lynda Clifton FNP I10 Essential (primary) hypertension J44.9 Chronic obstructive pulmonar y disease, unspecified 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 Z71.89 Other specified counseling Office Visit 10/17/2019 10:15a Main Office Lynda Clifton FNP I10 Essential (primary) hypertension Office Visit 09/14/2019 8:45a Main Office Lynda Clifton, [employer] I10 Essential (primary) hypertension Assessments Date Code Description Provider 01/25/2020 I10 Essential (primary) hypertension Lynda Clifton, [employer] 01/25/2020 J44.9 Chronic obstructive pulmonary di sease, unspecified Pleskach, Lynda, [employer] 01/25/2020 C34.92 Malignant neoplasm o f unspecified part of left bronchus or lung PleskLien sheikhy, [employer] 12/29/2019 I10 Essential (primary) hypertension Pleskach Lynda, [employer] 12/29/2019 J44.9 Chronic obstructive pulmonary di sease, unspecified Pleskach, Lynda, [employer] 12/29/2019 C34.92 Malignant neoplasm o f unspecified part of left bronchus or lung PleskLynda sheikh, [employer] 12/29/2019 Z71.89 Other specified counseling Lynda Jones, [employer] 10/17/2019 I10 Essential (primary) hypertension Lynda Clifton, [employer] 09/14/2019 I10 Essential (primary) hypertension Lynda Clifton, [employer] Plan of Treatment Future Appointment(s):* 07/25/2020 10:30 am - Lynda Clifton FNP at Main Office 01/25/2020 - Lynda Clifton [employer]* I10 Essential (primary) hypertension* Comments:* well controlled [...]
--- OUTSIDE RECORDS SUMMARY | 2020-04-04 07:24 | CCD | Continuity of Care Document ---
Author Author Jamila ULLOA Organization Unknown Address [address], [address] [place] [address] Phone [phone] Care Team Providers Care Staffing Branch Manager Name Role Phone Nelly Uribe M.D. AUTM [phone] Alfred Davis M.D. AUTM [phone] Tory Jackson M.D. AUTM AUTM Unavailable Problems Active Problems Provider Date Essential hypertension PATY Lowery Onset: 09/12/2019 Social History Type Date Description Comments Sex Unknown ETOH Use Denies alcohol use Tobacco Use Start: Unknown End: Unknown Patient is a former smoker 1 PPD FOR 47 YEARS QUIT 2018 Recreational Drug Use Denies Drug Use Smoking Status Reviewed: 12/26/19 Patient is a former smoker 1 PPD FOR 47 YEARS QUIT 2019 Allergies, Adverse Reactions, Alerts Active Allergies Reaction Severity Comments Date Sulfa 12/22/2018 Aleve 12/22/2018 Medications Active Medications SIG Qnty Indications Ordering Provide r Date Advair HFA 230-21mcg/Act Aerosol 2 puff twice a day 12gm Louie Birmingham MD 12/26/2019 Albuterol Sulfate (2 .5mg/3ML) 0.083% Nebulizer 1 vial four times a day as needed 1080ml J44.9 Padmini Birmingham MD 01/12/2019 Oxygen 2L 24hours-Verónica Cardoso 01/03/2019 Proair HFA 108(90Base) mcg/Act Aer osol 2 puffs every 4 hours as needed 8.500gm Unknown 00 / Amlodipine Besylate 2.5mg Tablets Take One Tablet By Mouth Every Day For Blood Pressure On Hold For Low BP Unknown Magnesium Oxide 400mg Tablets Take One [...] 3 weeks Unknown Vitamin D (Ergocalciferol) 1.25mg (81759 Ut) Capsules 1 Q Week Unknown Immunizations Description No Information Available Vital Signs Date Vital Result Comment 01/18/2020 8:46am BP Systolic 122 mmHg BP Diastolic 56 mmHg Height 58.5 inches 4'10.50" Weight 112.50 lb BMI (Body Mass Index) 23.1 kg/m2 [place] Body Weight 100 lb Weight 51.030 kg 12/26/2019 1:31pm BP Systolic 114 mmHg BP Diastolic 70 mmHg Heart Rate 103 /min O2 % BldC Oximetry 982 % 90 2L Height 58.5 inches 4'10.50" Weight 112.00 lb BMI (Body Mass Index) 23.0 kg/m2 [place] Body Weight 100 lb Weight 50.803 kg Results Test Acquired Date Facility Test Result H/L Range Note Laboratory test finding 01/11/2020 [facility] Main Lab [address] [place], [place] [id number] [phone] Potassium Serum 3.6 mEq/L Normal 3.5-5.1 1 1 By: NELDA Time: 958 note:<nlbl:demographic_changed> By: NELDA Time: 958 Procedures Date Code Description Status 12/26/2019 00186 Spirometry Completed Medical Devices Description No Information Available Encounters Type Date Location Provider Dx Diagnosis Office Visit 12/26/2019 1:45p [facility] Padmini Birmingham MD J43.1 Panlobular emphysema J96.11 Chronic respiratory failure with hypoxia 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 Z87.891 Personal history of nicotine dependence Z85.118 Personal history of malignan t neoplasm of bronchus and lung Z79.899 Other long term care social worker (current) dr secalante therapy Office Visit 11/27/2019 1:30p [facility] PATY Hernandez N18.6 End stage renal disease Z99.2 Dependence on renal dialysis Office Visit 09/14/2019 9:15a [facility] PATY Hernandez N18.6 End stage renal disease Z99.2 Dependence on renal dialysis Office Visit 09/11/2019 11:30a [facility] Lawrenc george Birmingham MD J43.1 Panlobular emphysema J96.11 Chronic respiratory failure with hypoxia 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 Z87.891 Personal history of nicotine dependence Z85.118 Personal history of malignan t neoplasm of bronchus and lung Assessments Date Code Description Provider 12/26/2019 J43.1 Panlobular emphysema Louie peoples MD 12/26/2019 J96.11 Chronic respiratory failure with hypoxia Louie Birmingham MD 12/26/2019 Z99.81 Dependence on supplemental oxyge n Louie Birmingham MD 12/26/2019 Z87.891 Personal history of nicotine dep endence Louie Birmingham MD 12/26/2019 Z85.118 Personal history of other malignant neoplasm of bronchus and lung Louie Birmingham MD 12/26/2019 Z79.899 Other long term care social worker (current) drug t herapy Louie Birmingham MD [...] 9:30 am - Louie Birmingham MD at [facility]Thor[facility] Functional Status Description No Information Available Mental Status Description No Information Available Referrals Refer to Reason for Referral Status Appt Date Corrina Christianson MD [facility] Scheduled 09/14/2019 [address] [facility], [address] [place] [address] [phone]
--- OUTSIDE RECORDS SUMMARY | 2020-04-04 07:24 | CCD | Continuity of Care Document ---
Author Author Jamila [facility] Organization Unknown Address [address] [place] [address] Phone [phone] Care Team Providers Care Manager Welding Name Role Phone Mariusz Will MD AUTM [phone] Problems Active Problems Provider Date Impaired fasting glycemia Nelyl Uribe M.D. Onset: Essential hypertension Nelly Uribe [...] Ordering Provide r Date Tranexamic Acid Nasal [place] 1000 mg/10 ml 1 spray in e [...] by mouth daily Unknown Vitamin D 2 [id number] Capsules 1 by mouth weekly Unknown Advair [...] CPT Code Status Date Vaccine Lot # [id number] Given 12/29/2018 Influenza Virus Vaccine, Quadrivalent,age 3 and up,multidose vial [id number] [id number] Given 01/26/2018 Prevnar 13 For Adults [id number] Given 12/28/2017 Boostrix (Tdap) Tetnus, Diphtheria Toxoids & Acellular Pertussis [id number] [id number] Given 12/28/2017 Influenza Virus Vaccine, Quadrivalent,age 3 and up,multidose vial [id number] 88272 Given 11/13/2016 Influenza Vaccination/preser vative free [id number] 63384 Given 11/19/2015 Pneumococcal Vaccine [id number] Given 11/19/2015 Influenza Vaccination Vital Signs Date Vital Result Comment 01/25/2020 10:49am BP Systolic 127 mmHg BP Diastolic 84 mmHg Heart Rate 125 /min Body Temperature 97.5 F Respiratory Rate 22 /min Height 59 inches 4'11" Weight 116.00 lb O2 % BldC Oximetry 90 % 2L oxygen Peak Expiratory Flow Rate 292 Estimated Peak Flow Rate [place] Body Weight 100 lb BMI (Body Mass Index) 23.4 kg/m2 12/29/2019 11:02am BP Systolic 140 mmHg BP Diastolic 71 mmHg Heart Rate 112 /min Body Temperature 96.8 F Respiratory Rate 20 /min Height 59 inches 4'11" Weight 116.00 lb O2 % BldC Oximetry 97 % 02 2L Peak Expiratory Flow Rate 292 Estimated Peak Flow Rate [place] Body Weight 100 lb BMI (Body Mass Index) 23.4 kg/m2 Results Test Acquired Date Facility Test Result H/L Range Note CBC With Differential 02/02/2020 Patient Service [facility] [place] [address] [phone] White Blood Count 6.8 10 Normal 4.0-10.0 [...] 36.0-66.0 Lymph % 25.7 % Normal 24.0-44.0 Finney % 11.8 % High 0.0-5.0 Eos % 6.1 % High 0.0-3.0 Baso % 0.4 % Normal 0.0-1.0 Immature Granulocyte % 0.1 % Normal 0-3.0 Nucleated Red Blood Cell % 0.0 % Normal 0-0 Neutrophils # 3.8 10 Normal 1.5-8.5 Lymph # 1.8 10 Normal 1.5-5.0 Finney # 0.8 10 Normal 0.0-0.8 Eos # 0.4 10 Normal 0.0-0.5 Baso # 0.0 10 Normal 0.0-0.2 Comprehensive Metabolic Profil 02/02/2020 [place] [address] [phone] Glucose, Fasting 97 mg/dL Normal 70-100 Blood [...] Laboratory test finding 02/02/2020 [facility] [place], [place] [id number] [phone] Thyroid Stimulating Hormone 1.040 uIU/ML Normal 0. 358-3.740 2 Free T4 1.06 ng/dL Normal 0.76-1.46 3 Lipid Panel 02/02/2020 [facility] nt [phone] Triglycerides Level 127 mg/dL Normal <150 Cholesterol Level 215 mg/dL High <200 HDL Cholesterol 123 mg/dL Normal >40 LDL Cholesterol 67 mg/dL Normal <100 Non-HDL-C 92 mg/dL Normal Cholesterol Risk Ratio 1.747 Normal <5 Laboratory test finding 02/02/2020 [facility] [phone] Total 25(Oh) Vitamin D 84.9 NG/ML Normal 30.0-100. 0 4 Laboratory test finding 01/12/2020 [place] [address] [phone] Magnesium Level 2.1 mg/dL Normal 1.8-2.4 5 Thyroid Stimulating Hormone 0.637 uIU/ML Normal 0.358-3.740 6 Free T4 1.07 ng/dL Normal 0.76-1.46 7 Vitamin B12 Level 1171 pg/mL High 247-911 8 Folate > 24.0 NG/ML Normal >5.4 9 Comprehensive Metabolic Profil 01/12/2020 Patient [place], [place] [id number] [phone] Glucose, Fasting 93 mg/dL Normal 70-100 Blood [...] CBC With Differential 01/12/2020 Patient Service [place], [place] [id number] [phone] White Blood Count 10.2 10 High 4.0-10.0 [...] 36.0-66.0 Lymph % 20.6 % Low 24.0-44.0 Finney % 9.4 % High 0.0-5.0 Eos % 1.5 % Normal 0.0-3.0 Baso % 0.3 % Normal 0.0-1.0 Immature Granulocyte % 0.5 % Normal 0-3.0 Nucleated Red Blood Cell % 0.0 % Normal 0-0 Neutrophils # 6.9 10 Normal 1.5-8.5 Lymph # 2.1 10 Normal 1.5-5.0 Finney # 1.0 10 High 0.0-0.8 Eos # 0.2 10 Normal 0.0-0.5 Baso # 0.0 10 Normal 0.0-0.2 Laboratory test finding 01/11/2020 Patient [facility] [place], [place] [id number] [phone] Potassium Serum 3.6 mEq/L Normal 3.5-5.1 11 CBC With Differential 12/22/2019 [place] [address] [phone] White Blood Count 6.5 10 Normal 4.0-10.0 [...] 36.0-66.0 Lymph % 28.4 % Normal 24.0-44.0 Finney % 11.0 % High 0.0-5.0 Eos % 9.0 % High 0.0-3.0 Baso % 0.6 % Normal 0.0-1.0 Immature Granulocyte % 0.3 % Normal 0-3.0 Nucleated Red Blood Cell % 0.0 % Normal 0-0 Neutrophils # 3.3 10 Normal 1.5-8.5 Lymph # 1.8 10 Normal 1.5-5.0 Finney # 0.7 10 Normal 0.0-0.8 Eos # 0.6 10 High 0.0-0.5 Baso # 0.0 10 Normal 0.0-0.2 Comprehensive Metabolic Profil 12/22/2019 Patient S ervice Center [place], [place] [id number] [phone] Glucose, Fasting 167 mg/dL High 70-100 Blood [...] Laboratory test finding 12/22/2019 [place] [address] [phone] Thyroid Stimulating Hormone 1.050 uIU/ML Normal 0. 358-3.740 13 Free T4 1.11 ng/dL Normal 0.76-1.46 14 CBC With Differential 11/30/2019 [place] [address] [phone] White Blood Count 6.7 10 Normal 4.0-10.0 [...] 36.0-66.0 Lymph % 11.1 % Low 24.0-44.0 Finney % 11.4 % High 0.0-5.0 Eos % 6.4 % High 0.0-3.0 Baso % 0.3 % Normal 0.0-1.0 Immature Granulocyte % 0.1 % Normal 0-3.0 Nucleated Red Blood Cell % 0.0 % Normal 0-0 Neutrophils # 4.7 10 Normal 1.5-8.5 Lymph # 0.7 10 Low 1.5-5.0 Finney # 0.8 10 Normal 0.0-0.8 Eos # 0.4 10 Normal 0.0-0.5 Baso # 0.0 10 Normal 0.0-0.2 Comprehensive Metabolic Profil 11/30/2019 [place] [address] [phone] Glucose, Fasting 129 mg/dL High 70-100 Blood [...] Laboratory test finding 11/30/2019 [place] [address] [phone] Thyroid Stimulating Hormone 1.060 uIU/ML Normal 0. 358-3.740 16 Free T4 0.94 ng/dL Normal 0.76-1.46 17 CBC With Differential 11/24/2019 [place] [address] [phone] White Blood Count 6.4 10 Normal 4.0-10.0 [...] 36.0-66.0 Lymph % 21.3 % Low 24.0-44.0 Finney % 11.2 % High 0.0-5.0 Eos % 6.1 % High 0.0-3.0 Baso % 0.5 % Normal 0.0-1.0 Immature Granulocyte % 0.3 % Normal 0-3.0 Nucleated Red Blood Cell % 0.0 % Normal 0-0 Neutrophils # 3.9 10 Normal 1.5-8.5 Lymph # 1.4 10 Low 1.5-5.0 Finney # 0.7 10 Normal 0.0-0.8 Eos # 0.4 10 Normal 0.0-0.5 Baso # 0.0 10 Normal 0.0-0.2 Laboratory test finding 11/03/2019 [place] [address] [phone] Thyroid Stimulating Hormone 1.370 uIU/ML Normal 0. 358-3.740 18 Free T4 0.95 ng/dL Normal 0.76-1.46 19 Comprehensive Metabolic Profil 11/03/2019 [place] [address] [phone] Glucose, Fasting 111 mg/dL High 70-100 Blood [...] CBC With Differential 11/03/2019 [place] [address] [phone] White Blood Count 10.9 10 High 4.0-10.0 [...] 36.0-66.0 Lymph % 20.3 % Low 24.0-44.0 Finney % 7.6 % High 0.0-5.0 Eos % 4.9 % High 0.0-3.0 Baso % 0.5 % Normal 0.0-1.0 Immature Granulocyte % 1.4 % Normal 0-3.0 Nucleated Red Blood Cell % 0.0 % Normal 0-0 Neutrophils # 7.1 10 Normal 1.5-8.5 Lymph # 2.2 10 Normal 1.5-5.0 Finney # 0.8 10 Normal 0.0-0.8 Eos # 0.5 10 Normal 0.0-0.5 Baso # 0.1 10 Normal 0.0-0.2 CBC With Differential 10/13/2019 [place] [address] [phone] White Blood Count 6.2 10 Normal 4.0-10.0 [...] 36.0-66.0 Lymph % 22.4 % Low 24.0-44.0 Finney % 12.8 % High 0.0-5.0 Eos % 11.2 % High 0.0-3.0 Baso % 0.6 % Normal 0.0-1.0 Immature Granulocyte % 0.2 % Normal 0-3.0 Nucleated Red Blood Cell % 0.0 % Normal 0-0 Neutrophils # 3.3 10 Normal 1.5-8.5 Lymph # 1.4 10 Low 1.5-5.0 Finney # 0.8 10 Normal 0.0-0.8 Eos # 0.7 10 High 0.0-0.5 Baso # 0.0 10 Normal 0.0-0.2 Comprehensive Metabolic Profil 10/13/2019 Patient [place], [place] [address] [phone] Glucose, Fasting 137 mg/dL High 70-100 Blood [...] Laboratory test finding 10/13/2019 [place] [address] [phone] Thyroid Stimulating Hormone 1.210 uIU/ML Normal 0. 358-3.740 22 Free T4 0.99 ng/dL Normal 0.76-1.46 23 Laboratory test finding 09/22/2019 [place] [address] [phone] Thyroid Stimulating Hormone 0.954 uIU/ML Normal 0. 358-3.740 24 Free T4 1.07 ng/dL Normal 0.76-1.46 25 Comprehensive Metabolic Profil 09/22/2019 [place] [address] [phone] Glucose, Fasting 160 mg/dL High 70-100 Blood [...] 1.2-2.2 CBC With Differential 09/22/2019 [place] [address] [phone] White Blood Count 7.0 10 Normal 4.0-10.0 [...] 36.0-66.0 Lymph % 20.4 % Low 24.0-44.0 Finney % 11.8 % High 0.0-5.0 Eos % 6.5 % High 0.0-3.0 Baso % 0.6 % Normal 0.0-1.0 Immature Granulocyte % 0.4 % Normal 0-3.0 Nucleated Red Blood Cell % 0.0 % Normal 0-0 Neutrophils # 4.2 10 Normal 1.5-8.5 Lymph # 1.4 10 Low 1.5-5.0 Finney # 0.8 10 Normal 0.0-0.8 Eos # 0.5 10 Normal 0.0-0.5 Baso # 0.0 10 Normal 0.0-0.2 Laboratory test finding 09/22/2019 [place] [address] [phone] Packed Cells TRANSFUSED PRODU <SEE NOTE> 27 Type & Screen -Incl Blood Type,Quan,AB SC 09/22/2019 [place] [address] [phone] Blood Type O POSITIVE Normal AB Screen (Indirect Maggie)Vis NEGATIVE Normal CBC With Differential 09/01/2019 [place] [address] [phone] White Blood Count 7.0 10 Normal 4.0-10.0 [...] 36.0-66.0 Lymph % 21.3 % Low 24.0-44.0 Finney % 9.9 % High 0.0-5.0 Eos % 9.8 % High 0.0-3.0 Baso % 0.4 % Normal 0.0-1.0 Immature Granulocyte % 0.4 % Normal 0-3.0 Nucleated Red Blood Cell % 0.0 % Normal 0-0 Neutrophils # 4.0 10 Normal 1.5-8.5 Lymph # 1.5 10 Normal 1.5-5.0 Finney # 0.7 10 Normal 0.0-0.8 Eos # 0.7 10 High 0.0-0.5 Baso # 0.0 10 Normal 0.0-0.2 Comprehensive Metabolic Profil 09/01/2019 [place] [address] [phone] Glucose, Fasting 163 mg/dL High 70-100 Blood [...] Laboratory test finding 09/01/2019 [place] [address] [phone] Thyroid Stimulating Hormone 2.050 uIU/ML Normal 0. 358-3.740 29 Free T4 0.99 ng/dL Normal 0.76-1.46 30 Complete Blood Count 08/11/[address] [place] [address] [phone] White Blood Count 9.0 10 Normal 4.0-10.0 [...] Differential Automated 08/11/2019 [place] [address] [phone] Neutrophils % 46.9 % Normal 36.0-66.0 Lymph % 23.4 % Low 24.0-44.0 Finney % 12.3 % High 0.0-5.0 Eos % 16.5 % High 0.0-3.0 Baso % 0.7 % Normal 0.0-1.0 Immature Granulocyte % 0.2 % Normal 0-3.0 Neutrophils # 4.2 10 Normal 1.5-8.5 Lymph # 2.1 10 Normal 1.5-5.0 Finney # 1.1 10 High 0.0-0.8 Eos # 1.5 10 High 0.0-0.5 Baso # 0.1 10 Normal 0.0-0.2 Comprehensive Metabolic Profil 08/11/2019 [place] [address] [phone] Glucose, Fasting 152 mg/dL High 70-100 Blood [...] Laboratory test finding 08/11/2019 [place] [address] [phone] Carcinoembryonic Antigen 5.4 NG/ML High <2.5 32 [...] Little GFR Left ESRD GFR <15 on [employer] 2 note:<nlbl:demographic_chang ed> 3 note:<nlbl:demographic_chang ed> 4 note:<nlbl:demographic_[facility] ed> note:<nlbl:demographic_changed> 5 note:<nlbl:demographic_[facility] ed> 6 note:<nlbl:demographic_chang ed> 7 note:<nlbl:demographic_chang [...] Little GFR Left ESRD GFR <15 on [employer] 11 By: Time: 958 note:<nlbl:demographic_changed> By: Time: 958 12 Units are mL/min/1.73 m2 Chronic Kidney Disease Staging per NKF: Stage I & II GFR >=60 Normal to Mildly Decreased Stage III GFR 30-59 Moderately Decreased Stage IV GFR 15-29 Severely Decreased Stage V GFR <15 Very Little GFR Left ESRD GFR <15 on [employer] 13 note:<nlbl:demographic_ ed> 14 note:<nlbl:demographic_ ed> 15 Units are mL/min/1.73 m2 Chronic Kidney Disease Staging per NKF: Stage I & II GFR >=60 Normal to Mildly Decreased Stage III GFR 30-59 Moderately Decreased Stage IV GFR 15-29 Severely Decreased Stage V GFR <15 Very Little GFR Left ESRD GFR <15 on [employer] 16 note:<nlbl:demographic_ ed> 17 note:<nlbl:demographic_ ed> 18 note:<nlbl:demographic_ ed> note:<nlbl:demographic_changed> note:<nlbl:demographic_changed> 19 note:<nlbl:demographic_chang ed> note:<nlbl:demographic_changed> note:<nlbl:demographic_changed> 20 Units are mL/min/1.73 m2 Chronic Kidney Disease Staging per NKF: Stage I & II GFR >=60 Normal to Mildly Decreased Stage III GFR 30-59 Moderately Decreased Stage IV GFR 15-29 Severely Decreased Stage V GFR <15 Very Little GFR Left ESRD GFR <15 on [employer] 21 Units are mL/min/1.73 m2 Chronic Kidney Disease Staging per NKF: Stage I & II GFR >=60 Normal to Mildly Decreased Stage III GFR 30-59 Moderately Decreased Stage IV GFR 15-29 Severely Decreased Stage V GFR <15 Very Little GFR Left ESRD GFR <15 on [employer] 22 note:<nlbl:demographic_ ed> 23 note:<nlbl:demographic_ ed> 24 note:<nlbl:demographic_ ed> 25 note:<nlbl:demographic_ ed> 26 Units are mL/min/1.73 m2 Chronic Kidney Disease Staging per NKF: Stage I & II GFR >=60 Normal to Mildly Decreased Stage III GFR 30-59 Moderately Decreased Stage IV GFR 15-29 Severely Decreased Stage V GFR <15 Very Little GFR Left ESRD GFR <15 on [employer] 27 TRANSFUSED PRODUCT: PACKED C ELLS COUNT: 1 28 Units are mL/min/1.73 m2 Chronic Kidney Disease Staging per NKF: Stage I & II GFR >=60 Normal to Mildly Decreased Stage III GFR 30-59 Moderately Decreased Stage IV GFR 15-29 Severely Decreased Stage V GFR <15 Very Little GFR Left ESRD GFR <15 on [employer] 29 note:<nlbl:demographic_chang ed> 30 note:<nlbl:demographic_chang ed> 31 Units are mL/min/1.73 m2 Chronic Kidney Disease Staging per NKF: Stage I & II GFR >=60 Normal to Mildly Decreased Stage III GFR 30-59 Moderately Decreased Stage IV GFR 15-29 Severely Decreased Stage V GFR <15 Very Little GFR Left ESRD GFR <15 on [employer] 32 THE CEA ASSAY IS PERFORMED O N THE [place] BY CHEMILUMINESCENCE AND SHOULD NOT BE COMPARED [...] Visit 09/14/2019 8:45a Main Office Lynda Clifton, SYSTEM ADMINISTRATION MANAGER I10 Essential (primary) hypertension Assessments Date Code Description Provider 01/25/2020 I10 Essential (primary) hypertension Lynda Clifton, SYSTEM ADMINISTRATION MANAGER 01/25/2020 J44.9 Chronic obstructive pulmonary di sease, unspecified Pleskach, Lynda, SYSTEM ADMINISTRATION MANAGER 01/25/2020 C34.92 Malignant neoplasm o f unspecified part of left bronchus or lung PleskLien sheikhy, SYSTEM ADMINISTRATION MANAGER 12/29/2019 I10 Essential (primary) hypertension Pleskach Lynda, SYSTEM ADMINISTRATION MANAGER 12/29/2019 J44.9 Chronic obstructive pulmonary di sease, unspecified Pleskach, Lynda, SYSTEM ADMINISTRATION MANAGER 12/29/2019 C34.92 Malignant neoplasm o f unspecified part of left bronchus or lung PleskLynda sheikh, SYSTEM ADMINISTRATION MANAGER 12/29/2019 Z71.89 Other specified counseling Lynda Jones, SYSTEM ADMINISTRATION MANAGER 10/17/2019 I10 Essential (primary) hypertension Lynda Clifton, SYSTEM ADMINISTRATION MANAGER 09/14/2019 I10 Essential (primary) hypertension Lynda Clifton, SYSTEM ADMINISTRATION MANAGER Plan of Treatment Future Appointment(s):* 07/25/2020 10:30 am - Lynda Clifton FNP at Main Office 01/25/2020 - Lynda Clifton SYSTEM ADMINISTRATION MANAGER* I10 Essential (primary) hypertension* Comments:* well controlled [...]
--- OUTSIDE RECORDS SUMMARY | 2020-04-04 07:25 | CCD | Continuity of Care Document ---
Author Author Jamila DICKSON M.D. Organization Unknown Address [address] [place] [address] Phone [phone] Care Team Providers Care Associate Professor Of Philosophy Name Role Phone Mariusz Will MD AUTM [phone] Problems Active Problems Provider Date Impaired fasting [...] ppd since age 20. Smoking Status Reviewed: 12/29/19 Patient is a former smoker qu it [...] SIG Qnty Indications Ordering Provide r Date Amlodipine Besylate 5mg Tablets take one/half tablet by mouth every day for blood pressure 90tabs Lynda Clifton FNP 09/14/2019 Tranexamic Acid Nasal [place] 1000 mg/10 ml 1 spray in e [...] by mouth daily Unknown Vitamin D 2 [id number] Capsules 1 by mouth weekly Unknown Advair HFA 230-21mcg/Act Aerosol 2 puffs every 12 hours for maintenance Unknown 0 Renvela 800mg Tablets 1 tab po prior to meals Unknown Keytruda 100mg/4ML Solution every 3 weeks Unknown Immunizations CPT Code Status Date Vaccine Lot # [id number] Given 12/29/2018 Influenza Virus Vaccine, Quadrivalent,age 3 and up,multidose vial [id number] Given 01/26/2018 Prevnar 13 For Adults [id number] Given 12/28/2017 Boostrix (Tdap) Tetnus, Diphtheria Toxoids & Acellular Pertussis [id number] Given 12/28/2017 Influenza Virus Vaccine, Quadrivalent,age 3 and up,multidose vial [id number] 36621 Given 11/13/2016 Influenza Vaccination/preser vative free [id number] 82266 Given 11/19/2015 Pneumococcal Vaccine [id number] Given 11/19/2015 Influenza Vaccination Vital Signs Date Vital Result Comment 12/29/2019 11:02am BP Systolic 140 mmHg BP Diastolic 71 mmHg Heart Rate 112 /min Body Temperature 96.8 F Respiratory Rate 20 /min Height 59 inches 4'11" Weight 116.00 lb O2 % BldC Oximetry 97 % 02 2L Peak Expiratory Flow Rate 292 Estimated Peak Flow Rate [place] Body Weight 100 lb BMI (Body Mass Index) 23.4 kg/m2 10/17/2019 10:05am BP Systolic 151 mmHg BP Diastolic 73 mmHg BP Systolic Recheck 132 mmHg BP Diastolic Recheck 72 mmHg Heart Rate 111 /min Body Temperature 98.8 F Respiratory Rate 20 /min Height 59 inches 4'11" Weight 108.56 lb O2 % BldC Oximetry 82 % Peak Expiratory Flow Rate 293 Estimated Peak Flow Rate [place] Body Weight 100 lb BMI (Body Mass Index) 21.9 kg/m2 Results Test Acquired Date Facility Test Result H/L Range Note CBC With Differential 01/12/2020 [place] [address] [phone] White Blood Count 10.2 10 High 4.0-10.0 [...] 36.0-66.0 Lymph % 20.6 % Low 24.0-44.0 [place] % 9.4 % High 0.0-5.0 Eos % 1.5 % Normal 0.0-3.0 Baso % 0.3 % Normal 0.0-1.0 Immature Granulocyte % 0.5 % Normal 0-3.0 Nucleated Red Blood Cell % 0.0 % Normal 0-0 Neutrophils # 6.9 10 Normal 1.5-8.5 Lymph # 2.1 10 Normal 1.5-5.0 [place]fee # 1.0 10 High 0.0-0.8 Eos # 0.2 10 Normal 0.0-0.5 Baso # 0.0 10 Normal 0.0-0.2 Comprehensive Metabolic Profil 01/12/[address] [place] [address] [phone] Glucose, Fasting 93 mg/dL Normal 70-100 Blood [...] 1.2-2.2 Laboratory test finding 01/12/2020 [place] [address] [phone] Magnesium Level 2.1 mg/dL Normal 1.8-2.4 2 Thyroid Stimulating Hormone 0.637 uIU/ML Normal 0.358-3.740 3 Free T4 1.07 ng/dL Normal 0.76-1.46 4 Vitamin B12 Level 1171 pg/mL High 247-911 5 Folate > 24.0 NG/ML Normal >5.4 6 Laboratory test finding 01/11/2020 Patient Service [place], [place] [id number] [phone] Potassium Serum 3.6 mEq/L Normal 3.5-5.1 7 CBC With Differential 12/22/2019 [place] [address] [phone] White Blood Count 6.5 10 Normal 4.0-10.0 [...] 36.0-66.0 Lymph % 28.4 % Normal 24.0-44.0 Chaffee % 11.0 % High 0.0-5.0 Eos % 9.0 % High 0.0-3.0 Baso % 0.6 % Normal 0.0-1.0 Immature Granulocyte % 0.3 % Normal 0-3.0 Nucleated Red Blood Cell % 0.0 % Normal 0-0 Neutrophils # 3.3 10 Normal 1.5-8.5 Lymph # 1.8 10 Normal 1.5-5.0 [place]fee # 0.7 10 Normal 0.0-0.8 Eos # 0.6 10 High 0.0-0.5 Baso # 0.0 10 Normal 0.0-0.2 Comprehensive Metabolic Profil 12/22/2019 [place] [address] [phone] Glucose, Fasting 167 mg/dL High 70-100 Blood [...] 1.2-2.2 Laboratory test finding 12/22/2019 [place] [address] [phone] Thyroid Stimulating Hormone 1.050 uIU/ML Normal 0. 358-3.740 9 Free T4 1.11 ng/dL Normal 0.76-1.46 10 CBC With Differential 11/30/2019 [place] [address] [phone] White Blood Count 6.7 10 Normal 4.0-10.0 [...] 36.0-66.0 Lymph % 11.1 % Low 24.0-44.0 Chaffee % 11.4 % High 0.0-5.0 Eos % 6.4 % High 0.0-3.0 Baso % 0.3 % Normal 0.0-1.0 Immature Granulocyte % 0.1 % Normal 0-3.0 Nucleated Red Blood Cell % 0.0 % Normal 0-0 Neutrophils # 4.7 10 Normal 1.5-8.5 Lymph # 0.7 10 Low 1.5-5.0 [place]affee # 0.8 10 Normal 0.0-0.8 Eos # 0.4 10 Normal 0.0-0.5 Baso # 0.0 10 Normal 0.0-0.2 Comprehensive Metabolic Profil 11/30/[address] [place] [address] [phone] Glucose, Fasting 129 mg/dL High 70-100 Blood [...] Laboratory test finding 11/30/2019 Patient [place] [address] [phone] Thyroid Stimulating Hormone 1.060 uIU/ML Normal 0. 358-3.740 12 Free T4 0.94 ng/dL Normal 0.76-1.46 13 CBC With Differential 11/24/2019 [place] [address] [phone] White Blood Count 6.4 10 Normal 4.0-10.0 [...] 36.0-66.0 Lymph % 21.3 % Low 24.0-44.0 [place]affee % 11.2 % High 0.0-5.0 Eos % 6.1 % High 0.0-3.0 Baso % 0.5 % Normal 0.0-1.0 Immature Granulocyte % 0.3 % Normal 0-3.0 Nucleated Red Blood Cell % 0.0 % Normal 0-0 Neutrophils # 3.9 10 Normal 1.5-8.5 Lymph # 1.4 10 Low 1.5-5.0 [place]affee # 0.7 10 Normal 0.0-0.8 Eos # 0.4 10 Normal 0.0-0.5 Baso # 0.0 10 Normal 0.0-0.2 CBC With Differential 11/03/2019 [place] [address] [phone] White Blood Count 10.9 10 High 4.0-10.0 [...] 36.0-66.0 Lymph % 20.3 % Low 24.0-44.0 [place]affee % 7.6 % High 0.0-5.0 Eos % 4.9 % High 0.0-3.0 Baso % 0.5 % Normal 0.0-1.0 Immature Granulocyte % 1.4 % Normal 0-3.0 Nucleated Red Blood Cell % 0.0 % Normal 0-0 Neutrophils # 7.1 10 Normal 1.5-8.5 Lymph # 2.2 10 Normal 1.5-5.0 [place]affee # 0.8 10 Normal 0.0-0.8 Eos # 0.5 10 Normal 0.0-0.5 Baso # 0.1 10 Normal 0.0-0.2 Comprehensive Metabolic Profil 11/03/2019 [place] [address] [phone] Glucose, Fasting 111 mg/dL High 70-100 Blood [...] Laboratory test finding 11/03/2019 Patient [facility] [place], [place] [address] [phone] Thyroid Stimulating Hormone 1.370 uIU/ML Normal 0. 358-3.740 15 Free T4 0.95 ng/dL Normal 0.76-1.46 16 Laboratory test finding 10/13/2019 Patient Service [place] [id number] [phone] Thyroid Stimulating Hormone 1.210 uIU/ML Normal 0. 358-3.740 17 Free T4 0.99 ng/dL Normal 0.76-1.46 18 Comprehensive Metabolic Profil 10/13/2019 [place] [address] [phone] Glucose, Fasting 137 mg/dL High 70-100 Blood [...] CBC With Differential 10/13/2019 [place] [address] [phone] White Blood Count 6.2 10 Normal 4.0-10.0 [...] 36.0-66.0 Lymph % 22.4 % Low 24.0-44.0 [place]fee % 12.8 % High 0.0-5.0 Eos % 11.2 % High 0.0-3.0 Baso % 0.6 % Normal 0.0-1.0 Immature Granulocyte % 0.2 % Normal 0-3.0 Nucleated Red Blood Cell % 0.0 % Normal 0-0 Neutrophils # 3.3 10 Normal 1.5-8.5 Lymph # 1.4 10 Low 1.5-5.0 [place]fee # 0.8 10 Normal 0.0-0.8 Eos # 0.7 10 High 0.0-0.5 Baso # 0.0 10 Normal 0.0-0.2 Type & Screen -Incl Blood Type,Quan,AB SC 09/22/2019 [place] [address] [phone] Blood Type O POSITIVE Normal AB Screen (Indirect Maggie)Vis NEGATIVE Normal Laboratory test finding 09/22/2019 [place] [address] [phone] Packed Cells TRANSFUSED PRODU <SEE NOTE> 20 CBC With Differential 09/22/2019 [place] [address] [phone] White Blood Count 7.0 10 Normal 4.0-10.0 [...] 36.0-66.0 Lymph % 20.4 % Low 24.0-44.0 [place]affee % 11.8 % High 0.0-5.0 Eos % 6.5 % High 0.0-3.0 Baso % 0.6 % Normal 0.0-1.0 Immature Granulocyte % 0.4 % Normal 0-3.0 Nucleated Red Blood Cell % 0.0 % Normal 0-0 Neutrophils # 4.2 10 Normal 1.5-8.5 Lymph # 1.4 10 Low 1.5-5.0 [place]affee # 0.8 10 Normal 0.0-0.8 Eos # 0.5 10 Normal 0.0-0.5 Baso # 0.0 10 Normal 0.0-0.2 Comprehensive Metabolic Profil 09/22/[place] [address] [phone] Glucose, Fasting 160 mg/dL High 70-100 Blood [...] Laboratory test finding 09/22/2019 [place] [address] [phone] Thyroid Stimulating Hormone 0.954 uIU/ML Normal 0. 358-3.740 22 Free T4 1.07 ng/dL Normal 0.76-1.46 23 Laboratory test finding 09/01/2019 [place] [address] [phone] Thyroid Stimulating Hormone 2.050 uIU/ML Normal 0. 358-3.740 24 Free T4 0.99 ng/dL Normal 0.76-1.46 25 Comprehensive Metabolic Profil 09/01/2019 [facility] [place] [address] [phone] Glucose, Fasting 163 mg/dL High 70-100 Blood Urea Nitrogen 48 mg/dL High 7-18 Creatinine For GFR 4.12 mg/dL High 0.55-1.30 Glomerular Filtration Rate 11.5 Low >45 2 6 Sodium Level 140 [...] Normal 3.2-5.2 Albumin/Globulin Ratio 0.7 Low 1.2-2.2 CBC With Differential 09/01/2019 [place] [address] [phone] White Blood Count 7.0 10 Normal 4.0-10.0 [...] 36.0-66.0 Lymph % 21.3 % Low 24.0-44.0 [place] % 9.9 % High 0.0-5.0 Eos % 9.8 % High 0.0-3.0 Baso % 0.4 % Normal 0.0-1.0 Immature Granulocyte % 0.4 % Normal 0-3.0 Nucleated Red Blood Cell % 0.0 % Normal 0-0 Neutrophils # 4.0 10 Normal 1.5-8.5 Lymph # 1.5 10 Normal 1.5-5.0 [place]fee # 0.7 10 Normal 0.0-0.8 Eos # 0.7 10 High 0.0-0.5 Baso # 0.0 10 Normal 0.0-0.2 Complete Blood Count 08/11/[address] [place] [address] [phone] White Blood Count 9.0 10 Normal 4.0-10.0 [...] Differential Automated 08/11/2019 Patient Service [facility] [place] [id number] [phone] Neutrophils % 46.9 % Normal 36.0-66.0 Lymph % 23.4 % Low 24.0-44.0 [place]affee % 12.3 % High 0.0-5.0 Eos % 16.5 % High 0.0-3.0 Baso % 0.7 % Normal 0.0-1.0 Immature Granulocyte % 0.2 % Normal 0-3.0 Neutrophils # 4.2 10 Normal 1.5-8.5 Lymph # 2.1 10 Normal 1.5-5.0 [place]fee # 1.1 10 High 0.0-0.8 Eos # 1.5 10 High 0.0-0.5 Baso # 0.1 10 Normal 0.0-0.2 Comprehensive Metabolic Profil 08/11/2019 [place] [address] [phone] Glucose, Fasting 152 mg/dL High 70-100 Blood [...] 1.2-2.2 Laboratory test finding 08/11/2019 [place] [address] [phone] Carcinoembryonic Antigen 5.4 NG/ML High <2.5 28 Thyroid Stimulating Hormone 2.040 uIU/ML Normal 0.358-3.740 29 Free T4 0.99 ng/dL Normal 0.76-1.46 30 Complete Blood Count 07/21/[address] [place] [address] [phone] White Blood Count 8.5 10 Normal 4.0-10.0 Red Blood Count 2.96 10 Low 4.00-5.40 Hemoglobin 9.0 g/dL Low 12.0-15.5 Hematocrit 29.1 % Low 36.0-47.0 Mean Corpuscular Volume 98.3 fl High 80.0-96.0 Mean Corpuscular Hemoglobin 30.4 pg Normal 27.0-33.0 Mean Corpuscular HGB Conc 30.9 g/dL Low 32.0-36.5 Red Cell Distribution Width 15.5 % High 11.5-14.5 Platelet Count, Automated 274 10 Normal 150-450 Nucleated Red Blood Cell % 0.0 % Normal 0-0 Differential Automated 07/21/2019 [place] [address] [phone] Neutrophils % 56.6 % Normal 36.0-66.0 Lymph % 17.6 % Low 24.0-44.0 [place]fee % 19.8 % High 0.0-5.0 Eos % 4.7 % High 0.0-3.0 Baso % 0.5 % Normal 0.0-1.0 Immature Granulocyte % 0.8 % Normal 0-3.0 Neutrophils # 4.8 10 Normal 1.5-8.5 Lymph # 1.5 10 Normal 1.5-5.0 [place] # 1.7 10 High 0.0-0.8 Eos # 0.4 10 Normal 0.0-0.5 Baso # 0.0 10 Normal 0.0-0.2 Comprehensive Metabolic Profil 07/21/2019 [place] [address] [phone] Glucose, Fasting 104 mg/dL High 70-100 Blood Urea Nitrogen 53 mg/dL High 7-18 Creatinine For GFR 3.55 mg/dL High 0.55-1.30 Glomerular Filtration Rate 13.6 Low >45 3 1 Sodium Level 138 mEq/L Normal 136-145 Potassium Serum 5.0 mEq/L Normal 3.5-5.1 Chloride Level 104 mEq/L Normal 98-107 Carbon Dioxide Level 32 mEq/L Normal 21-32 Anion Gap 2 mEq/L Low 8-16 Calcium Level 9.6 mg/dL Normal 8.8-10.2 Ast/Sgot 19 U/L Normal 7-37 Alt/SGPT 21 U/L Normal 12-78 Alkaline Phosphatase 109 U/L Normal 45-117 Bilirubin,Total 0.1 mg/dL Low 0.2-1.0 Total Protein 8.0 GM/DL Normal 6.4-8.2 Albumin 2.6 GM/DL Low 3.2-5.2 Albumin/Globulin Ratio 0.48 Low 1.00-1.93 Laboratory test finding 07/21/2019 Patient [facility] [place], [place] [address] [phone] Thyroid Stimulating Hormone 0.945 uIU/ML Normal 0. 358-3.740 32 Free T4 1.02 ng/dL Normal 0.76-1.46 33 1 Units are mL/min/1.73 m2 Chronic Kidney Disease Staging per NKF: Stage I & II GFR >=60 Normal to Mildly Decreased Stage III GFR 30-59 Moderately Decreased Stage IV GFR 15-29 Severely Decreased Stage V GFR <15 Very Little GFR Left ESRD GFR <15 on ADMINISTRATIVE ASSISTANT FRONT DESK 2 note:<nlbl:demographic_chang ed> 3 note:<nlbl:demographic_chang ed> 4 note:<nlbl:demographic_chang ed> 5 VITAMIN B12 NORMAL RANGE NORMAL [...] Little GFR Left ESRD GFR <15 on ADMINISTRATIVE ASSISTANT FRONT DESK 9 note:<nlbl:demographic_chang ed> 10 note:<nlbl:demographic_chang ed> 11 Units are mL/min/1.73 m2 Chronic Kidney Disease Staging per NKF: Stage I & II GFR >=60 Normal to Mildly Decreased Stage III GFR 30-59 Moderately Decreased Stage IV GFR 15-29 Severely Decreased Stage V GFR <15 Very Little GFR Left ESRD GFR <15 on ADMINISTRATIVE ASSISTANT FRONT DESK 12 note:<nlbl:demographic_ ed> 13 note:<nlbl:demographic_ ed> 14 Units are mL/min/1.73 m2 Chronic Kidney Disease Staging per NKF: Stage I & II GFR >=60 Normal to Mildly Decreased Stage III GFR 30-59 Moderately Decreased Stage IV GFR 15-29 Severely Decreased Stage V GFR <15 Very Little GFR Left ESRD GFR <15 on ADMINISTRATIVE ASSISTANT FRONT DESK 15 note:<nlbl:demographic_ ed> note:<nlbl:demographic_changed> note:<nlbl:demographic_changed> 16 note:<nlbl:demographic_ ed> note:<nlbl:demographic_changed> note:<nlbl:demographic_changed> 17 note:<nlbl:demographic_ ed> 18 note:<nlbl:_ ed> 19 Units are mL/min/1.73 m2 Chronic Kidney Disease Staging per NKF: Stage I & II GFR >=60 Normal to Mildly Decreased Stage III GFR 30-59 Moderately Decreased Stage IV GFR 15-29 Severely Decreased Stage V GFR <15 Very Little GFR Left ESRD GFR <15 on ADMINISTRATIVE ASSISTANT FRONT DESK 20 TRANSFUSED PRODUCT: PACKED C ELLS COUNT: 1 21 Units are mL/min/1.73 m2 Chronic Kidney Disease Staging per NKF: Stage I & II GFR >=60 Normal to Mildly Decreased Stage III GFR 30-59 Moderately Decreased Stage IV GFR 15-29 Severely Decreased Stage V GFR <15 Very Little GFR Left ESRD GFR <15 on ADMINISTRATIVE ASSISTANT FRONT DESK 22 note:<nlbl:_ ed> 23 note:<nlbl:demographic_ ed> 24 note:<nlbl:demographic_ ed> 25 note:<nlbl:_ ed> 26 Units are mL/min/1.73 m2 Chronic Kidney Disease Staging per NKF: Stage I & II GFR >=60 Normal to Mildly Decreased Stage III GFR 30-59 Moderately Decreased Stage IV GFR 15-29 Severely Decreased Stage V GFR <15 Very Little GFR Left ESRD GFR <15 on ADMINISTRATIVE ASSISTANT FRONT DESK 27 Units are mL/min/1.73 m2 Chronic Kidney Disease Staging per NKF: Stage I & II GFR >=60 Normal to Mildly Decreased Stage III GFR 30-59 Moderately Decreased Stage IV GFR 15-29 Severely Decreased Stage V GFR <15 Very Little GFR Left ESRD GFR <15 on ADMINISTRATIVE ASSISTANT FRONT DESK 28 THE CEA ASSAY IS PERFORMED O N THE [employer] BY CHEMILUMINESCENCE AND SHOULD NOT BE COMPARED INTERCHANGEABLY WITH OTHER METHODS. IT SHOULD NOT BE USED ALONE A SCREENING TEST OR DIAGNOSIS FOR THE PRESENCE OR ABSENCE OF MALIGNANT DISEASE. PREDICTIONS OF DISEASE RECURRENCE SHOULD NOT BE BASED SOLELY ON VALUES OBTAINED FROM SERIAL PATIENT SERUM VALUES. 29 note:<nlbl:demographic_chang ed> note:<nlbl:demographic_changed> 30 note:<nlbl:demographic_chang ed> note:<nlbl:demographic_changed> 31 Units are mL/min/1.73 m2 Chronic Kidney Disease Staging per NKF: Stage I & II GFR >=60 Normal to Mildly Decreased Stage III GFR 30-59 Moderately Decreased Stage IV GFR 15-29 Severely Decreased Stage V GFR <15 Very Little GFR Left ESRD GFR <15 on ADMINISTRATIVE ASSISTANT FRONT DESK 32 note:<nlbl:demographic_chang ed> 33 note:<nlbl:demographic_chang ed> Procedures Description No Information Available Medical Devices Description No Information Available Encounters Type Date Location Provider Dx Diagnosis Office Visit 12/29/2019 10:45a Main Office Pleaugustinaach, Lynda, GRANULATOR MACHINE OPERATOR I10 Essential (primary) hypertension J44.9 Chronic obstructive pulmonar y disease, unspecified 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 Z71.89 Other specified counseling Office Visit 10/17/2019 10:15a Main Office Pleskach, Lynda, GRANULATOR MACHINE OPERATOR I10 Essential (primary) hypertension Office Visit 09/14/2019 8:45a Main Office Pleskach, Lynda, GRANULATOR MACHINE OPERATOR I10 Essential (primary) hypertension Office Visit 07/25/2019 11:00a Main Office Pleskach, Lynda, GRANULATOR MACHINE OPERATOR I10 Essential (primary) hypertension J44.9 Chronic obstructive pulmonar y disease, unspecified 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 Z00.00 Encntr for general adult med ical exam w/o abnormal findings Assessments Date Code Description Provider 12/29/2019 I10 Essential (primary) hypertension Lynda Clifton, GRANULATOR MACHINE OPERATOR 12/29/2019 J44.9 Chronic obstructive pulmonary di sease, unspecified Pleskach Lynda, GRANULATOR MACHINE OPERATOR 12/29/2019 C34.92 Malignant neoplasm o f unspecified part of left bronchus or lung Pleskkori Lynda, GRANULATOR MACHINE OPERATOR 12/29/2019 Z71.89 Other specified counseling Lynda Jones, GRANULATOR MACHINE OPERATOR 10/17/2019 I10 Essential (primary) hypertension Lynda Clifton, GRANULATOR MACHINE OPERATOR 09/14/2019 I10 Essential (primary) hypertension PleLynda puentes, GRANULATOR MACHINE OPERATOR 07/25/2019 I10 Essential (primary) hypertension Nelly Dickson M.D. 07/25/2019 I10 Essential (primary) hypertension Lynda Clifton, GRANULATOR MACHINE OPERATOR 07/25/2019 J44.9 Chronic obstructive pulmonary di sease, unspecified Nelly Dickson M.D. 07/25/2019 J44.9 Chronic obstructive pulmonary di sease, unspecified PleLynda puentes, GRANULATOR MACHINE OPERATOR 07/25/2019 C34.92 Malignant neoplasm o f unspecified part of left bronchus or lung Nelly Dickson M.D. 07/25/2019 C34.92 Malignant neoplasm o f unspecified part of left bronchus or lung Lynda Clifton FNP 07/25/2019 Z00.00 Encounter for genera l adult medical examination without abnormal findings Nelly Dickson M.D. 07/25/2019 Z00.00 Encounter for genera l adult medical examination without abnormal findings Lynda Clifton FNP Plan of Treatment Future Appointment(s):* 01/25/2020 10:45 am - Lynda Clifton FNP at Main Office 12/29/2019 - Lynda Clifton FNP* I10 Essential (primary) hypertension* Comments:* controlled, continue current medications * Follow up:* 3 months * J44.9 Chronic obstructive pulmonary disease, unspecified* Comments:* continue inhalers, follows with pulmonology * C34.92 Malignant neoplasm of unspecified part of left bronchus or lung* Comments:* in remission, following with oncology and pulmonology * Z71.89 Other specified counseling* Comments:* Discussed advanced directives at length with patient and her spouse. Patient verbalizes desire to rescind her DNR. Previous MOLST form voided and a new MOLST was completed based on patient's own wishes. Functional Status Functional Condition Comment Date Status Complete lower and upper and lower dentures Active Independent with all ADL's Activ e Independent with all IADL's Acti ve Glasses magnifiers for reading Active dialysis 3 times per week Active Mental Status Mental Condition Comment Date Status None Active Referrals Description No Information Available
--- OUTSIDE RECORDS SUMMARY | 2020-04-04 07:25 | CCD | Continuity of Care Document ---
Author Author Jamila DICKSON M.D. Organization Unknown Address [address] [place] [address] Phone [phone] Care Team Providers Care Sign Writer Hand Name Role Phone Mariusz Will MD AUTM [phone] Problems Active Problems Provider Date Impaired fasting [...] Lynda Clifton FNP 09/14/2019 Tranexamic Acid Nasal [place] 1000 mg/10 ml 1 spray in e [...] by mouth daily Unknown Vitamin D 2 [id number] Capsules 1 by mouth weekly Unknown Advair HFA 230-21mcg/Act Aerosol 2 puffs every 12 hours for maintenance Unknown 0 Renvela 800mg Tablets 1 tab po prior to meals Unknown Keytruda 100mg/4ML Solution every 3 weeks Unknown Immunizations CPT Code Status Date Vaccine Lot # [id number] Given 12/29/2018 Influenza Virus Vaccine, Quadrivalent,age 3 and up,multidose vial [id number] Given 01/26/2018 Prevnar 13 For Adults [id number] Given 12/28/2017 Boostrix (Tdap) Tetnus, Diphtheria Toxoids & Acellular Pertussis [id number] Given 12/28/2017 Influenza Virus Vaccine, Quadrivalent,age 3 and up,multidose vial [id number] 81812 Given 11/13/2016 Influenza Vaccination/preser vative free [id number] 94044 Given 11/19/2015 Pneumococcal Vaccine [id number] Given 11/19/2015 Influenza Vaccination Vital Signs Date Vital Result Comment 12/29/2019 11:02am BP Systolic 140 mmHg BP Diastolic 71 mmHg Heart Rate 112 /min Body Temperature 96.8 F Respiratory Rate 20 /min Height 59 inches 4'11" Weight 116.00 lb O2 % BldC Oximetry 97 % 02 2L Peak Expiratory Flow Rate 292 Estimated Peak Flow Rate [place] Body Weight 100 lb BMI (Body Mass [...] Flow Rate 293 Estimated Peak Flow Rate [place] Body Weight 100 lb BMI (Body Mass Index) 21.9 kg/m2 Results Test Acquired Date Facility Test Result H/L Range Note CBC With Differential 01/12/2020 [place] [address] [phone] White Blood Count 10.2 10 High 4.0-10.0 [...] 36.0-66.0 Lymph % 20.6 % Low 24.0-44.0 Bee % 9.4 % High 0.0-5.0 Eos % 1.5 % Normal 0.0-3.0 Baso % 0.3 % Normal 0.0-1.0 Immature Granulocyte % 0.5 % Normal 0-3.0 Nucleated Red Blood Cell % 0.0 % Normal 0-0 Neutrophils # 6.9 10 Normal 1.5-8.5 Lymph # 2.1 10 Normal 1.5-5.0 Bee # 1.0 10 High 0.0-0.8 Eos # 0.2 10 Normal 0.0-0.5 Baso # 0.0 10 Normal 0.0-0.2 Comprehensive Metabolic Profil 01/12/[address] [place] [address] [phone] Glucose, Fasting 93 mg/dL Normal 70-100 Blood [...] 1.2-2.2 Laboratory test finding 01/12/2020 [place] [address] [phone] Magnesium Level 2.1 mg/dL Normal 1.8-2.4 2 Thyroid Stimulating Hormone 0.637 uIU/ML Normal 0.358-3.740 3 Free T4 1.07 ng/dL Normal 0.76-1.46 4 Vitamin B12 Level 1171 pg/mL High 247-911 5 Folate > 24.0 NG/ML Normal >5.4 6 Laboratory test finding 01/11/2020 Patient Service [place], [place] [id number] [phone] Potassium Serum 3.6 mEq/L Normal 3.5-5.1 7 CBC With Differential 12/22/2019 [place] [address] [phone] White Blood Count 6.5 10 Normal 4.0-10.0 [...] 36.0-66.0 Lymph % 28.4 % Normal 24.0-44.0 Bee % 11.0 % High 0.0-5.0 Eos % 9.0 % High 0.0-3.0 Baso % 0.6 % Normal 0.0-1.0 Immature Granulocyte % 0.3 % Normal 0-3.0 Nucleated Red Blood Cell % 0.0 % Normal 0-0 Neutrophils # 3.3 10 Normal 1.5-8.5 Lymph # 1.8 10 Normal 1.5-5.0 Bee # 0.7 10 Normal 0.0-0.8 Eos # 0.6 10 High 0.0-0.5 Baso # 0.0 10 Normal 0.0-0.2 Comprehensive Metabolic Profil 12/22/2019 [place] [address] [phone] Glucose, Fasting 167 mg/dL High 70-100 Blood [...] 1.2-2.2 Laboratory test finding 12/22/2019 [place] [address] [phone] Thyroid Stimulating Hormone 1.050 uIU/ML Normal 0. 358-3.740 9 Free T4 1.11 ng/dL Normal 0.76-1.46 10 CBC With Differential 11/30/2019 [place] [address] [phone] White Blood Count 6.7 10 Normal 4.0-10.0 [...] 36.0-66.0 Lymph % 11.1 % Low 24.0-44.0 Bee % 11.4 % High 0.0-5.0 Eos % 6.4 % High 0.0-3.0 Baso % 0.3 % Normal 0.0-1.0 Immature Granulocyte % 0.1 % Normal 0-3.0 Nucleated Red Blood Cell % 0.0 % Normal 0-0 Neutrophils # 4.7 10 Normal 1.5-8.5 Lymph # 0.7 10 Low 1.5-5.0 Bee # 0.8 10 Normal 0.0-0.8 Eos # 0.4 10 Normal 0.0-0.5 Baso # 0.0 10 Normal 0.0-0.2 Comprehensive Metabolic Profil 11/30/2019 [place] [address] [phone] Glucose, Fasting 129 mg/dL High 70-100 Blood [...] Laboratory test finding 11/30/2019 Patient [place] [address] [phone] Thyroid Stimulating Hormone 1.060 uIU/ML Normal 0. 358-3.740 12 Free T4 0.94 ng/dL Normal 0.76-1.46 13 CBC With Differential 11/24/2019 [place] [address] [phone] White Blood Count 6.4 10 Normal 4.0-10.0 [...] 36.0-66.0 Lymph % 21.3 % Low 24.0-44.0 Bee % 11.2 % High 0.0-5.0 Eos % 6.1 % High 0.0-3.0 Baso % 0.5 % Normal 0.0-1.0 Immature Granulocyte % 0.3 % Normal 0-3.0 Nucleated Red Blood Cell % 0.0 % Normal 0-0 Neutrophils # 3.9 10 Normal 1.5-8.5 Lymph # 1.4 10 Low 1.5-5.0 Bee # 0.7 10 Normal 0.0-0.8 Eos # 0.4 10 Normal 0.0-0.5 Baso # 0.0 10 Normal 0.0-0.2 CBC With Differential 11/03/2019 [place] [address] [phone] White Blood Count 10.9 10 High 4.0-10.0 [...] 36.0-66.0 Lymph % 20.3 % Low 24.0-44.0 Bee % 7.6 % High 0.0-5.0 Eos % 4.9 % High 0.0-3.0 Baso % 0.5 % Normal 0.0-1.0 Immature Granulocyte % 1.4 % Normal 0-3.0 Nucleated Red Blood Cell % 0.0 % Normal 0-0 Neutrophils # 7.1 10 Normal 1.5-8.5 Lymph # 2.2 10 Normal 1.5-5.0 Bee # 0.8 10 Normal 0.0-0.8 Eos # 0.5 10 Normal 0.0-0.5 Baso # 0.1 10 Normal 0.0-0.2 Comprehensive Metabolic Profil 11/03/2019 [place] [address] [phone] Glucose, Fasting 111 mg/dL High 70-100 Blood [...] Laboratory test finding 11/03/2019 Patient Service [facility] [place], [place] [id number] [phone] Thyroid Stimulating Hormone 1.370 uIU/ML Normal 0. 358-3.740 15 Free T4 0.95 ng/dL Normal 0.76-1.46 16 Laboratory test finding 10/13/2019 Patient Service [place] [id number] [phone] Thyroid Stimulating Hormone 1.210 uIU/ML Normal 0. 358-3.740 17 Free T4 0.99 ng/dL Normal 0.76-1.46 18 Comprehensive Metabolic Profil 10/13/2019 [place] [address] [phone] Glucose, Fasting 137 mg/dL High 70-100 Blood [...] CBC With Differential 10/13/2019 [place] [address] [phone] White Blood Count 6.2 10 Normal 4.0-10.0 [...] 36.0-66.0 Lymph % 22.4 % Low 24.0-44.0 Bee % 12.8 % High 0.0-5.0 Eos % 11.2 % High 0.0-3.0 Baso % 0.6 % Normal 0.0-1.0 Immature Granulocyte % 0.2 % Normal 0-3.0 Nucleated Red Blood Cell % 0.0 % Normal 0-0 Neutrophils # 3.3 10 Normal 1.5-8.5 Lymph # 1.4 10 Low 1.5-5.0 Bee # 0.8 10 Normal 0.0-0.8 Eos # 0.7 10 High 0.0-0.5 Baso # 0.0 10 Normal 0.0-0.2 Type & Screen -Incl Blood Type,Quan,AB SC 09/22/2019 [place] [address] [phone] Blood Type O POSITIVE Normal AB Screen (Indirect Maggie)Vis NEGATIVE Normal Laboratory test finding 09/22/2019 [place] [address] [phone] Packed Cells TRANSFUSED PRODU <SEE NOTE> 20 CBC With Differential 09/22/2019 [place] [address] [phone] White Blood Count 7.0 10 Normal 4.0-10.0 [...] 36.0-66.0 Lymph % 20.4 % Low 24.0-44.0 Bee % 11.8 % High 0.0-5.0 Eos % 6.5 % High 0.0-3.0 Baso % 0.6 % Normal 0.0-1.0 Immature Granulocyte % 0.4 % Normal 0-3.0 Nucleated Red Blood Cell % 0.0 % Normal 0-0 Neutrophils # 4.2 10 Normal 1.5-8.5 Lymph # 1.4 10 Low 1.5-5.0 Bee # 0.8 10 Normal 0.0-0.8 Eos # 0.5 10 Normal 0.0-0.5 Baso # 0.0 10 Normal 0.0-0.2 Comprehensive Metabolic Profil 09/22/2019 [place] [address] [phone] Glucose, Fasting 160 mg/dL High 70-100 Blood [...] Laboratory test finding 09/22/2019 [place] [address] [phone] Thyroid Stimulating Hormone 0.954 uIU/ML Normal 0. 358-3.740 22 Free T4 1.07 ng/dL Normal 0.76-1.46 23 Laboratory test finding 09/01/2019 [place] [address] [phone] Thyroid Stimulating Hormone 2.050 uIU/ML Normal 0. 358-3.740 24 Free T4 0.99 ng/dL Normal 0.76-1.46 25 Comprehensive Metabolic Profil 09/01/[address] [place] [address] [phone] Glucose, Fasting 163 mg/dL High 70-100 Blood [...] 1.2-2.2 CBC With Differential 09/01/2019 [place] [address] [phone] White Blood Count 7.0 10 Normal 4.0-10.0 [...] 36.0-66.0 Lymph % 21.3 % Low 24.0-44.0 Bee % 9.9 % High 0.0-5.0 Eos % 9.8 % High 0.0-3.0 Baso % 0.4 % Normal 0.0-1.0 Immature Granulocyte % 0.4 % Normal 0-3.0 Nucleated Red Blood Cell % 0.0 % Normal 0-0 Neutrophils # 4.0 10 Normal 1.5-8.5 Lymph # 1.5 10 Normal 1.5-5.0 Bee # 0.7 10 Normal 0.0-0.8 Eos # 0.7 10 High 0.0-0.5 Baso # 0.0 10 Normal 0.0-0.2 Complete Blood Count 08/11/[address] [place] [address] [phone] White Blood Count 9.0 10 Normal 4.0-10.0 [...] Differential Automated 08/11/2019 Patient Service [facility] [place] [id number] [phone] Neutrophils % 46.9 % Normal 36.0-66.0 Lymph % 23.4 % Low 24.0-44.0 Bee % 12.3 % High 0.0-5.0 Eos % 16.5 % High 0.0-3.0 Baso % 0.7 % Normal 0.0-1.0 Immature Granulocyte % 0.2 % Normal 0-3.0 Neutrophils # 4.2 10 Normal 1.5-8.5 Lymph # 2.1 10 Normal 1.5-5.0 Bee # 1.1 10 High 0.0-0.8 Eos # 1.5 10 High 0.0-0.5 Baso # 0.1 10 Normal 0.0-0.2 Comprehensive Metabolic Profil 08/11/2019 [place] [address] [phone] Glucose, Fasting 152 mg/dL High 70-100 Blood [...] 1.2-2.2 Laboratory test finding 08/11/2019 [place] [address] [phone] Carcinoembryonic Antigen 5.4 NG/ML High <2.5 28 Thyroid Stimulating Hormone 2.040 uIU/ML Normal 0.358-3.740 29 Free T4 0.99 ng/dL Normal 0.76-1.46 30 Complete Blood Count 07/21/[address] [place] [address] [phone] White Blood Count 8.5 10 Normal 4.0-10.0 [...] Differential Automated 07/21/2019 [place] [address] [phone] Neutrophils % 56.6 % Normal 36.0-66.0 Lymph % 17.6 % Low 24.0-44.0 Bee % 19.8 % High 0.0-5.0 Eos % 4.7 % High 0.0-3.0 Baso % 0.5 % Normal 0.0-1.0 Immature Granulocyte % 0.8 % Normal 0-3.0 Neutrophils # 4.8 10 Normal 1.5-8.5 Lymph # 1.5 10 Normal 1.5-5.0 Bee # 1.7 10 High 0.0-0.8 Eos # 0.4 10 Normal 0.0-0.5 Baso # 0.0 10 Normal 0.0-0.2 Comprehensive Metabolic Profil 07/21/2019 [place] [address] [phone] Glucose, Fasting 104 mg/dL High 70-100 Blood [...] Laboratory test finding 07/21/2019 Patient [facility] [place], [place] [id number] [phone] Thyroid Stimulating Hormone 0.945 uIU/ML Normal 0. 358-3.740 32 Free T4 1.02 ng/dL Normal 0.76-1.46 33 1 Units are mL/min/1.73 m2 Chronic Kidney Disease Staging per NKF: Stage I & II GFR >=60 Normal to Mildly Decreased Stage III GFR 30-59 Moderately Decreased Stage IV GFR 15-29 Severely Decreased Stage V GFR <15 Very Little GFR Left ESRD GFR <15 on LINEN SUPERVISOR 2 note:<nlbl:demographic_chang ed> 3 note:<nlbl:demographic_chang ed> [...] Little GFR Left ESRD GFR <15 on LINEN SUPERVISOR 9 note:<nlbl:demographic_chang ed> 10 note:<nlbl:demographic_chang ed> 11 Units are mL/min/1.73 m2 Chronic Kidney Disease Staging per NKF: Stage I & II GFR >=60 Normal to Mildly Decreased Stage III GFR 30-59 Moderately Decreased Stage IV GFR 15-29 Severely Decreased Stage V GFR <15 Very Little GFR Left ESRD GFR <15 on LINEN SUPERVISOR 12 note:<nlbl:demographic_ ed> 13 note:<nlbl:demographic_ ed> 14 Units are mL/min/1.73 m2 Chronic Kidney Disease Staging per NKF: Stage I & II GFR >=60 Normal to Mildly Decreased Stage III GFR 30-59 Moderately Decreased Stage IV GFR 15-29 Severely Decreased Stage V GFR <15 Very Little GFR Left ESRD GFR <15 on LINEN SUPERVISOR 15 note:<nlbl:demographic_ ed> note:<nlbl:demographic_changed> note:<nlbl:demographic_changed> 16 note:<nlbl:demographic_ ed> note:<nlbl:demographic_changed> note:<nlbl:demographic_changed> 17 note:<nlbl:demographic_ ed> 18 note:<nlbl:_ ed> 19 Units are mL/min/1.73 m2 Chronic Kidney Disease Staging per NKF: Stage I & II GFR >=60 Normal to Mildly Decreased Stage III GFR 30-59 Moderately Decreased Stage IV GFR 15-29 Severely Decreased Stage V GFR <15 Very Little GFR Left ESRD GFR <15 on LINEN SUPERVISOR 20 TRANSFUSED PRODUCT: PACKED C ELLS COUNT: 1 21 Units are mL/min/1.73 m2 Chronic Kidney Disease Staging per NKF: Stage I & II GFR >=60 Normal to Mildly Decreased Stage III GFR 30-59 Moderately Decreased Stage IV GFR 15-29 Severely Decreased Stage V GFR <15 Very Little GFR Left ESRD GFR <15 on LINEN SUPERVISOR 22 note:<nlbl:_ ed> 23 note:<nlbl:demographic_ ed> 24 note:<nlbl:demographic_ ed> 25 note:<nlbl:_ ed> 26 Units are mL/min/1.73 m2 Chronic Kidney Disease Staging per NKF: Stage I & II GFR >=60 Normal to Mildly Decreased Stage III GFR 30-59 Moderately Decreased Stage IV GFR 15-29 Severely Decreased Stage V GFR <15 Very Little GFR Left ESRD GFR <15 on LINEN SUPERVISOR 27 Units are mL/min/1.73 m2 Chronic Kidney Disease Staging per NKF: Stage I & II GFR >=60 Normal to Mildly Decreased Stage III GFR 30-59 Moderately Decreased Stage IV GFR 15-29 Severely Decreased Stage V GFR <15 Very Little GFR Left ESRD GFR <15 on LINEN SUPERVISOR 28 THE CEA ASSAY IS PERFORMED O N THE CARLY I-TechAUR BY CHEMILUMINESCENCE AND SHOULD NOT BE COMPARED [...] Little GFR Left ESRD GFR <15 on LINEN SUPERVISOR 32 note:<nlbl:demographic_chang ed> 33 note:<nlbl:demographic_chang ed> Procedures Description No Information Available Medical Devices Description No Information Available Encounters Type Date Location Provider Dx Diagnosis Office Visit 12/29/2019 10:45a Main Office Pleaugustinaach, Lynda, CUSTODY ASSISTANT I10 Essential (primary) hypertension J44.9 Chronic obstructive pulmonar y disease, unspecified 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 Z71.89 Other specified counseling Office Visit 10/17/2019 10:15a Main Office Pleskach, Lynda, CUSTODY ASSISTANT I10 Essential (primary) hypertension Office Visit 09/14/2019 8:45a Main Office Pleskach, Lynda, CUSTODY ASSISTANT I10 Essential (primary) hypertension Office Visit 07/25/2019 11:00a Main Office Pleskach, Lynda, CUSTODY ASSISTANT I10 Essential (primary) hypertension J44.9 Chronic obstructive pulmonar y disease, unspecified 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 Z00.00 Encntr for general adult med ical exam w/o abnormal findings Assessments Date Code Description Provider 12/29/2019 I10 Essential (primary) hypertension Lynda Clifton, CUSTODY ASSISTANT 12/29/2019 J44.9 Chronic obstructive pulmonary di sease, unspecified Pleskach Lynda, CUSTODY ASSISTANT 12/29/2019 C34.92 Malignant neoplasm o f unspecified part of left bronchus or lung Pleskkori Lynda, CUSTODY ASSISTANT 12/29/2019 Z71.89 Other specified counseling Lynda Jones, CUSTODY ASSISTANT 10/17/2019 I10 Essential (primary) hypertension Lynda Clifton, CUSTODY ASSISTANT 09/14/2019 I10 Essential (primary) hypertension PleLynda puentes, CUSTODY ASSISTANT 07/25/2019 I10 Essential (primary) hypertension Nelly Dickson M.D. 07/25/2019 I10 Essential (primary) hypertension Lynda Clifton, CUSTODY ASSISTANT 07/25/2019 J44.9 Chronic obstructive pulmonary di sease, unspecified Nelly Dickson M.D. 07/25/2019 J44.9 Chronic obstructive pulmonary di sease, unspecified PleLynda puentes, CUSTODY ASSISTANT 07/25/2019 C34.92 Malignant neoplasm o f unspecified [...]
--- OUTSIDE RECORDS SUMMARY | 2020-04-04 07:27 | CCD ---
Author Author [facility] Organization [facility] Address Unknown Phone Unavailable Care Team Providers Care Internal Affairs Commander Name Role Phone Ander Charles MD Unavailable Unavailable Ander Charles MD Unavailable Unavailable Ander Charles MD Unavailable Unavailable Ander Charles MD Unavailable Unavailable Ander Charles MD Unavailable Unavailable Ander Charles MD Unavailable Unavailable Ander Charles MD Unavailable Unavailable Ander Charles MD Unavailable Unavailable Ander Charles MD Unavailable Unavailable Ander Charles MD Unavailable Unavailable Arevalo, L Pili RPA Unavailable Unavailable Arevalo, L Pili RPA Unavailable Unavailable Arevalo, L Pili RPA Unavailable Unavailable Arevalo, L Pili RPA Unavailable Unavailable Arevalo, L Pili RPA Unavailable Unavailable Arevalo, L Pili RPA Unavailable Unavailable Arevalo, L Pili RPA Unavailable Unavailable Arevalo, L Pili RPA Unavailable Unavailable Arevalo, L Pili RPA Unavailable Unavailable Arevalo, L Pili RPA Unavailable Unavailable Arevalo, L Pili RPA Unavailable Unavailable Arevalo, L Pili RPA Unavailable Unavailable Arevalo, L Pili RPA Unavailable Unavailable Arevalo, L Piil RPA Unavailable Unavailable Arevalo, L Pili RPA Unavailable Unavailable Arevalo, L Pili RPA Unavailable Unavailable Arevalo, L Pili RPA Unavailable Unavailable Arevalo, L Pili RPA Unavailable Unavailable Arevalo, L Pili RPA Unavailable Unavailable Arevalo, L Pili RPA Unavailable Unavailable Arevalo, L Pili RPA Unavailable Unavailable Arevalo, L Pili RPA Unavailable Unavailable Arevalo, L Pili RPA Unavailable Unavailable Arevalo, L Pili RPA Unavailable Unavailable Arevalo, L Pili RPA Unavailable Unavailable Arevalo, L Pili RPA Unavailable Unavailable Arevalo, L Pili RPA Unavailable Unavailable Arevalo, L Pili RPA Unavailable Unavailable Arevalo, L Pili RPA Unavailable Unavailable Arevalo, L Pili RPA Unavailable Unavailable Arevalo, L Pili RPA Unavailable Unavailable Arevalo, L Pili RPA Unavailable Unavailable Pleskach, Lynda AIRCRAFT [employer]NCE SYSTEMS MECHANIC Unavailable Unavailable Pleskach, Lynda AIRCRAFT ORDNANCE SYSTEMS MECHANIC Unavailable Unavailable Pleskach, Lynda AIRCRAFT ORDNANCE SYSTEMS MECHANIC Unavailable Unavailable Pleskach, Lynda AIRCRAFT ORDNANCE SYSTEMS MECHANIC Unavailable Unavailable Pleskach, Lynda AIRCRAFT ORDNANCE SYSTEMS MECHANIC Unavailable Unavailable Pleskach, Lynda AIRCRAFT ORDNANCE SYSTEMS MECHANIC Unavailable Unavailable Pleskach, Lynda AIRCRAFT ORDNANCE SYSTEMS MECHANIC Unavailable Unavailable Pleskach, Lynda AIRCRAFT ORDNANCE SYSTEMS MECHANIC Unavailable Unavailable Pleskach, Lynda AIRCRAFT ORDNANCE SYSTEMS MECHANIC Unavailable Unavailable Pleskach, Lynda AIRCRAFT ORDNANCE SYSTEMS MECHANIC Unavailable Unavailable Pleskach, Lynda AIRCRAFT ORDNANCE SYSTEMS MECHANIC Unavailable Unavailable Pleskach, Lynda AIRCRAFT ORDNANCE SYSTEMS MECHANIC Unavailable Unavailable Pleskach, Lynda AIRCRAFT ORDNANCE SYSTEMS MECHANIC Unavailable Unavailable Pleskach, Lynda AIRCRAFT ORDNANCE SYSTEMS MECHANIC Unavailable Unavailable Pleskach, Lynda AIRCRAFT ORDNANCE SYSTEMS MECHANIC Unavailable Unavailable Pleskach, Lynda AIRCRAFT ORDNANCE SYSTEMS MECHANIC Unavailable Unavailable Pleskach, Lynda AIRCRAFT ORDNANCE SYSTEMS MECHANIC Unavailable Unavailable Pleskach, Lynda AIRCRAFT ORDNANCE SYSTEMS MECHANIC Unavailable Unavailable Pleskach, Lynda AIRCRAFT ORDNANCE SYSTEMS MECHANIC Unavailable Unavailable Pleskach, Lynda AIRCRAFT ORDNANCE SYSTEMS MECHANIC Unavailable Unavailable Pleskach, Lynda AIRCRAFT ORDNANCE SYSTEMS MECHANIC Unavailable Unavailable Pleskach, Lynda AIRCRAFT ORDNANCE SYSTEMS MECHANIC Unavailable Unavailable Pleskach, Lynda AIRCRAFT ORDNANCE SYSTEMS MECHANIC Unavailable Unavailable Pleskach, Lynda AIRCRAFT ORDNANCE SYSTEMS MECHANIC Unavailable Unavailable Pleskach, Lynda AIRCRAFT ORDNANCE SYSTEMS MECHANIC Unavailable Unavailable Pleskach, Lynda AIRCRAFT ORDNANCE SYSTEMS MECHANIC Unavailable Unavailable Pleskach, Lynda AIRCRAFT ORDNANCE SYSTEMS MECHANIC Unavailable Unavailable Pleskach, Lynda AIRCRAFT ORDNANCE SYSTEMS MECHANIC Unavailable Unavailable Bryan Birmingham MD Unavailable Unavailable Bryan Birmingham MD Unavailable Unavailable Bryan Birmingham MD Unavailable Unavailable Bryan Birmingham MD Unavailable Unavailable Bryan [place] MD Unavailable Unavailable Bryan [place] MD Unavailable Unavailable Bryan [place] MD Unavailable Unavailable Bryan [place] MD Unavailable Unavailable Bryan [place] MD Unavailable Unavailable Bryan [place] MD Unavailable Unavailable Bryan [place] MD Unavailable Unavailable Bryan [place] MD Unavailable Unavailable Bryan [place] MD Unavailable Unavailable Bryan [place] MD Unavailable Unavailable Bryan [place] MD Unavailable Unavailable Bryan Birmingham MD Unavailable Unavailable Bryan [place] MD Unavailable Unavailable Bryan Birmingham MD Unavailable Unavailable Bryan Birmingham MD Unavailable Unavailable Bryan Birmingham MD Unavailable Unavailable Bryan Birmingham MD Unavailable Unavailable Bryan Birmingham MD Unavailable Unavailable Bryan Birmingham MD Unavailable Unavailable Bryan Birmingham MD Unavailable Unavailable Birmingham, Bryan Palma MD Unavailable Unavailable Birmingham, Bryan Palma MD Unavailable Unavailable [place], Bryan Palma MD Unavailable Unavailable [place], Bryan Palma MD Unavailable Unavailable [place], Bryan Palma MD Unavailable Unavailable [place], Bryan Palma MD Unavailable Unavailable [place], Bryan Palma MD Unavailable Unavailable [place], Bryan Palma MD Unavailable Unavailable [place], Bryan Palma MD Unavailable Unavailable [place], Bryan Palma MD Unavailable Unavailable [place], Bryan Palma MD Unavailable Unavailable [place], Bryan Palma MD Unavailable Unavailable [place], Bryan Palma MD Unavailable Unavailable [place], Bryan Palma MD Unavailable Unavailable [place], Bryan Palma MD Unavailable Unavailable [place], Bryan Palma MD Unavailable Unavailable [place], Bryan Palma MD Unavailable Unavailable [place], Bryan Palma MD Unavailable Unavailable [place], Bryan Palma MD Unavailable Unavailable [place], Bryan Palma MD Unavailable Unavailable [place], Bryan Palma MD Unavailable Unavailable [place], Bryan Palma MD Unavailable Unavailable [place], Byran Palma MD Unavailable Unavailable [place], Bryan Palma MD Unavailable Unavailable [place], Bryan Palma MD Unavailable Unavailable [place], Bryan Palma MD Unavailable Unavailable [place], Bryan Palma MD Unavailable Unavailable LETTIERE, A ERICK PA Unavailable Unavailable LETTIERE, A ERICK PA Unavailable Unavailable LETTIERE, A ERICK PA Unavailable Unavailable LETTIERE, A ERICK PA Unavailable Unavailable LETTIERE, A ERICK PA Unavailable Unavailable LETTIERE, A ERICK PA Unavailable Unavailable LETTIERE, A ERICK PA Unavailable Unavailable LETTIERE, A ERICK PA Unavailable Unavailable LETTIERE, A ERICK PA Unavailable Unavailable LETTIERE, A ERICK PA Unavailable Unavailable LETTIERE, A ERICK PA Unavailable Unavailable LETTIERE, A ERICK PA Unavailable Unavailable LETTIERE, A ERICK PA Unavailable Unavailable LETTIERE, A ERICK PA Unavailable Unavailable LETTIERE, A ERICK PA Unavailable Unavailable LETTIERE, A ERICK PA Unavailable Unavailable LETTIERE, A ERICK PA Unavailable Unavailable LETTIERE, A ERICK PA Unavailable Unavailable LETTIERE, A ERICK PA Unavailable Unavailable LETTIERE, A ERICK PA Unavailable Unavailable LETTIERE, A ERICK PA Unavailable Unavailable LETTIERE, A ERICK PA Unavailable Unavailable LETTIERE, A ERICK PA Unavailable Unavailable LETTIERE, A ERICK PA Unavailable Unavailable LETTIERE, A ERICK PA Unavailable Unavailable LETTIERE, A ERICK PA Unavailable Unavailable LETTIERE, A ERICK PA Unavailable Unavailable LETTIERE, A ERICK PA Unavailable Unavailable LETTIERE, A ERICK PA Unavailable Unavailable Re-disclosure Warning The records that you are about to access may contain information from federally-assisted alcohol or drug abuse programs. If such information is present, then the following federally mandated warning applies: This information has been disclosed to you from records protected by federal confidentiality rules (42 CFR part 2). The federal rules prohibit you from making any further disclosure of this information unless further disclosure is expressly permitted by the written consent of the person to whom it pertains or as otherwise permitted by 42 CFR part 2. A general authorization for the release of medical or other information is NOT sufficient for this purpose. The Federal rules restrict any use of the information to criminally investigate or prosecute any alcohol or drug abuse patient.The records that you are about to access may contain highly sensitive health information, the redisclosure of which is protected by Article 27-F of the [facility] Public Health law. If you continue you may have access to information: Regarding HIV / AIDS; Provided by facilities licensed or operated by the [facility] Office of Mental Health; or Provided by the [facility] Office for People With Developmental Disabilities. If such information is present, then the following [facility] mandated warning applies: This information has been disclosed to you from confidential records which are protected by state law. State law prohibits you from making any further disclosure of this information without the specific written consent of the person to whom it pertains, or as otherwise permitted by law. Any unauthorized further disclosure in violation of state law may result in a fine or correction sentence or both. A general authorization for the release of medical or other information is NOT sufficient authorization for further disc losure. Family History Family Member Name Family Member Gender Family Member Status Date o f Status Description Data Source(s) Unknown Unknown Problem [facility] ([facility] Encounters Encounter Providers Location Date Indications Data Source(s ) Outpatient Attender: Lynda Clifton [facility] Main Office 03/27/2020 0 8:30:00 AM EST [facility] ([facility] Outpatient Attender: Lynda Clifton [facility] Main Office 01/25/2020 0 9:45:00 AM EST [facility] ([facility] Office Visit Attender: Pili Kay/Eliceo/Michael jimenez 01/18/2020 08:00:00 AM EST [facility] ([facility] Outpatient Attender: Lynda Clifton [facility] Main Office 12/29/2019 1 0:45:00 AM EDT [facility] ([facility] Outpatient Attender: Louie Kay/Deering/Bj/R eindl 12/26/2019 01:45:00 PM EDT [facility] ([facility] Outpatient Attender: Pili Arevlao RPA Rahul/Deering/Bj/R eindl 11/27/2019 01:30:00 PM EDT [facility] ([facility] ) Outpatient Attender: Lynda Clifton [facility] Main Office 10/17/2019 1 0:15:00 AM EDT [facility] ([facility] Outpatient Attender: Pili Arevalo RPA Rahul/Deering/Bj/R eindl 09/14/2019 09:15:00 AM EDT [facility] ([facility] ) Outpatient Attender: Lynda Clifton [facility] Main Office 09/14/2019 0 8:45:00 AM EDT [facility] ([facility] Outpatient Attender: Louie Kay/Eliceo/Bj/R eindl 09/11/2019 11:30:00 AM EDT [facility] ([facility] ) Outpatient Attender: Lynda Clifton [facility] Main Office 07/25/2019 1 1:00:00 AM EDT [facility] ([facility] Outpatient Attender: ERICK ortega 05/20/2019 07:35:00 AM EST [facility] Outpatient Referrer: Alfred Charles MD 04/27/2019 01:39:0 0 PM EST [facility] Outpatient Attender: Louie Kay/Eliceo/Bj/R eindl 04/14/2019 10:30:00 AM EST [facility] ([facility] ) Outpatient Referrer: Alfred Charles MD 04/05/2019 02:04:0 0 PM EST [facility] Outpatient Referrer: Alfred Charles MD 02/15/2019 08:57:0 0 AM EST [facility] Outpatient Referrer: Alfred Charles MD 02/15/2019 08:57:0 0 AM EST [facility] Outpatient Referrer: Alfred Charles MD 02/03/2019 11:48:0 0 AM EST [facility] Medications Medication Brand Name Start Date Product Form Dose Route Admi nistrative Instructions Pharmacy Instructions Status Indications Reaction Description Data Source(s) 5-325 mg 01/11/2020 12:00:00 AM EDT tablet 15 TAKE ONE TABLET BY MOUTH THREE TIMES A DAY NEEDED FOR PAIN MAXIMUM DAILY DOSE = 3 TABLETS TAKE ONE TABLET BY MOUTH THREE TIMES A DAY NEEDED FOR PAIN MAXIMUM DAILY DOSE = 3 TABLETS SOLD: 01/11/2020 [facility] 230-21 mcg/actuation 2019 12:00:00 AM EDT HFA aerosol inhaler 12 INHALE TWO PUFFS BY MOUTH TWICE A DAY INHALE TWO PUFFS BY MOUTH TWICE A DAY SOLD: 2019 [facility] 120 ACTUAT Fluticasone propionate 0.23 M G/ACTUAT / salmeterol 0.021 MG/ACTUAT Metered Dose Inhaler [Advair] Advair HFA 12/26/2019 12:00:00 AM EDT RESPIRATORY active [facility] ( [facility], ) 2.5 mg 12/21/2019 12:00:00 AM EDT tablet 30 TAKE ONE TABLET BY MOUTH EVERY DAY TAKE ONE TABLET BY MOUTH EVERY DAY SOLD: 12/21/2019 [facility] 1,250 mcg (50,000 unit) 12/21/2019 12:00:00 AM EDT capsule 12 TAKE ONE CAPSULE BY MOUTH ONCEA WEEK TAKE ONE CAPSULE BY MOUTH ONCEA WEEK SOLD: 12/21/2019 [facility] 800 mg 12/07/2019 12:00:00 AM EDT tablet 90 TAKE ONE TABLET BY MOUTH THREE TIMES A DAY WITH MEALS TAKE ONE TABLET BY MOUTH THREE TIMES A DAY WITH MEALS SOLD: 12/07/2019 [facility] 800 mg 12/07/2019 12:00:00 AM EDT tablet 90 TAKE ONE TABLET BY MOUTH THREE TIMES A DAY WITH MEALS TAKE ONE TABLET BY MOUTH THREE TIMES A DAY WITH MEALS SOLD: 02/26/2020 [facility] 5 mg 10/13/2019 12:00:00 AM EDT tablet 30 TAKE ONE TABLET BY MOUTH EVERY DAY TAKE ONE TABLET BY MOUTH EVERY DAY SOLD: 10/13/2019 [facility] 1,250 mcg (50,000 unit) 09/29/2019 12:00:00 AM EDT capsule 12 TAKE 1 CAPSULE BY MOUTH ONCE A WEEK TAKE 1 CAPSULE BY MOUTH ONCE A WEEK SOLD: 09/29/2019 [facility] Amlodipine 5 MG Oral Tablet Amlodipine Besylate 09/14/2019 12:00:00 A M EDT ORAL completed [facility] ([facility] 5 mg 09/14/2019 12:00:00 AM EDT tablet 90 TAKE ONE TABLET BY MOUTH EVERY DAY FOR BLOOD PRESSURE TAKE ONE TABLET BY MOUTH EVERY DAY FOR BLOOD PRESSURE SOLD: 12/17/2019 [facility] 5 mg 09/14/2019 12:00:00 AM EDT tablet 90 TAKE ONE TABLET BY MOUTH EVERY DAY FOR BLOOD PRESSURE TAKE ONE TABLET BY MOUTH EVERY DAY FOR BLOOD PRESSURE SOLD: 09/14/2019 [facility] 400 mg (241.3 mg magnesium) 07/29/2019 12:00:00 AM EDT table t 180 TAKE ONE TABLET BY MOUTH TWICE A DAY TAKE ONE TABLET BY MOUTH TWICE A DAY SOLD: 07/31/2019 [facility] 400 mg (241.3 mg magnesium) 07/29/2019 12:00:00 AM EDT table t 180 TAKE ONE TABLET BY MOUTH TWICE A DAY TAKE ONE TABLET BY MOUTH TWICE A DAY SOLD: 01/19/2020 [facility] 324 mg (38 mg iron) 07/11/2019 12:00:00 AM EDT tablet 90 TAKE ONE TABLET BY MOUTH EVERY DAY TAKE ONE TABLET BY MOUTH EVERY DAY SOLD: 07/12/2019 [facility] Calcium Chloride 0.10773 MEQ/ML / icodex jr 75 MG/ML / Magnesium Chloride 0.016584 MEQ/ML / Sodium Chloride 0.0915 MEQ/ML / Sodium Lactate 0.04 MEQ/ML Injectable Solution [Extraneal] Extraneal 06/28/2019 12:00:00 AM EDT completed [facility] ([facility] 500 mg 06/27/2019 12:00:00 AM EDT tablet 10 TAKE 1 TABLET BY MOUTH EVERY 48 HOURS TAKE 1 TABLET BY MOUTH EVERY 48 HOURS SOLD: 06/27/2019 [facility] Tranexamic Acid Nasal [place] 06/27/2019 12:00:00 AM EDT active [facility] ([facility] 125 mg 06/27/2019 12:00:00 AM EDT capsule 28 TAKE ONE CAPSULE BY MOUTH EVERY 6 HOURS TAKE ONE CAPSULE BY MOUTH EVERY 6 HOURS SOLD: 06/27/2019 [facility] 400 mg (241.3 mg magnesium) 06/27/2019 12:00:00 AM EDT table t 60 TAKE ONE TABLET BY MOUTH TWICE A DAY TAKE ONE TABLET BY MOUTH TWICE A DAY SOLD: 06/27/2019 [facility] Firvanq Firvanq 06/26/2019 12:00:00 AM EDT complet ed [facility] ([facility] Folic Acid 1 MG Oral Tablet Folic Acid 06/26/2019 12:00:00 AM EDT ORAL active [facility] ([facility] Tranexamicacid Nasal [place] 06/26/2019 12:00:00 AM EDT completed [facility] ([facility] Albuterol 0.83 MG/ML Inhalant Solution Albuterol Sulfate 0 06/26/2019 12:00:00 AM EDT active [facility] ([facility] Levofloxacin 500 MG Oral Tablet Levofloxacin 06/26/2019 12:00:00 AM E DT ORAL completed [facility] ([facility] 7 ACTUAT umeclidinium 0.0625 MG/ACTUAT Dry Powder Inha ler [Incruse] Incruse Ellipta 06/26/2019 12:00:00 AM EDT RESPIRATORY completed [facility] ([facility] 10 mg 06/02/2019 12:00:00 AM EDT tablet 90 TAKE ONE TABLET BY MOUTH EVERY DAY FOR BLOOD PRESSURE TAKE ONE TABLET BY MOUTH EVERY DAY FOR BLOOD PRESSURE SOLD: 06/03/2019 [facility] 10 mg 06/02/2019 12:00:00 AM EDT tablet 90 TAKE ONE TABLET BY MOUTH EVERY DAY FOR BLOOD PRESSURE TAKE ONE TABLET BY MOUTH EVERY DAY FOR BLOOD PRESSURE SOLD: 09/03/2019 [facility] 10 mg 05/17/2019 12:00:00 AM EST tablet 40 TAKE ONE TABLET BY MOUTH EVERY 6 HOURS NEEDED FOR NASUEA OR VOMITING NEEDED CHEOMTHERAPY TAKE ONE TABLET BY MOUTH EVERY 6 HOURS NEEDED FOR NASUEA OR VOMITING NEEDED CHEOMTHERAPY SOLD: 05/18/2019 [facility] 10 mg 05/17/2019 12:00:00 AM EST tablet 40 TAKE ONE TABLET BY MOUTH EVERY 6 HOURS NEEDED FOR NASUEA OR VOMITING NEEDED CHEOMTHERAPY TAKE ONE TABLET BY MOUTH EVERY 6 HOURS NEEDED FOR NASUEA OR VOMITING NEEDED CHEOMTHERAPY SOLD: 07/07/2019 [facility] 10 ML Tranexamic Acid 100 MG/ML Injection 1,000 mg/10 mL (100 mg/mL) TRANEXAMIC ACID 04/26/2019 12:00:00 AM EST solution 10 D RAW UP 10ML AND ADD TO SALINE NASAL SPRAY BOTTLE(ACCORDING TO MD DIRECTIONS) AND USE NASALLY EVERY 4 HOURS NEEDED FOR NOSE BLEEDING DRAW UP 10ML AND ADD TO SALINE NASAL SPR AY BOTTLE(ACCORDING TO MD DIRECTIONS) AND USE NASALLY EVERY 4 HOURS NEEDED FOR NOSE BLEEDING SOLD: 04/28/2019 [facility] 71.5 mg 04/26/2019 12:00:00 AM EST tablet,delayed release (DR/EC) 60 ONE BY MOUTH TWICE A DAY FOR HYPOMAGNESEMIA ONE BY MOUTH TWICE A DAY FOR HYPOMAGNESE MAKAYLA SOLD: 06/03/2019 [facility] 71.5 mg 04/26/2019 12:00:00 AM EST tablet,delayed release (DR/EC) 60 ONE BY MOUTH TWICE A DAY FOR HYPOMAGNESEMIA ONE BY MOUTH TWICE A DAY FOR HYPOMAGNESE MAKAYLA SOLD: 04/28/2019 [facility] Folic Acid 0.8 MG Oral Capsule Folic Acid 04/24/2019 12:00:00 AM EST ORAL active [facility] ([facility] Calcium/Magnesium/Zinc 04/24/2019 12:00:00 AM EST active [facility] ([facility] Vitamin B 12 1 MG Oral Tablet Vitamin B-12 04/24/2019 12:00:00 AM EST ORAL active [facility] ([facility] Fluticasone/Vilanterol 04/24/2019 12:00:00 AM EST completed [facility] ([facility] Sodium Chloride 1000 MG Oral Tablet Sodium Chloride 04/24/2019 1 2:00:00 AM EST active [facility] ( [facility] Amlodipine 10 MG Oral Tablet Amlodipine Besylate 04/24/2019 12:00:00 AM EST ORAL active [facility] ([facility] 10 mg 04/24/2019 12:00:00 AM EST tablet 30 TAKE ONE TABLET BY MOUTH EVERY DAY TAKE ONE TABLET BY MOUTH EVERY DAY SOLD: 04/24/2019 [facility] Prochlorperazine 10 MG Oral Tablet Prochlorperazine Maleate 04/22/2019 12:00:00 AM EST active [facility] ([facility] Ondansetron 8 MG Oral Tablet [Zofran] Zofran 04/22/2019 12:00:00 AM EST ORAL active [facility] ([facility] Tetrahydrocannabinol 5 MG Oral Capsule Dronabinol 04/22/2019 12:0 0:00 AM EST ORAL active [facility] ([facility] 5 mg 03/23/2019 12:00:00 AM EST capsule 60 TAKE ONE CAPSULE BY MOUTH TWICE A DAY FOR NAUSEA AND VOMITING MAXIMUM DAILY DOSE = 2 CAPSULES TAKE ONE CAPSULE BY MOUTH TWICE A DAY FOR NAUSEA AND VOMITING MAXIMUM DAILY DOSE = 2 CAPSULES SOLD: 03/24/2019 [facility] 5 mg 02/21/2019 12:00:00 AM EST tablet 30 TAKE ONE TABLET BY MOUTH EVERY DAY TAKE ONE TABLET BY MOUTH EVERY DAY SOLD: 02/23/2019 [facility] 5 mg 02/21/2019 12:00:00 AM EST tablet 30 TAKE ONE TABLET BY MOUTH EVERY DAY TAKE ONE TABLET BY MOUTH EVERY DAY SOLD: 03/28/2019 [facility] 10 mg 02/15/2019 12:00:00 AM EST tablet 20 TAKE ONE TABLET BY MOUTH EVERY 6 HOURS NEEDED FOR NAUSEA OR VOMITING NOT RELIEVED BY ONDANSETRON TAKE ONE TABLET BY MOUTH EVERY 6 HOURS NEEDED FOR NAUSEA OR VOMITING NOT RELIEVED BY ONDANSETRON SOLD: 04/28/2019 [facility] 10 mg 02/15/2019 12:00:00 AM EST tablet 20 TAKE ONE TABLET BY MOUTH EVERY 6 HOURS NEEDED FOR NAUSEA OR VOMITING NOT RELIEVED BY ONDANSETRON TAKE ONE TABLET BY MOUTH EVERY 6 HOURS NEEDED FOR NAUSEA OR VOMITING NOT RELIEVED BY ONDANSETRON SOLD: 05/14/2019 [facility] 10 mg 02/15/2019 12:00:00 AM EST tablet 20 TAKE ONE TABLET BY MOUTH EVERY 6 HOURS NEEDED FOR NAUSEA OR VOMITING NOT RELIEVED BY ONDANSETRON TAKE ONE TABLET BY MOUTH EVERY 6 HOURS NEEDED FOR NAUSEA OR VOMITING NOT RELIEVED BY ONDANSETRON SOLD: 04/07/2019 [facility] 8 mg 02/15/2019 12:00:00 AM EST tablet 30 TAKE ONE TABLET BY MOUTH THREE TIMES A DAY FOR NAUSEA VOMITING AFTER EYAK CHEMO FOR 3 DAYS THEN EVERY 8 HOURS NEEDED TAKE ONE TABLET BY MOUTH THREE TIMES A D AY FOR NAUSEA VOMITING AFTER EYAK CHEMO FOR 3 DAYS THEN EVERY 8 HOURS NEEDED SOLD: 03/21/2019 [facility] 8 mg 02/15/2019 12:00:00 AM EST tablet 30 TAKE ONE TABLET BY MOUTH THREE TIMES A DAY FOR NAUSEA VOMITING AFTER EYAK CHEMO FOR 3 DAYS THEN EVERY 8 HOURS NEEDED TAKE ONE TABLET BY MOUTH THREE TIMES A D AY FOR NAUSEA VOMITING AFTER EYAK CHEMO FOR 3 DAYS THEN EVERY 8 HOURS NEEDED SOLD: 02/16/2019 [facility] 10 mg 02/15/2019 12:00:00 AM EST tablet 20 TAKE ONE TABLET BY MOUTH EVERY 6 HOURS NEEDED FOR NAUSEA OR VOMITING NOT RELIEVED BY ONDANSETRON TAKE ONE TABLET BY MOUTH EVERY 6 HOURS NEEDED FOR NAUSEA OR VOMITING NOT RELIEVED BY ONDANSETRON SOLD: 02/16/2019 [facility] 10 mg 02/15/2019 12:00:00 AM EST tablet 20 TAKE ONE TABLET BY MOUTH EVERY 6 HOURS NEEDED FOR NAUSEA OR VOMITING NOT RELIEVED BY ONDANSETRON TAKE ONE TABLET BY MOUTH EVERY 6 HOURS NEEDED FOR NAUSEA OR VOMITING NOT RELIEVED BY ONDANSETRON SOLD: 03/23/2019 [facility] 875-125 mg 02/07/2019 12:00:00 AM EST tablet 14 TAKE ONE TABLET BY MOUTH TWICE A DAY WITH FOOD FOR 7 DAYS TAKE ONE TABLET BY MOUTH TWICE A DAY WIT H FOOD FOR 7 DAYS SOLD: 02/07/2019 [facility] 2.5 mg /3 mL (0.083 %) 01/18/2019 12:00:00 AM EST solu tion for nebulization 450 USE 1 VIAL VIA NEBULIZER FOUR TIMES A DA Y NEEDED USE 1 VIAL VIA NEBULIZER FOUR TIMES A DAY NEEDED SOLD: 02/15/2019 [facility] 200-25 mcg/dose 01/12/2019 12:00:00 AM EDT blister with oliver ce 60 INHALE ONE PUFF BY MOUTH EVERY DAY INHALE ONE PUFF BY MOUTH EVERY DAY SOLD: 03/10/2019 [facility] 200-25 mcg/dose 01/12/2019 12:00:00 AM EDT blister with oliver ce 60 INHALE ONE PUFF BY MOUTH EVERY DAY INHALE ONE PUFF BY MOUTH EVERY DAY SOLD: 02/13/2019 [facility] Lisinopril 5 MG Oral Tablet Lisinopril 12/29/2018 12:00:00 AM EDT ORAL completed [facility] ([facility] 62.5 mcg/actuation 12/22/2018 12:00:00 AM EDT blister with d evice 30 INHALE ONE PUFF BY MOUTH EVERY DAY INHALE ONE PUFF BY MOUTH EVERY DAY SOLD: 03/10/2019 [facility] 7 ACTUAT umeclidinium 0.0625 MG/ACTUAT Dry Powder Inha ler [Incruse] Incruse Ellipta 12/22/2018 12:00:00 AM EDT RESPIRATORY completed [facility] ([facility], ) Insurance Providers Payer name Policy type / Coverage type Policy ID Covered republican ID Covered republican's relationship to saucedo Policy [employer] Plan Information MEDICARE [id number] SP [id number] [employer] [id number] [facility] EMPIRE JOSE E DIV [id number] MEDICARE C [id number] S [id number] [facility] O [id number] S [id number] EMPIRE ([facility]) O [id number] S [id number] MEDICARE [id number] SP [id number] J84 [facility] [id number] [id number] [employer] EMPIRE JOSE E DIV [id number] EMPIRE PLAN [facility] U [id number] Spouse [id number] MEDICARE A [id number] Self [id number] EMPIRE (STATE EMP) O [id number] P [id number] MEDICARE C UNAVAILABLE S UNAVAILA BLE [place] [id number] Self [id number] Emp/[employer] [id number] Family Dependent [id number] Emp/[employer] [id number] Family Dependent [id number] BCBS EMPIRE JOSE E DIV [id number] [id number] UNITED HE[employer]CARE [id number] Emp/[employer] [id number] Family Dependent [id number] Emp/[employer] [id number] Family Dependent [id number] Emp/[employer] [id number] Family Dependent [id number] Emp/[employer] [id number] Family Dependent [id number] Emp/[employer] [id number] Family Dependent [id number] Emp/[employer] [id number] Family Dependent [id number] Emp/[employer] [id number] Family Dependent [id number] Emp/[employer] [id number] Family Dependent [id number] Emp/[employer] Family Dependent 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 - OP [id number] [employer] [id number] Problems, Conditions, and Diagnoses Code Display Name Description Problem Type Effective Dates Data Source(s) [id number] Essential hypertension Essential hypertension Problem 09/12/2019 12:00:00 AM EDT [facility] ([facility], ) Surgeries/Procedures Procedure Description Date Indications Data Source(s) Av Fistula Artery-Vein 01/11/2020 12:00:00 AM EDT [facility] ([facility], ) Spirometry 12/26/2019 12:00:00 AM EDT Verónica MELO ([facility], ) Results ID Date Data Source [id number] 03/30/2020 10:00:00 AM EST [facility] Name Value Range Interpretation Code Description Data Joellen rce(s) Supporting Document(s) SARS coronavirus 2 RNA Not Detected [facility] [place] This lab was ordered by [facility] and reported by [facility]. ID Date Data Source [id number] 03/13/2020 09:50:00 AM EST [facility] ([facility] Name Value Range Interpretation Code Description Data Joellen rce(s) Supporting Document(s) Thyrotropin [Units/volume] in Serum or Plasma 1.210 uIU/ML 0.358-3.74 0 [facility] ([facility] <content>note:<nlbl:demographic_changed> </content>
<content></content> Thyroxine (T4) free [Mass/volume] in Serum or Plasma 0.97 ng/dL 0.76- 1.46 [facility] ([facility] <content>note:<nlbl:demographic_changed> </content>
<content></content> ID Date Data Source [id number] 03/13/2020 09:50:00 AM EST [facility] ([facility] Name Value Range Interpretation Code Description Data Joellen rce(s) Supporting Document(s) Creatinine For GFR 4.66 mg/dL 0.55-1.30 [facility] ([facility] Blood Urea Nitrogen 27 mg/dL 7-18 [facility] ([facility] Glucose, Fasting 113 mg/dL 70-100 [facility] ([facility] Sodium Level 139 meq/L 136-145 [facility] ([facility] Glomerular Filtration Rate 9.9 [facility] ([facility] <content>Units are mL/min/1.73 m2</content>
<content></content>
<content>Chronic Kidney Disease Staging per [facility]:</content>
<content></content>
<content>Stage I & II GFR >=60 Normal to Mildly Decreased</content>
<content>Stage III GFR 30- 59 Moderately Decreased</content>
<content>Stage IV GFR 15-29 Severely Decreased</content>
<content>Stage V GFR <15 Very Little GFR Left</content>
<content>ESRD GFR <15 on SENIOR REGULATORY AFFAIRS SPECIALIST</content>
<content></content> Carbon Dioxide Level 33 meq/L 21-32 [facility] ([facility] Chloride Level 101 meq/L 98-107 [facility] ([facility] Potassium Serum 3.6 meq/L 3.5-5.1 [facility] ([facility] Ast/Sgot 16 U/L 7-37 [facility] ([facility] Anion Gap 5 meq/L 8-16 [facility] Calcium Level 9.1 mg/dL 8.8-10.2 [facility] ([facility] Alt/SGPT 18 U/L 12-78 [facility] Alkaline Phosphatase 108 U/L 45-117 [facility] ([facility] Bilirubin,Total 0.2 mg/dL 0.2-1.0 [facility] ([facility] Total Protein 7.7 GM/DL 6.4-8.2 [facility] ([facility] Albumin 3.5 GM/DL 3.2-5.2 [facility] ([facility] Albumin/Globulin Ratio 0.8 1.2-2.2 [facility] ([facility] ID Date Data Source [id number] 03/13/2020 09:50:00 AM EST [facility] ([facility] Name Value Range Interpretation Code Description Data Joellen e(s) Supporting Document(s) Hemoglobin 11.0 g/dL 12.0-15.5 [facility] ([facility] Red Blood Count 3.48 10 4.00-5.40 [facility] White Blood Count 8.9 10 4.0-10.0 [facility] ([facility] Mean Corpuscular Volume 105.2 fl 80.0-96.0 M [facility] ([facility] Hematocrit 36.6 % 36.0-47.0 [facility] ([facility] Red Cell Distribution Width 13.6 % 11.5-14.5 [facility] ([facility] Mean Corpuscular HGB Conc 30.1 g/dL 32.0-36.5 [facility] ([facility] Mean Corpuscular Hemoglobin 31.6 pg 27.0-33.0 [facility] Platelet Count, Automated 132 10 150-450 [facility] ([facility] Lymph % 21.4 % 24.0-44.0 [facility] Neutrophils % 61.6 % 36.0-66.0 [facility] Baso % 0.5 % 0.0-1.0 [facility] [place] % 10.8 % 0.0-5.0 [facility] Eos % 5.2 % 0.0-3.0 [facility] Immature Granulocyte % 0.5 % 0-3.0 [facility] Nucleated Red Blood Cell % 0.0 % 0-0 [facility] Neutrophils # 5.5 10 1.5-8.5 [facility] Lymph # 1.9 10 1.5-5.0 [facility] [place] # 1.0 10 0.0-0.8 [facility] Eos # 0.5 10 0.0-0.5 [facility] Baso # 0.0 10 0.0-0.2 [facility] ID Date Data Source [id number] 02/23/2020 09:14:00 AM EST [facility] ([facility] Name Value Range Interpretation Code Description Data Joellen rce(s) Supporting Document(s) Thyroxine (T4) free [Mass/volume] in Serum or Plasma 1.02 ng/dL 0.76- 1.46 [facility] ([facility] <content>note:<nlbl:demographic_changed> </content>
<content></content> Thyrotropin [Units/volume] in Serum or Plasma 1.260 uIU/ML 0.358-3.74 0 [facility] ([facility] <content>note:<nlbl:demographic_changed> </content>
<content></content> ID Date Data Source [id number] 02/23/2020 09:14:00 AM EST [facility] ([facility] Name Value Range Interpretation Code Description Data Joellen rce(s) Supporting Document(s) Blood Urea Nitrogen 20 mg/dL 7-18 [facility] ([facility] Glucose, Fasting 153 mg/dL 70-100 [facility] Glomerular Filtration Rate 9.7 [facility] ([facility] <content>Units are mL/min/1.73 m2</content>
<content></content>
<content>Chronic Kidney Disease Staging per [facility]:</content>
<content></content>
<content>Stage I & II GFR >=60 Normal to Mildly Decreased</content>
<content>Stage III GFR 30- 59 Moderately Decreased</content>
<content>Stage IV GFR 15-29 Severely Decreased</content>
<content>Stage V GFR <15 Very Little GFR Left</content>
<content>ESRD GFR <15 on SENIOR REGULATORY AFFAIRS SPECIALIST</content>
<content></content> Creatinine For GFR 4.77 mg/dL 0.55-1.30 [facility] ([facility] Chloride Level 100 meq/L 98-107 [facility] Potassium Serum 3.0 meq/L 3.5-5.1 [facility] Sodium Level 138 meq/L 136-145 [facility] Anion Gap 6 meq/L 8-16 [facility] Carbon Dioxide Level 32 meq/L 21-32 [facility] Calcium Level 9.3 mg/dL 8.8-10.2 [facility] Alt/SGPT 21 U/L 12-78 [facility] Ast/Sgot 13 U/L 7-37 [facility] Alkaline Phosphatase 108 U/L 45-117 [facility] ([facility] Total Protein 7.5 GM/DL 6.4-8.2 [facility] ([facility] Bilirubin,Total 0.3 mg/dL 0.2-1.0 [facility] ([facility] Albumin/Globulin Ratio 0.9 1.2-2.2 [facility] ([facility] Albumin 3.5 GM/DL 3.2-5.2 [facility] ID Date Data Source [id number] 02/23/2020 09:14:00 AM EST [facility] ([facility] Name Value Range Interpretation Code Description Data Joellen rce(s) Supporting Document(s) White Blood Count 7.7 10 4.0-10.0 [facility] ([facility] Hemoglobin 11.1 g/dL 12.0-15.5 [facility] ([facility] Red Blood Count 3.48 10 4.00-5.40 [facility] ([facility] Hematocrit 36.7 % 36.0-47.0 [facility] ([facility] Mean Corpuscular Hemoglobin 31.9 pg 27.0-33.0 [facility] Mean Corpuscular Volume 105.5 fl 80.0-96.0 M [facility] ([facility] Mean Corpuscular HGB Conc 30.2 g/dL 32.0-36.5 [facility] ([facility] Platelet Count, Automated 108 10 150-450 [facility] ([facility] Red Cell Distribution Width 14.8 % 11.5-14.5 [facility] Lymph % 23.9 % 24.0-44.0 [facility] ([facility] Neutrophils % 57.8 % 36.0-66.0 [facility] [place] % 11.4 % 0.0-5.0 [facility] ([facility] Eos % 6.1 % 0.0-3.0 [facility] Immature Granulocyte % 0.3 % 0-3.0 [facility] Baso % 0.5 % 0.0-1.0 [facility] Lymph # 1.9 10 1.5-5.0 [facility] ([facility] Neutrophils # 4.5 10 1.5-8.5 [facility] Nucleated Red Blood Cell % 0.3 % 0-0 [facility] Eos # 0.5 10 0.0-0.5 [facility] [place] # 0.9 10 0.0-0.8 [facility] ([facility] Baso # 0.0 10 0.0-0.2 [facility] ID Date Data Source [id number] 02/02/2020 09:19:00 AM EST [facility] ([facility] Name Value Range Interpretation Code Description Data Joellen rce(s) Supporting Document(s) Thyrotropin [Units/volume] in Serum or Plasma 1.040 uIU/ML 0.358-3.74 0 [facility] ([facility] <content>note:<nlbl:demographic_changed> </content>
<content></content> Thyroxine (T4) free [Mass/volume] in Serum or Plasma 1.06 ng/dL 0.76- 1.46 [facility] ([facility] <content>note:<nlbl:demographic_changed> </content>
<content></content> ID Date Data Source [id number] 02/02/2020 09:19:00 AM EST [facility] ([facility] Name Value Range Interpretation Code Description Data [facility](s) Supporting Document(s) Blood Urea Nitrogen 33 mg/dL 7-18 [facility] ([facility] Glucose, Fasting 97 mg/dL 70-100 [facility] Creatinine For GFR 5.65 mg/dL 0.55-1.30 [facility] Glomerular Filtration Rate 8.0 [facility] ([facility] <content>Units are mL/min/1.73 m2</content>
<content></content>
<content>Chronic Kidney Disease Staging per [facility]:</content>
<content></content>
<content>Stage I & II GFR >=60 Normal to Mildly Decreased</content>
<content>Stage III GFR 30- 59 Moderately Decreased</content>
<content>Stage IV GFR 15-29 Severely Decreased</content>
<content>Stage V GFR <15 Very Little GFR Left</content>
<content>ESRD GFR <15 on SENIOR REGULATORY AFFAIRS SPECIALIST</content>
<content></content> Sodium Level 136 meq/L 136-145 [facility] Potassium Serum 3.4 meq/L 3.5-5.1 [facility] ([facility] Chloride Level 99 meq/L 98-107 [facility] Carbon Dioxide Level 32 meq/L 21-32 [facility] ([facility] Calcium Level 8.8 mg/dL 8.8-10.2 [facility] Anion Gap 5 meq/L 8-16 [facility] ([facility] Alkaline Phosphatase 102 U/L 45-117 [facility] ([facility] Alt/SGPT 14 U/L 12-78 [facility] Ast/Sgot 13 U/L 7-37 [facility] Bilirubin,Total 0.2 mg/dL 0.2-1.0 [facility] ([facility] Albumin 3.4 GM/DL 3.2-5.2 [facility] ([facility] Total Protein 7.4 GM/DL 6.4-8.2 [facility] ([facility] Albumin/Globulin Ratio 0.9 1.2-2.2 [facility] ([facility] ID Date Data Source [id number] 02/02/2020 09:19:00 AM EST [facility] ([facility] Name Value Range Interpretation Code Description Data Joellen rce(s) Supporting Document(s) White Blood Count 6.8 10 4.0-10.0 [facility] ([facility] Hemoglobin 10.5 g/dL 12.0-15.5 [facility] ([facility] Red Blood Count 3.34 10 4.00-5.40 [facility] ([facility] Hematocrit 34.9 % 36.0-47.0 [facility] ([facility] Mean Corpuscular Volume 104.5 fl 80.0-96.0 M [facility] ([facility] Mean Corpuscular Hemoglobin 31.4 pg 27.0-33.0 [facility] ([facility] Mean Corpuscular HGB Conc 30.1 g/dL 32.0-36.5 [facility] ([facility] Platelet Count, Automated 135 10 150-450 [facility] ([facility] Red Cell Distribution Width 14.4 % 11.5-14.5 [facility] Neutrophils % 55.9 % 36.0-66.0 [facility] ([facility] Eos % 6.1 % 0.0-3.0 [facility] ([facility] [place] % 11.8 % 0.0-5.0 [facility] ([facility] Lymph % 25.7 % 24.0-44.0 [facility] ([facility] Immature Granulocyte % 0.1 % 0-3.0 [facility] ([facility] Baso % 0.4 % 0.0-1.0 [facility] ([facility] Nucleated Red Blood Cell % 0.0 % 0-0 [facility] Lymph # 1.8 10 1.5-5.0 [facility] ([facility] Neutrophils # 3.8 10 1.5-8.5 [facility] Eos # 0.4 10 0.0-0.5 [facility] ([facility] [place] # 0.8 10 0.0-0.8 [facility] ([facility] Baso # 0.0 10 0.0-0.2 [facility] ([facility] ID Date Data Source [id number] 02/02/2020 09:18:00 AM EST [facility] ([facility] Name Value Range Interpretation Code Description Data Joellen rce(s) Supporting Document(s) Calcidiol [Mass/volume] in Serum or Plasma 84.9 ng/mL 30.0-100.0 [facility] ([facility] <content>note:<nlbl:demographic_changed></content>
<content>note:<nlbl:demog raphic_changed></content>
<content></content> ID Date Data Source [id number] 02/02/2020 09:18:00 AM EST [facility] ([facility] Name Value Range Interpretation Code Description Data Joellen rce(s) Supporting Document(s) Triglycerides Level 127 mg/dL [facility] ([facility] Cholesterol Level 215 mg/dL [facility] ([facility] LDL Cholesterol 67 mg/dL [facility] HDL Cholesterol 123 mg/dL [facility] Cholesterol Risk Ratio 1.747 [facility] ([facility] Non-HDL-C 92 mg/dL [facility] ID Date Data Source [id number] 01/12/2020 08:51:00 AM EDT [facility] ([facility] Name Value Range Interpretation Code Description Data Joellen rce(s) Supporting Document(s) Red Blood Count 3.10 10 4.00-5.40 [facility] ([facility] White Blood Count 10.2 10 4.0-10.0 [facility] ([facility] Hemoglobin 9.6 g/dL 12.0-15.5 [facility] ([facility] Hematocrit 31.6 % 36.0-47.0 [facility] ([facility] Mean Corpuscular Volume 101.9 fl 80.0-96.0 M [facility] ([facility] Red Cell Distribution Width 13.3 % 11.5-14.5 [facility] ([facility] Mean Corpuscular HGB Conc 30.4 g/dL 32.0-36.5 [facility] ([facility] Mean Corpuscular Hemoglobin 31.0 pg 27.0-33.0 [facility] ([facility] Platelet Count, Automated 110 10 150-450 [facility] Neutrophils % 67.7 % 36.0-66.0 [facility] ([facility] Lymph % 20.6 % 24.0-44.0 [facility] ([facility] Eos % 1.5 % 0.0-3.0 [facility] ([facility] [place] % 9.4 % 0.0-5.0 [facility] ([facility] Baso % 0.3 % 0.0-1.0 [facility] ([facility] Neutrophils # 6.9 10 1.5-8.5 [facility] ([facility] Immature Granulocyte % 0.5 % 0-3.0 [facility] Nucleated Red Blood Cell % 0.0 % 0-0 [facility] Lymph # 2.1 10 1.5-5.0 [facility] ([facility] [place] # 1.0 10 0.0-0.8 [facility] ([facility] Eos # 0.2 10 0.0-0.5 [facility] ([facility] Baso # 0.0 10 0.0-0.2 [facility] ([facility] ID Date Data Source [id number] 01/12/2020 08:51:00 AM EDT [facility] ([facility] Name Value Range Interpretation Code Description Data Joellen rce(s) Supporting Document(s) Glucose, Fasting 93 mg/dL 70-100 [facility] Blood Urea Nitrogen 32 mg/dL 7-18 [facility] ([facility] Creatinine For GFR 6.09 mg/dL 0.55-1.30 [facility] ([facility] Sodium Level 138 meq/L 136-145 [facility] Glomerular Filtration Rate 7.3 [facility] ([facility] <content>Units are mL/min/1.73 m2</content>
<content></content>
<content>Chronic Kidney Disease Staging per [facility]:</content>
<content></content>
<content>Stage I & II GFR >=60 Normal to Mildly Decreased</content>
<content>Stage III GFR 30- 59 Moderately Decreased</content>
<content>Stage IV GFR 15-29 Severely Decreased</content>
<content>Stage V GFR <15 Very Little GFR Left</content>
<content>ESRD GFR <15 on SENIOR [employer]ULATORY AFFAIRS SPECIALIST</content>
<content></content> Potassium Serum 3.7 meq/L 3.5-5.1 [facility] ([facility] Anion Gap 7 meq/L 8-16 [facility] ([facility] Chloride Level 102 meq/L 98-107 [facility] Carbon Dioxide Level 29 meq/L 21-32 [facility] Ast/Sgot 17 U/L 7-37 [facility] Calcium Level 8.9 mg/dL 8.8-10.2 [facility] Alt/SGPT 8 U/L 12-78 [facility] Bilirubin,Total 0.2 mg/dL 0.2-1.0 [facility] ([facility] Alkaline Phosphatase 98 U/L 45-117 [facility] Total Protein 6.8 GM/DL 6.4-8.2 [facility] ([facility] Albumin/Globulin Ratio 1.0 1.2-2.2 [facility] ([facility] Albumin 3.4 GM/DL 3.2-5.2 [facility] ([facility] ID Date Data Source [id number] 01/12/2020 08:51:00 AM EDT [facility] ([facility] Name Value Range Interpretation Code Description Data Joellen rce(s) Supporting Document(s) Magnesium [Mass/volume] in Serum or Plasma 2.1 mg/dL 1.8-2.4 [facility] ([facility] <content>note:<nlbl:demographic_changed> </content>
<content></content> Cobalamin (Vitamin B12) [Mass/volume] in Serum or Plasma 1171 pg/mL 2 47-911 [facility] ([facility] VITAMIN B12 NORMAL RANGE NORMAL 247 - 911 PG/ML INDETERMINATE 211 - 246 PG/ML DEFICIENT LESS THAN 211 PG/ML Thyroxine (T4) free [Mass/volume] in Serum or Plasma 1.07 ng/dL 0.76- 1.46 [facility] ([facility] <content>note:<nlbl:demographic_changed> </content>
<content></content> Thyrotropin [Units/volume] in Serum or Plasma 0.637 uIU/ML 0.358-3.74 0 [facility] ([facility] <content>note:<nlbl:demographic_changed> </content>
<content></content> Folate [Mass/volume] in Serum or Plasma Laboratory test result [facility] ([facility] FOLATE NORMAL RANGE NORMAL GREATER THAN 5.4 NG/ML INDETERMINATE 3.4-5.4 NG/ML DEFICIENT LESS THAN 3.4 NG/ML ID Date Data Source [id number] 01/11/2020 10:11:00 AM EDT [facility] ([facility] Name Value Range Interpretation Code Description Data Joellen rce(s) Supporting Document(s) Potassium [Moles/volume] in Serum or Plasma 3.6 meq/L 3.5-5.1 [facility] ([facility] <content>By: QIJIN</content>
<conten t>Time: 958</content>
<content>note:<nlbl:demographic_changed></content>
<bryant QIJIN Time: 958</content>
<content></content> ID Date Data Source [id number] 01/11/2020 10:11:00 AM EDT [facility] ([facility]) Name Value Range Interpretation Code Description Data Joellen rce(s) Supporting Document(s) Potassium [Moles/volume] in Serum or Plasma 3.6 meq/L 3.5- 5.1 Normal (applies to non-numeric results) [facility] ([facility] ) <content>By: QIJIN</content>
<conten t>Time: 958</content>
<content>note:<nlbl:demographic_changed></content>
<bryant QI Time: 958</content>
<content></content> ID Date Data Source [id number] 01/06/2020 09:00:00 AM EDT [facility] Name Value Range Interpretation Code Description Data Joellen rce(s) Supporting Document(s) SARS coronavirus 2 RNA [facility] This lab was ordered by [facility] and reported by [facility]. ID Date Data Source [id number] 12/22/2019 09:23:00 AM EDT [facility] ([facility] Name Value Range Interpretation Code Description Data Joellen rce(s) Supporting Document(s) Thyrotropin [Units/volume] in Serum or Plasma 1.050 uIU/ML 0.358-3.74 0 [facility] ([facility] <content>note:<nlbl:demographic_changed> </content>
<content></content> Thyroxine (T4) free [Mass/volume] in Serum or Plasma 1.11 ng/dL 0.76- 1.46 [facility] ([facility] <content>note:<nlbl:demographic_changed> </content>
<content></content> ID Date Data Source [id number] 12/22/2019 09:23:00 AM EDT [facility] ([facility] Name Value Range Interpretation Code Description Data Joellen rce(s) Supporting Document(s) Blood Urea Nitrogen 18 mg/dL 7-18 [facility] ([facility] Glucose, Fasting 167 mg/dL 70-100 [facility] Glomerular Filtration Rate 9.0 [facility] ([facility] <content>Units are mL/min/1.73 m2</content>
<content></content>
<content>Chronic Kidney Disease Staging per [facility]:</content>
<content></content>
<content>Stage I & II GFR >=60 Normal to Mildly Decreased</content>
<content>Stage III GFR 30- 59 Moderately Decreased</content>
<content>Stage IV GFR 15-29 Severely Decreased</content>
<content>Stage V GFR <15 Very Little GFR Left</content>
<content>ESRD GFR <15 on [employer]</content>
<content></content> Creatinine For GFR 5.08 mg/dL 0.55-1.30 [facility] Sodium Level 139 meq/L 136-145 [facility] Chloride Level 98 meq/L 98-107 [facility] Potassium Serum 3.2 meq/L 3.5-5.1 [facility] Carbon Dioxide Level 34 meq/L 21-32 [facility] ([facility] Calcium Level 9.2 mg/dL 8.8-10.2 [facility] Anion Gap 7 meq/L 8-16 [facility] ([facility] Alt/SGPT 17 U/L 12-78 [facility] Alkaline Phosphatase 81 U/L 45-117 [facility] ([facility] Ast/Sgot 19 U/L 7-37 [facility] Total Protein 7.5 GM/DL 6.4-8.2 [facility] Albumin 3.5 GM/DL 3.2-5.2 [facility] ([facility] Bilirubin,Total 0.3 mg/dL 0.2-1.0 [facility] Albumin/Globulin Ratio 0.9 1.2-2.2 [facility] ID Date Data Source [id number] 12/22/2019 09:23:00 AM EDT [facility] ([facility] Name Value Range Interpretation Code Description Data Joellen rce(s) Supporting Document(s) White Blood Count 6.5 10 4.0-10.0 [facility] ([facility] Red Blood Count 3.62 10 4.00-5.40 [facility] Hemoglobin 11.6 g/dL 12.0-15.5 [facility] ([facility] Mean Corpuscular Hemoglobin 32.0 pg 27.0-33.0 [facility] Hematocrit 37.8 % 36.0-47.0 [facility] Mean Corpuscular Volume 104.4 fl 80.0-96.0 M [facility] Platelet Count, Automated 129 10 150-450 [facility] Mean Corpuscular HGB Conc 30.7 g/dL 32.0-36.5 [facility] Red Cell Distribution Width 14.5 % 11.5-14.5 [facility] [place] % 11.0 % 0.0-5.0 [facility] ([facility] Neutrophils % 50.7 % 36.0-66.0 [facility] Lymph % 28.4 % 24.0-44.0 [facility] Eos % 9.0 % 0.0-3.0 [facility] Immature Granulocyte % 0.3 % 0-3.0 [facility] Baso % 0.6 % 0.0-1.0 [facility] Lymph # 1.8 10 1.5-5.0 [facility] Nucleated Red Blood Cell % 0.0 % 0-0 [facility] Neutrophils # 3.3 10 1.5-8.5 [facility] Eos # 0.6 10 0.0-0.5 [facility] [place] # 0.7 10 0.0-0.8 [facility] Baso # 0.0 10 0.0-0.2 [facility] ID Date Data Source [id number] 11/30/2019 06:00:00 AM EDT [facility] ([facility] Name Value Range Interpretation Code Description Data Joellen rce(s) Supporting Document(s) Thyroxine (T4) free [Mass/volume] in Serum or Plasma 0.94 ng/dL 0.76- 1.46 [facility] <content>note:<nlbl:demographic_changed> </content>
<content></content> Thyrotropin [Units/volume] in Serum or Plasma 1.060 uIU/ML 0.358-3.74 0 [facility] ([facility] <content>note:<nlbl:demographic_changed> </content>
<content></content> ID Date Data Source [id number] 11/30/2019 06:00:00 AM EDT [facility] ([facility] Name Value Range Interpretation Code Description Data Joellen rce(s) Supporting Document(s) Creatinine For GFR 5.06 mg/dL 0.55-1.30 [facility] Glucose, Fasting 129 mg/dL 70-100 [facility] Blood Urea Nitrogen 26 mg/dL 7-18 [facility] ([facility] Sodium Level 135 meq/L 136-145 [facility] Potassium Serum 3.9 meq/L 3.5-5.1 [facility] Glomerular Filtration Rate 9.1 [facility] <content>Units are mL/min/1.73 m2</content>
<content></content>
<content>Chronic Kidney Disease Staging per [facility]:</content>
<content></content>
<content>Stage I & II GFR >=60 Normal to Mildly Decreased</content>
<content>Stage III GFR 30- 59 Moderately Decreased</content>
<content>Stage IV GFR 15-29 Severely Decreased</content>
<content>Stage V GFR <15 Very Little GFR Left</content>
<content>ESRD GFR <15 on S[employer]IOR [employer]ULAT[employer] AFFAIRS SPECIALIST</content>
<content></content> Anion Gap 4 meq/L 8-16 [facility] Chloride Level 99 meq/L 98-107 [facility] Carbon Dioxide Level 32 meq/L 21-32 [facility] ([facility] Alt/SGPT 23 U/L 12-78 [facility] Calcium Level 9.3 mg/dL 8.8-10.2 [facility] Ast/Sgot 18 U/L 7-37 [facility] Alkaline Phosphatase 111 U/L 45-117 [facility] ([facility] Bilirubin,Total 0.3 mg/dL 0.2-1.0 [facility] Total Protein 7.7 GM/DL 6.4-8.2 [facility] Albumin/Globulin Ratio 0.8 1.2-2.2 [facility] Albumin 3.5 GM/DL 3.2-5.2 [facility] ID Date Data Source [id number] 11/30/2019 06:00:00 AM EDT [facility] ([facility] Name Value Range Interpretation Code Description Data Joellen rce(s) Supporting Document(s) White Blood Count 6.7 10 4.0-10.0 [facility] ([facility] Red Blood Count 3.57 10 4.00-5.40 [facility] Hemoglobin 11.6 g/dL 12.0-15.5 [facility] ([facility] Hematocrit 36.9 % 36.0-47.0 [facility] Mean Corpuscular Hemoglobin 32.5 pg 27.0-33.0 [facility] Mean Corpuscular Volume 103.4 fl 80.0-96.0 M [facility] ([facility] Mean Corpuscular HGB Conc 31.4 g/dL 32.0-36.5 [facility] Red Cell Distribution Width 14.1 % 11.5-14.5 [facility] Platelet Count, Automated 117 10 150-450 [facility] Neutrophils % 70.7 % 36.0-66.0 [facility] Lymph % 11.1 % 24.0-44.0 [facility] [place] % 11.4 % 0.0-5.0 [facility] Eos % 6.4 % 0.0-3.0 [facility] Immature Granulocyte % 0.1 % 0-3.0 [facility] Baso % 0.3 % 0.0-1.0 [facility] Lymph # 0.7 10 1.5-5.0 [facility] Nucleated Red Blood Cell % 0.0 % 0-0 [facility] Neutrophils # 4.7 10 1.5-8.5 [facility] Baso # 0.0 10 0.0-0.2 [facility] Eos # 0.4 10 0.0-0.5 [facility] [place] # 0.8 10 0.0-0.8 [facility] ID Date Data Source [id number] 11/24/2019 09:29:00 AM EDT [facility] ([facility] Name Value Range Interpretation Code Description Data Joellen rce(s) Supporting Document(s) White Blood Count 6.4 10 4.0-10.0 [facility] ([facility] Hemoglobin 11.0 g/dL 12.0-15.5 [facility] ([facility] Red Blood Count 3.38 10 4.00-5.40 [facility] Mean Corpuscular Volume 105.6 fl 80.0-96.0 M [facility] Hematocrit 35.7 % 36.0-47.0 [facility] Mean Corpuscular Hemoglobin 32.5 pg 27.0-33.0 [facility] Red Cell Distribution Width 14.6 % 11.5-14.5 [facility] Platelet Count, Automated 127 10 150-450 [facility] Mean Corpuscular HGB Conc 30.8 g/dL 32.0-36.5 [facility] Lymph % 21.3 % 24.0-44.0 [facility] Neutrophils % 60.6 % 36.0-66.0 [facility] [place] % 11.2 % 0.0-5.0 [facility] Eos % 6.1 % 0.0-3.0 [facility] Baso % 0.5 % 0.0-1.0 [facility] Neutrophils # 3.9 10 1.5-8.5 [facility] Nucleated Red Blood Cell % 0.0 % 0-0 [facility] Immature Granulocyte % 0.3 % 0-3.0 [facility] [place] # 0.7 10 0.0-0.8 [facility] Lymph # 1.4 10 1.5-5.0 [facility] Eos # 0.4 10 0.0-0.5 [facility] Baso # 0.0 10 0.0-0.2 [facility] ID Date Data Source [id number] 11/03/2019 09:23:00 AM EDT [facility] ([facility] Name Value Range Interpretation Code Description Data Joellen rce(s) Supporting Document(s) Thyrotropin [Units/volume] in Serum or Plasma 1.370 uIU/ML 0.358-3.74 0 [facility] <content>note:<nlbl:demographic_changed></content>
<content>note:<nlbl:demog raphic_changed></content>
<content>note:<nlbl:demographic_changed></content>
<content></content> Thyroxine (T4) free [Mass/volume] in Serum or Plasma 0.95 ng/dL 0.76- 1.46 [facility] <content>note:<nlbl:demographic_changed></content>
<content>note:<nlbl:demog raphic_changed></content>
<content>note:<nlbl:demographic_changed></content>
<content></content> ID Date Data Source [id number] 11/03/2019 09:23:00 AM EDT [facility] ([facility] Name Value Range Interpretation Code Description Data Joellen rce(s) Supporting Document(s) Creatinine For GFR 4.85 mg/dL 0.55-1.30 [facility] Glucose, Fasting 111 mg/dL 70-100 [facility] Blood Urea Nitrogen 43 mg/dL 7-18 [facility] ([facility] Glomerular Filtration Rate 9.5 [facility] <content>Units are mL/min/1.73 m2</content>
<content></content>
<content>Chronic Kidney Disease Staging per [facility]:</content>
<content></content>
<content>Stage I & II GFR >=60 Normal to Mildly Decreased</content>
<content>Stage III GFR 30- 59 Moderately Decreased</content>
<content>Stage IV GFR 15-29 Severely Decreased</content>
<content>Stage V GFR <15 Very Little GFR Left</content>
<content>ESRD GFR <15 on S[employer] AFFAIRS SPECIALIST</content>
<content></content> Sodium Level 140 meq/L 136-145 [facility] Carbon Dioxide Level 32 meq/L 21-32 [facility] Chloride Level 103 meq/L 98-107 [facility] Potassium Serum 3.9 meq/L 3.5-5.1 [facility] Calcium Level 9.1 mg/dL 8.8-10.2 [facility] Anion Gap 5 meq/L 8-16 [facility] Ast/Sgot 21 U/L 7-37 [facility] Alt/SGPT 24 U/L 12-78 [facility] Bilirubin,Total 0.2 mg/dL 0.2-1.0 [facility] Alkaline Phosphatase 141 U/L 45-117 [facility] Albumin 3.6 GM/DL 3.2-5.2 [facility] Total Protein 7.2 GM/DL 6.4-8.2 [facility] Albumin/Globulin Ratio 1.0 1.2-2.2 [facility] ID Date Data Source [id number] 11/03/2019 09:23:00 AM EDT [facility] ([facility] Name Value Range Interpretation Code Description Data Joellen rce(s) Supporting Document(s) Red Blood Count 3.09 10 4.00-5.40 [facility] White Blood Count 10.9 10 4.0-10.0 [facility] ([facility] Hematocrit 32.0 % 36.0-47.0 [facility] ([facility] Hemoglobin 9.9 g/dL 12.0-15.5 [facility] Mean Corpuscular HGB Conc 30.9 g/dL 32.0-36.5 [facility] Mean Corpuscular Hemoglobin 32.0 pg 27.0-33.0 [facility] Mean Corpuscular Volume 103.6 fl 80.0-96.0 M [facility] Red Cell Distribution Width 14.5 % 11.5-14.5 [facility] Neutrophils % 65.3 % 36.0-66.0 [facility] Platelet Count, Automated 132 10 150-450 [facility] [place] % 7.6 % 0.0-5.0 [facility] Eos % 4.9 % 0.0-3.0 [facility] Lymph % 20.3 % 24.0-44.0 [facility] Nucleated Red Blood Cell % 0.0 % 0-0 [facility] Baso % 0.5 % 0.0-1.0 [facility] Immature Granulocyte % 1.4 % 0-3.0 [facility] Neutrophils # 7.1 10 1.5-8.5 [facility] Lymph # 2.2 10 1.5-5.0 [facility] [place] # 0.8 10 0.0-0.8 [facility] Baso # 0.1 10 0.0-0.2 [facility] Eos # 0.5 10 0.0-0.5 [facility] ID Date Data Source [id number] 10/13/2019 09:00:00 AM EDT [facility] ([facility] Name Value Range Interpretation Code Description Data Joellen rce(s) Supporting Document(s) Thyrotropin [Units/volume] in Serum or Plasma 1.210 uIU/ML 0.358-3.74 0 [facility] <content>note:<nlbl:demographic_changed> </content>
<content></content> Thyroxine (T4) free [Mass/volume] in Serum or Plasma 0.99 ng/dL 0.76- 1.46 [facility] <content>note:<nlbl:demographic_changed> </content>
<content></content> ID Date Data Source [id number] 10/13/2019 09:00:00 AM EDT [facility] ([facility] Name Value Range Interpretation Code Description Data Joellen rce(s) Supporting Document(s) Blood Urea Nitrogen 24 mg/dL 7-18 [facility] ([facility] Glucose, Fasting 137 mg/dL 70-100 [facility] Creatinine For GFR 3.74 mg/dL 0.55-1.30 [facility] Glomerular Filtration Rate 12.8 [facility] <content>Units are mL/min/1.73 m2</content>
<content></content>
<content>Chronic Kidney Disease Staging per [facility]:</content>
<content></content>
<content>Stage I & II GFR >=60 Normal to Mildly Decreased</content>
<content>Stage III GFR 30- 59 Moderately Decreased</content>
<content>Stage IV GFR 15-29 Severely Decreased</content>
<content>Stage V GFR <15 Very Little GFR Left</content>
<content>ESRD GFR <15 on S[employer]IOR [employer]AT[employer] AFFAIRS SPECIALIST</content>
<content></content> Sodium Level 138 meq/L 136-145 [facility] Potassium Serum 3.9 meq/L 3.5-5.1 [facility] Chloride Level 98 meq/L 98-107 [facility] Carbon Dioxide Level 32 meq/L 21-32 [facility] Anion Gap 8 meq/L 8-16 [facility] Calcium Level 8.9 mg/dL 8.8-10.2 [facility] Alkaline Phosphatase 122 U/L 45-117 [facility] Alt/SGPT 19 U/L 12-78 [facility] Ast/Sgot 23 U/L 7-37 [facility] Albumin 3.5 GM/DL 3.2-5.2 [facility] Bilirubin,Total 0.2 mg/dL 0.2-1.0 [facility] Total Protein 7.5 GM/DL 6.4-8.2 [facility] Albumin/Globulin Ratio 0.9 1.2-2.2 [facility] ID Date Data Source [id number] 10/13/2019 09:00:00 AM EDT [facility] ([facility] Name Value Range Interpretation Code Description Data Joellen rce(s) Supporting Document(s) Hemoglobin 9.6 g/dL 12.0-15.5 [facility] White Blood Count 6.2 10 4.0-10.0 [facility] ([facility] Red Blood Count 3.10 10 4.00-5.40 [facility] Mean Corpuscular Volume 101.3 fl 80.0-96.0 M [facility] Hematocrit 31.4 % 36.0-47.0 [facility] Mean Corpuscular HGB Conc 30.6 g/dL 32.0-36.5 [facility] Red Cell Distribution Width 14.3 % 11.5-14.5 [facility] Mean Corpuscular Hemoglobin 31.0 pg 27.0-33.0 [facility] Lymph % 22.4 % 24.0-44.0 [facility] Neutrophils % 52.8 % 36.0-66.0 [facility] Platelet Count, Automated 131 10 150-450 [facility] [place] % 12.8 % 0.0-5.0 [facility] ([facility] Eos % 11.2 % 0.0-3.0 [facility] Baso % 0.6 % 0.0-1.0 [facility] Nucleated Red Blood Cell % 0.0 % 0-0 [facility] Neutrophils # 3.3 10 1.5-8.5 [facility] Immature Granulocyte % 0.2 % 0-3.0 [facility] Eos # 0.7 10 0.0-0.5 [facility] [place] # 0.8 10 0.0-0.8 [facility] Lymph # 1.4 10 1.5-5.0 [facility] Baso # 0.0 10 0.0-0.2 [facility] ID Date Data Source [id number] 09/22/2019 10:16:00 AM EDT [facility] Name Value Range Interpretation Code Description Data Joellen rce(s) Supporting Document(s) Packed Cells Laboratory test result [facility] TRANSFUSED PRODUCT: PACKED CELLS COUNT: 1 ID Date Data Source [id number] 09/22/2019 10:16:00 AM EDT [facility] Name Value Range Interpretation Code Description Data Joellen rce(s) Supporting Document(s) Blood Type Laboratory test result [facility] AB Screen (Indirect Maggie)Vis Laboratory test result [facility] ID Date Data Source [id number] 09/22/2019 09:24:00 AM EDT [facility] Name Value Range Interpretation Code Description Data Joellen rce(s) Supporting Document(s) Thyrotropin [Units/volume] in Serum or Plasma 0.954 uIU/ML 0.358-3.74 0 [facility] <content>note:<nlbl:demographic_changed> </content>
<content></content> Thyroxine (T4) free [Mass/volume] in Serum or Plasma 1.07 ng/dL 0.76- 1.46 [facility] <content>note:<nlbl:demographic_changed> </content>
<content></content> ID Date Data Source [id number] 09/22/2019 09:24:00 AM EDT [facility] Name Value Range Interpretation Code Description Data Joellen rce(s) Supporting Document(s) Glucose, Fasting 160 mg/dL 70-100 [facility] Glomerular Filtration Rate 13.0 [facility] <content>Units are mL/min/1.73 m2</content>
<content></content>
<content>Chronic Kidney Disease Staging per [facility]:</content>
<content></content>
<content>Stage I & II GFR >=60 Normal to Mildly Decreased</content>
<content>Stage III GFR 30- 59 Moderately Decreased</content>
<content>Stage IV GFR 15-29 Severely Decreased</content>
<content>Stage V GFR <15 Very Little GFR Left</content>
<content>ESRD GFR <15 on S[employer]IOR [employer]AT[employer] AFFAIRS SPECIALIST</content>
<content></content> Creatinine For GFR 3.69 mg/dL 0.55-1.30 [facility] Blood Urea Nitrogen 22 mg/dL 7-18 [facility] Potassium Serum 3.5 meq/L 3.5-5.1 [facility] Sodium Level 136 meq/L 136-145 [facility] Carbon Dioxide Level 34 meq/L 21-32 [facility] Chloride Level 98 meq/L 98-107 [facility] Anion Gap 4 meq/L 8-16 [facility] Ast/Sgot 23 U/L 7-37 [facility] Alt/SGPT 12 U/L 12-78 [facility] Calcium Level 9.1 mg/dL 8.8-10.2 [facility] Alkaline Phosphatase 105 U/L 45-117 [facility] Albumin 3.1 GM/DL 3.2-5.2 [facility] Bilirubin,Total 0.2 mg/dL 0.2-1.0 [facility] Total Protein 7.9 GM/DL 6.4-8.2 [facility] Albumin/Globulin Ratio 0.6 1.2-2.2 [facility] ID Date Data Source [id number] 09/22/2019 09:24:00 AM EDT [facility] Name Value Range Interpretation Code Description Data Joellen rce(s) Supporting Document(s) White Blood Count 7.0 10 4.0-10.0 [facility] Hemoglobin 8.1 g/dL 12.0-15.5 [facility] Red Blood Count 2.59 10 4.00-5.40 [facility] Hematocrit 25.6 % 36.0-47.0 [facility] Mean Corpuscular Hemoglobin 31.3 pg 27.0-33.0 [facility] Mean Corpuscular Volume 98.8 fl 80.0-96.0 M [facility] Red Cell Distribution Width 13.1 % 11.5-14.5 [facility] Platelet Count, Automated 172 10 150-450 [facility] Mean Corpuscular HGB Conc 31.6 g/dL 32.0-36.5 [facility] Lymph % 20.4 % 24.0-44.0 [facility] [place] % 11.8 % 0.0-5.0 [facility] Neutrophils % 60.3 % 36.0-66.0 [facility] Baso % 0.6 % 0.0-1.0 [facility] Eos % 6.5 % 0.0-3.0 [facility] Nucleated Red Blood Cell % 0.0 % 0-0 [facility] Immature Granulocyte % 0.4 % 0-3.0 [facility] Neutrophils # 4.2 10 1.5-8.5 [facility] Eos # 0.5 10 0.0-0.5 [facility] Lymph # 1.4 10 1.5-5.0 [facility] [place] # 0.8 10 0.0-0.8 [facility] Baso # 0.0 10 0.0-0.2 [facility] ID Date Data Source [id number] 09/01/2019 09:24:00 AM EDT [facility] ([facility] Name Value Range Interpretation Code Description Data Joellen rce(s) Supporting Document(s) Thyrotropin [Units/volume] in Serum or Plasma 2.050 uIU/ML 0.358-3.74 0 [facility] <content>note:<nlbl:demographic_changed> </content>
<content></content> Thyroxine (T4) free [Mass/volume] in Serum or Plasma 0.99 ng/dL 0.76- 1.46 [facility] <content>note:<nlbl:demographic_changed> </content>
<content></content> ID Date Data Source [id number] 09/01/2019 09:24:00 AM EDT [facility] Name Value Range Interpretation Code Description Data Joellen rce(s) Supporting Document(s) Glucose, Fasting 163 mg/dL 70-100 [facility] Blood Urea Nitrogen 48 mg/dL 7-18 [facility] Creatinine For GFR 4.12 mg/dL 0.55-1.30 [facility] Potassium Serum 3.9 meq/L 3.5-5.1 [facility] Sodium Level 140 meq/L 136-145 [facility] Chloride Level 105 meq/L 98-107 [facility] Glomerular Filtration Rate 11.5 [facility] <content>Units are mL/min/1.73 m2</content>
<content></content>
<content>Chronic Kidney Disease Staging per [facility]:</content>
<content></content>
<content>Stage I & II GFR >=60 Normal to Mildly Decreased</content>
<content>Stage III GFR 30- 59 Moderately Decreased</content>
<content>Stage IV GFR 15-29 Severely Decreased</content>
<content>Stage V GFR <15 Very Little GFR Left</content>
<content>ESRD GFR <15 on S[employer]IOR [employer] AFFAIRS SPECIALIST</content>
<content></content> Anion Gap 7 meq/L 8-16 [facility] Calcium Level 9.0 mg/dL 8.8-10.2 [facility] Carbon Dioxide Level 28 meq/L 21-32 [facility] Ast/Sgot 17 U/L 7-37 [facility] Alt/SGPT 17 U/L 12-78 [facility] Alkaline Phosphatase 104 U/L 45-117 [facility] Albumin 3.2 GM/DL 3.2-5.2 [facility] Total Protein 7.8 GM/DL 6.4-8.2 [facility] Bilirubin,Total 0.2 mg/dL 0.2-1.0 [facility] Albumin/Globulin Ratio 0.7 1.2-2.2 [facility] ID Date Data Source [id number] 09/01/2019 09:24:00 AM EDT [facility] Name Value Range Interpretation Code Description Data Joellen rce(s) Supporting Document(s) Hemoglobin 8.8 g/dL 12.0-15.5 [facility] ([facility] White Blood Count 7.0 10 4.0-10.0 [facility] ([facility] Red Blood Count 2.85 10 4.00-5.40 [facility] Mean Corpuscular Hemoglobin 30.9 pg 27.0-33.0 [facility] Hematocrit 27.8 % 36.0-47.0 [facility] ([facility] Mean Corpuscular Volume 97.5 fl 80.0-96.0 M [facility] ([facility] Platelet Count, Automated 149 10 150-450 [facility] ([facility] Red Cell Distribution Width 14.6 % 11.5-14.5 [facility] ([facility] Mean Corpuscular HGB Conc 31.7 g/dL 32.0-36.5 [facility] ([facility] Lymph % 21.3 % 24.0-44.0 [facility] ([facility] [place] % 9.9 % 0.0-5.0 [facility] ([facility] Neutrophils % 58.2 % 36.0-66.0 [facility] ([facility] Immature Granulocyte % 0.4 % 0-3.0 [facility] ([facility] Baso % 0.4 % 0.0-1.0 [facility] ([facility] Eos % 9.8 % 0.0-3.0 [facility] ([facility] Neutrophils # 4.0 10 1.5-8.5 [facility] Nucleated Red Blood Cell % 0.0 % 0-0 [facility] Lymph # 1.5 10 1.5-5.0 [facility] ([facility] Eos # 0.7 10 0.0-0.5 [facility] ([facility] [place] # 0.7 10 0.0-0.8 [facility] ([facility] Baso # 0.0 10 0.0-0.2 [facility] ID Date Data Source [id number] 08/11/2019 08:08:00 AM EDT [facility] ([facility] Name Value Range Interpretation Code Description Data Joellen rce(s) Supporting Document(s) Carcinoembryonic Ag [Mass/volume] in Serum or Plasma 5.4 ng/mL [facility] THE CEA ASSAY IS PERFORMED ON THE [place] BY CHEMILUMINESCENCE AND SHOULD NOT BE COMPARED INTERCHANGEABLY WITH OTHER METHODS. IT SHOULD NOT BE USED ALONE A SCREENING TEST OR DIAGNOSIS FOR THE PRESENCE OR ABSENCE OF MALIGNANT DISEASE. PREDICTIONS OF DISEASE RECURRENCE SHOULD NOT BE BASED SOLELY ON VALUES OBTAINED FROM SERIAL PATIENT SERUM VALUES. Thyrotropin [Units/volume] in Serum or Plasma 2.040 uIU/ML 0.358-3.74 0 [facility] <content>note:<nlbl:demographic_changed></content>
<content>note:<nlbl:demog raphic_changed></content>
<content></content> Thyroxine (T4) free [Mass/volume] in Serum or Plasma 0.99 ng/dL 0.76- 1.46 [facility] ([facility] <content>note:<nlbl:demographic_changed></content>
<content>note:<nlbl:demog raphic_changed></content>
<content></content> ID Date Data Source [id number] 08/11/2019 08:08:00 AM EDT [facility] ([facility] Name Value Range Interpretation Code Description Data Joellen rce(s) Supporting Document(s) Glucose, Fasting 152 mg/dL 70-100 [facility] Blood Urea Nitrogen 60 mg/dL 7-18 [facility] ([facility] Glomerular Filtration Rate 12.8 [facility] <content>Units are mL/min/1.73 m2</content>
<content></content>
<content>Chronic Kidney Disease Staging per [facility]:</content>
<content></content>
<content>Stage I & II GFR >=60 Normal to Mildly Decreased</content>
<content>Stage III GFR 30- 59 Moderately Decreased</content>
<content>Stage IV GFR 15-29 Severely Decreased</content>
<content>Stage V GFR <15 Very Little GFR Left</content>
<content>ESRD GFR <15 on S[employer]IOR [employer]IST</content>
<content></content> Potassium Serum 4.4 meq/L 3.5-5.1 [facility] Sodium Level 141 meq/L 136-145 [facility] Creatinine For GFR 3.74 mg/dL 0.55-1.30 [facility] Chloride Level 104 meq/L 98-107 [facility] Carbon Dioxide Level 29 meq/L 21-32 [facility] ([facility] Anion Gap 8 meq/L 8-16 [facility] Ast/Sgot 23 U/L 7-37 [facility] Calcium Level 9.1 mg/dL 8.8-10.2 [facility] ([facility] Alt/SGPT 25 U/L 12-78 [facility] Alkaline Phosphatase 115 U/L 45-117 [facility] ([facility] Bilirubin,Total 0.2 mg/dL 0.2-1.0 [facility] Albumin 3.1 GM/DL 3.2-5.2 [facility] ([facility] Total Protein 7.9 GM/DL 6.4-8.2 [facility] Albumin/Globulin Ratio 0.6 1.2-2.2 [facility] ([facility] ID Date Data Source [id number] 08/11/2019 08:08:00 AM EDT [facility] ([facility] Name Value Range Interpretation Code Description Data Joellen rce(s) Supporting Document(s) Eos % 16.5 % 0.0-3.0 [facility] ([facility] Neutrophils % 46.9 % 36.0-66.0 [facility] ([facility]ribe M.D[facility] [place] % 12.3 % 0.0-5.0 [facility] (Nelly joseph M[facility] Lymph % 23.4 % 24.0-44.0 [facility] (Nelly joseph M[facility] Immature Granulocyte % 0.2 % 0-3.0 [facility] (Nelly Uribe M[facility] Neutrophils # 4.2 10 1.5-8.5 [facility] (Nelly Uribe [facility] Baso % 0.7 % 0.0-1.0 [facility] (Nelly joseph M[facility] [place] # 1.1 10 0.0-0.8 [facility] (Nelly joseph [facility] Lymph # 2.1 10 1.5-5.0 [facility] (Nelly joseph [facility] Eos # 1.5 10 0.0-0.5 [facility] (Nelly joseph [facility] Baso # 0.1 10 0.0-0.2 [facility] (Nelly joseph [facility] ID Date Data Source [id number] 08/11/2019 08:08:00 AM EDT [facility] (Nelly Uribe [facility] Name Value Range Interpretation Code Description Data Joellen e(s) Supporting Document(s) White Blood Count 9.0 10 4.0-10.0 [facility] (Coco Uribe [facility] Red Blood Count 2.90 10 4.00-5.40 [facility] (Nelly Uribe [facility] Hematocrit 28.2 % 36.0-47.0 [facility] (Nelly cha [facility] Hemoglobin 9.0 g/dL 12.0-15.5 [facility] (Nelly cha [facility] Mean Corpuscular HGB Conc 31.9 g/dL 32.0-36.5 [facility] (Nelly Uribe [facility] Mean Corpuscular Hemoglobin 31.0 pg 27.0-33.0 [facility] (Nelly Uribe [facility] Mean Corpuscular Volume 97.2 fl 80.0-96.0 M [facility] (Nelly Uribe [facility] Nucleated Red Blood Cell % 0.0 % 0-0 [facility] (Nelly Uribe [facility] Platelet Count, Automated 159 10 150-450 [facility] (Nelly Uribe [facility] Red Cell Distribution Width 15.1 % 11.5-14.5 [facility] (Nelly Uribe [facility] ID Date Data Source [id number] 07/21/2019 11:11:00 AM EDT [facility] (Nelly Uribe [facility] Name Value Range Interpretation Code Description Data Joellen rce(s) Supporting Document(s) Thyrotropin [Units/volume] in Serum or Plasma 0.945 uIU/ML 0.358-3.74 0 [facility] (Nelly Uribe [facility] <content>note:<nlbl:demographic_changed> </content>
<content></content> Thyroxine (T4) free [Mass/volume] in Serum or Plasma 1.02 ng/dL 0.76- 1.46 [facility] (Nelly Uribe [facility] <content>note:<nlbl:demographic_changed> </content>
<content></content> ID Date Data Source [id number] 07/21/2019 11:11:00 AM EDT [facility] (Nelly Uribe [facility] Name Value Range Interpretation Code Description Data Joellen rce(s) Supporting Document(s) Glucose, Fasting 104 mg/dL 70-100 [facility] (Nelly Uribe [facility] Glomerular Filtration Rate 13.6 [facility] (Nelly Uribe [facility] <content>Units are mL/min/1.73 m2</content>
<content></content>
<content>Chronic Kidney Disease Staging per [facility]:</content>
<content></content>
<content>Stage I & II GFR >=60 Normal to Mildly Decreased</content>
<content>Stage III GFR 30- 59 Moderately Decreased</content>
<content>Stage IV GFR 15-29 Severely Decreased</content>
<content>Stage V GFR <15 Very Little GFR Left</content>
<content>ESRD GFR <15 on SENIOR REGULATORY AFFAIRS SPECIALIST</content>
<content></content> Creatinine For GFR 3.55 mg/dL 0.55-1.30 [facility] (Nelly Uribe [facility] Blood Urea Nitrogen 53 mg/dL 7-18 [facility] (Archie Uribe [facility] Potassium Serum 5.0 meq/L 3.5-5.1 [facility] (Nelly Uribe [facility] Sodium Level 138 meq/L 136-145 [facility] (Nelly Uribe [facility] Chloride Level 104 meq/L 98-107 [facility] (Nelly Uribe [facility] Anion Gap 2 meq/L 8-16 [facility] (Nelly joseph M[facility] Carbon Dioxide Level 32 meq/L 21-32 [facility] (Ludy Uribe [facility] Calcium Level 9.6 mg/dL 8.8-10.2 [facility] (Nelly Uribe [facility] Alt/SGPT 21 U/L 12-78 [facility] (Nelly joseph M.D[facility] Alkaline Phosphatase 109 U/L 45-117 [facility] (Ludy Uribe M[facility] Ast/Sgot 19 U/L 7-37 [facility] (Nelly joseph [facility] Bilirubin,Total 0.1 mg/dL 0.2-1.0 [facility] (Nelly Uribe [facility] Total Protein 8.0 GM/DL 6.4-8.2 [facility] (Nelly Uribe [facility] Albumin 2.6 GM/DL 3.2-5.2 [facility] (Nelly joseph [facility] Albumin/Globulin Ratio 0.48 1.00-1.93 [place] [facility] (Nelly Uribe [facility] ID Date Data Source [id number] 07/21/2019 11:11:00 AM EDT [facility] (Nelly Uribe [facility] Name Value Range Interpretation Code Description Data Joellen rce(s) Supporting Document(s) Neutrophils % 56.6 % 36.0-66.0 [facility] (Nelly Uribe [facility] Lymph % 17.6 % 24.0-44.0 [facility] (Nelly joseph M.D[facility] Eos % 4.7 % 0.0-3.0 [facility] (Nelly joseph M.D[facility] Baso % 0.5 % 0.0-1.0 [facility] (Nelly joseph M.D[facility] [place] % 19.8 % 0.0-5.0 [facility] (Nelly joseph M.D[facility] Immature Granulocyte % 0.8 % 0-3.0 [facility] (Nelly Uribe [facility] Neutrophils # 4.8 10 1.5-8.5 [facility] (Nelly Uribe [facility] Lymph # 1.5 10 1.5-5.0 [facility] (Nelly joseph M.D[facility] Baso # 0.0 10 0.0-0.2 [facility] (Nelly joseph M.D[facility] [place] # 1.7 10 0.0-0.8 [facility] (Nelly joseph M[facility] Eos # 0.4 10 0.0-0.5 [facility] (Nelly joseph M[facility] ID Date Data Source [id number] 07/21/2019 11:11:00 AM EDT [facility] (Nelly Uribe [facility] Name Value Range Interpretation Code Description Data Joellen rce(s) Supporting Document(s) Hemoglobin 9.0 g/dL 12.0-15.5 [facility] (Nelly cha [facility] White Blood Count 8.5 10 4.0-10.0 [facility] (Coco Uribe [facility] Red Blood Count 2.96 10 4.00-5.40 [facility] (Nelly Uribe [facility] Hematocrit 29.1 % 36.0-47.0 [facility] (Nelly cha [facility] Mean Corpuscular Hemoglobin 30.4 pg 27.0-33.0 [facility] (Nelly Uribe [facility] Mean Corpuscular Volume 98.3 fl 80.0-96.0 M [facility] (Nelly Uribe [facility] Mean Corpuscular HGB Conc 30.9 g/dL 32.0-36.5 [facility] (Nelly Uribe [facility] Red Cell Distribution Width 15.5 % 11.5-14.5 [facility] (Nelly Uribe [facility] Nucleated Red Blood Cell % 0.0 % 0-0 [facility] (Nelly Uribe [facility] Platelet Count, Automated 274 10 150-450 [facility] (Nelly Uribe [facility] ID Date Data Source [id number] 06/30/2019 07:51:00 AM EDT [facility] (Nelly Uribe [facility] Name Value Range Interpretation Code Description Data Joellen rce(s) Supporting Document(s) Glucose, Fasting 162 mg/dL 70-100 [facility] (Nelly Uribe [facility] Blood Urea Nitrogen 35 mg/dL 7-18 [facility] (Archie Uribe [facility] Sodium Level 138 meq/L 136-145 [facility] (Nelly Uribe [facility] Creatinine For GFR 3.52 mg/dL 0.55-1.30 [facility] (Nelly Uribe [facility] Glomerular Filtration Rate 13.8 [facility] (Nelly Uribe [facility] <content>Units are mL/min/1.73 m2</content>
<content></content>
<content>Chronic Kidney Disease Staging per [facility]:</content>
<content></content>
<content>Stage I & II GFR >=60 Normal to Mildly Decreased</content>
<content>Stage III GFR 30- 59 Moderately Decreased</content>
<content>Stage IV GFR 15-29 Severely Decreased</content>
<content>Stage V GFR <15 Very Little GFR Left</content>
<content>ESRD GFR <15 on SENIOR REGULATORY AFFAIRS SPECIALIST</content>
<content></content> Potassium Serum 4.0 meq/L 3.5-5.1 [facility] (Nelly Uribe [facility] Carbon Dioxide Level 29 meq/L 21-32 [facility] (Ludy Uribe [facility] Chloride Level 102 meq/L 98-107 [facility] (Nelly Uribe [facility] Ast/Sgot 24 U/L 7-37 [facility] (Nelly joseph M[facility] Anion Gap 7 meq/L 8-16 [facility] (Nelly joseph [facility] Calcium Level 8.3 mg/dL 8.8-10.2 [facility] (Nelly Uribe [facility] Alkaline Phosphatase 113 U/L 45-117 [facility] (Ludy Uribe [facility] Alt/SGPT 25 U/L 12-78 [facility] (Nelly joseph M[facility] Total Protein 6.2 GM/DL 6.4-8.2 [facility] (Nelly Uribe [facility] Albumin/Globulin Ratio 0.55 1.00-1.93 [facility] (Nelly Uribe [facility] Bilirubin,Total 0.2 mg/dL 0.2-1.0 [facility] (Nelly Uribe [facility] Albumin 2.2 GM/DL 3.2-5.2 [facility] (Nelly joseph [facility] ID Date Data Source [id number] 06/30/2019 07:51:00 AM EDT [facility] (Nelly Uribe [facility] Name Value Range Interpretation Code Description Data Joellen rce(s) Supporting Document(s) Platelets reticulated/100 platelets in Blood by Automated count 2.3 % 0.0-9.59 [facility] (Nelly Uribe [facility] ID Date Data Source [id number] 06/30/2019 07:51:00 AM EDT [facility] (Nelly Uribe [facility] Name Value Range Interpretation Code Description Data Joellen rce(s) Supporting Document(s) [place] % 21.0 % 0.0-5.0 [facility] (Nelly joseph [facility] Eos % 0.6 % 0.0-3.0 [facility] (Nelly joseph [facility] Neutrophils % 53.7 % 36.0-66.0 [facility] (Nelly Uribe [facility] Lymph % 24.1 % 24.0-44.0 [facility] (Nelly joseph [facility] Baso % 0.0 % 0.0-1.0 [facility] (Nelly joseph [facility] Neutrophils # 1.9 10 1.5-8.5 [facility] (Nelly Uribe [facility] Immature Granulocyte % 0.6 % 0-3.0 [facility] (Nelly Uribe [facility] Eos # 0.0 10 0.0-0.5 [facility] (Nelly joseph M.D[facility] [place] # 0.7 10 0.0-0.8 [facility] (Nelly joseph [facility] Lymph # 0.8 10 1.5-5.0 [facility] (Nelly joseph [facility] Baso # 0.0 10 0.0-0.2 [facility] (Nelly joseph [facility] ID Date Data Source [id number] 06/30/2019 07:51:00 AM EDT [facility] (Nelly Uribe [facility] Name Value Range Interpretation Code Description Data Joellen rce(s) Supporting Document(s) White Blood Count 3.5 10 4.0-10.0 [facility] (Coco Uribe M[facility] Red Blood Count 3.06 10 4.00-5.40 [facility] (Nelly Uribe [facility] Hemoglobin 9.3 g/dL 12.0-15.5 [facility] (Nelly cha M[facility] Hematocrit 28.5 % 36.0-47.0 [facility] (Nelly cha [facility] Mean Corpuscular Hemoglobin 30.4 pg 27.0-33.0 [facility] (Nelly Uribe [facility] Mean Corpuscular Volume 93.1 fl 80.0-96.0 M [facility] (Nelly Uribe [facility] Red Cell Distribution Width 13.9 % 11.5-14.5 [facility] (Nelly Uribe [facility] Mean Corpuscular HGB Conc 32.6 g/dL 32.0-36.5 [facility] (Nelly Uribe [facility] Nucleated Red Blood Cell % 0.0 % 0-0 [facility] (Nelly Uribe [facility] Platelet Count, Automated 96 10 150-450 [facility] (Nelly Uribe [facility] ID Date Data Source [id number] 06/22/2019 08:44:00 AM EDT [facility] (Nelly Uribe [facility] Name Value Range Interpretation Code Description Data Joellen rce(s) Supporting Document(s) Blood Type Laboratory test result [facility] (Nelly Uribe [facility] AB Screen (Indirect Maggie)Vis Laboratory test result [facility] (Nelly Uribe [facility] ID Date Data Source [id number] 06/22/2019 07:54:00 AM EDT [facility] (Nelly Uribe [facility] Name Value Range Interpretation Code Description Data Joellen rce(s) Supporting Document(s) White Blood Count 2.7 10 4.0-10.0 [facility] (Coco Uribe [facility] Red Blood Count 1.38 10 4.00-5.40 [facility] (Nelly Uribe [facility] Mean Corpuscular Hemoglobin 31.9 pg 27.0-33.0 [facility] (Nelly Uribe [facility] Hematocrit 13.0 % 36.0-47.0 [facility] (Nelly cha M[facility] Hemoglobin 4.4 g/dL 12.0-15.5 Below lower panic limits [facility] (Nelly Uribe [facility] Mean Corpuscular Volume 94.2 fl 80.0-96.0 M [facility] (Nelly Uribe [facility] Platelet Count, Automated 14 10 150-450 Below lower panic jalloh its [facility] (Nelly Uribe [facility] Mean Corpuscular HGB Conc 33.8 g/dL 32.0-36.5 [facility] (Nelly Uribe [facility] Red Cell Distribution Width 15.2 % 11.5-14.5 [facility] (Nelly Uribe [facility] Nucleated Red Blood Cell % 0.0 % 0-0 [facility] (Nelly Uribe [facility] ID Date Data Source [id number] 06/22/2019 07:54:00 AM EDT [facility] (Nelly Uribe [facility] Name Value Range Interpretation Code Description Data Joellen rce(s) Supporting Document(s) Neutrophils % 39.5 % 36.0-66.0 [facility] (Nelly Uribe [facility] Eos % 0.4 % 0.0-3.0 [facility] (Nelly joseph M[facility] Lymph % 42.8 % 24.0-44.0 [facility] (Nelly joseph M[facility] [place] % 16.2 % 0.0-5.0 [facility] (Nelly joseph [facility] Lymph # 1.2 10 1.5-5.0 [facility] (Nelly joseph [facility] Baso % 0.0 % 0.0-1.0 [facility] (Nelly joseph [facility] Immature Granulocyte % 1.1 % 0-3.0 [facility] (Nelly Uribe [facility] Neutrophils # 1.1 10 1.5-8.5 [facility] (Nelly Uribe [facility] Eos # 0.0 10 0.0-0.5 [facility] (Nelly joseph [facility] Baso # 0.0 10 0.0-0.2 [facility] (Nelly joseph [facility] [place] # 0.4 10 0.0-0.8 [facility] (Nelly joseph [facility] ID Date Data Source [id number] 06/22/2019 07:54:00 AM EDT [facility] (Nelly Uribe [facility] Name Value Range Interpretation Code Description Data Joellen rce(s) Supporting Document(s) Platelets reticulated/100 platelets in Blood by Automated count 3.3 % 0.0-9.59 [facility] (Nelly Uribe [facility] ID Date Data Source [id number] 06/22/2019 07:54:00 AM EDT [facility] (Nelly Uribe [facility] Name Value Range Interpretation Code Description Data Joellen rce(s) Supporting Document(s) Blood Urea Nitrogen 80 mg/dL 7-18 [facility] (Archie Uribe [facility] Glucose, Fasting 137 mg/dL 70-100 [facility] (Nelly Uribe [facility] Glomerular Filtration Rate 12.3 [facility] (Nelly Uribe [facility] <content>Units are mL/min/1.73 m2</content>
<content></content>
<content>Chronic Kidney Disease Staging per [facility]:</content>
<content></content>
<content>Stage I & II GFR >=60 Normal to Mildly Decreased</content>
<content>Stage III GFR 30- 59 Moderately Decreased</content>
<content>Stage IV GFR 15-29 Severely Decreased</content>
<content>Stage V GFR <15 Very Little GFR Left</content>
<content>ESRD GFR <15 on SENIOR REGULATORY AFFAIRS SPECIALIST</content>
<content></content> Sodium Level 139 meq/L 136-145 [facility] (Nelly Uribe [facility] Creatinine For GFR 3.88 mg/dL 0.55-1.30 [facility] (Nelly Uribe [facility] Potassium Serum 3.8 meq/L 3.5-5.1 [facility] (Nelly Uribe [facility] Carbon Dioxide Level 18 meq/L 21-32 [facility] (Ludy Uribe [facility] Chloride Level 111 meq/L 98-107 [facility] (Nelly Uribe [facility] Calcium Level 8.2 mg/dL 8.8-10.2 [facility] (Nelly Uribe [facility] Anion Gap 10 meq/L 8-16 [facility] (Nelly joseph [facility] Alt/SGPT 46 U/L 12-78 [facility] (Nelly joseph [facility] Ast/Sgot 33 U/L 7-37 [facility] (Nelly joseph [facility] Bilirubin,Total 0.1 mg/dL 0.2-1.0 [facility] (Nelly Uribe [facility] Total Protein 5.7 GM/DL 6.4-8.2 [facility] (Nelly Uribe [facility] Alkaline Phosphatase 85 U/L 45-117 [facility] (Ludy Uribe [facility] Albumin/Globulin Ratio 0.68 1.00-1.93 [place] [facility] (Nelly Uribe [facility] Albumin 2.3 GM/DL 3.2-5.2 [facility] (Nelly joseph [facility] ID Date Data Source [id number] 06/22/2019 07:54:00 AM EDT [facility] (Nelly Uribe [facility] Name Value Range Interpretation Code Description Data Joellen rce(s) Supporting Document(s) Carcinoembryonic Ag [Mass/volume] in Serum or Plasma 4.2 ng/mL [facility] (Nelly [facility]ribe [facility] THE CEA ASSAY IS PERFORMED ON THE [place] BY CHEMILUMINESCENCE AND SHOULD NOT BE COMPARED INTERCHANGEABLY WITH OTHER METHODS. IT SHOULD NOT BE USED ALONE A SCREENING TEST OR DIAGNOSIS FOR THE PRESENCE OR ABSENCE OF MALIGNANT DISEASE. PREDICTIONS OF DISEASE RECURRENCE SHOULD NOT BE BASED SOLELY ON VALUES OBTAINED FROM SERIAL PATIENT SERUM VALUES. Magnesium [Mass/volume] in Serum or Plasma 1.6 mg/dL 1.8-2.4 [facility] (Nelly Uribe [facility] <content>note:<nlbl:demographic_changed></content>
<content>note:<nlbl:demog raphic_changed></content>
<content></content> ID Date Data Source [id number] 06/01/2019 09:44:00 AM EDT [facility] (Nelly Uribe [facility] Name Value Range Interpretation Code Description Data Joellen rce(s) Supporting Document(s) Packed Cells Laboratory test result [facility] (Nelly Uribe [facility] TRANSFUSED PRODUCT: PACKED CELLS COUNT: 2 ID Date Data Source [id number] 06/01/2019 09:44:00 AM EDT [facility] (Nelly Uribe [facility] Name Value Range Interpretation Code Description Data Joellen rce(s) Supporting Document(s) AB Screen (Indirect Maggie)Vis Laboratory test result [facility] (Nelly Uribe [facility] Blood Type Laboratory test result [facility] (Nelly Uribe [facility] ID Date Data Source [id number] 06/01/2019 07:43:00 AM EDT [facility] (Nelly Uribe [facility] Name Value Range Interpretation Code Description Data Joellen rce(s) Supporting Document(s) Platelets reticulated/100 platelets in Blood by Automated count 2.5 % 0.0-9.59 [facility] (Nelly Uribe [facility] Magnesium [Mass/volume] in Serum or Plasma 1.5 mg/dL 1.8-2.4 [facility] (Nelly Uribe [facility] <content>note:<nlbl:demographic_changed></content>
<content>note:<nlbl:demog raphic_changed></content>
<content></content> Carcinoembryonic Ag [Mass/volume] in Serum or Plasma 4.3 ng/mL [facility] (Nelly [facility]ribe [facility] THE CEA ASSAY IS PERFORMED ON THE [place] BY CHEMILUMINESCENCE AND SHOULD NOT BE COMPARED INTERCHANGEABLY WITH OTHER METHODS. IT SHOULD NOT BE USED ALONE A SCREENING TEST OR DIAGNOSIS FOR THE PRESENCE OR ABSENCE OF MALIGNANT DISEASE. PREDICTIONS OF DISEASE RECURRENCE SHOULD NOT BE BASED SOLELY ON VALUES OBTAINED FROM SERIAL PATIENT SERUM VALUES. ID Date Data Source [id number] 06/01/2019 07:43:00 AM EDT [facility] (Nelly [facility]ribe [facility] Name Value Range Interpretation Code Description Data Joellen rce(s) Supporting Document(s) Lymph % 23.1 % 24.0-44.0 [facility] (Nelly joseph [facility] Neutrophils % 56.3 % 36.0-66.0 [facility] (Nelly Uribe [facility] [place] % 19.2 % 0.0-5.0 [facility] (Nelly joseph [facility] Baso % 0.2 % 0.0-1.0 [facility] (Nelly joseph [facility] Eos % 0.5 % 0.0-3.0 [facility] (Nelly joseph [facility] Lymph # 1.3 10 1.5-5.0 [facility] (Nelly joseph [facility] [place] # 1.1 10 0.0-0.8 [facility] (Nelly joseph [facility] Neutrophils # 3.2 10 1.5-8.5 [facility] (Nelly Uribe [facility] Immature Granulocyte % 0.7 % 0-3.0 [facility] (Nelly Uribe [facility] Eos # 0.0 10 0.0-0.5 [facility] (Nelly joseph [facility] Baso # 0.0 10 0.0-0.2 [facility] (Nelly joseph [facility] ID Date Data Source [id number] 06/01/2019 07:43:00 AM EDT [facility] (Nelly [facility]ribe [facility] Name Value Range Interpretation Code Description Data Joellen rce(s) Supporting Document(s) Red Blood Count 2.27 10 4.00-5.40 [facility] (Nelly [facility] White Blood Count 5.6 10 4.0-10.0 [facility] (Coco Uribe [facility] Hemoglobin 6.8 g/dL 12.0-15.5 Below lower panic limits [facility] (Nelly [facility]ribe [facility] Mean Corpuscular Volume 91.2 fl 80.0-96.0 M [facility] (Nelly Uribe [facility] Hematocrit 20.7 % 36.0-47.0 [facility] (Nelly cha [facility] Mean Corpuscular Hemoglobin 30.0 pg 27.0-33.0 [facility] (Nelly [facility]ribe [facility] Platelet Count, Automated 76 10 150-450 [facility] (Nelly [facility]ribe [facility] Red Cell Distribution Width 15.6 % 11.5-14.5 [facility] (Nelly Uribe [facility] Mean Corpuscular HGB Conc 32.9 g/dL 32.0-36.5 [facility] (Nelly [facility]ribe [facility] Nucleated Red Blood Cell % 0.0 % 0-0 [facility] (Nelly [facility]ribe [facility] ID Date Data Source [id number] 06/01/2019 07:43:00 AM EDT [facility] (Nelly [facility]ribe [facility] Name Value Range Interpretation Code Description Data Joellen rce(s) Supporting Document(s) Blood Urea Nitrogen 26 mg/dL 7-18 [facility] (Archie [facility] Glucose, Fasting 110 mg/dL 70-100 [facility] (Nelly [facility] Creatinine For GFR 2.65 mg/dL 0.55-1.30 [facility] (Nelly [facility]ribe [facility] Sodium Level 138 meq/L 136-145 [facility] (Nelly [facility] Glomerular Filtration Rate 19.1 [facility] (Nelly [facility]ribe [facility] <content>Units are mL/min/1.73 m2</content>
<content></content>
<content>Chronic Kidney Disease Staging per [facility]:</content>
<content></content>
<content>Stage I & II GFR >=60 Normal to Mildly Decreased</content>
<content>Stage III GFR 30- 59 Moderately Decreased</content>
<content>Stage IV GFR 15-29 Severely Decreased</content>
<content>Stage V GFR <15 Very Little GFR Left</content>
<content>ESRD GFR <15 on SENIOR REGULATORY AFFAIRS SPECIALIST</content>
<content></content> Carbon Dioxide Level 25 meq/L 21-32 [facility] (Ludy [facility]ribe [facility] Potassium Serum 4.4 meq/L 3.5-5.1 [facility] (Nelly Uribe [facility] Chloride Level 108 meq/L 98-107 [facility] (Nelly [facility]ribe [facility] Anion Gap 5 meq/L 8-16 [facility] (Nelly joseph [facility] Calcium Level 8.8 mg/dL 8.8-10.2 [facility] (Nelly Uribe [facility] Alt/SGPT 37 U/L 12-78 [facility] (Nelly joseph [facility] Ast/Sgot 22 U/L 7-37 [facility] (Nelly joseph [facility] Bilirubin,Total 0.2 mg/dL 0.2-1.0 [facility] (Nelly Uribe [facility] Total Protein 6.8 GM/DL 6.4-8.2 [facility] (Nelly Uribe [facility] Alkaline Phosphatase 100 U/L 45-117 [facility] (Ludy [facility]ribe [facility] Albumin/Globulin Ratio 0.79 1.00-1.93 [facility] (Nelly Uribe [facility] Albumin 3.0 GM/DL 3.2-5.2 [facility] (Nelly joseph [facility] ID Date Data Source [id number] 05/19/2019 02:02:00 PM EST [facility] (Nelly [facility]ribe [facility] Name Value Range Interpretation Code Description Data Joellen rce(s) Supporting Document(s) Glucose, Fasting 116 mg/dL 70-100 [facility] (Nelly [facility] Creatinine For GFR 2.56 mg/dL 0.55-1.30 [facility] (Nelly [facility]ribe [facility] Blood Urea Nitrogen 52 mg/dL 7-18 [facility] (Archie [facility]ribe [facility] Glomerular Filtration Rate 19.9 [facility] (Nelly [facility]ribe [facility] <content>Units are mL/min/1.73 m2</content>
<content></content>
<content>Chronic Kidney Disease Staging per [facility]:</content>
<content></content>
<content>Stage I & II GFR >=60 Normal to Mildly Decreased</content>
<content>Stage III GFR 30- 59 Moderately Decreased</content>
<content>Stage IV GFR 15-29 Severely Decreased</content>
<content>Stage V GFR <15 Very Little GFR Left</content>
<content>ESRD GFR <15 on SENIOR REGULATORY AFFAIRS SPECIALIST</content>
<content></content> Chloride Level 104 meq/L 98-107 [facility] (Nelly [facility] Sodium Level 133 meq/L 136-145 [facility] ([facility] Potassium Serum 4.7 meq/L 3.5-5.1 [facility] ([facility] Carbon Dioxide Level 23 meq/L 21-32 [facility] ([facility] Calcium Level 8.4 mg/dL 8.8-10.2 [facility] ([facility] Anion Gap 6 meq/L 8-16 [facility] ([facility] ID Date Data Source [id number] 05/17/2019 10:29:00 AM EST [facility] ([facility] Name Value Range Interpretation Code Description Data Joellen rce(s) Supporting Document(s) Carcinoembryonic Ag [Mass/volume] in Serum or Plasma 5.0 ng/mL [facility] ([facility] THE CEA ASSAY IS PERFORMED ON THE [employer] BY CHEMILUMINESCENCE AND SHOULD NOT BE COMPARED INTERCHANGEABLY WITH OTHER METHODS. IT SHOULD NOT BE USED ALONE A SCREENING TEST OR DIAGNOSIS FOR THE PRESENCE OR ABSENCE OF MALIGNANT DISEASE. PREDICTIONS OF DISEASE RECURRENCE SHOULD NOT BE BASED SOLELY ON VALUES OBTAINED FROM SERIAL PATIENT SERUM VALUES. ID Date Data Source [id number] 05/17/2019 10:29:00 AM EST [facility] ([facility] Name Value Range Interpretation Code Description Data Joellen rce(s) Supporting Document(s) Blood Urea Nitrogen 49 mg/dL 7-18 [facility] ([facility] Glucose, Fasting 115 mg/dL 70-100 [facility] ([facility] Creatinine For GFR 2.43 mg/dL 0.55-1.30 [facility] ([facility] Glomerular Filtration Rate 21.1 [facility] ([facility] <content>Units are mL/min/1.73 m2</content>
<content></content>
<content>Chronic Kidney Disease Staging per [facility]:</content>
<content></content>
<content>Stage I & II GFR >=60 Normal to Mildly Decreased</content>
<content>Stage III GFR 30- 59 Moderately Decreased</content>
<content>Stage IV GFR 15-29 Severely Decreased</content>
<content>Stage V GFR <15 Very Little GFR Left</content>
<content>ESRD GFR <15 on SENIOR REGULATORY AFFAIRS SPECIALIST</content>
<content></content> Chloride Level 104 meq/L 98-107 [facility] Potassium Serum 5.0 meq/L 3.5-5.1 [facility] ([facility] Sodium Level 136 meq/L 136-145 [facility] Anion Gap 8 meq/L 8-16 [facility] ([facility] Carbon Dioxide Level 24 meq/L 21-32 [facility] ([facility] Calcium Level 9.0 mg/dL 8.8-10.2 [facility] ([facility] Ast/Sgot 61 U/L 7-37 [facility] ([facility] Bilirubin,Total 0.3 mg/dL 0.2-1.0 [facility] ([facility] Alkaline Phosphatase 102 U/L 45-117 [facility] ([facility] Total Protein 7.3 GM/DL 6.4-8.2 [facility] ([facility] Alt/SGPT 100 U/L 12-78 [facility] ([facility] Albumin/Globulin Ratio 0.74 1.00-1.93 [facility] ([facility] Albumin 3.1 GM/DL 3.2-5.2 [facility] ([facility] ID Date Data Source [id number] 05/17/2019 10:29:00 AM EST [facility] ([facility] Name Value Range Interpretation Code Description Data Joellen rce(s) Supporting Document(s) Neutrophils % 81.1 % 36.0-66.0 [facility] ([facility] Lymph % 13.9 % 24.0-44.0 [facility] ([facility] Baso % 0.0 % 0.0-1.0 [facility] Eos % 0.7 % 0.0-3.0 [facility] ([facility] [place] % 3.8 % 0.0-5.0 [facility] ([facility] Immature Granulocyte % 0.5 % 0-3.0 [facility] ([facility] Neutrophils # 4.9 10 1.5-8.5 [facility] Lymph # 0.8 10 1.5-5.0 [facility] ([facility] Baso # 0.0 10 0.0-0.2 [facility] ([facility] Eos # 0.0 10 0.0-0.5 [facility] ([facility] [place] # 0.2 10 0.0-0.8 [facility] ([facility] ID Date Data Source [id number] 05/17/2019 10:29:00 AM EST [facility] ([facility] Name Value Range Interpretation Code Description Data Joellen rce(s) Supporting Document(s) White Blood Count 6.0 10 4.0-10.0 [facility] ([facility] Red Blood Count 3.03 10 4.00-5.40 [facility] Hematocrit 27.0 % 36.0-47.0 [facility] ([facility] Hemoglobin 8.9 g/dL 12.0-15.5 [facility] ([facility] Mean Corpuscular Hemoglobin 29.4 pg 27.0-33.0 [facility] ([facility] Mean Corpuscular Volume 89.1 fl 80.0-96.0 M [facility] ([facility] Mean Corpuscular HGB Conc 33.0 g/dL 32.0-36.5 [facility] ([facility] Platelet Count, Automated 155 10 150-450 [facility] Red Cell Distribution Width 14.4 % 11.5-14.5 [facility] ([facility] Nucleated Red Blood Cell % 0.0 % 0-0 [facility] ([facility] ID Date Data Source [id number] 04/26/2019 08:01:00 AM EST [facility] ([facility] Name Value Range Interpretation Code Description Data Joellen rce(s) Supporting Document(s) Blood Urea Nitrogen 29 mg/dL 7-18 [facility] ([facility] Glucose, Fasting 133 mg/dL 70-100 [facility] Glomerular Filtration Rate 23.7 [facility] ([facility] <content>Units are mL/min/1.73 m2</content>
<content></content>
<content>Chronic Kidney Disease Staging per [facility]:</content>
<content></content>
<content>Stage I & II GFR >=60 Normal to Mildly Decreased</content>
<content>Stage III GFR 30- 59 Moderately Decreased</content>
<content>Stage IV GFR 15-29 Severely Decreased</content>
<content>Stage V GFR <15 Very Little GFR Left</content>
<content>ESRD GFR <15 on SENIOR REGULATORY AFFAIRS SPECIALIST</content>
<content></content> Creatinine For GFR 2.20 mg/dL 0.55-1.30 [facility] Sodium Level 132 meq/L 136-145 [facility] Potassium Serum 4.5 meq/L 3.5-5.1 [facility] ([facility] Carbon Dioxide Level 31 meq/L 21-32 [facility] ([facility]y [facility] Chloride Level 94 meq/L 98-107 [facility] ([facility] Calcium Level 8.6 mg/dL 8.8-10.2 [facility] ([facility] Anion Gap 7 meq/L 8-16 [facility] ([facility] Ast/Sgot 173 U/L 7-37 [facility] ([facility] Total Protein 7.0 GM/DL 6.4-8.2 [facility] ([facility] Alt/SGPT 204 U/L 12-78 [facility] ([facility] Alkaline Phosphatase 83 U/L 45-117 [facility] ([facility] Bilirubin,Total 0.3 mg/dL 0.2-1.0 [facility] ([facility] Albumin/Globulin Ratio 0.71 1.00-1.93 [facility] ([facility] Albumin 2.9 GM/DL 3.2-5.2 [facility] ([facility] ID Date Data Source [id number] 04/26/2019 08:01:00 AM EST [facility] ([facility] Name Value Range Interpretation Code Description Data Joellen rce(s) Supporting Document(s) Platelets reticulated/100 platelets in Blood by Automated count 3.4 % 0.0-9.59 [facility] ID Date Data Source [id number] 04/26/2019 08:01:00 AM EST [facility] ([facility] Name Value Range Interpretation Code Description Data Joellen rce(s) Supporting Document(s) Neutrophils % 39.4 % 36.0-66.0 [facility] Eos % 2.2 % 0.0-3.0 [facility] ([facility] [place] % 5.6 % 0.0-5.0 [facility] ([facility] Lymph % 52.8 % 24.0-44.0 [facility] ([facility] Baso % 0.0 % 0.0-1.0 [facility] Immature Granulocyte % 0.0 % 0-3.0 [facility] Neutrophils # 0.7 10 1.5-8.5 [facility] Scan Verified machine results [place] # 0.1 10 0.0-0.8 [facility] ([facility] Lymph # 0.9 10 1.5-5.0 [facility] ([facility] Eos # 0.0 10 0.0-0.5 [facility] ([facility] Baso # 0.0 10 0.0-0.2 [facility] ([facility] ID Date Data Source [id number] 04/26/2019 08:01:00 AM EST [facility] ([facility] Name Value Range Interpretation Code Description Data Joellen rce(s) Supporting Document(s) White Blood Count 1.8 10 4.0-10.0 [facility] (Coco [facility] Scan Verified machine results Hemoglobin 8.8 g/dL 12.0-15.5 [facility] ([facility] Red Blood Count 3.05 10 4.00-5.40 [facility] Hematocrit 27.0 % 36.0-47.0 [facility] Mean Corpuscular Hemoglobin 28.9 pg 27.0-33.0 [facility] Mean Corpuscular Volume 88.5 fl 80.0-96.0 M [facility] ([facility] Mean Corpuscular HGB Conc 32.6 g/dL 32.0-36.5 [facility] ([facility] Red Cell Distribution Width 14.3 % 11.5-14.5 [facility] Nucleated Red Blood Cell % 0.0 % 0-0 [facility] ([facility] Platelet Count, Automated 14 10 150-450 Below lower panic jalloh its [facility] ([facility] ID Date Data Source [id number] 04/21/2019 11:18:00 AM EST [facility] ([facility] Name Value Range Interpretation Code Description Data Joellen rce(s) Supporting Document(s) Carcinoembryonic Ag [Mass/volume] in Serum or Plasma 4.3 ng/mL [facility] ([facility] THE CEA ASSAY IS PERFORMED ON THE [place] BY CHEMILUMINESCENCE AND SHOULD NOT BE COMPARED INTERCHANGEABLY WITH OTHER METHODS. IT SHOULD NOT BE USED ALONE A SCREENING TEST OR DIAGNOSIS FOR THE PRESENCE OR ABSENCE OF MALIGNANT DISEASE. PREDICTIONS OF DISEASE RECURRENCE SHOULD NOT BE BASED SOLELY ON VALUES OBTAINED FROM SERIAL PATIENT SERUM VALUES. ID Date Data Source [id number] 04/21/2019 11:18:00 AM EST [facility] ([facility] Name Value Range Interpretation Code Description Data Joellen rce(s) Supporting Document(s) Blood Urea Nitrogen 48 mg/dL 7-18 [facility] ([facility] Glucose, Fasting 131 mg/dL 70-100 [facility] Glomerular Filtration Rate 19.0 [facility] ([facility] <content>Units are mL/min/1.73 m2</content>
<content></content>
<content>Chronic Kidney Disease Staging per [facility]:</content>
<content></content>
<content>Stage I & II GFR >=60 Normal to Mildly Decreased</content>
<content>Stage III GFR 30- 59 Moderately Decreased</content>
<content>Stage IV GFR 15-29 Severely Decreased</content>
<content>Stage V GFR <15 Very Little GFR Left</content>
<content>ESRD GFR <15 on SENIOR REGULATORY AFFAIRS SPECIALIST</content>
<content></content> Creatinine For GFR 2.67 mg/dL 0.55-1.30 [facility] Sodium Level 133 meq/L 136-145 [facility] Chloride Level 96 meq/L 98-107 [facility] Potassium Serum 4.6 meq/L 3.5-5.1 [facility] ([facility] Carbon Dioxide Level 30 meq/L 21-32 [facility] ([facility] Anion Gap 7 meq/L 8-16 [facility] ([facility] Ast/Sgot 41 U/L 7-37 [facility] ([facility] Calcium Level 8.9 mg/dL 8.8-10.2 [facility] ([facility] Alkaline Phosphatase 65 U/L 45-117 [facility] ([facility] Bilirubin,Total 0.4 mg/dL 0.2-1.0 [facility] ([facility] Alt/SGPT 33 U/L 12-78 [facility] ([facility] Total Protein 7.1 GM/DL 6.4-8.2 [facility] ([facility] Albumin 2.8 GM/DL 3.2-5.2 [facility] ([facility] Albumin/Globulin Ratio 0.65 1.00-1.93 [place] [facility] ([facility] ID Date Data Source [id number] 04/21/2019 11:18:00 AM EST [facility] ([facility] Name Value Range Interpretation Code Description Data Joellen rce(s) Supporting Document(s) Neutrophils % 70.4 % 36.0-66.0 [facility] ([facility] Baso % 0.4 % 0.0-1.0 [facility] ([facility] Eos % 0.0 % 0.0-3.0 [facility] ([facility] Lymph % 14.2 % 24.0-44.0 [facility] ([facility] [place] % 8.7 % 0.0-5.0 [facility] ([facility] Immature Granulocyte % 6.3 % 0-3.0 [facility] ([facility] A. Rony[facility] Lymph # 0.4 10 1.5-5.0 [facility] ([facility] Neutrophils # 1.8 10 1.5-8.5 [facility] ([facility] Baso # 0.0 10 0.0-0.2 [facility] ([facility] Eos # 0.0 10 0.0-0.5 [facility] ([facility] [place] # 0.2 10 0.0-0.8 [facility] ([facility] ID Date Data Source [id number] 04/21/2019 11:18:00 AM EST [facility] ([facility] Name Value Range Interpretation Code Description Data Joellen rce(s) Supporting Document(s) White Blood Count 2.5 10 4.0-10.0 [facility] (Coco [facility] Hematocrit 30.7 % 36.0-47.0 [facility] ([facility] Hemoglobin 9.5 g/dL 12.0-15.5 [facility] Red Blood Count 3.35 10 4.00-5.40 [facility] ([facility] Red Cell Distribution Width 14.3 % 11.5-14.5 [facility] ([facility] Mean Corpuscular Hemoglobin 28.4 pg 27.0-33.0 [facility] ([facility] Mean Corpuscular Volume 91.6 fl 80.0-96.0 M [facility] ([facility] Mean Corpuscular HGB Conc 30.9 g/dL 32.0-36.5 [facility] ([facility] Platelet Count, Automated 128 10 150-450 [facility] Nucleated Red Blood Cell % 0.0 % 0-0 [facility] ([facility] ID Date Data Source [id number] 04/13/2019 07:47:00 AM EST [facility] ([facility] Name Value Range Interpretation Code Description Data Joellen rce(s) Supporting Document(s) Red Blood Count 3.51 10 4.00-5.40 [facility] ([facility] White Blood Count 8.6 10 4.0-10.0 [facility] (Coco [facility] Hemoglobin 10.2 g/dL 12.0-15.5 [facility] ([facility] Hematocrit 30.9 % 36.0-47.0 [facility] ([facility] Mean Corpuscular HGB Conc 33.0 g/dL 32.0-36.5 [facility] ([facility] Mean Corpuscular Hemoglobin 29.1 pg 27.0-33.0 [facility] ([facility] Mean Corpuscular Volume 88.0 fl 80.0-96.0 M [facility] ([facility] Platelet Count, Automated 357 10 150-450 [facility] ([facility] Red Cell Distribution Width 14.8 % 11.5-14.5 [facility] ([facility] Nucleated Red Blood Cell % 0.0 % 0-0 [facility] ([facility] ID Date Data Source [id number] 04/13/2019 07:47:00 AM EST [facility] ([facility] Name Value Range Interpretation Code Description Data Joellen rce(s) Supporting Document(s) Lymph % 14.9 % 24.0-44.0 [facility] ([facility] Neutrophils % 66.6 % 36.0-66.0 [facility] ([facility] Baso % 0.2 % 0.0-1.0 [facility] ([facility] [place] % 14.4 % 0.0-5.0 [facility] ([facility] Eos % 0.5 % 0.0-3.0 [facility] ([facility] Immature Granulocyte % 3.4 % 0-3.0 [facility] ([facility] [place] # 1.2 10 0.0-0.8 [facility] ([facility] Neutrophils # 5.7 10 1.5-8.5 [facility] ([facility] Lymph # 1.3 10 1.5-5.0 [facility] ([facility] Baso # 0.0 10 0.0-0.2 [facility] ([facility] Eos # 0.0 10 0.0-0.5 [facility] ([facility] ID Date Data Source [id number] 04/13/2019 07:47:00 AM EST [facility] ([facility] Name Value Range Interpretation Code Description Data Joellen e(s) Supporting Document(s) Glucose, Fasting 97 mg/dL 70-100 [facility] Creatinine For GFR 2.36 mg/dL 0.55-1.30 [facility] Glomerular Filtration Rate 21.9 [facility] ([facility] <content>Units are mL/min/1.73 m2</content>
<content></content>
<content>Chronic Kidney Disease Staging per [facility]:</content>
<content></content>
<content>Stage I & II GFR >=60 Normal to Mildly Decreased</content>
<content>Stage III GFR 30- 59 Moderately Decreased</content>
<content>Stage IV GFR 15-29 Severely Decreased</content>
<content>Stage V GFR <15 Very Little GFR Left</content>
<content>ESRD GFR <15 on SENIOR REGULATORY AFFAIRS SPECIALIST</content>
<content></content> Blood Urea Nitrogen 28 mg/dL 7-18 [facility] Potassium Serum 4.1 meq/L 3.5-5.1 [facility] Sodium Level 136 meq/L 136-145 [facility] Chloride Level 101 meq/L 98-107 [facility] Calcium Level 8.2 mg/dL 8.8-10.2 [facility] ([facility] Carbon Dioxide Level 30 meq/L 21-32 [facility] ([facility] Anion Gap 5 meq/L 8-16 [facility] ([facility] Bilirubin,Total 0.2 mg/dL 0.2-1.0 [facility] ([facility] Alkaline Phosphatase 74 U/L 45-117 [facility] ([facility] Ast/Sgot 22 U/L 7-37 [facility] ([facility] Alt/SGPT 13 U/L 12-78 [facility] ([facility] Total Protein 7.0 GM/DL 6.4-8.2 [facility] ([facility] Albumin/Globulin Ratio 0.63 1.00-1.93 [facility] ([facility] Albumin 2.7 GM/DL 3.2-5.2 [facility] ([facility] ID Date Data Source [id number] 04/13/2019 07:47:00 AM EST [facility] ([facility] Name Value Range Interpretation Code Description Data Joellen rce(s) Supporting Document(s) Magnesium [Mass/volume] in Serum or Plasma 1.2 mg/dL 1.8-2.4 [facility] ([facility] <content>note:<nlbl:demographic_changed></content>
<content>note:<nlbl:demog raphic_changed></content>
<content></content> Carcinoembryonic Ag [Mass/volume] in Serum or Plasma 5.0 ng/mL [facility] THE CEA ASSAY IS PERFORMED ON THE [place] BY CHEMILUMINESCENCE AND SHOULD NOT BE COMPARED INTERCHANGEABLY WITH OTHER METHODS. IT SHOULD NOT BE USED ALONE A SCREENING TEST OR DIAGNOSIS FOR THE PRESENCE OR ABSENCE OF MALIGNANT DISEASE. PREDICTIONS OF DISEASE RECURRENCE SHOULD NOT BE BASED SOLELY ON VALUES OBTAINED FROM SERIAL PATIENT SERUM VALUES. ID Date Data Source [id number] 04/06/2019 09:18:00 AM EST [facility] ([facility] Name Value Range Interpretation Code Description Data Joellen rce(s) Supporting Document(s) AB Screen (Indirect Maggie)Vis NEGATIVE [facility] Blood Type O POSITIVE [facility] ([facility] ID Date Data Source [id number] 04/06/2019 09:18:00 AM EST [facility] ([facility] Name Value Range Interpretation Code Description Data Joellen rce(s) Supporting Document(s) Packed Cells TRANSFUSED PRODU <SEE NOTE> [facility] TRANSFUSED PRODUCT: PACKED CELLS COUNT: 2 ID Date Data Source [id number] 04/06/2019 07:52:00 AM EST [facility] ([facility] Name Value Range Interpretation Code Description Data Joellen rce(s) Supporting Document(s) Glucose, Fasting 119 mg/dL 70-100 [facility] ([facility] Creatinine For GFR 2.39 mg/dL 0.55-1.30 [facility] Glomerular Filtration Rate 21.5 [facility] ([facility] <content>Units are mL/min/1.73 m2</content>
<content></content>
<content>Chronic Kidney Disease Staging per [facility]:</content>
<content></content>
<content>Stage I & II GFR >=60 Normal to Mildly Decreased</content>
<content>Stage III GFR 30- 59 Moderately Decreased</content>
<content>Stage IV GFR 15-29 Severely Decreased</content>
<content>Stage V GFR <15 Very Little GFR Left</content>
<content>ESRD GFR <15 on SENIOR REGULATORY AFFAIRS SPECIALIST</content>
<content></content> Blood Urea Nitrogen 23 mg/dL 7-18 [facility] Potassium Serum 4.0 meq/L 3.5-5.1 [facility] ([facility] Chloride Level 90 meq/L 98-107 [facility] Sodium Level 127 meq/L 136-145 [facility] Calcium Level 7.8 mg/dL 8.8-10.2 [facility] ([facility] Carbon Dioxide Level 28 meq/L 21-32 [facility] ([facility]y [facility] Anion Gap 9 meq/L 8-16 [facility] ([facility] Alt/SGPT 11 U/L 12-78 [facility] ([facility] Alkaline Phosphatase 70 U/L 45-117 [facility] ([facility] Bilirubin,Total 0.3 mg/dL 0.2-1.0 [facility] ([facility] Ast/Sgot 15 U/L 7-37 [facility] ([facility] Albumin 2.8 GM/DL 3.2-5.2 [facility] ([facility] Total Protein 7.1 GM/DL 6.4-8.2 [facility] ([facility] Albumin/Globulin Ratio 0.65 1.00-1.93 [facility] ([facility] ID Date Data Source [id number] 04/06/2019 07:52:00 AM EST [facility] ([facility] Name Value Range Interpretation Code Description Data Joellen rce(s) Supporting Document(s) Magnesium [Mass/volume] in Serum or Plasma 1.0 mg/dL 1.8-2.4 [facility] ([facility] <content>note:<nlbl:demographic_changed> </content>
<content></content> ID Date Data Source [id number] 04/06/2019 07:52:00 AM EST [facility] ([facility] Name Value Range Interpretation Code Description Data Joellen rce(s) Supporting Document(s) Neutrophils % 60.7 % 36.0-66.0 [facility] ([facility] Lymph % 12.8 % 24.0-44.0 [facility] ([facility] Eos % 0.0 % 0.0-3.0 [facility] ([facility] [place] % 25.4 % 0.0-5.0 [facility] ([facility] Baso % 0.0 % 0.0-1.0 [facility] ([facility] Immature Granulocyte % 1.1 % 0-3.0 [facility] ([facility] Neutrophils # 3.2 10 1.5-8.5 [facility] ([facility] Eos # 0.0 10 0.0-0.5 [facility] ([facility] Lymph # 0.7 10 1.5-5.0 [facility] ([facility] [place] # 1.3 10 0.0-0.8 [facility] ([facility] Baso # 0.0 10 0.0-0.2 [facility] ([facility] ID Date Data Source [id number] 04/06/2019 07:52:00 AM EST [facility] ([facility] Name Value Range Interpretation Code Description Data Joellen rce(s) Supporting Document(s) White Blood Count 5.2 10 4.0-10.0 [facility] (Coco n A. Rony, [facility] Red Blood Count 2.58 10 4.00-5.40 [facility] ([facility] Hematocrit 23.3 % 36.0-47.0 [facility] ([facility] Hemoglobin 7.7 g/dL 12.0-15.5 [facility] ([facility] Mean Corpuscular Hemoglobin 29.8 pg 27.0-33.0 [facility] ([facility] Mean Corpuscular HGB Conc 33.0 g/dL 32.0-36.5 [facility] ([facility] Mean Corpuscular Volume 90.3 fl 80.0-96.0 M [facility] ([facility] Nucleated Red Blood Cell % 0.0 % 0-0 [facility] ([facility] Red Cell Distribution Width 12.8 % 11.5-14.5 [facility] ([facility] Platelet Count, Automated 205 10 150-450 [facility] ID Date Data Source [id number] 03/29/2019 02:28:00 PM EST [facility] ([facility] Name Value Range Interpretation Code Description Data Joellen rce(s) Supporting Document(s) PH,Urine RFX 5.0 units 5.0-9.0 [facility] ([facility] Appearance, Urine RFX CLEAR [facility] ( [facility] Color, Urine RFX STRAW [facility] ([facility] Specific [employer] Ur Auto RFX 1.007 1.002-1.035 [facility] ([facility] Protein, Urine Auto RFX NEGATIVE mg/dL [facility] ([facility] Glucose, Urine (Ua) Auto RFX 3+ mg/dL [facility] ([facility] Ketone, Urine Auto RFX NEGATIVE mg/dL [facility] ([facility] Bilirubin, Urine Auto RFX NEGATIVE [facility] NT ([facility] Urobilinogen, Urine Auto RFX 0.2 mg/dL 0.0-2.0 [facility] ([facility] Blood, Urine Blood RFX NEGATIVE [facility] ([facility] Nitrite, Urine Auto RFX NEGATIVE [facility] ([facility] Leukocyte Esterase Ur Auto RFX NEGATIVE [facility] ([facility]rbie [facility] WBC, Urine Auto RFX 1 /HPF 0-3 [facility] ([facility] RBC, Urine Auto RFX 1 /HPF 0-3 [facility] ([facility] Bacteria, Urine Auto RFX 1+ [facility] T ([facility] Squam Epithelial Cell Ur Aurfx 0 /HPF 0-6 [facility] ([facility] Mucus, Urine RFX SMALL [facility] ([facility] Amorphous Sediment RFX SMALL [facility] ([facility] Hyaline Cast, Urine Auto RFX 0 /LPF 0-1 [facility] ([facility] ID Date Data Source [id number] 03/29/2019 02:28:00 PM EST [facility] ([facility] Name Value Range Interpretation Code Description Data Joellen rce(s) Supporting Document(s) Osmolality of Urine 346 MOSM/KG 500-800 [facility] ([facility] <content>UA Indication Kidney Disease</content>
<content>note:<nlbl:demographic_changed></content>
<co ntent>UA Indication Kidney Disease Urine Source: URINE, CLEAN CATCH</content>
<content></content> Sodium [Moles/volume] in Urine 53 meq/L [facility] <content>UA Indication Kidney Disease</content>
<content>note:<nlbl:demographic_changed></content>
<co ntent>UA Indication Kidney Disease Urine Source: URINE, CLEAN CATCH</content>
<content></content> Magnesium [Mass/volume] in Serum or Plasma 1.4 mg/dL 1.8-2.4 [facility] ([facility] <content>note:<nlbl:demographic_changed> </content>
<content></content> Osmolality of Serum or Plasma 257 MOSM/KG 280-301 [facility] ([facility] <content>note:<nlbl:demographic_changed> </content>
<content></content> ID Date Data Source [id number] 03/29/2019 10:13:00 AM EST [facility] ([facility] Name Value Range Interpretation Code Description Data Joellen rce(s) Supporting Document(s) White Blood Count 3.7 10 4.0-10.0 [facility] (Coco [facility] Red Blood Count 2.93 10 4.00-5.40 [facility] ([facility] Hemoglobin 8.9 g/dL 12.0-15.5 [facility] ([facility] Hematocrit 24.7 % 36.0-47.0 [facility] ([facility] Mean Corpuscular HGB Conc 36.0 g/dL 32.0-36.5 [facility] ([facility] Mean Corpuscular Hemoglobin 30.4 pg 27.0-33.0 [facility] ([facility] Mean Corpuscular Volume 84.3 fl 80.0-96.0 M [facility] ([facility] Red Cell Distribution Width 12.2 % 11.5-14.5 [facility] ([facility] Platelet Count, Automated 53 10 150-450 [facility] ([facility] Nucleated Red Blood Cell % 0.0 % 0-0 [facility] ([facility] ID Date Data Source [id number] 03/29/2019 10:13:00 AM EST [facility] ([facility] Name Value Range Interpretation Code Description Data Joellen rce(s) Supporting Document(s) Neutrophils % 68.0 % 36.0-66.0 [facility] ([facility] Eos % 0.0 % 0.0-3.0 [facility] ([facility]oseph [facility] [place] % 2.7 % 0.0-5.0 [facility] ([facility] Lymph % 29.0 % 24.0-44.0 [facility] ([facility] Immature Granulocyte % 0.3 % 0-3.0 [facility] ([facility] Neutrophils # 2.5 10 1.5-8.5 [facility] ([facility] Lymph # 1.1 10 1.5-5.0 [facility] ([facility] Baso % 0.0 % 0.0-1.0 [facility] ([facility] Baso # 0.0 10 0.0-0.2 [facility] ([facility] [place] # 0.1 10 0.0-0.8 [facility] ([facility] Eos # 0.0 10 0.0-0.5 [facility] ([facility] ID Date Data Source [id number] 03/29/2019 10:13:00 AM EST [facility] ([facility] Name Value Range Interpretation Code Description Data Joellen rce(s) Supporting Document(s) Platelets reticulated/100 platelets in Blood by Automated count 1.7 % 0.0-9.59 [facility] ([facility] ID Date Data Source [id number] 03/29/2019 10:13:00 AM EST [facility] ([facility] Name Value Range Interpretation Code Description Data Joellen rce(s) Supporting Document(s) Glucose, Fasting 133 mg/dL 70-100 [facility] ([facility] Blood Urea Nitrogen 58 mg/dL 7-18 [facility] (Archie [facility] Creatinine For GFR 3.51 mg/dL 0.55-1.30 [facility] ([facility] Sodium Level 117 meq/L 136-145 Below lower panic limits [facility] ([facility] Glomerular Filtration Rate 13.8 [facility] ([facility] <content>Units are mL/min/1.73 m2</content>
<content></content>
<content>Chronic Kidney Disease Staging per [facility]:</content>
<content></content>
<content>Stage I & II GFR >=60 Normal to Mildly Decreased</content>
<content>Stage III GFR 30- 59 Moderately Decreased</content>
<content>Stage IV GFR 15-29 Severely Decreased</content>
<content>Stage V GFR <15 Very Little GFR Left</content>
<content>ESRD GFR <15 on S[employer]IOR [employer]FF[employer]IST</content>
<content></content> Potassium Serum 3.2 meq/L 3.5-5.1 [facility] ([facility] Chloride Level 75 meq/L 98-107 [facility] ([facility] Carbon Dioxide Level 28 meq/L 21-32 [facility] (Ludy [facility] Alt/SGPT 22 U/L 12-78 [facility] ([facility] Anion Gap 14 meq/L 8-16 [facility] ([facility] Calcium Level 8.2 mg/dL 8.8-10.2 [facility] ([facility] Ast/Sgot 21 U/L 7-37 [facility] ([facility] Alkaline Phosphatase 82 U/L 45-117 [facility] ([facility] Bilirubin,Total 0.2 mg/dL 0.2-1.0 [facility] ([facility] Total Protein 6.7 GM/DL 6.4-8.2 [facility] ([facility] Albumin 3.2 GM/DL 3.2-5.2 [facility] ([facility] Albumin/Globulin Ratio 0.91 1.00-1.93 [place] [facility] ([facility] ID Date Data Source [id number] 03/29/2019 10:13:00 AM EST [facility] ([facility] Name Value Range Interpretation Code Description Data [facility] Supporting Document(s) Carcinoembryonic Ag [Mass/volume] in Serum or Plasma 4.8 ng/mL [facility] ([facility] THE CEA ASSAY IS PERFORMED ON THE [employer] BY CHEMILUMINESCENCE AND SHOULD NOT BE COMPARED INTERCHANGEABLY WITH OTHER METHODS. IT SHOULD NOT BE USED ALONE A SCREENING TEST OR DIAGNOSIS FOR THE PRESENCE OR ABSENCE OF MALIGNANT DISEASE. PREDICTIONS OF DISEASE RECURRENCE SHOULD NOT BE BASED SOLELY ON VALUES OBTAINED FROM SERIAL PATIENT SERUM VALUES. ID Date Data Source [id number] 03/13/2019 02:34:00 PM EST [facility] ([facility] Name Value Range Interpretation Code Description Data [facility] Supporting Document(s) Carcinoembryonic Ag [Mass/volume] in Serum or Plasma 3.1 ng/mL [facility] ([facility] THE CEA ASSAY IS PERFORMED ON THE [place] CENTAUR BY CHEMILUMINESCENCE AND SHOULD NOT BE COMPARED INTERCHANGEABLY WITH OTHER METHODS. IT SHOULD NOT BE USED ALONE A SCREENING TEST OR DIAGNOSIS FOR THE PRESENCE OR ABSENCE OF MALIGNANT DISEASE. PREDICTIONS OF DISEASE RECURRENCE SHOULD NOT BE BASED SOLELY ON VALUES OBTAINED FROM SERIAL PATIENT SERUM VALUES. ID Date Data Source [id number] 03/13/2019 02:34:00 PM EST [facility] ([facility] Name Value Range Interpretation Code Description Data [facility](s) Supporting Document(s) Glucose, Fasting 125 mg/dL 70-100 [facility] ([facility] Creatinine For GFR 1.46 mg/dL 0.55-1.30 [facility] ([facility] Blood Urea Nitrogen 34 mg/dL 7-18 [facility] ([facility] Glomerular Filtration Rate 38.0 MED E[facility] ([facility] <content>Units are mL/min/1.73 m2</content>
<content></content>
<content>Chronic Kidney Disease Staging per NKF:</content>
<content></content>
<content>Stage I & II GFR >=60 Normal to Mildly Decreased</content>
<content>Stage III GFR 30- 59 Moderately Decreased</content>
<content>Stage IV GFR 15-29 Severely Decreased</content>
<content>Stage V GFR <15 Very Little GFR Left</content>
<content>ESRD GFR <15 on SENIOR REGULATORY AFFAIRS SPECIALIST</content>
<content></content> Sodium Level 131 meq/L 136-145 [facility] ([facility] Potassium Serum 4.2 meq/L 3.5-5.1 [facility] ([facility] Chloride Level 95 meq/L 98-107 [facility] ([facility] Carbon Dioxide Level 28 meq/L 21-32 [facility] ([facility] Anion Gap 8 meq/L 8-16 [facility] ([facility] Calcium Level 8.9 mg/dL 8.8-10.2 [facility] ([facility] Ast/Sgot 22 U/L 7-37 [facility] ([facility] Alt/SGPT 13 U/L 12-78 [facility] ([facility] Total Protein 7.3 GM/DL 6.4-8.2 [facility] ([facility] Alkaline Phosphatase 92 U/L 45-117 [facility] ([facility] Bilirubin,Total 0.5 mg/dL 0.2-1.0 [facility] ([facility] Albumin/Globulin Ratio 0.78 1.00-1.93 ME DENT ([facility] Albumin 3.2 GM/DL 3.2-5.2 [facility] ([facility] ID Date Data Source [id number] 03/13/2019 02:34:00 PM EST [facility] ([facility] Name Value Range Interpretation Code Description Data Joellen rce(s) Supporting Document(s) [place] % 32.5 % 0.0-5.0 [facility] ([facility] Lymph % 21.1 % 24.0-44.0 [facility] ([facility] Neutrophils % 42.9 % 36.0-66.0 [facility] ([facility] Immature Granulocyte % 1.8 % 0-3.0 [facility] ([facility] Eos % 1.3 % 0.0-3.0 [facility] ([facility] Baso % 0.4 % 0.0-1.0 [facility] ([facility] Neutrophils # 3.4 10 1.5-8.5 [facility] ([facility] Lymph # 1.7 10 1.5-5.0 [facility] ([facility] Eos # 0.1 10 0.0-0.5 [facility] ([facility] [place] # 2.6 10 0.0-0.8 [facility] ([facility] Scan Verified machine results Baso # 0.0 10 0.0-0.2 [facility] ([facility] ID Date Data Source [id number] 03/13/2019 02:34:00 PM EST [facility] ([facility] Name Value Range Interpretation Code Description Data Joellen rce(s) Supporting Document(s) White Blood Count 7.9 10 4.0-10.0 [facility] ([facility] Hematocrit 31.8 % 36.0-47.0 [facility] ([facility] Red Blood Count 3.43 10 4.00-5.40 [facility] ([facility] Hemoglobin 10.4 g/dL 12.0-15.5 [facility] ([facility] Mean Corpuscular Volume 92.7 fl 80.0-96.0 M EDENT ([facility] Mean Corpuscular Hemoglobin 30.3 pg 27.0-33.0 [facility] ([facility] Mean Corpuscular HGB Conc 32.7 g/dL 32.0-36.5 [facility] ([facility] Red Cell Distribution Width 13.1 % 11.5-14.5 [facility] ([facility] Nucleated Red Blood Cell % 0.0 % 0-0 MED [facility] ([facility] Platelet Count, Automated 453 10 150-450 [facility] ([facility] ID Date Data Source [id number] 03/13/2019 02:25:00 PM EST [facility] ([facility] Name Value Range Interpretation Code Description Data Joellen rce(s) Supporting Document(s) Respiratory Panel This respiratory <SEE NOTE> [facility] ([facility] This respiratory PCR panel detects Influ soraya A H1, H3 and 2009 H1 viruses, Influenza B virus, Resp iratory syncytial virus, Human metapneumovirus, Parainfluenza virus 1, 2, 3 and 4, Adenovirus, Rhinovirus/Enterovirus, Coronavirus HKU1, NL63, OC43 and 229E, Bordetella pertussis, Mycoplasma pneumoniae and Chlamydia pneumoniae. NEGATIVE by MULTIPLEXED NUCLEIC ACID PCR ID Date Data Source [id number] 02/21/2019 01:45:00 PM EST [facility] ([facility] Name Value Range Interpretation Code Description Data Joellen rce(s) Supporting Document(s) White Blood Count 8.3 10 4.0-10.0 [facility] ([facility] Red Blood Count 4.12 10 4.00-5.40 [facility] ([facility] Hemoglobin 12.5 g/dL 12.0-15.5 [facility] ([facility] Hematocrit 38.1 % 36.0-47.0 [facility] ([facility] Mean Corpuscular Hemoglobin 30.3 pg 27.0-33.0 [facility] ([facility] Mean Corpuscular Volume 92.5 fl 80.0-96.0 M EDENT ([facility] Mean Corpuscular HGB Conc 32.8 g/dL 32.0-36.5 [facility] ([facility] Red Cell Distribution Width 12.8 % 11.5-14.5 [facility] ([facility] Platelet Count, Automated 247 10 150-450 [facility] ([facility] Nucleated Red Blood Cell % 0.0 % 0-0 MED [facility] ([facility] ID Date Data Source [id number] 02/21/2019 01:45:00 PM EST [facility] ([facility] Name Value Range Interpretation Code Description Data Joellen rce(s) Supporting Document(s) Neutrophils % 67.7 % 36.0-66.0 [facility] ([facility] Lymph % 17.2 % 24.0-44.0 [facility] ([facility] Baso % 0.5 % 0.0-1.0 [facility] ([facility] [place] % 13.2 % 0.0-5.0 [facility] ([facility] Eos % 0.8 % 0.0-3.0 [facility] ([facility] Lymph # 1.4 10 1.5-5.0 [facility] ([facility] Immature Granulocyte % 0.6 % 0-3.0 [facility] ([facility] Neutrophils # 5.6 10 1.5-8.5 [facility] ([facility] [place] # 1.1 10 0.0-0.8 [facility] ([facility] Eos # 0.1 10 0.0-0.5 [facility] ([facility] Baso # 0.0 10 0.0-0.2 [facility] ([facility] ID Date Data Source [id number] 02/21/2019 01:45:00 PM EST [facility] ([facility] Name Value Range Interpretation Code Description Data Joellen rce(s) Supporting Document(s) Carcinoembryonic Ag [Mass/volume] in Serum or Plasma 3.2 ng/mL [facility] ([facility] THE CEA ASSAY IS PERFORMED ON THE [place] BY CHEMILUMINESCENCE AND SHOULD NOT BE COMPARED INTERCHANGEABLY WITH OTHER METHODS. IT SHOULD NOT BE USED ALONE A SCREENING TEST OR DIAGNOSIS FOR THE PRESENCE OR ABSENCE OF MALIGNANT DISEASE. PREDICTIONS OF DISEASE RECURRENCE SHOULD NOT BE BASED SOLELY ON VALUES OBTAINED FROM SERIAL PATIENT SERUM VALUES. ID Date Data Source [id number] 02/21/2019 01:45:00 PM EST [facility] ([facility] Name Value Range Interpretation Code Description Data Joellen rce(s) Supporting Document(s) Glucose, Fasting 97 mg/dL 70-100 [facility] ([facility] Blood Urea Nitrogen 12 mg/dL 7-18 [facility] ([facility] Creatinine For GFR 1.23 mg/dL 0.55-1.30 [facility] ([facility] Glomerular Filtration Rate 46.4 MED E[facility] ([facility] <content>Units are mL/min/1.73 m2</content>
<content></content>
<content>Chronic Kidney Disease Staging per NKF:</content>
<content></content>
<content>Stage I & II GFR >=60 Normal to Mildly Decreased</content>
<content>Stage III GFR 30- 59 Moderately Decreased</content>
<content>Stage IV GFR 15-29 Severely Decreased</content>
<content>Stage V GFR <15 Very Little GFR Left</content>
<content>ESRD GFR <15 on SENIOR REGULATORY AFFAIRS SPECIALIST</content>
<content></content> Potassium Serum 4.6 meq/L 3.5-5.1 [facility] ([facility] Sodium Level 129 meq/L 136-145 [facility] ([facility] Chloride Level 94 meq/L 98-107 [facility] ([facility] Calcium Level 9.0 mg/dL 8.8-10.2 [facility] ([facility] Anion Gap 5 meq/L 8-16 [facility] ([facility] Carbon Dioxide Level 30 meq/L 21-32 [facility] ([facility] Alkaline Phosphatase 113 U/L 45-117 [facility] ([facility] Ast/Sgot 18 U/L 7-37 [facility] ([facility] Alt/SGPT 19 U/L 12-78 [facility] ([facility] Total Protein 7.4 GM/DL 6.4-8.2 [facility] ([facility] Bilirubin,Total 0.4 mg/dL 0.2-1.0 [facility] ([facility] Albumin 3.7 GM/DL 3.2-5.2 [facility] ([facility] Albumin/Globulin Ratio 1.00 1.00-1.93 [place] DENT ([facility] ID Date Data Source [id number] 02/21/2019 01:45:00 PM EST [facility] ([facility] Name Value Range Interpretation Code Description Data Joellen rce(s) Supporting Document(s) Magnesium [Mass/volume] in Serum or Plasma 2.0 mg/dL 1.8-2.4 [facility] ([facility] <content>note:<nlbl:demographic_changed> </content>
<content></content> Thyrotropin [Units/volume] in Serum or Plasma 0.971 uIU/ML 0.358-3.74 0 [facility] ([facility] <content>note:<nlbl:demographic_changed> </content>
<content></content> ID Date Data Source [id number] 02/15/2019 12:00:00 AM EST [facility] Alfred Davis MD Patient Name: STUART RUSSELL [facility] Date of : 1950JACKELIN [place] [id number] Date of Exam: 02/15/2019#: Fax: [phone] EXAM: MAMMO SCREENING WITH CADCLINICAL INFORMATION: Screening.TECHNIQUE: 2D and 3D tomosynthesis images were performed for each breast.COMPARISON: 09/17/09.She has no current complaint or personal history of breast cancer. [place] have a history of lung cancer. Family history is a niece at age 41with breast cancer.The [place]para volumetric breast density category is D, the breasts areextremely dense which lowers the sensitivity of mammography.FINDINGS:The breasts are very dense. This limits the sensitivity of mammography.Large coarse calcifications are present, of no clinical significance.Benign arterial calcifications are seen in each breast. No dominantmasses, suspicious cluster of microcalcifications or secondary signs ofmalignancy are seen.The 3D tomosynthesis images show no additional findings.IMPRESSION:BI-RADS Category 2 - Benign Finding(s). No evidence of malignancy. Stableexamination. Recommend followup mammography in one year.This mammogram was read with the assistance of Filomena LEWIS, an FDAapproved computer aided detection system for mammography.Negative x-ray reports should not delay surgical consultation if a dominantor clinically suspicious mass is present.Not all breast cancers can be identified by mammography. Therefore, werecommend that you continue to perform regular breast self-examination andphysical examination and then promptly contact your physician of anyconcerns or changes.Adenosis and dense breasts may obscure an underlying neoplasm.The patient states that a clinical breast examination was over a year ago.Based on the personal and family history information your patient suppliedat the time of imaging, her lifetime risk of breast cancer estimated by theTyrer-Cuzick model is 2.6%. Given that this patient has less than 20% TCrisk score, no further medical management is currently recommended at thistime.Your patient's personal and/or family history of cancer submitted at thetime of imaging is suggestive of a hereditary cancer syndrome. She meetsthe criteria for genetic testing established by [facility] and [employer] guidelines. She should pursue arisk assessment with a hereditary cancer specialist which may includetesting based on these criteria. The benefits and limitations of genetictesting would be discussed, including potential changes to medicalmanagement based on the results. Your patient declined myRisk genetictesting at this time.Paras Julien, JARAD/Jose you for referring KECIA RUSSELL to our office. Electronically Signed - PARAS JULIEN MD 02/15/19 12:42 Name Value Range Interpretation Code Description Data Joellen rce(s) Supporting Document(s) Procedure Social History Code Duration Value Status Description Data Source(s ) Smoking 03/27/2020 12:00:00 AM EST Patient is a former smoker completed Patient is a former smoker [facility] ([facility] Smoking 01/18/2020 12:00:00 AM EST Patient is a former smoker completed Patient is a former smoker [facility] ([facility], ) Vital Signs ID Date Data Source [id number] Name Value Range Interpretation Code Description Data Source(s) Body mass index (BMI) [Ratio] 23.7 kg/m2 23.7 k g/m2 [facility] ([facility] [place] body weight 100 [lb_av] 100 [lb_av] MEDEN T ([facility] Oxygen saturation in Arterial blood by Pulse oximetry 95 % 95 % [facility] ([facility] Body weight 117.38 [lb_av] 117.38 [lb_av] MEDEN T ([facility] Body height 59 [in_i] 59 [in_i] [facility] ([facility] 4'11" Respiratory rate 18 /min 18 /min [facility] ( [facility] Body temperature 96.9 [degF] 96.9 [degF] [facility] ([facility] Heart rate 122 /min 122 /min [facility] ([facility] Diastolic blood pressure 79 mm[Hg] 79 mm[Hg] [facility] ([facility] recheck Systolic blood pressure 143 mm[Hg] 143 mm[Hg] M EDENT ([facility] recheck Diastolic blood pressure 95 mm[Hg] 95 mm[Hg] [facility] ([facility] Systolic blood pressure 149 mm[Hg] 149 mm[Hg] M EDENT ([facility] Body surface area Derived from formula 1.45 m2 1.45 m2 [facility] ([facility]) Body weight 52.618 kg 52.618 kg [facility] ([facility]) [place] body weight 100 [lb_av] 100 [lb_av] [facility] Body mass index (BMI) [Ratio] 23.8 kg/m2 23.8 k g/m2 [facility] ([facility]) Body weight 116.00 [lb_av] 116.00 [lb_av] [facility] Body height 58.5 [in_i] 58.5 [in_i] [facility] ([facility]) 4'10.50" Diastolic blood pressure 71 mm[Hg] 71 mm[Hg] [facility] ([facility]) Systolic blood pressure 106 mm[Hg] 106 [facility]] [facility] Respiratory rate 22 /min 22 /min [facility] ( [facility] Body temperature 97.5 [degF] 97.5 [degF] [facility] ([facility] Heart rate 125 /min 125 /min [facility] ([facility] Diastolic blood pressure 84 mm[Hg] 84 mm[Hg] [facility] ([facility] Systolic blood pressure 127 mm[Hg] 127 mm[Hg] [facility] Body mass index (BMI) [Ratio] 23.4 kg/m2 23.4 k g/m2 [facility] ([facility] [place] body weight 100 [lb_av] 100 [lb_av] MEDEN T ([facility] Oxygen saturation in Arterial blood by Pulse oximetry 90 % 90 % [facility] ([facility] 2L oxygen Body weight 116.00 [lb_av] 116.00 [lb_av] MEDEN T ([facility] Body height 59 [in_i] 59 [in_i] [facility] 4'11" Body surface area Derived from formula 1.44 m2 1.44 m2 [facility], [facility] Body weight 51.030 kg 51.030 [facility], ) [place] body weight 100 [lb_av] 100 [lb_av] MEDEN T ([facility]) Body mass index (BMI) [Ratio] 23.1 kg/m2 23.1 k g/m2 [facility] ([facility]) Diastolic blood pressure 56 mm[Hg] 56 mm[Hg] [facility] ([facility], ) Systolic blood pressure 122 mm[Hg] 122 mm[Hg] [facility] Body weight 112.50 [lb_av] 112.50 [lb_av] MEDEN T ([facility]) Body height 58.5 [in_i] 58.5 [in_i] [facility] ([facility]) 4'10.50" Body mass index (BMI) [Ratio] 23.4 kg/m2 23.4 k g/m2 [facility] ([facility] [place] body weight 100 [lb_av] 100 [lb_av] MEDEN T ([facility] Oxygen saturation in Arterial blood by Pulse oximetry 97 % 97 % [facility] ([facility] 02 2L Body weight 116.00 [lb_av] 116.00 [lb_av] MEDEN T ([facility] Body height 59 [in_i] 59 [in_i] [facility] ([facility] 4'11" Respiratory rate 20 /min 20 /min [facility] ( [facility] Body temperature 96.8 [degF] 96.8 [degF] [facility] ([facility] Heart rate 112 /min 112 /min [facility] Diastolic blood pressure 71 mm[Hg] 71 mm[Hg] [facility] Systolic blood pressure 140 mm[Hg] 140 mm[Hg] [facility] Body weight 50.803 kg 50.803 [facility] [place] body weight 100 [lb_av] 100 [lb_av] MEDEN T ([facility]) Body mass index (BMI) [Ratio] 23.0 kg/m2 23.0 k g/m2 [facility] ([facility]) Body weight 112.00 [lb_av] 112.00 [lb_av] MED[facility] T ([facility]) Body height 58.5 [in_i] 58.5 [in_i] [facility] ([facility]) 4'10.50" Oxygen saturation in Arterial blood by Pulse oximetry 982 % 982 % [facility] ([facility]) 90 2L Heart rate 103 /min 103 /min [facility] ([facility]) Diastolic blood pressure 70 mm[Hg] 70 mm[Hg] [facility] ([facility]) Systolic blood pressure 114 mm[Hg] 114 mm[Hg] [facility] ([facility]) Body weight 52.618 kg 52.618 kg [facility] ([facility]) [place] body weight 100 [lb_av] 100 [lb_av] MEDEN T ([facility]) Body mass index (BMI) [Ratio] 23.8 kg/m2 23.8 k g/m2 [facility] ([facility]) Body weight 116.00 [lb_av] 116.00 [lb_av] MED[facility] T ([facility]) Body height 58.5 [in_i] 58.5 [in_i] [facility] ([facility]) 4'10.50" Diastolic blood pressure 70 mm[Hg] 70 mm[Hg] [facility] ([facility]) right arm Systolic blood pressure 142 mm[Hg] 142 mm[Hg] [facility] ([facility]) right arm Body mass index (BMI) [Ratio] 21.9 kg/m2 21.9 k g/m2 [facility] [place] body weight 100 [lb_av] 100 [lb_av] MED[facility] T ([facility] Oxygen saturation in Arterial blood by Pulse oximetry 82 % 82 % [facility] Body weight 108.56 [lb_av] 108.56 [lb_av] MED[facility] T ([facility] Body height 59 [in_i] 59 [in_i] [facility] 4'11" Respiratory rate 20 /min 20 /min [facility] ( [facility] Body temperature 98.8 [degF] 98.8 [degF] [facility] Heart rate 111 /min 111 /min [facility] ([facility] Diastolic blood pressure 72 mm[Hg] 72 mm[Hg] [facility] ([facility] Systolic blood pressure 132 mm[Hg] 132 mm[Hg] [facility] ([facility] Diastolic blood pressure 73 mm[Hg] 73 mm[Hg] [facility] ([facility] Systolic blood pressure 151 mm[Hg] 151 mm[Hg] [facility] ([facility] Body weight 48.082 kg 48.082 kg [facility] ([facility]) Body mass index (BMI) [Ratio] 21.8 kg/m2 21.8 k g/m2 [facility] ([facility]) Body weight 106.00 [lb_av] 106.00 [lb_av] MED[facility] T ([facility]) Body height 58.5 [in_i] 58.5 [in_i] [facility] ([facility]) 4'10.50" Diastolic blood pressure 72 mm[Hg] 72 mm[Hg] [facility] ([facility]) Systolic blood pressure 110 mm[Hg] 110 mm[Hg] [facility] ([facility]) [place] body weight 100 [lb_av] 100 [lb_av] MED[facility] T ([facility] Oxygen saturation in Arterial blood by Pulse oximetry 82 % 82 % [facility] ([facility] Body height 59 [in_i] 59 [in_i] [facility] ([facility] 4'11" Respiratory rate 24 /min 24 /min [facility] ( [facility] Body temperature 97.3 [degF] 97.3 [degF] [facility] ([facility] Heart rate 134 /min 134 /min [facility] ([facility] Diastolic blood pressure 69 mm[Hg] 69 mm[Hg] [facility] ([facility] Systolic blood pressure 133 mm[Hg] 133 mm[Hg] [facility] Body weight 49.442 kg 49.442 kg [facility] ([facility]) Body mass index (BMI) [Ratio] 22.4 kg/m2 22.4 k g/m2 [facility] ([facility]) Body weight 109.00 [lb_av] 109.00 [lb_av] MED[facility] T ([facility]) Body height 58.5 [in_i] 58.5 [in_i] [facility] ([facility]) 4'10.50" Oxygen saturation in Arterial blood by Pulse oximetry 952 % 952 % [facility] ([facility]) Heart rate 119 /min 119 /min [facility] ([facility]) Diastolic blood pressure 70 mm[Hg] 70 mm[Hg] [facility] ([facility]) Systolic blood pressure 108 mm[Hg] 108 mm[Hg] [facility] Body mass index (BMI) [Ratio] 21.2 kg/m2 21.2 k g/m2 [facility] Body height 59 [in_i] 59 [in_i] [facility] ([facility]) 4'11" Body weight 105.00 [lb_av] 105.00 [lb_av] MEDEN T ([facility]) Body temperature 99.1 [degF] 99.1 [degF] [facility] ([facility]) Oxygen saturation in Arterial blood by Pulse oximetry 92 % 92 % [facility] ([facility], [facility]) Respiratory rate 19 /min 19 /min [facility] ( [facility], [facility]) Heart rate 121 /min 121 /min [facility] ([facility], [facility]) Diastolic blood pressure 70 mm[Hg] 70 mm[Hg] [facility] ([facility], [facility]) Systolic blood pressure 100 mm[Hg] 100 mm[Hg] M EDENT ([facility]) Body mass index (BMI) [Ratio] 21.4 kg/m2 21.4 k g/m2 MEDENT ([facility] Oxygen saturation in Arterial blood by Pulse oximetry 97 % 97 % MEDENT ([facility] Body weight 106.00 [lb_av] 106.00 [lb_av] MEDEN T ([facility] with shoes and layers Body height 59 [in_i] 59 [in_i] MEDENT ([facility] 4'11" Respiratory rate 16 /min 16 /min MEDENT ( [facility] Body temperature 97.8 [degF] 97.8 [degF] MEDENT ([facility] Heart rate 117 /min 117 /min MEDENT ([facility] Diastolic blood pressure 74 mm[Hg] 74 mm[Hg] MEDENT ([facility] Systolic blood pressure 131 mm[Hg] 131 mm[Hg] M EDENT ([facility] Body weight 51.710 kg 51.710 kg MEDENT ([facility], ) Body mass index (BMI) [Ratio] 23.4 kg/m2 23.4 k g/m2 LEANN ([facility], ) Body weight 114.00 [lb_av] 114.00 [lb_av] ISABEL Gamble ([facility], ) Body height 58.5 [in_i] 58.5 [in_i] [facility] ([facility], ) 4'10.50" Oxygen saturation in Arterial blood by Pulse oximetry 79 % 79 % [facility] ([facility], ) 93 2L Heart rate 80 /min 80 /min [facility] ([facility], ) Diastolic blood pressure 80 mm[Hg] 80 mm[Hg] LEANN ([facility], ) Systolic blood pressure 140 mm[Hg] 140 mm[Hg] Verónica MELO ([facility], )
[2020-04-04] MEDS ORDERED: ALBUTEROL SULFATE 2.5 MG/0.5 ML INH NEB SOLN NEB ONE (08:30)
[2020-04-04] MEDS ORDERED: LIDOCAINE 1% MDV 20ML VIAL XX ONE (08:30)
[2020-04-04] MEDS ORDERED: ROPIvacaine 0.5% 30ML INJECTION (J2795 PER 1MG) XX ONE (08:30)
[2020-04-04] MEDS ORDERED: HEPARIN SOD (PORCINE) 5000UNITS/ML 1ML VIAL/SYRINGE As Ordered ONE (09:22)
[2020-04-04] MEDS ORDERED: MIDAZOLAM INJ 2MG/2ML VIAL (J2250 PER 1MG) As Ordered ONE (09:50)
[2020-04-04] MEDS ORDERED: fentaNYL 100 MCG/2 ML INJECTION (J3010) As Ordered ONE (09:50)
[2020-04-04] MEDS ORDERED: ONDANSETRON 4MG/2ML VIAL As Ordered ONE (09:50)
[2020-04-04] MEDS ORDERED: propofoL 200 MG/20 ML VIAL As Ordered ONE (09:50)
[2020-04-04] MEDS ORDERED: ePHEDrine SULFATE 25 MG/5 ML(5MG/ML) SYRINGE As Ordered ONE (09:51)
[2020-04-04] MEDS ORDERED: PHENYLephrine 500MCG 5ML (100MCG/ML) SYRINGE As Ordered ONE (10:00)
[2020-04-04] MEDS ORDERED: PHENYLEPHRINE 10MG/ML 1ML VIAL (J2370 PER 1) As Ordered ONE (10:16)
--- NOTE | 2020-04-04 12:09 | ROOPDOC ---
[facility] Report Of Operation Report of Operation DATE OF PROCEDURE: 04/04/20 PREPROCEDURE DIAGNOSES: 1. End stage renal disease with failed left brachial cephalic AVF 2. Atherosclerosis in the [place] arteries left upper extremity POSTPROCEDURE DIAGNOSES: Same PROCEDURE: 1. Left brachial and ulnar artery endarterectomy with Xenosure patch angioplasty 2. Ligation left brachiocephalic AV fistula 3. Creation new left ulnar artery to basilic vein AV fistula SURGEON: Donald Christianson MD ANESTHESIA: Monitored anesthesia care and left upper extremity nerve block INDICATION FOR PROCEDURE: Ms. Arellano is a very pleasant 69-year-old patient with end-stage renal disease and diminutive bilateral upper extremity arterial system with significant plaque in atherosclerosis due to hyperlipidemia and long- standing tobacco abuse. She had early failure of a brachiocephalic AV fistula on the left. I suspect this is partially due to the poor quality of her veins, but also partially due to the arterial disease in her left upper extremity. Postoperatively, she noticed that her hand was cooler. The patient checks her oxygen saturation at home with a digital pulse ox because she is on home oxygen, and says that the difference in readings is significant between the left and the right. Therefore, we had a long discussion about the complicated nature of her AV access. Unfortunately, there is no guarantee that we can provide her an upper extremity AV access without causing some type of further arterial insufficiency in addition to her baseline arterial disease. I filled the safest thing to do is try to restore arterial perfusion to the left upper extremity first, then do a brachial or more distal basilic AV fistula if the perfusion will supported. Risks benefits and alternatives were explained to the patient was agreeable to proceed. Informed consent was obtained. REPORT OF OPERATION: The patient was brought to the OR in stable condition after left upper extremity nerve block was placed by anesthesia. She underwent sedation and received antibiotics without complication. Her left upper extremity was prepped and draped in a sterile fashion. A timeout was performed. The previous transverse incision 1 fingerbreadth distal to the antecubital crease was reopened with the skin knife. Bovie cautery was used to dissected down through the subcutaneous tissue. The basilic vein was identified and skeletonized proximally and distally within the incision. It wasn't suitable size at first glance for fistula creation. We then began the lengthy task of trying to skeletonized the radial artery, ulnar artery, brachial artery as well as the failed cephalic vein fistula. This took a bit of time due to dense scar tissue from recent surgery. Eventually a vessel loop was placed around the proximal brachial artery, the radial artery, and the ulnar artery. We ligated the cephalic vein with silk suture. We then secured the Vesseloops and an arteriotomy was made from the brachial artery onto the ulnar artery. An endarterectomy was performed. Platelet aggregates were noted in near the failed AV fistula as well as at the proximal radial and ulnar artery. Once these were removed, and we loosen the Vesseloops, we had good backbleeding. We noted good bleeding from the brachial artery after endarterectomy with loosening of the Vesseloops. All 3 vessels were flushed with heparinized saline in the Vesseloops were replaced. We then selected a xenosure short patch and closely arteriotomy with the patch in a running fashion with 6-0 Prolene suture. Before the final sutures are placed week flushed inflow and outflow arteries interrogated with heparinized saline. The final sutures are placed and flow was restored in good hemostasis was noted. We had good flow to the hand at this point, and definitely not perfect, but capillary refill was brisk in the hand was warm. This was definitely an improvement from where we started preoperatively. Following this, we felt it was worth trying to make a new AV fistula, and in order to minimize the risk of further diminishing arterial flow to the hand, we felt it might be best to use the ulnar artery as a donor site rather than the brachial artery. We dissected distally a few more centimeters and Vesseloops were placed. An arteriotomy was made in the ulnar artery longitudinally, 5 mm. We suture ligated and divided the left basilic vein distally and easily passed a 3.5 mm, 4 mm, and 4.5 mm dilator through the vein. We felt this would be suitable for anastomosis and we performed an end-to-side anastomosis with 6-0 Prolene. Before the final sutures are placed, we flushed inflow and outflow artery and vein and irrigated with heparinized saline. The final sutures were placed and flow was restored in good hemostasis was noted. There was a good thrill in the fistula and good flow noted on Doppler. There was good flow noted in the ulnar artery distal to the anastomosis as well as in the radial artery after anastomosis with ulnar artery. We had a warm hand as well on exam. It still difficult to palpate a radial pulse, but the patient has a blood pressure of 90 mmHg systolic, so we will check it again once her blood pressure has normalized in recovery. However, capillary refill is less than 1 second in her hand is pink and warm. We irrigated the incision with saline. The deep tissues were approximated with 2-0 Vicryl suture. The deep dermal layer was approximated with interrupted 4-0 Vicryl sutures. The skin was closed with 4-0 subcuticular Monocryl suture. Mastisol and Steri-Strips replace the length of the wound. Dry gauze and Tegad erm was placed as a final dressing. The patient was last awakened anesthesia and taken to recovery in stable condition. ESTIMATED BLOOD LOSS: Approximately 25 mL. COMPLICATIONS: None. PLAN: We will see the patient back in a week to check her perfusion in her incision. She should continue to use a squeeze ball to improve circulation in her right upper extremity. No lifting greater than 5 pounds no strenuous exercise for 2 weeks. It's okay to remove the Tegaderm and the gauze after 48 hours believe the Steri-Strips intact for 7 days. If her incision or her Steri- Strips get wet, she should pat them dry. We appreciate the opportunity to participate in the care of this patient. DONALD CHRISTIANSON MD Apr 04, 2020 12:09
[2020-04-04] MEDS ORDERED: OXYC1TAB23 PO (12:12)
[2020-04-04 13:30] VITALS: BP 101/58
[2020-04-05] MEDS ORDERED: D31000TA2 PO (09:28)
== END 2020-04-04 13:30 | disposition home or self-care (01) ==
LOC: M SDC 07:17
PROVIDERS: ATTEND Surgery Vascular Surgery
DX: T82.590A Other mechanical complication of surgically created arteriovenous fistula, initial encounter (principal); N18.6 End stage renal disease; I70.208 Unspecified atherosclerosis of native arteries of extremities, other extremity; E78.5 Hyperlipidemia, unspecified; I12.0 Hypertensive chronic kidney disease with stage 5 chronic kidney disease or end stage renal disease; J44.9 Chronic obstructive pulmonary disease, unspecified; K21.9 Gastro-esophageal reflux disease without esophagitis; M12.9 Arthropathy, unspecified; R00.0 Tachycardia, unspecified; Z72.0 Tobacco use; Z73.3 Stress, not elsewhere classified; Z79.899 Other long term (current) drug therapy; Z85.118 Personal history of other malignant neoplasm of bronchus and lung; Z88.2 Allergy status to sulfonamides; Z88.6 Allergy status to analgesic agent; Z96.1 Presence of intraocular lens; Z98.41 Cataract extraction status, right eye; Z98.42 Cataract extraction status, left eye; Z98.51 Tubal ligation status; Z99.2 Dependence on renal dialysis
CPT/HCPCS: 35321; 36415; 36821; 37607; 64415; 84132; 88304; C1768; J0690; J1644; J2250; J2370; J2405; J3010

== ENCOUNTER → 2020-05-09 | Outpatient (CLI) | payer MEDICARE, BC, OTHER ==
[~2020-05-09] MED LIST changes: +D31000TA2 PO; -D5W/0.2% SODIUM CHLORIDE 1,000 ML IV ONE; -MIDAZOLAM INJ 2MG/2ML VIAL (J2250 PER 1MG) IV PRN; +OXYC1TAB23 PO; -ceFAZolin SOD 2 GM in IV 1 EA IV ONE; -fentaNYL 100 MCG/2 ML INJECTION (J3010) IV PRN
--- NOTE | 2020-05-09 17:03 | REP ---
INDICATION: LUNG CA, FOLLOW UP. COMPARISON: CT 10/19/2019, 12/19/2018; PET-CT 07/11/2019 TECHNIQUE: Noncontrast scanning through the chest with coronal and sagittal reconstructions provided. FINDINGS: In the medial basal segment of the left lower lobe the spiculated nodule measuring 9 mm on 10/19/2019 in the area of the mass on the original CT 12/19/2018 shows further change. The residual 9 mm component has less solid appearance although its contour is the same and I suspect that this represents some ongoing scarring in that segment. There is some linear stranding to the pleura. Subtle area of the focal of nodular pleural thickening posterior basal segment of the right lower lobe on image 64 is a new finding. Some minor fibrotic changes inferior lingular segment of the left upper lobe at the anterior left lung base as well as the medial basal segment of the right middle lobe and peripherally this subpleural lateral segment right middle lobe with a small pleural based nodule about 4 mm and new. Some mild scarring posteriorly in the left upper lung zone anterior to the major fissure and stable bullous emphysematous changes throughout the mid and upper lung zones. No apical nodule or mass with minimal apical pleural scarring. No pleural effusion, acute infiltrate, calcified pleural plaques or pleural based mass. There are indwelling right and left jugular port catheters terminating in the right atrium. Some atherosclerotic calcifications in the ascending, arch and descending aorta as well as the takeoffs of the great vessels. Some coronary artery calcifications are seen. No cardiomegaly, pericardial thickening or effusion. I do not see change in lymph nodes. There is a 7.7 mm precarinal node which is unchanged. Trace amount of fluid in the superior pericardial recess. The main, right and left pulmonary arteries are prominent centrally suggesting pulmonary artery hypertension, likely on the basis of COPD. No hiatal hernia. No axillary or supraclavicular adenopathy/mass. Bone windows show the sternum, manubrium, medial clavicles, scapulae, portion of the left humeral head included, ribs and spine without compression fracture or destructive lesion. The upper abdomen shows a contracted gallbladder with a small calcified stone within it. Kidneys show some atrophy bilaterally there are cortical calcifications bilaterally. No aortic aneurysm but some calcifications seen. Some periaortic small nodes not felt to be pathologic sized. Visualized portion of pancreas intact. Small bowel and colon loops seen within the upper abdomen on this study were unremarkable. IMPRESSION: 1. Some further decrease in the size of the solid component previously noted mass medial basal segment of the left lower lobe. The 9 mm nodule on the previous CT in October 2019 is now semi solid in appearance there is some linear stranding to the pleura. 2. 2 areas with tiny subpleural nodules in the posterior basal segment right lower lobe and lateral segment right middle lobe are noted. COPD and advanced bullous emphysematous changes as before. No other significant or new findings. 3. No pathologic sized mediastinal or hilar adenopathy. Bilateral indwelling jugular catheters with the tips in the right atrium. 4. Calcified aortic arch, great vessels off the arch, coronary arteries and upper abdominal aorta noted. No aneurysm. 5. Contracted gallbladder with a small calcified stone seen within it. <Electronically signed by Paras Julien > 05/09/20 [id number]
== END ==
LOC: M RAD 16:19
PROVIDERS: ATTEND Internal Medicine Hematology & Oncology
DX: K80.20 Calculus of gallbladder without cholecystitis without obstruction (principal); J44.9 Chronic obstructive pulmonary disease, unspecified; R91.8 Other nonspecific abnormal finding of lung field; C34.32 Malignant neoplasm of lower lobe, left bronchus or lung; I25.84 Coronary atherosclerosis due to calcified coronary lesion

== ENCOUNTER → 2020-09-12 | Outpatient (CLI) | payer MEDICARE, BC, OTHER ==
[~2020-09-12] MED LIST changes: +COVI30VI IM; +VITMTA PO
--- NOTE | 2020-09-12 11:28 | REP ---
INDICATION: LUNG CA COMPARISON: Multiple the latest 05/09/2020 TECHNIQUE: Limited noncontrast enhanced standard helical technique FINDINGS: There is a stable 9 mm sized right paratracheal lymph node. Since no intravenous contrast was administered an accurate assessment of the pulmonary amos in regards to borderline and mildly enlarged lymph nodes cannot be made. The pulmonary amos appear stable. No pleural or pericardial effusions have developed. The imaged osseous structures appear stable. For description of the imaged upper abdomen see abdominal and pelvis CT report made same day. Evaluation of the lung matute shows extensive new abnormal curvilinear, nodular, and somewhat spiculated densities throughout the right lower lobe and also seen in the left lung base as well as in the periphery of the right upper lobe and centrally in the right middle lobe. More subtle new densities are seen in the lingula. Scattered bilateral lower lobe air bronchograms are noted. IMPRESSION: 1. New abnormal lung field opacities as described above. Asymmetric lymphangitic carcinomatosis cannot be ruled out. This could be seen with or without acute pneumonia or even exclusively areas of patchy acute pneumonia which would be somewhat less likely. Clinical correlation is necessary. 2. Other findings and exam limitations as described above. <Electronically signed by Silverio Willis > 09/12/20 [id number]
--- NOTE | 2020-09-12 11:35 | REP ---
INDICATION: LUNG CA. COMPARISON: None. TECHNIQUE: Standard helical technique without intravenous or oral bowel preparatory contrast administration. This causes exam limitations. FINDINGS: Limited evaluation of the liver and spleen show no gross abnormalities. There is cholelithiasis. There are bilateral nonobstructing nephroliths. Limited evaluation of the pancreas and adrenal glands show no gross abnormalities. Limited evaluation of the abdominal aorta and para-aortic regions show no gross abnormalities. Calcific atheromatous changes are seen in the abdominal aorta. Limited evaluation of the bowel loops shows very mild upper and mid descending colon fatty infiltration without significant diverticular changes. There is no evidence of free fluid or free air. There is no evidence of a mass or adenopathy. Bone window technique throughout the exam shows spinal degenerative changes and evidence of bony demineralization. No lytic or blastic osseous lesions are identified. IMPRESSION: 1. Possible mild descending colon diverticulitis/focal colitis as described above. 2. Cholelithiasis and nephrolithiasis as described above. 3. Other findings and exam limitations as described above. <Electronically signed by Silverio Willis > 09/12/20 [id number]
== END ==
LOC: M RAD 10:48
PROVIDERS: ATTEND Internal Medicine Hematology & Oncology
DX: C34.90 Malignant neoplasm of unspecified part of unspecified bronchus or lung (principal)

== ENCOUNTER 2020-09-20 09:37 | Inpatient (IN) | payer MEDICARE, BC, OTHER ==
[2020-09-20] VITALS (12 sets, daily range): BP systolic 79–107; BP diastolic 49–55
[2020-09-20] MEDS ORDERED: LIDO1CRE42 TOP (09:58)
[2020-09-20] MEDS ORDERED: B-12100T2 PO (09:58)
[2020-09-20] MEDS ORDERED: GNP250TA9 PO (09:58)
[2020-09-20] MEDS ORDERED: VITMTA PO (09:58)
[2020-09-20] MEDS ORDERED: MAGN400C PO (09:58)
[2020-09-20] MEDS ORDERED: [UNRECOGNIZED DRUG - CODE] PO (10:01)
--- NOTE | 2020-09-20 10:25 | REP ---
INDICATION: DYSPNEA/COUGH. COMPARISON: 06/26/2019 TECHNIQUE: Portable FINDINGS: The technique utilized in obtaining the radiograph has magnified the cardiac silhouette and accentuated the interstitial markings. There are patchy bibasilar opacities which have increased significantly compared to the prior exam. Additionally, patchy opacities are also seen in the right upper lobe. The cardiomediastinal silhouette is stable. The tip of the MediPort device remains in the superior vena cava status quo. The pleural angles are sharp. There is no significant change in appearance of the osseous structures. IMPRESSION: Patchy opacities, as described above, consistent with bilateral pneumonia. <Electronically signed by Silverio Willis > 09/20/20 [id number]
[2020-09-20] MEDS ORDERED: cefTRIAXone SOD 1 GM in D5W MINI-BAG PLUS 50 ML IV ONE (10:45)
[2020-09-20] MEDS ORDERED: ACETAMINOPHEN 500 MG TAB PO ONE (10:45)
[2020-09-20] MEDS ORDERED: AZITHROMYCIN INJ 500 MG, VIAL MATE ADAPTER 1 EACH in NS 250 ML IV ONE (10:45)
[2020-09-20 10:57] LABS: BASO # 0.1 10^3/uL (0.0-0.2); BASO % 0.4 % (0.0-1.0); EOS % 0.2 % (0.0-3.0); HEMATOCRIT 34.4 % (36.0-47.0); HEMOGLOBIN 10.4 g/dl (12.0-15.5); LYMPH # 0.6 10^3/uL (1.5-5.0); LYMPH % 4.7 % (24.0-44.0); MEAN CORPUSCULAR HEMOGLOBIN 30.8 pg (27.0-33.0); MEAN CORPUSCULAR HGB CONC 30.2 g/dl (32.0-36.5); MEAN CORPUSCULAR VOLUME 101.8 fl (80.0-96.0); MONO # 1.3 10^3/uL (0.0-0.8); MONO % 10.5 % (2.0-8.0); NEUTROPHILS # 10.6 10^3/uL (1.5-8.5); NEUTROPHILS % 83.6 % (36.0-66.0); PLATELET COUNT, AUTOMATED 247 10^3/uL (150-450); RED BLOOD COUNT 3.38 10^6/uL (4.00-5.40); WHITE BLOOD COUNT 12.7 10^3/uL (4.0-10.0)
[2020-09-20 11:33] LABS: RSV AMPLIFICATION NEGATIVE (NEGATIVE)
[2020-09-20 11:38] LABS: ALBUMIN 2.6 GM/DL (3.2-5.2); ALT/SGPT 11 U/L (12-78); BILIRUBIN,DIRECT 0.2 MG/DL (0.0-0.2); BILIRUBIN,TOTAL 0.5 MG/DL (0.2-1.0); BLOOD UREA NITROGEN 22 MG/DL (7-18); CALCIUM LEVEL 8.3 MG/DL (8.8-10.2); CARBON DIOXIDE LEVEL 33 MEQ/L (21-32); CHLORIDE LEVEL 97 MEQ/L (98-107); CK-MB VALUE MASS < 1.0 NG/ML (<3.6); CPK CREATINE PHOSPHOKINASE 30 U/L (26-192); CREATININE FOR GFR 4.62 MG/DL (0.55-1.30); GLUCOSE, FASTING 114 MG/DL (70-100); MB/CK RELATIVE INDEX 3.33 (< OR =4); POTASSIUM SERUM 3.4 MEQ/L (3.5-5.1); SODIUM LEVEL 135 MEQ/L (136-145); THYROID STIMULATING HORMONE 0.717 uIU/ML (0.358-3.740); TOTAL PROTEIN 6.5 GM/DL (6.4-8.2); TROPONIN I < 0.02 NG/ML (< 0.10)
[2020-09-20] MEDS ORDERED: ALBUTEROL 90 MCG/ACT 8GM HFA INHALER INH PRN (12:45)
[2020-09-20] MEDS ORDERED: MOM 30ML SUSPENSION UDC PO PRN (12:45)
[2020-09-20] MEDS ORDERED: ALBUTEROL SULFATE 2.5 MG/0.5 ML INH NEB SOLN NEB PRN (12:45)
[2020-09-20] MEDS ORDERED: MOXIFLOXACIN HCL 400 MG in IV 1 EA IV SCH (12:45)
[2020-09-20] MEDS ORDERED: MAALOX 30 ML SUSP *UDC PO PRN (12:45)
[2020-09-20] MEDS ORDERED: NS 500 ML IV ONE ×2 (12:45→14:25)
[2020-09-20] MEDS ORDERED: POTASSIUM CHLORIDE 10 MEQ SR TABLET PO ONE (13:10)
--- NOTE | 2020-09-20 13:35 | HPEPDOC ---
[facility] Medical History & Physical Date of Admission Sep 20, 2020 Date of Service: Sep 20, 2020 Primary Care Physician: Nelly Uribe MD Attending Physician: DEUCE HUTSON DO History and Physical CHIEF COMPLAINT: Fevers and increased difficulty breathing HISTORY OF PRESENT ILLNESS: Patient is a 69-year-old female who presents to the emergency department today from her oncology office. Patient has a history of lung cancer has been receiving Keytruda. Patient has been feeling more fatigued and having some more increased difficulty breathing for for the past week. Patient has been coughing and bringing up more sputum. Patient states that she has been having fevers off and on for the past few days. Patient had a CT scan performed on September 12 that showed possible worsening of the lung cancer however, the patient was getting worse. Patient was seen by her oncologist today, September 20, 2020 and was found to have a fever and have shortness of breath that was progressing. Patient was sent to the emergency department where chest x-ray showed infiltrates in the bilateral lower lobes. Patient was supposed to receive immunotherapy and chemotherapy today however, because of the fever patient was sent to the emergency department did not receive chemotherapy. Patient received chemotherapy 3 weeks ago. Patient also has a history of end- stage renal disease and is dialyzed on a Wednesday, Wednesday, Wednesday schedule. Patient has dialysis on Wednesday, Wednesday, on weeks where she gets her chemotherapy. Patient says she feels more rundown over the past few days. Patient states that she had a tough time of dialysis yesterday as her blood pressure kept dropping. Patient does not usually have blood pressure around the normal range and she does not carry a diagnosis of hypertension. Patient is on home oxygen at 2 L however, in the emergency department she is on 3 L. Hospitalist were called for admission due to increased hypoxia and pneumonia. PAST MEDICAL HISTORY: 1. Metastatic lung adenocarcinoma, left lower lobe. 2. End-stage renal disease secondary to chemotherapy. PAST SURGICAL HISTORY: 1. Teeth extraction. 2. Cataract surgery. 3. Multiple fistula formations. 4. Tubal ligation in 1980 SOCIAL HISTORY: Patient used to work in a factory. Patient denies smoking, drinking, or illicit drug use. Patient lives at home with her . FAMILY HISTORY: Patient's father and sister both had lung cancer. Patient's brother has diabetes and patient's mother had hypertension and from a CVA ALLERGIES: Please see below. REVIEW OF SYSTEMS: General: Patient reports fevers HEENT: Patient reports some blurry vision when she is walking but none when she is sitting. Patient denies headaches Cardiovascular: Patient denies chest pain Respiratory: Patient reports increase shortness of breath and coughing as above GI: Patient denies abdominal pain, nausea, vomiting, diarrhea : Patient denies increased frequency or pain with urination, patient has report that she does urinate but a very small amount. Extremities: Patient denies swelling or pain in extremities Neurological: Patient denies numbness or tingling in legs Skin: Patient denies any new rashes or lesions. Hematologic: Patient denies any easy bruising. Lymphatic: Patient denies any lumps lumps or bumps in neck, axilla, or groin HOME MEDICATIONS: Please see below. PHYSICAL EXAMINATION: VITAL SIGNS: Temperature 99.7, pulse 99, respiratory rate 24, blood pressure 89/55, pulse oximetry 97% on 3 L of oxygen via nasal cannula General: Alert and oriented female patient who is laying on the stretcher in the emergency department when I walked in the room. Patient had nasal cannula oxygen in place. Patient was answering questions appropriately. Patient did appear tired and ill. Patient did appear to be in mild distress. HEENT: Normocephalic, atraumatic, moist mucous membranes. Neck: No lymphadenopathy or thyromegaly Cardiac: Regular rate and rhythm, no murmurs, normal S1, normal S2 Pulm: Clear to auscultation in the upper lobes bilaterally, crackles heard louder on the right side than the left side on the bases. There was some dullness to percussion of the right base, tympanic to percussion in all the lung matute Abd: Nondistended, nontender to palpation, normal bowel sounds Ext: No edema bilateral lower extremities Neuro: Patient was able to move all four extremities without any difficulty. Patient reported equal sensation to light touch in all four extremities bilaterally Skin: Skin of the head, neck, abdomen, lower extremities, and upper extremities were examined did not show any evidence of rash or other lesions. LABORATORY DATA: See below. IMAGING: Chest x-ray performed on 09/20/2020 was reported to show patchy opacities in the right upper lobe and bibasilar opacities which increased significantly compared to prior exam MICROBIOLOGY: Please see below. ASSESSMENT: Patient is a 69-year-old female who presented to the hospital from her oncology office due to fevers, hypoxia, and shortness of breath with concern for pneumonia. . PLAN: 1. Pneumonia. Patient's chest x-ray does appear to show bibasilar opacities that have increased significantly. With the patient's fevers patient most likely has bacterial pneumonia. Patient received a dose of Rocephin and azithromycin in the emergency department. This will be switched to Zosyn for pseudomonal coverage due to the patient's cancer. MRSA screen has been ordered and if this is positive, then patient will have vancomycin added. If is negative, there is a strong negative predictive value that MRSA is not because of the patient's pneumonia. We will continue to monitor the patient. 2. SIRS/sepsis. Patient was febrile, tachycardic, tachypneic, hypoxic, and hypotensive upon arrival to the emergency department. Patient's lactic acid was 0.9 upon arrival. Patient will receive a 500 cc bolus of normal saline and we will continue to monitor the patient's blood pressure closely. I did speak with the patient's residential appraiser who stated the patient does not usually have any problems with fluid overload. Nephrology is on consult and will possibly dialyze the patient tomorrow. We will continue the antibiotics above. Patient does have a port which has been accessed if the need for vasopressors to arrive. 3. End-stage renal disease. Patient has been dialyzed last 2 days. There does not appear to be any emergent need for dialysis. I did speak with Dr. Cerda the patient's residential appraiser who will see the patient tomorrow. I did discuss the fluid management with her and she agreed with the 500 cc bolus. 4. Hypokalemia. Patient's potassium was 3.4. 10 mEq of potassium will be given to the patient. Will need to monitor potassium closely as she is in end- stage renal disease patient. 5. Lung adenocarcinoma. Patient was due for chemotherapy today but was sent over because of her fevers. We will continue to monitor the patient. 6. DVT prophylaxis subcutaneous heparin 7. CODE STATUS: Full code. Patient did have a DNR status at one point however, she says she signed paperwork to revoke this and would like CPR if the need arises. Disposition: Patient will be admitted to the progressive care unit for further monitoring. I expect the patient to be hospitalized greater than 2 midnights. Addendum after documentation was initially completed and orders placed. Patient's blood pressure continued to remain low with a MAP less than 65. Pat ient did not initially respond to fluid resuscitation and the decision was made to transfer the patient to ICU status. Patient received a 1 L bolus plus about 300 cc in her IV bag for her antibiotics. Patient will be moved directly from the emergency department to the intensive care unit. Levophed drip order has been placed with orders to titrate to a MAP of greater than 65. Vital Signs Vital Signs Date Time Temp Pulse Resp B/P (MAP) Pulse Ox O2 Delivery O2 Flow Rate FiO2 09/20/20 12:45 91 98 09/20/20 12:30 24 89/55 (66) 3.0 09/20/20 12:30 99.7 09/20/20 11:00 Nasal Cannula 97 Laboratory Data Labs 24H Laboratory Tests 2 09/20/20 10:32: Immature Granulocyte % (Auto) 0.6, Neutrophils (%) (Auto) 83.6H, Lymphocytes (%) (Auto) 4.7L, Monocytes (%) (Auto) 10.5H, Eosinophils (%) (Auto) 0.2, Basophils (%) (Auto) 0.4, Neutrophils # (Auto) 10.6H, Lymphocytes # (Auto) 0.6L, Monocytes # (Auto) 1.3H, Eosinophils # (Auto) 0.0, Basophils # (Auto) 0.1, Nucleated Red Blood Cells % (auto) 0.0, Anion Gap 5L, Glomerular Filtration Rate 10.0L, Lactic Acid Level 0.9, Calcium Level 8.3L, Total Bilirubin 0.5, Direct Bilirubin 0.2, Aspartate Amino Transf (AST/SGOT) 16, Alanine Aminotransferase (ALT/SGPT) 11L, Alkaline Phosphatase 63, Total Creatine Kinase 30, Creatine Kinase MB < 1.0, Creatine Kinase MB Relative Index 3.33, Troponin I < 0.02, Total Protein 6.5, Albumin 2.6L, Albumin/Globulin Ratio 0.7L, Thyroid Stimulating Hormone (TSH) 0.717, Thyroxine (T4) 10.0, Coronavirus (COVID-19)(PCR) NEGATIVE, Influenza Type A (RT-PCR) NEGATIVE, Influenza Type B (RT-PCR) NEGATIVE, Respiratory Syncytial Virus (PCR) NEGATIVE CBC/BMP Laboratory Tests 09/20/20 10:32 Microbiology Microbiology 09/20/20 Blood Culture, Received Pending 09/20/20 Blood Culture, Received Pending Home Medications Scheduled Cyanocobalamin (Vitamin B-12) (B-12) 1,000 Mcg Tablet.er, 1,000 MCG PO QWEEK Fluticasone Propion/Salmeterol (Advair Hfa 230-21 Mcg Inhaler) 12 Gm Hfa.aer.ad, 2 PUFF INH DAILY Lidocaine/Prilocaine (Lidocaine-Prilocaine Cream) 2.5%/2.5% Cream..g., 1 APLCT TOP ASDIRECTED 1-2 HOURS BEFORE DIALYSIS Magnesium Oxide (Magnesium) 400 Mg Capsule, 400 MG PO Q2D Multivitamins (Thera M Plus Tablet) 1 Each Tablet, 1 TAB PO DAILY Pembrolizumab (Keytruda) 100 Mg/4 Ml Vial, 100 MG IV QMONTH Sevelamer Carbonate (Renvela) 800 Mg Tablet, 800 MG PO AC Scheduled PRN Albuterol Sulf (Albuterol Sulfate) 2.5 Mg/3 Ml Vial.neb, 2.5 MG NEB Q4H PRN for SHORTNESS OF BREATH Albuterol Sulfate (Proair Hfa) 8.5 Gm Hfa.aer.ad, 2 PUFF INH Q6H PRN for SHORTNESS OF BREATH Allergies Coded Allergies: Sulfa (Sulfonamide Antibiotics) (Verified Allergy, Intermediate, ITCHING /RASH, 03/21/20) naproxen (Verified Allergy, Intermediate, RASH/ITCHING, 03/21/20) A-FIB/CHADSVASC A-FIB History Current/History of A-Fib/PAF?: No DEUCE HUTSON DO Sep 20, 2020 13:35
[2020-09-20] MEDS ORDERED: NOREPINEPHRINE BITARTRATE 16 MG in D5W 484 ML IV SCH (14:40)
--- NOTE | 2020-09-20 17:04 | ECGEPIP ---
[facility] - ED Test Date: 2020-09-20 Pat Name: KECIA RUSSELL Department: Room: - Gender: Female [facility] Att[employer]: hc : 1950 Requested By: Roz Asencio Order Number: [id number] Reading MD: Taran Norris Measurements Intervals [place] Rate: 100 P: 66 [place]: 122 QRS: 51 QRSD: 72 T: 67 QT: 348 QTc: 448 Interpretive Statements Normal sinus rhythm Nonspecific ST-T wave abnormalities Similar to tracing done 12-29-19 Electronically Signed on 09-20-2020 17:04:44 EDT by Taran Norris
[2020-09-20] MEDS: NOREPINEPHRINE BITARTRATE 8 MG in D5W 492 ML IV SCH (18:01)
[2020-09-20] MEDS: (RENVELA) SEVELAMER **CARBONate** 800 MG TAB PO SCH (18:02)
[2020-09-20] MEDS: PIPERACILLIN/TAZOBACTAM SOD 4.5 GM in D5W MINI-BAG PLUS 50 ML IV SCH (21:06)
[2020-09-20] MEDS: HEPARIN SOD (PORCINE) 5000UNITS/ML 1ML VIAL/SYRINGE SC SCH (21:06)
[2020-09-21] VITALS (55 sets, daily range): BP systolic 75–115; BP diastolic 46–59
[2020-09-21 03:14] LABS: HEMATOCRIT 26.8 % (36.0-47.0); MEAN CORPUSCULAR HEMOGLOBIN 30.7 pg (27.0-33.0); MEAN CORPUSCULAR HGB CONC 29.9 g/dl (32.0-36.5); MEAN CORPUSCULAR VOLUME 102.7 fl (80.0-96.0); PLATELET COUNT, AUTOMATED 267 10^3/uL (150-450); RED BLOOD COUNT 2.61 10^6/uL (4.00-5.40)
[2020-09-21 03:44] LABS: CALCIUM LEVEL 8.2 MG/DL (8.8-10.2); CREATININE FOR GFR 5.8 MG/DL (0.55-1.30); GLOMERULAR FILTRATION RATE 7.7 (>45); MAGNESIUM LEVEL 1.9 MG/DL (1.8-2.4); POTASSIUM SERUM 3.6 MEQ/L (3.5-5.1)
[2020-09-21] MEDS: HEPARIN SOD (PORCINE) 5000UNITS/ML 1ML VIAL/SYRINGE SC SCH ×3 (06:13→21:05)
[2020-09-21 06:25] LABS: HEMATOCRIT 27.6 % (36.0-47.0); HEMOGLOBIN 8.1 g/dl (12.0-15.5); MEAN CORPUSCULAR HEMOGLOBIN 29.9 pg (27.0-33.0); MEAN CORPUSCULAR HGB CONC 29.3 g/dl (32.0-36.5); MEAN CORPUSCULAR VOLUME 101.8 fl (80.0-96.0); PLATELET COUNT, AUTOMATED 281 10^3/uL (150-450); RED BLOOD COUNT 2.71 10^6/uL (4.00-5.40)
[2020-09-21 06:43] LABS: CREATININE FOR GFR 6.07 MG/DL (0.55-1.30); GLOMERULAR FILTRATION RATE 7.3 (>45); MAGNESIUM LEVEL 2.1 MG/DL (1.8-2.4); POTASSIUM SERUM 3.5 MEQ/L (3.5-5.1)
[2020-09-21] MEDS: MULTIVITAMINS/MINERALS THERAP 1 TAB PO SCH (07:54)
[2020-09-21] MEDS: (RENVELA) SEVELAMER **CARBONate** 800 MG TAB PO SCH ×3 (07:54→16:47)
[2020-09-21] MEDS: PIPERACILLIN/TAZOBACTAM SOD 4.5 GM in D5W MINI-BAG PLUS 50 ML IV SCH ×2 (07:54→21:04)
--- NOTE | 2020-09-21 11:23 | IPNPDOC ---
Text Note Date of Service The patient was seen on 09/21/20. NOTE Subjective: Patient is a 69-year-old female presented to the emergency depart [facility] on 09/20/2020 from oncology office with a diagnosis of pneumonia with fevers. Patient was found to be septic having hypotension. Patient was on 2 mcg/min of Levophed and had to be increased to 3 mcg/min of Levophed overnight. Patient is currently on 2 mcg/min at this time to maintain a mean arterial pressure at 65. Patient states he is feeling slightly better than yesterday but she is still coughing and bringing up nonbloody sputum. Patient states that she is feeling tired but does not feel like she has had any fevers overnight. Patient says her breathing a bit better. Patient is still on 3 L of oxygen. Review of systems: General: Patient denies fevers HEENT: Patient denies headaches Cardiovascular: Patient denies chest pain Respiratory: Patient reports shortness of breath that is mildly improved and reports cough as above GI: Patient denies abdominal pain, nausea, vomiting, diarrhea : Patient denies increased frequency or pain with urination Extremities: Patient denies swelling or pain in extremities Neurological: Patient denies numbness or tingling in legs Physical exam: Vitals: See below General: Alert and oriented female patient who was laying in the bed when I walked into the room. Patient did not appear to be in any acute distress. HEENT: Normocephalic, atraumatic, moist mucous membranes. Neck: No lymphadenopathy or thyromegaly Cardiac: Regular rate and rhythm, no murmurs, normal S1, normal S2 Pulm: Clear to auscultation the upper lobes bilaterally, crackles heard louder on the right side than the left side bases. There was dullness to percussion on the right base tympanic to percussion all the lung matute Abd: Nondistended, nontender to palpation, normal bowel sounds Ext: No edema bilateral lower extremities Labs: See below Imaging: No new imaging has been performed Assessment/plan: 69-year-old female who presented to the hospital from her oncology office due to fevers, hypoxia, and shortness of breath was diagnosed with pneumonia and sepsis 1. Pneumonia. Patient's chest x-ray did show bibasilar opacities that it increased significantly from prior exams. Patient initially received ceftriaxone and azithromycin however, due to the patient's increased risk due to her cancer and immunotherapy, patient was switched to Zosyn. Vancomycin was not added as her MRSA screen was negative which has a high negative predictive value for MRSA not being the cause of the patient's pneumonia. Patient has a sputum culture ordered which has been collected. We will await the culture results. 2. Sepsis. Patient was febrile, tachycardic, tachypneic, hypoxic, and hypotensive with leukocytosis when the patient arrived. Patient is requiring Levophed in order to maintain her blood pressure of a mean arterial pressure greater than 65. We will continue with the treatment with IV Zosyn at this time. Patient received 1300 cc of fluids which was able to maintain her blood pressure around a map of 65 however, patient is in ESRD patient we do not want to overload her so the decision was made to use vasopressor therapy. 3. End-stage renal disease. Patient will receive dialysis today according to nephrology who I spoke with this morning. The plan is to not remove any fluid. 4. Hypokalemia, resolved. Patient's potassium was 3.4 yesterday. Patient potassium is now within normal range. Patient will be receiving dialysis today. 5. Lung adenocarcinoma. Patient was due for her chemotherapy yesterday however, she did not receive it due to her pneumonia. We will continue to monitor. DVT Prophylaxis: Subcutaneous heparin Disposition: Pending clinical improvement VSRhonda, I+O VSRhonda, I+O Laboratory Tests 09/21/20 03:04 09/21/20 06:02 Vital Signs Date Time Temp Pulse Resp B/P (MAP) Pulse Ox O2 Delivery O2 Flow Rate FiO2 09/21/20 08:30 103 104/50 (68) Nasal Cannula 09/21/20 08:00 3.0 09/21/20 08:00 98.7 18 93 09/20/20 11:00 97 l I&O- Last 24 Hours up to 6 AM 09/21/20 06:00 Intake Total 1850 ml Output Total 0 ml Balance 1850 ml DEUCE HUTSON DO Sep 21, 2020 11:23
[2020-09-21] MEDS: NOREPINEPHRINE BITARTRATE 8 MG in D5W 492 ML IV SCH (16:48)
[2020-09-21] MEDS: ADVAIR HFA 230/21MCG INHALER INH SCH (20:59)
--- NOTE | 2020-09-21 23:38 | CR ---
CONSULTATION DATE: 09/21/2020 REASON FOR CONSULTATION: To assist in the management of end-stage renal disease. HISTORY OF PRESENT ILLNESS: Ms. Arellano is a 69-year-old female who was admitted to [facility] last evening, as she sent to the emergency room from oncology office. The patient has a history of lung cancer and has been receiving chemotherapy with Keytruda. During the week of chemotherapy, she received her dialysis on Wednesday, Wednesday and and then she gets her chemotherapy on Wednesday. This Wednesday, when she went for her chemotherapy, she was found to be hypotensive and was felt to be septic due to which she was sent to the emergency room. A CT scan of the chest was done as an outpatient prior to this, which did raised a suspicion for pneumonia. The patient's blood pressure was quite low and she has been on Levophed since yesterday. A nephrology consultation was requested and the patient is seen this morning. PAST MEDICAL HISTORY: Significant for: 1. Metastatic adenocarcinoma of left lung. 2. End-stage renal disease. 3. Anemia. PAST SURGICAL HISTORY: Significant for cataract surgery, multiple AV fistula surgeries, tubal ligation and teeth extraction. PERSONAL AND SOCIAL HISTORY: The patient is a retired kitchen worker. She denies any smoking, alcohol or drug use. The patient lives at home with her . FAMILY HISTORY: The patient's father and sister both had lung cancer. Her brother has diabetes and mother had hypertension and due to stroke. MEDICATIONS: Her medications include vitamin B12 1000 mcg once a week, Advair inhaler 2 puffs daily, magnesium oxide 400 mg every 2 days, multivitamins one tablet daily, Keytruda 100 mg IV once a month, Renvela 800 mg three times a day with meals and albuterol as needed. ALLERGIES: She has allergy to SULFUR and NAPROSYN. REVIEW OF SYSTEMS: The patient denies any fevers or chills. Ears, nose and throat are unremarkable. Cardiovascular system: Significant for hypotension since yesterday. She has been on pressors. She denies any dyspnea, chest pain or leg edema. Respiratory system: Significant for adenocarcinoma of left lung. She denies any hemoptysis or pleuritic type of chest pain. Gastrointestinal (GI) system is negative for vomiting or diarrhea. Genitourinary () system is negative for dysuria or hematuria. Endocrine system: Negative for diabetes or thyroid problems. Heme/oncological system: Significant for chemotherapy and anemia. Psychosocial system: Negative for depression and anxiety. Neurological system: Negative for seizures or strokes. Skin: Negative for rashes or ulcers. PHYSICAL EXAMINATION: Temperature is 97.2 degrees Fahrenheit, heart is 80 per minute and respiratory rate 17 per minute. Blood pressure at present about 105/59 mmHg and oxygen saturation is 97% on 3 liters oxygen. Head is atraumatic. Ears, nose and throat are unremarkable. Neck is supple and jugular venous distention (JVD) not abnormally elevated. Heart sounds are regular and lungs with slightly diminished breath sounds at bases. Abdomen: Soft and nontender and bowel sounds are normal. Extremities without any cyanosis or clubbing. Neurologically, she is awake, alert and oriented x3. LABORATORY DATA: Today's lab show WBC 11.0, hemoglobin 8.1 and hematocrit 27.6. Platelets 281. Sodium 137, potassium 3.6, Co2 28, BUN 36 and creatinine 5.8, glucose 106 and creatinine of 8.2. PROBLEMS: 1. End-stage renal disease. I have discussed with the patient about her dialysis situation. Apparently, she was dialyzed on Wednesday, Wednesday and this week, which is usual for her in the week of her chemotherapy. She does not wish to have any more dialysis today. We will hold off on dialysis as her volume status is well compensated and electrolytes are stable. 2. Septic shock. Blood pressure has been low and requiring pressors. She has also received IV fluid. She is being treated for possible pneumonia. She remains on Zosyn. 3. Anemia. Her anemia is stable at present and does not need any urgent transfusion. Will consider to transfuse her during dialysis if needed next week. 4. Pneumonia. The patient had a CT scan of chest done recently, which did show some infiltrates. She also has adenocarcinoma of her left lung. She is hypotensive requiring pressors and is currently being treated with Zosyn. Thank you for involving me in the care of Ms. Arellano. I will follow her along with you.
[2020-09-22] VITALS (79 sets, daily range): BP systolic 80–118; BP diastolic 43–59
[2020-09-22 05:05] LABS: HEMATOCRIT 26.1 % (36.0-47.0); MEAN CORPUSCULAR HEMOGLOBIN 30.5 pg (27.0-33.0); MEAN CORPUSCULAR HGB CONC 30.7 g/dl (32.0-36.5); MEAN CORPUSCULAR VOLUME 99.6 fl (80.0-96.0); PLATELET COUNT, AUTOMATED 280 10^3/uL (150-450); RED BLOOD COUNT 2.62 10^6/uL (4.00-5.40); WHITE BLOOD COUNT 8.5 10^3/uL (4.0-10.0)
[2020-09-22] MEDS: HEPARIN SOD (PORCINE) 5000UNITS/ML 1ML VIAL/SYRINGE SC SCH ×3 (05:08→21:12)
[2020-09-22 05:40] LABS: CALCIUM LEVEL 8.3 MG/DL (8.8-10.2); CREATININE FOR GFR 7.23 MG/DL (0.55-1.30); MAGNESIUM LEVEL 2.2 MG/DL (1.8-2.4); POTASSIUM SERUM 3.5 MEQ/L (3.5-5.1)
[2020-09-22] MEDS: ADVAIR HFA 230/21MCG INHALER INH SCH ×2 (07:52→21:00)
[2020-09-22] MEDS: (RENVELA) SEVELAMER **CARBONate** 800 MG TAB PO SCH ×3 (08:05→16:56)
[2020-09-22] MEDS: MULTIVITAMINS/MINERALS THERAP 1 TAB PO SCH (08:05)
[2020-09-22] MEDS: PIPERACILLIN/TAZOBACTAM SOD 4.5 GM in D5W MINI-BAG PLUS 50 ML IV SCH ×2 (08:06→21:12)
[2020-09-22] MEDS ORDERED: DARBEPOETIN 200MCG/0.4ML *DIALYSIS* SYRINGE (J0882 PER 1MCG) IV SCH (08:45)
[2020-09-22] MEDS: MAGNESIUM OXIDE 400MG TAB (MAG-OX) PO SCH (09:10)
--- NOTE | 2020-09-22 11:02 | IPNPDOC ---
Text Note Date of Service The patient was seen on 09/22/20. NOTE Subjective: Patient is a 61-year-old female presented to the emergency depart formerly [facility] on 09/20/2020 from oncology office with a diagnosis of pneumonia and fevers. Patient was started on Levophed 2 days ago. Patient was able to get down to 1 mcg/min yesterday but had to be increased to 2 overnight. Patient's held steady at 2. Patient states she is starting to feel little bit better than when she initially was admitted. Patient is otherwise feeling well today. Review of systems: General: Patient denies fevers HEENT: Patient denies headaches Cardiovascular: Patient denies chest pain Respiratory: Patient reports improved shortness of breath and improved cough GI: Patient denies abdominal pain, nausea, vomiting, diarrhea : Patient denies increased frequency or pain with urination Extremities: Patient denies swelling or pain in extremities Neurological: Patient denies numbness or tingling in legs Physical exam: Vitals: See below General: Alert and oriented female patient who was sitting on the bed when I walked in the room. Patient did not appear to be in any acute distress. Patient had nasal cannula oxygen in place. HEENT: Normocephalic, atraumatic, moist mucous membranes. Neck: No lymphadenopathy or thyromegaly Cardiac: Regular rate and rhythm, no murmurs, normal S1, normal S2 Pulm: Clear to auscultation the upper lobes bilaterally, scattered inspiratory rhonchi heard throughout the lower lung matute. Abd: Nondistended, nontender to palpation, normal bowel sounds Ext: No edema bilateral lower extremities Labs: See below Imaging: No new imaging has been performed. Assessment/plan: Patient is a 69-year-old female who presented to the hospital from her oncology office due to fevers, hypoxia, and shortness of breath and was diagnosed with pneumonia and sepsis. 1. Pneumonia. Patient's chest x-ray did show bibasilar opacities that had increased significantly from prior exam. Patient is currently on Zosyn. MRSA screen was negative which is why vancomycin was not started. Patient is on home oxygen at 2 L but she is currently on 3 L. We will continue the treatment with Levophed and oxygen as well as antibiotics. 2. Sepsis. Patient's blood culture grew back positive for E. coli which is pansensitive. Patient may have a urinary source of infection as well as E. coli is not a usual causative agent for pneumonia. We will continue IV Zosyn at this time. Patient remains on Levophed as above. 3. E. coli bacteremia. Patient's blood culture grew back pansensitive E. coli. We will continue the current treatment with Zosyn at this time. 4. ESRD. Patient did not receive dialysis yesterday and will most likely receive dialysis on Wednesday. 5. Hypokalemia, resolved. Patient's potassium is in the normal range. We will continue to monitor. 6. Lung adenocarcinoma. Patient was due for chemotherapy on 09/20/2020 but she did not receive it due to her pneumonia. We will continue to monitor. DVT Prophylaxis: Subcutaneous heparin Disposition: Pending clinical improvement Rhonda PULIDO, I+O VSRhonda I+O Laboratory Tests 09/22/20 04:55 Vital Signs Date Time Temp Pulse Resp B/P (MAP) Pulse Ox O2 Delivery O2 Flow Rate FiO2 09/22/20 10:10 86 94/51 (65) 09/22/20 08:00 3.0 09/22/20 08:00 98.5 20 96 Nasal Cannula 09/20/20 11:00 97 I&O- Last 24 Hours up to 6 AM 09/22/20 06:00 Intake Total 1451 ml Output Total 200 ml Balance 1251 ml DEUCE HUTSON DO Sep 22, 2020 11:02
--- NOTE | 2020-09-22 13:05 | IPN ---
NEPHROLOGY PROGRESS NOTE DATE: 09/22/2020 SUBJECTIVE: Mrs. Arellano is seen this morning on her bedside. She is in good spirits today. She is still on Levophed due to low blood pressure. She denies any nausea, vomiting, dyspnea or chest pain. PHYSICAL EXAMINATION: Temperature 98.5 degrees Fahrenheit, heart rate 88 per minute, respiratory rate 20 per minute, blood pressure 118/57 mmHg, oxygen saturation 96% on 3 liters oxygen. HEAD: Atraumatic. NECK: Supple and jugular venous distention (JVD) difficult to be assessed. HEART SOUNDS: Regular and without a pericardial friction rub. LUNGS: Bilateral rhonchi and diminished breath sounds at the base. ABDOMEN: Soft and nontender. Bowel sounds are normal. EXTREMITIES: Without any cyanosis or clubbing. NEUROLOGIC: She is awake, alert and at her baseline mentation. LABORATORY DATA: Today's labs show WBC 8.5, hemoglobin 8.0, hematocrit 26.1, platelets 280. Sodium 138, potassium 3.5, BUN 55, creatinine 7.23. PROBLEMS: 1. End-stage renal disease. Patient was last dialyzed on and she declined dialysis yesterday. Her blood pressure has been low. We will plan next dialysis tomorrow. 2. Sepsis. Patient has been hypotensive requiring pressors. Her blood culture did grow Escherichia (E) coli initially and repeat blood cultures have been negative. She remains on intravenous Zosyn at present. 3. Anemia. Her anemia did get worse, most likely related to sepsis. We will give her Aranesp 200 mcg with dialysis next week. At this point, there is no emergent indication for transfusion. 4. Metastatic renal carcinoma of the lung. Patient has been on chemotherapy, which was held due to sepsis. At this point, we will wait until her condition improves.
[2020-09-22] MEDS: NOREPINEPHRINE BITARTRATE 8 MG in D5W 492 ML IV SCH (16:00)
[2020-09-23] VITALS (93 sets, daily range): BP systolic 80–122; BP diastolic 47–65
[2020-09-23 04:57] LABS: HEMATOCRIT 27.7 % (36.0-47.0); HEMOGLOBIN 8.4 g/dl (12.0-15.5); MEAN CORPUSCULAR HEMOGLOBIN 30.1 pg (27.0-33.0); MEAN CORPUSCULAR HGB CONC 30.3 g/dl (32.0-36.5); MEAN CORPUSCULAR VOLUME 99.3 fl (80.0-96.0); PLATELET COUNT, AUTOMATED 358 10^3/uL (150-450); RED BLOOD COUNT 2.79 10^6/uL (4.00-5.40); WHITE BLOOD COUNT 11.4 10^3/uL (4.0-10.0)
[2020-09-23 05:26] LABS: CALCIUM LEVEL 8.4 MG/DL (8.8-10.2); CREATININE FOR GFR 7.84 MG/DL (0.55-1.30); GLOMERULAR FILTRATION RATE 5.5 (>45); MAGNESIUM LEVEL 2.1 MG/DL (1.8-2.4); POTASSIUM SERUM 3.4 MEQ/L (3.5-5.1)
[2020-09-23] MEDS: HEPARIN SOD (PORCINE) 5000UNITS/ML 1ML VIAL/SYRINGE SC SCH ×3 (06:11→21:16)
[2020-09-23] MEDS: ADVAIR HFA 230/21MCG INHALER INH SCH ×2 (07:26→19:42)
[2020-09-23] MEDS: LACTOBACILLUS ACIDOPHILUS CAP (BACID) PO SCH (08:15)
[2020-09-23] MEDS: MULTIVITAMINS/MINERALS THERAP 1 TAB PO SCH (08:15)
[2020-09-23] MEDS: (RENVELA) SEVELAMER **CARBONate** 800 MG TAB PO SCH ×3 (08:15→18:01)
[2020-09-23] MEDS: PIPERACILLIN/TAZOBACTAM SOD 4.5 GM in D5W MINI-BAG PLUS 50 ML IV SCH (08:19)
[2020-09-23] MEDS: KCL 20MEQ in NS 1000ML 1,000 ML IV SCH ×2 (10:49→23:55)
--- NOTE | 2020-09-23 11:05 | IPNPDOC ---
Text Note Date of Service The patient was seen on 09/23/20. NOTE Subjective: Patient is a 69-year-old female who presented to the emergency de partment on 09/20/2020 from oncology office with diagnosis of pneumonia with fevers. Patient has been Levophed for 3 days now. Patient has been able to tolerate some time off but is not able to tolerate long stretches of time. Patient's mean arterial pressures have been about 65 while on 2 micrograms per minute of Levophed. Patient is due for dialysis today. Patient does state that she is feeling better. Review of systems: General: Patient denies fevers HEENT: Patient denies headaches Cardiovascular: Patient denies chest pain Respiratory: Patient reports decreasing shortness of breath and decreasing cough GI: Patient reports loose stools. Patient denies abdominal pain, nausea, vomiting : Patient denies increased frequency or pain with urination Extremities: Patient denies swelling or pain in extremities Neurological: Patient denies numbness or tingling in legs Physical exam: Vitals: See below General: Alert and oriented female patient who was sitting in bed when I walked in the room. Patient did not appear to be in any acute distress. Patient has nasal cannula oxygen in place. HEENT: Normocephalic, atraumatic, moist mucous membranes. Neck: No lymphadenopathy or thyromegaly Cardiac: Regular rate and rhythm, no murmurs, normal S1, normal S2 Pulm: Clear to auscultation the upper lobes bilaterally, scattered inspiratory rhonchi heard throughout the lower lung matute. Abd: Nondistended, nontender to palpation, normal bowel sounds Ext: No edema bilateral lower extremities Labs: See below Imaging: No new imaging has been performed Assessment/plan: 69-year-old female presented to the hospital from oncology office due to fevers, hypoxia, and shortness of breath who was diagnosed with pneumonia and sepsis. 1. Pneumonia. Patient's chest x-ray did show bibasilar opacities that have increased significantly from prior exam. Patient is currently on Zosyn. MRSA screen was negative which is why vancomycin was started. Patient is currently on 3 L of oxygen but she is on 2 at home. We will continue treatment. Patient has begun to have diarrhea. Patient states that she had watery diarrhea on 09/16/2020 prior to admission. Patient did have some soft stools yesterday but says that she had more liquidy stool today. Patient was started on probiotics. Zosyn will be switched to ceftriaxone due to the E. coli being sensitive to ceftriaxone. 2. Sepsis. Patient's blood culture grew back positive E. coli which is pansensitive. Urinary culture appeared contaminated. Patient remains on Levophed and will be started on IV fluids per Dr. Cerda of nephrology who will also perform dialysis today. 3. E. coli bacteremia. Patient's blood cultures grew back pansensitive E. coli. Patient's sputum culture did not show any bacteria. Patient is feeling better at this time. We will look into changing her antibiotics today. 4. Diarrhea. Patient did have a watery bowel movement today. If this continues and she has more than 3 in 24 hours, C. difficile panel will be ordered. Patient has been also placed on probiotics. IV Zosyn does have a 1 in 10 chance of causing diarrhea this may be antibiotic induced diarrhea versus C. difficile. Patient did have a small bump in her white count but does deny abdominal pain today. 5. ESRD. Patient received dialysis today. 6. Hypokalemia. Patient will get a high potassium bath during dialysis today according to her rn gastroenterology. I appreciate Dr. Cerda's help in treating the patient. 7. Lung adenocarcinoma. Patient was due for chemotherapy on 09/20/2020 but did not receive it due to her pneumonia. Continue to monitor. DVT Prophylaxis: Subcutaneous heparin Disposition: Pending clinical improvement VS,Fishbone, I+O VS, Fishbone, I+O Laboratory Tests 09/23/20 04:41 Vital Signs Date Time Temp Pulse Resp B/P (MAP) Pulse Ox O2 Delivery O2 Flow Rate FiO2 09/23/20 09:30 84 95/53 (67) 09/23/20 08:00 97.6 16 94 Nasal Cannula 3.0 09/20/20 11:00 97 I&O- Last 24 Hours up to 6 AM 09/23/20 06:00 Intake Total 1035 ml Output Total 400 ml Balance 635 ml DEUCE HUTSON DO Sep 23, 2020 11:05
[2020-09-23] MEDS: NOREPINEPHRINE BITARTRATE 8 MG in D5W 492 ML IV SCH (12:13)
--- NOTE | 2020-09-23 13:27 | IPN ---
NEPHROLOGY PROGRESS NOTE DATE: 09/23/2020 SUBJECTIVE: Ms. Arellano is seen this morning on her bedside in the Intensive Care Unit. She was off Levophed for a short period of time; however, she is now back on it due to low blood pressure going into the 60s. Patient also reports diarrhea which has been going on for about a week now. She has no nausea or vomiting. She denies any dyspnea or chest pain. PHYSICAL EXAMINATION: Temperature 97.4 degrees Fahrenheit, heart rate 80 per minute and respiratory rate 16 per minute. Blood pressure 98/56 mmHg and oxygen saturation 97% on 3 liters oxygen. Head: Atraumatic. Neck: Supple and JVD not abnormally elevated. Heart: Sounds are regular. Lungs: With bilateral basilar creps. Abdomen: Soft and nontender and bowel sounds are normal. Extremities: Without any cyanosis or clubbing. There is no peripheral edema. Neurologically: She is awake, alert and oriented times 3. LABORATORY DATA: Today's labs show: WBC count 11.4, hemoglobin 8.4, hematocrit 27.7 and platelets 358. Sodium 141, potassium 3.4, BUN 55 and creatinine 7.84. PROBLEMS/PLAN: 1. Hypotension: Her blood pressure remains low and most likely this is related to sepsis with lung infiltrate. She also has diarrhea. I am going to start her on I.V. normal saline at 80 mL per hour. I feel that she may be also somewhat volume depleted due to ongoing diarrhea. She remains on low dose Levophed for now and we will continue to monitor her closely. No fluid will be removed with dialysis today. 2. End-stage renal disease: Patient was last dialyzed on last week and will be dialyzed this afternoon. We will not remove any fluid. 3. Hypokalemia: This is related to ongoing diarrhea. Her appetite is also poor. We will dialyze her with a 4 mEq potassium bath. I am also adding 20 mEq potassium chloride in the I.V. fluid which will help to correct her hypokalemia. 4. Anemia: At this point her anemia is stable and does not need any urgent intervention. She will receive Aranesp 200 mcg. 5. Pneumonia: Patient remains afebrile on antibiotics though her blood pressure is still low. 6. Adenocarcinoma left lung: Patient has been on chronic chemotherapy. Her Keytruda dose was held last week due to low blood pressure.
[2020-09-23] MEDS: cefTRIAXone SOD 2 GM in D5W MINI-BAG PLUS 50 ML IV SCH (18:02)
[2020-09-24] VITALS (47 sets, daily range): BP systolic 83–131; BP diastolic 45–82
[2020-09-24] MEDS: HEPARIN SOD (PORCINE) 5000UNITS/ML 1ML VIAL/SYRINGE SC SCH ×3 (05:04→21:18)
[2020-09-24 05:22] LABS: HEMATOCRIT 25.2 % (36.0-47.0); HEMOGLOBIN 7.5 g/dl (12.0-15.5); MEAN CORPUSCULAR HEMOGLOBIN 30.2 pg (27.0-33.0); MEAN CORPUSCULAR HGB CONC 29.8 g/dl (32.0-36.5); MEAN CORPUSCULAR VOLUME 101.6 fl (80.0-96.0); PLATELET COUNT, AUTOMATED 342 10^3/uL (150-450); RED BLOOD COUNT 2.48 10^6/uL (4.00-5.40); WHITE BLOOD COUNT 10.6 10^3/uL (4.0-10.0)
[2020-09-24 05:56] LABS: CALCIUM LEVEL 7.6 MG/DL (8.8-10.2); CREATININE FOR GFR 3.53 MG/DL (0.55-1.30); GLOMERULAR FILTRATION RATE 13.7 (>45); MAGNESIUM LEVEL 1.7 MG/DL (1.8-2.4); POTASSIUM SERUM 4.3 MEQ/L (3.5-5.1)
[2020-09-24] MEDS: (RENVELA) SEVELAMER **CARBONate** 800 MG TAB PO SCH ×3 (07:30→17:45)
[2020-09-24] MEDS: ADVAIR HFA 230/21MCG INHALER INH SCH ×2 (07:31→19:34)
[2020-09-24] MEDS: MAGNESIUM OXIDE 400MG TAB (MAG-OX) PO SCH (08:04)
[2020-09-24] MEDS: MULTIVITAMINS/MINERALS THERAP 1 TAB PO SCH (08:05)
[2020-09-24] MEDS: LACTOBACILLUS ACIDOPHILUS CAP (BACID) PO SCH (08:05)
[2020-09-24] MEDS ORDERED: SODIUM CHLORIDE 0.9% INJ 10 ML SYR IV PRN (11:05)
[2020-09-24] MEDS: KCL 20MEQ in NS 1000ML 1,000 ML IV SCH ×2 (11:47→19:47)
[2020-09-24] MEDS: SODIUM CHLORIDE 0.9% INJ 10 ML SYR IV SCH (12:25)
--- NOTE | 2020-09-24 13:02 | IPNPDOC ---
Text Note Date of Service The patient was seen on 09/24/20. NOTE Subjective: Patient is a 69-year-old female presented the emergency department on 09/20/2020 from oncology office with diagnosis of pneumonia with fevers. Patient has been on Levophed since admission. Patient was started on IV fluids yesterday by nephrology. Patient states that she is still tired but is feeling slightly better. Patient still coughing and is having some difficulty breathing but these are improving. Patient was off of her Levophed in the evening but had to go back on overnight. Review of systems: General: Patient denies fevers HEENT: Patient denies headaches Cardiovascular: Patient denies chest pain Respiratory: Patient reports improving shortness of breath and cough GI: Patient denies abdominal pain, nausea, vomiting, diarrhea : Patient denies increased frequency or pain with urination Extremities: Patient denies swelling or pain in extremities Neurological: Patient denies numbness or tingling in legs Physical exam: Vitals: See below General: Alert and oriented female patient who was sitting up in bed when I walked in the room. Patient did not appear to be in any acute distress. Nasal cannula oxygen was in place. HEENT: Normocephalic, atraumatic, moist mucous membranes. Neck: No lymphadenopathy or thyromegaly Cardiac: Regular rate and rhythm, no murmurs, normal S1, normal S2 Pulm: Clear to auscultation in the upper lobes bilaterally. Scattered inspiratory rhonchi heard throughout the lower lung matute Abd: Nondistended, nontender to palpation, normal bowel sounds Ext: No edema bilateral lower extremities Labs: See below Imaging: No new imaging has been performed Assessment/plan:69-year-old female present to the hospital from oncology office due to fevers, hypoxia, and shortness of breath was diagnosed pneumonia and s epsis. 1. Pneumonia. Patient's chest x-ray showed bibasilar opacities which had a significantly decreased from prior exams. Patient will switch to ceftriaxone yesterday from Zosyn as the bacteria growing her blood was sensitive to ceftriaxone and the patient was having diarrhea. Patient is currently on 3 L of oxygen. Patient is on 2 to 3 L at home. Continue current treatment. 2. Sepsis. Patient's blood culture grew back positive for E. coli which is pansensitive. Urine culture appeared contaminated. Patient remains on Levophed was started on IV fluids per Dr. Cerda of nephrology. Dialysis performed yesterday. We will trial the patient off Levophed today. If the patient's bloo d pressure is low, Dr. Cerda would like to be contacted as they would try a bolus rather than restarting Levophed. 3. E. coli bacteremia. Patient cultures grew back pansensitive E. coli. Patient sputum culture do not show any bacteria. Patient is feeling better at this time. Piperacillin/tazobactam changed to ceftriaxone yesterday. 4. Diarrhea. Patient had watery bowel movements yesterday but did not have any overnight. Patient is feeling better at this time. C. difficile panel not be ordered at this time. 5. ESRD. Patient received dialysis today. Dr. Cerda is following the patient I appreciate his help treating the patient. 6. Hypokalemia. Patient had dialysis yesterday which fixed the patient's potassium. We will continue to monitor. 7. Lung adenocarcinoma. Due for chemotherapy on 09/20/2020 but did not receive it due to her pneumonia. Continue to monitor. DVT Prophylaxis: Subcutaneous heparin Disposition: Pending clinical improvement VS,Veee, I+O VS, Jose Gbone, I+O Laboratory Tests 09/24/20 04:59 Vital Signs Date Time Temp Pulse Resp B/P (MAP) Pulse Ox O2 Delivery O2 Flow Rate FiO2 09/24/20 12:00 3.0 09/24/20 12:00 122 131/73 (92) 83 09/24/20 08:30 16 09/24/20 08:00 98.6 Nasal Cannula 09/20/20 11:00 97 I&O- Last 24 Hours up to 6 AM 09/24/20 06:00 Intake Total 2472.2 ml Output Total 1150 ml Balance 1322.2 ml DEUCE HUTSON DO Sep 24, 2020 13:02
[2020-09-24 16:08] LABS: BODY FLUID CULTURE Not indicated. (.); ORGANISM ID Not indicated. (.); SPECIMEN SOURCE Urine (.)
--- NOTE | 2020-09-24 16:17 | IPN ---
PROGRESS NOTE DATE: 09/24/2020 SUBJECTIVE: Ms. Arellano is seen this morning on her bedside. She is still feeling weak and continues to have low stools. She is currently off Levophed and blood pressure seems to be stable while she is still on IV normal saline. Yesterday, IV fluid was started due to diarrhea and possible dehydration. She was also dialyzed yesterday without fluid removal. The patient denies any nausea or vomiting. She remains on oxygen 3 liters due to chronic hypoxemia. OBJECTIVE: On physical examination, temperature is 98 degrees Fahrenheit, heart rate 115 per minute and respiratory rate 20 per minute, blood pressure 126/62 mmHg and oxygen saturation 88%. Head is atraumatic. Neck supple. Jugular venous distention (JVD) not abnormally elevated. Heart sounds are somewhat tachycardiac. Lungs with diminished breath sounds and bilateral rhonchi. Abdomen is soft and nontender and bowel sounds are normal. Extremities: Without any cyanosis or clubbing. Skin: Has no rash or ulcers. She has no peripheral edema. Neurologically, she is awake and at her baseline mentation without any focal deficit. LABORATORY DATA: Today's lab show WBC count 10.6, hemoglobin 7.5 an hematocrit 25.2, platelets 342. Sodium 140, potassium 4.3, Co2 24, BUN 14 and creatinine 3.53. Calcium 7.6 and magnesium 1.7. PROBLEMS: 1. Hypotension. Blood pressure seems to improved with IV fluid. She is now off Levophed and I have advised the nursing staff do not resume Levophed unless she receives at least one or two fluid boluses. At this point, will continue with IV fluid, normal saline, at 80 ml per hour. 2. Hyperkalemia. Her potassium level has improved and she is receiving some potassium in the IV fluid. She was also dialyzed with high potassium bath yesterday. I will continue with the same for today and recheck her electrolytes tomorrow. 3. Anemia. Her anemia seems to be multifactorial. She is now receiving IV fluid with possible hemodilution. She has no blood loss. Her labs were drawn from the [id number] with possible contamination as she is also receiving IV fluid. Will check her complete blood count (CBC) again tomorrow and continue transfusion during dialysis. 4. Diarrhea. The patient continues to have loose stools. She does have prior history of Clostridium difficile colitis. I have recommended to check her stools for Clostridium difficile. She is receiving IV fluid with high risk for recurrence of Clostridium difficile colitis. At this point, will continue with IV fluid to prevent dehydration. 5. Adenocarcinoma, left lung. The patient had been on Keytruda as an outpatient. However, her last dose was held due to low blood pressure. She will resume her therapy once she is medically stable after discharge.
[2020-09-24] MEDS: cefTRIAXone SOD 2 GM in D5W MINI-BAG PLUS 50 ML IV SCH (17:45)
[2020-09-24] MEDS: BENZONATATE 100 MG CAP PO PRN (19:43)
[2020-09-24 19:50] LABS: CLOSTRIDIUM DIFFICILE PCR NEGATIVE (NEGATIVE)
[2020-09-25] VITALS (7 sets, daily range): BP systolic 108–128; BP diastolic 56–59
[2020-09-25] MEDS: HEPARIN SOD (PORCINE) 5000UNITS/ML 1ML VIAL/SYRINGE SC SCH ×3 (05:34→22:24)
[2020-09-25 06:11] LABS: HEMATOCRIT 28.2 % (36.0-47.0); HEMOGLOBIN 8.2 g/dl (12.0-15.5); MEAN CORPUSCULAR HEMOGLOBIN 30.1 pg (27.0-33.0); MEAN CORPUSCULAR HGB CONC 29.1 g/dl (32.0-36.5); MEAN CORPUSCULAR VOLUME 103.7 fl (80.0-96.0); PLATELET COUNT, AUTOMATED 401 10^3/uL (150-450); RED BLOOD COUNT 2.72 10^6/uL (4.00-5.40); WHITE BLOOD COUNT 11.6 10^3/uL (4.0-10.0)
[2020-09-25 06:46] LABS: BLOOD UREA NITROGEN 17 MG/DL (7-18); CALCIUM LEVEL 8.2 MG/DL (8.8-10.2); CARBON DIOXIDE LEVEL 19 MEQ/L (21-32); CHLORIDE LEVEL 115 MEQ/L (98-107); CREATININE FOR GFR 4.71 MG/DL (0.55-1.30); GLOMERULAR FILTRATION RATE 9.8 (>45); GLUCOSE, FASTING 102 MG/DL (70-100); MAGNESIUM LEVEL 1.7 MG/DL (1.8-2.4); POTASSIUM SERUM 5.3 MEQ/L (3.5-5.1); SODIUM LEVEL 142 MEQ/L (136-145)
[2020-09-25] MEDS: MULTIVITAMINS/MINERALS THERAP 1 TAB PO SCH (07:47)
[2020-09-25] MEDS: LACTOBACILLUS ACIDOPHILUS CAP (BACID) PO SCH (07:47)
[2020-09-25] MEDS: (RENVELA) SEVELAMER **CARBONate** 800 MG TAB PO SCH ×3 (07:47→17:30)
[2020-09-25] MEDS: SODIUM CHLORIDE 0.9% INJ 10 ML SYR IV SCH (07:51)
[2020-09-25] MEDS: ADVAIR HFA 230/21MCG INHALER INH SCH ×2 (08:14→20:05)
--- NOTE | 2020-09-25 11:58 | IPN ---
PROGRESS NOTE DATE: 09/25/2020 SUBJECTIVE: Mrs. Arellano is seen this morning on her bedside. She has been off Levophed since iphone developer yesterday so it is now more than 24 hours. Her IV fluid has been stopped this morning due to hyperkalemia. The patient is feeling more short of breath today and is also tachycardic. She has no fever or chills. OBJECTIVE: VITAL SIGNS: Temperature is 98.2 degrees Fahrenheit, heart rate is 122 per minute, respiratory rate is 24 per minute, blood pressure is 128/59 mmHg and oxygen saturation 96% with 4 liters of oxygen. HEENT: Head is atraumatic. NECK: Supple. JVD is moderately elevated. LUNGS: Diminished breath sounds and bilateral rales. HEART: Heart sounds are tachycardic. ABDOMEN: Soft and bowel sounds are normal. EXTREMITIES: Without any cyanosis or clubbing. NEUROLOGIC: She is at her baseline mentation without any focal deficit. LABORATORY DATA: Today's labs showed a WBC of 11.6, hemoglobin 8.2 and hematocrit 28.2, platelets are 401,000. Sodium 142, potassium is 5.3, CO2 19, BUN 17 and creatinine 4.71. Glucose is 102 and calcium is 102. Magnesium level is still 1.7. PROBLEMS: 1. Endstage renal disease. Patient is due to dialysis today and will plan to dialyze her this afternoon. 2. Hyperkalemia, this is related to potassium supplement and the IV fluid. This will be corrected with dialysis and no other intervention will be needed. Her IV fluid has already been stopped. 3. Hypoxemia. Her oxygen requirement has increased this morning and she is more short of breath. She has been receiving IV fluid due to low blood pressure. We will try to remove one liter of fluid today with dialysis and see how she tolerates. 4. Anemia, her anemia is chronic and stable. She has been given Aranesp, I do not feel at this point urgent transfusion is needed. 5. Pneumonia, patient remains on antibiotic therapy as she is now on Ceftriaxone 2 grams every 24 hours. She is currently afebrile. I would recommend repeating her chest x-ray today after dialysis.
--- NOTE | 2020-09-25 12:53 | IPNPDOC ---
Text Note Date of Service The patient was seen on 09/25/20. NOTE Subjective: No any acute events overnight. Patient denies fever, chills, az sea, vomiting. Patient was off Levophed for 24 hours. Objective: GENERAL APPEARANCE: NAD HEENT: no scleral icterus, no JVD, EOMI CARDIOVASCULAR: S1S2, tachycardic with heart rate 115 LUNGS: Diminished lung sounds bilaterally ABDOMEN: soft & not tender w palpitation MUSCULOSKELETAL: no cyanosis, no swelling INTEGUMENT: no generalized pallor NEUROLOGICAL: cranial nerve function from 2-12 intact intact, follows commands, speech not dysarthric Assessment and plan Patient 69 years old female with past medical history of end-stage renal disease presented to the hospital with fever and chills. Patient was diagnosed with sepsis secondary to community-acquired pneumonia. Community-acquired pneumonia Continue treatment with ceftriaxone urine antigen positive for Streptococcus pneumonia We will repeat chest x-ray after dialysis Dyspnea/hypoxemia Patient currently on with 3 L of oxygen. Her baseline 2 L. Could be attributed to pneumonia and fluid overload Fluid overload will be corrected with dialysis Sepsis/E. coli bacteremia Resolved Most likely secondary to E. coli bacteremia, on admission patient had pyuria. Also, urine antigen positive for Streptococcus pneumonia. Patient continues to have mild leukocytosis. Leukocytosis could be attributed to lung malignancy as well Continue antibiotic therapy, day 6 Diarrhea Resolved End-stage renal disease Dialysis today Hyperkalemia I stopped IV fluid with potassium Lung adenocarcinoma Follow-up with oncologist in the outpatient settings Macrocytic anemia We will check B12, folate Hemoglobin stable Continue Aranesp per nephrology team VS,Rhonda, I+O VS, Veee, I+O Laboratory Tests 09/25/20 05:58 Vital Signs Date Time Temp Pulse Resp B/P (MAP) Pulse Ox O2 Delivery O2 Flow Rate FiO2 09/25/20 08:00 3.0 09/25/20 08:00 98.2 114 20 128/59 (82) 96 Nasal Cannula 09/20/20 11:00 97 I&O- Last 24 Hours up to 6 AM 09/25/20 06:00 Intake Total 2270 ml Output Total 750 ml Balance 1520 ml LAURYN HARTLEY DO Sep 25, 2020 12:53
[2020-09-25 13:24] LABS: FOLATE > 24.0 NG/ML (>5.4); VITAMIN B12 LEVEL 969 PG/ML (247-911)
--- NOTE | 2020-09-25 15:10 | REP ---
INDICATION: Pneumonia-AFTER HD. COMPARISON: Comparison chest x-ray September 20, 2020.. TECHNIQUE: Upright portable AP chest radiograph. FINDINGS: Right-sided [id number] catheter remains in place. EKG electrodes are seen. For there is blunting of the pleural angles bilaterally indicating small bilateral effusions. In addition, there is are bilateral lower lobe interstitial infiltrates, right more extensive than left. There is increased consolidation bilaterally in the bases when compared with the September 20, 2020 study. Heart is not felt to be enlarged. Pulmonary vasculature does not appear to be increased. IMPRESSION: Radiographically progressive bibasilar infiltrates consistent with pneumonia. Small bilateral effusions. <Electronically signed by Silvio Sanchez > 09/25/20 [id number]
[2020-09-25] MEDS: cefTRIAXone SOD 2 GM in D5W MINI-BAG PLUS 50 ML IV SCH (17:49)
[2020-09-25] MEDS: METOPROLOL TART 12.5 MG PER 1/2 TAB PO SCH (17:49)
[2020-09-25] MEDS ORDERED: METOPROLOL TART 25 MG TABLET PO SCH (22:00)
[2020-09-25] MEDS: BENZONATATE 100 MG CAP PO PRN (22:24)
[2020-09-26] VITALS (20 sets, daily range): BP systolic 96–143; BP diastolic 48–68; O2SAT 91–98
[2020-09-26] MEDS: HEPARIN SOD (PORCINE) 5000UNITS/ML 1ML VIAL/SYRINGE SC SCH ×3 (05:54→21:44)
[2020-09-26 06:10] LABS: HEMATOCRIT 25.7 % (36.0-47.0); HEMOGLOBIN 7.5 g/dl (12.0-15.5); MEAN CORPUSCULAR HEMOGLOBIN 29.9 pg (27.0-33.0); MEAN CORPUSCULAR HGB CONC 29.2 g/dl (32.0-36.5); MEAN CORPUSCULAR VOLUME 102.4 fl (80.0-96.0); PLATELET COUNT, AUTOMATED 362 10^3/uL (150-450); RED BLOOD COUNT 2.51 10^6/uL (4.00-5.40); WHITE BLOOD COUNT 10.2 10^3/uL (4.0-10.0)
[2020-09-26 06:27] LABS: CALCIUM LEVEL 8.1 MG/DL (8.8-10.2); CREATININE FOR GFR 3.35 MG/DL (0.55-1.30); GLOMERULAR FILTRATION RATE 14.5 (>45); MAGNESIUM LEVEL 1.6 MG/DL (1.8-2.4); POTASSIUM SERUM 4.4 MEQ/L (3.5-5.1)
[2020-09-26] MEDS: ADVAIR HFA 230/21MCG INHALER INH SCH ×2 (07:29→19:57)
[2020-09-26] MEDS: (RENVELA) SEVELAMER **CARBONate** 800 MG TAB PO SCH ×3 (08:14→17:23)
[2020-09-26] MEDS: LACTOBACILLUS ACIDOPHILUS CAP (BACID) PO SCH (08:14)
[2020-09-26] MEDS: MULTIVITAMINS/MINERALS THERAP 1 TAB PO SCH (08:14)
[2020-09-26] MEDS: METOPROLOL TART 12.5 MG PER 1/2 TAB PO SCH ×2 (08:15→21:44)
[2020-09-26] MEDS: DOXYCYCLINE HYCLATE 100MG TABLET PO SCH ×2 (08:17→21:00)
[2020-09-26] MEDS: SODIUM CHLORIDE 0.9% INJ 10 ML SYR IV SCH (08:18)
[2020-09-26] MEDS: MAGNESIUM GLUCONATE 500 MG TAB PO SCH (10:21)
--- NOTE | 2020-09-26 11:02 | IPNPDOC ---
Text Note Date of Service The patient was seen on 09/26/20. NOTE Subjective: No any acute events overnight. Patient complains of generalized weakness and palpitations. No fever or chills Objective: GENERAL APPEARANCE: NAD HEENT: no scleral icterus, no JVD, EOMI CARDIOVASCULAR: S1S2, tachycardic with heart rate 105 LUNGS: Diminished lung sounds bilaterally ABDOMEN: soft & not tender w palpitation MUSCULOSKELETAL: no cyanosis, no swelling INTEGUMENT: no generalized pallor NEUROLOGICAL: cranial nerve function from 2-12 intact intact, follows commands, speech not dysarthric Assessment and plan Patient 69 years old female with past medical history of end-stage renal disease presented to the hospital with fever and chills. Patient was diagnosed with sepsis secondary to community-acquired pneumonia. Community-acquired pneumonia Continue treatment with ceftriaxone day 7, added doxycycline day 1 urine antigen positive for Streptococcus pneumonia Chest x-ray on 09/25/2020 showed Radiographically progressive bibasilar infiltrates consistent with pneumonia. Small bilateral effusions. Dyspnea/hypoxemia Improved today. Dialysis was done yesterday Sepsis/E. coli bacteremia Resolved Most likely secondary to E. coli bacteremia, on admission patient had pyuria. Also, urine antigen positive for Streptococcus pneumonia. Patient continues to have mild leukocytosis. 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 I will give 1 unit of blood transfusion Continue Aranesp per nephrology team VS,Fishbone, I+O VS, Fishbone, I+O Laboratory Tests 09/26/20 05:52 Vital Signs Date Time Temp Pulse Resp B/P (MAP) Pulse Ox O2 Delivery O2 Flow Rate FiO2 09/26/20 08:15 106 111/57 09/26/20 08:00 97.0 20 92 Nasal Cannula 3.0 09/20/20 11:00 97 I&O- Last 24 Hours up to 6 AM 09/26/20 06:00 Intake Total 0 ml Output Total 1100 ml Balance -1100 ml DROZHZHIN,LAURYN DO Sep 26, 2020 11:02
--- NOTE | 2020-09-26 13:45 | IPN ---
PROGRESS NOTE DATE: 09/26/2020 Mrs. Arellano is seen this morning on her bedside. She is feeling better today and reports improved dyspnea. She was dialyzed yesterday, and we were able to remove 1 liter of fluid. She is still very weak and frail. She denies any nausea or vomiting. Yesterday she was quite tachycardic also and received metoprolol with improved heart rate. PHYSICAL EXAMINATION: Temperature 97.0 degrees Fahrenheit, heart rate 106 per minute, respiratory rate 20 per minute, blood pressure 111/57 mmHg, and oxygen saturation 92% on 3 liters oxygen. Head is atraumatic. Neck supple, and jugular venous distention (JVD) difficult to be assessed. Lungs with diminished breath sounds and bilateral rales. Heart sounds are tachycardic but regular. Abdomen soft and nontender. Bowel sounds are normal. Extremities without any cyanosis or clubbing. Neurologically she is awake, alert, and oriented times three. Today's labs show WBC count 10.2, hemoglobin 7.5, and hematocrit 25.7. Platelets 362. Sodium 143, potassium 4.4, CO2 of 25, BUN 11, and creatinine 3.35. Magnesium level is 1.6 and calcium 8.1. PROBLEMS: 1. End-stage renal disease. Patient was dialyzed yesterday, and we will plan next dialysis tomorrow. 2. Shortness of breath. Most likely this is multifactorial She has chronic lung disease and is being treated for pneumonia. She also has some volume overload and improved with 1 liter fluid removal. We will try to remove further 1 more liter tomorrow with dialysis as tolerated. 3. Hypomagnesemia. Her magnesium level remains slightly low. She is receiving oral magnesium supplement. 4. Anemia. Her anemia did get worse, and I will consider giving her transfusion during dialysis on September 27. I feel that she has risk for respiratory insufficiency due to volume overload if we give her transfusion without dialysis. 5. Hypotension and tachycardia. Her hypotension has improved, and she has been off Levophed for more than 48 hours now. Her tachycardia improved with low-dose beta floresita. It remains to be seen how she does with dialysis. 6. Adenocarcinoma of lung. She has been on chemotherapy, and last dose of chemotherapy was held due to hypotension. Once she is medically stable, then she can resume her chemotherapy as an outpatient.
[2020-09-26] MEDS: ACETAMINOPHEN TAB 650MG DOSE (2X325MG) PO PRN (18:30)
[2020-09-26] MEDS: cefTRIAXone SOD 2 GM in D5W MINI-BAG PLUS 50 ML IV SCH (18:30)
[2020-09-27] VITALS (16 sets, daily range): BP systolic 114–138; BP diastolic 55–61; O2SAT 91–98
[2020-09-27 05:41] LABS: HEMATOCRIT 29.7 % (36.0-47.0); HEMOGLOBIN 8.9 g/dl (12.0-15.5); MEAN CORPUSCULAR HEMOGLOBIN 30.2 pg (27.0-33.0); MEAN CORPUSCULAR VOLUME 100.7 fl (80.0-96.0); PLATELET COUNT, AUTOMATED 354 10^3/uL (150-450); RED BLOOD COUNT 2.95 10^6/uL (4.00-5.40); WHITE BLOOD COUNT 10.7 10^3/uL (4.0-10.0)
[2020-09-27] MEDS: HEPARIN SOD (PORCINE) 5000UNITS/ML 1ML VIAL/SYRINGE SC SCH ×3 (06:04→20:38)
[2020-09-27] MEDS: (RENVELA) SEVELAMER **CARBONate** 800 MG TAB PO SCH ×4 (06:04→17:18)
[2020-09-27 06:11] LABS: CALCIUM LEVEL 8.6 MG/DL (8.8-10.2); CREATININE FOR GFR 4.44 MG/DL (0.55-1.30); GLOMERULAR FILTRATION RATE 10.5 (>45); MAGNESIUM LEVEL 1.6 MG/DL (1.8-2.4); POTASSIUM SERUM 4.2 MEQ/L (3.5-5.1)
[2020-09-27] MEDS: ADVAIR HFA 230/21MCG INHALER INH SCH ×2 (07:05→19:47)
[2020-09-27] MEDS: MULTIVITAMINS/MINERALS THERAP 1 TAB PO SCH (08:19)
[2020-09-27] MEDS: MAGNESIUM GLUCONATE 500 MG TAB PO SCH (08:19)
[2020-09-27] MEDS: METOPROLOL TART 12.5 MG PER 1/2 TAB PO SCH ×2 (08:19→20:37)
[2020-09-27] MEDS: LACTOBACILLUS ACIDOPHILUS CAP (BACID) PO SCH (08:20)
[2020-09-27] MEDS: DOXYCYCLINE HYCLATE 100MG TABLET PO SCH (08:20)
[2020-09-27 10:09] LABS: URINE STREP PNEUMONIAE ANTIGEN Positive (Negative)
[2020-09-27] MEDS ORDERED: LIDOCAINE 1% SDV 5ML VIAL SQ ONE (11:35)
--- NOTE | 2020-09-27 11:35 | IPN ---
PROGRESS NOTE DATE: 09/27/2020 SUBJECTIVE: Mrs. Arellano is seen this morning on her bedside. She is currently in dialysis. She has been frail and more short of breath today. She is currently on Ventimask because of shortness of breath. She has no fever or chills. OBJECTIVE: VITAL SIGNS: Temperature is 98.7 degrees Fahrenheit, heart rate is 110 per minute and respiratory rate is 20 per minute. Blood pressure is 135/60 mmHg and oxygen saturation is 89% on 3 liters of oxygen. She is currently on Ventimask with 96% oxygen saturation. HEENT: Head is atraumatic. NECK: Supple. JVD seems to be about 10 cm above sternal angle although somewhat difficult to assess with her respiratory difficulty. HEART: Heart sounds are tachycardic. LUNGS: Diminished breath sounds and bilateral rhonchi. ABDOMEN: Soft and nontender. Bowel sounds are normal. EXTREMITIES: Without any cyanosis or clubbing. NEUROLOGIC: She has no focal deficit. LABORATORY DATA: Today's labs showed WBC count of 10.7, hemoglobin 8.9 and hematocrit 29.7, platelets 354,000. Sodium 141, potassium 4.2, CO2 24, BUN 20 and creatinine 4.44. Calcium level is 8.6 and magnesium is 1.6. PROBLEMS: 1. Shortness of breath. She seems more volume overloaded as she received one unit of blood transfusion yesterday. We are trying to remove about two liters of fluid with dialysis and she is requiring a Ventimask for her oxygen support. Will need to continue monitoring her closely. 2. Endstage renal disease. Patient is being dialyzed today and she is tolerating her dialysis well. It remains to be seen how she does with fluid removal. 3. Anemia, she received one unit of packed RBC yesterday and anemia has improved. I feel that she got volume overloaded and we are now trying to remove 2 liters of fluid. She does not need any transfusion at this point. 4. Hypotension. Her blood pressure has been stable and she is not requiring any pressors. She has been off IV fluids for more than 48 hours now. 5. Hypoxemia and adenocarcinoma of the left lung. She has chronic lung disease in addition to adenocarcinoma. She remains on nebulizers and her chemotherapy is currently on hold.
[2020-09-27] MEDS: ACETAMINOPHEN TAB 650MG DOSE (2X325MG) PO PRN (13:02)
[2020-09-27] MEDS: BENZONATATE 100 MG CAP PO PRN ×2 (13:09→20:42)
--- NOTE | 2020-09-27 15:35 | IPNPDOC ---
Text Note Date of Service The patient was seen on 09/27/20. NOTE Subjective: Patient has more shortness of breath today which improved after d ialysis. Patient complains of intermittent cough Objective: GENERAL APPEARANCE: NAD HEENT: no scleral icterus, plus JVD, EOMI CARDIOVASCULAR: S1S2, tachycardic with heart rate 105 LUNGS: Diminished lung sounds bilaterally ABDOMEN: soft & not tender w palpitation MUSCULOSKELETAL: no cyanosis, no swelling INTEGUMENT: no generalized pallor NEUROLOGICAL: cranial nerve function from 2-12 intact intact, follows commands, speech not dysarthric Assessment and plan Patient 69 years old female with past medical history of end-stage renal disease presented to the hospital with fever and chills. Patient was diagnosed with sepsis secondary to community-acquired pneumonia. Community-acquired pneumonia Continue treatment with ceftriaxone day 8, DC doxycycline day. urine antigen positive for Streptococcus pneumonia Chest x-ray on 09/25/2020 showed Radiographically progressive bibasilar infiltrates consistent with pneumonia. Small bilateral effusions. Dyspnea/hypoxemia Improved after diuresis Sepsis/E. coli bacteremia Resolved Most likely secondary to E. coli bacteremia, on admission patient had pyuria. Also, urine antigen positive for Streptococcus pneumonia. Patient continues to have mild leukocytosis. Leukocytosis could be attributed to lung malignancy as well Continue antibiotic therapy, day 8 ID specialist recommended to check blood culture from the port Diarrhea Resolved End-stage renal disease Nephrology team follows her Hyperkalemia Resolved Lung adenocarcinoma Follow-up with oncologist in the outpatient settings Macrocytic anemia B12, folate wnl There is concern for MDS, paraneoplastic syndrome secondary to lung malignancy. Follow-up with oncologist/xm1 tank driver in the outpatient settings Hemoglobin stable Continue Aranesp per nephrology team VS,Veee, I+O VS, Fishbone, I+O Laboratory Tests 09/27/20 05:09 Vital Signs Date Time Temp Pulse Resp B/P (MAP) Pulse Ox O2 Delivery O2 Flow Rate FiO2 09/27/20 13:10 100.1 113 17 114/59 (77) 93 Venturi Mask 15.0 40 I&O- Last 24 Hours up to 6 AM 09/27/20 06:00 Intake Total 700 ml Balance 700 ml LAURYN HARTLEY DO Sep 27, 2020 15:35
[2020-09-27] MEDS: cefTRIAXone SOD 2 GM in D5W MINI-BAG PLUS 50 ML IV SCH (18:07)
[2020-09-27] MEDS: SODIUM CHLORIDE 0.9% INJ 10 ML SYR IV SCH (18:47)
[2020-09-28] VITALS (9 sets, daily range): BP systolic 116–131; BP diastolic 56–64; O2SAT 92–98
[2020-09-28] MEDS: HEPARIN SOD (PORCINE) 5000UNITS/ML 1ML VIAL/SYRINGE SC SCH ×3 (05:43→21:51)
[2020-09-28] MEDS: ADVAIR HFA 230/21MCG INHALER INH SCH ×2 (08:04→20:00)
[2020-09-28] MEDS: LACTOBACILLUS ACIDOPHILUS CAP (BACID) PO SCH (09:38)
[2020-09-28] MEDS: (RENVELA) SEVELAMER **CARBONate** 800 MG TAB PO SCH ×3 (09:38→17:58)
[2020-09-28] MEDS: MULTIVITAMINS/MINERALS THERAP 1 TAB PO SCH (09:38)
[2020-09-28] MEDS: METOPROLOL TART 12.5 MG PER 1/2 TAB PO SCH ×2 (09:39→21:52)
[2020-09-28] MEDS: MAGNESIUM GLUCONATE 500 MG TAB PO SCH (09:39)
[2020-09-28] MEDS: SODIUM CHLORIDE 0.9% INJ 10 ML SYR IV SCH (09:40)
[2020-09-28] MEDS ORDERED: LIDOCAINE 1% SDV 5ML VIAL SC PRN (11:50)
[2020-09-28 12:11] LABS: BASO % 0.4 % (0.0-1.0); EOS # 0.1 10^3/uL (0.0-0.5); EOS % 1.4 % (0.0-3.0); HEMATOCRIT 30.6 % (36.0-47.0); HEMOGLOBIN 9.2 g/dl (12.0-15.5); LYMPH # 0.8 10^3/uL (1.5-5.0); LYMPH % 8.8 % (24.0-44.0); MEAN CORPUSCULAR HGB CONC 30.1 g/dl (32.0-36.5); MEAN CORPUSCULAR VOLUME 99.7 fl (80.0-96.0); MONO % 11.3 % (2.0-8.0); NEUTROPHILS % 76.4 % (36.0-66.0); PLATELET COUNT, AUTOMATED 260 10^3/uL (150-450); RED BLOOD COUNT 3.07 10^6/uL (4.00-5.40); WHITE BLOOD COUNT 9.2 10^3/uL (4.0-10.0)
[2020-09-28 12:39] LABS: CALCIUM LEVEL 8.7 MG/DL (8.8-10.2); GLOMERULAR FILTRATION RATE 11.9 (>45); POTASSIUM SERUM 3.8 MEQ/L (3.5-5.1)
--- NOTE | 2020-09-28 12:54 | IPNPDOC ---
Text Note Date of Service The patient was seen on 09/28/20. NOTE Subjective: Patient stated with she feels better today her breathing improved. Objective: GENERAL APPEARANCE: NAD HEENT: no scleral icterus, plus JVD, EOMI CARDIOVASCULAR: S1S2, tachycardic with heart rate 105 LUNGS: Diminished lung sounds bilaterally ABDOMEN: soft & not tender w palpitation MUSCULOSKELETAL: no cyanosis, no swelling INTEGUMENT: no generalized pallor NEUROLOGICAL: cranial nerve function from 2-12 intact intact, follows commands, speech not dysarthric Assessment and plan Patient 69 years old female with past medical history of end-stage renal disease presented to the hospital with fever and chills. Patient was diagnosed with sepsis secondary to community-acquired pneumonia. Community-acquired pneumonia Continue treatment with ceftriaxone day 9 urine antigen positive for Streptococcus pneumonia Chest x-ray on 09/25/2020 showed Radiographically progressive bibasilar infiltrates consistent with pneumonia. Small bilateral effusions. Dyspnea/hypoxemia Improved after dialysis Sepsis/E. coli bacteremia Resolved Most likely secondary to E. coli bacteremia, on admission patient had pyuria. Also, urine antigen positive for Streptococcus pneumonia. Patient continues to have mild leukocytosis. Leukocytosis could be attributed to lung malignancy as well Continue antibiotic therapy, day 8 ID specialist recommended to check blood culture from the port, await result Diarrhea Resolved End-stage renal disease Nephrology team we will repeat dialysis today Hyperkalemia Resolved Lung adenocarcinoma Follow-up with oncologist in the outpatient settings Macrocytic anemia B12, folate wnl There is concern for MDS, paraneoplastic syndrome secondary to lung malignancy or due to chemotherapy. Follow-up with oncologist/balancing machine set up worker in the outpatient settings Hemoglobin stable Continue Aranesp per nephrology team VS,Rhonda, I+O VS, Veee, I+O Laboratory Tests 09/28/20 11:55 Vital Signs Date Time Temp Pulse Resp B/P (MAP) Pulse Ox O2 Delivery O2 Flow Rate FiO2 09/28/20 08:00 97.3 98 18 131/64 (86) 94 Nasal Cannula 4.0 09/27/20 14:00 40 I&O- Last 24 Hours up to 6 AM 09/28/20 06:00 Intake Total 830 ml Output Total 1500 ml Balance -670 ml LAURYN HARTLEY DO Sep 28, 2020 12:53
[2020-09-28] MEDS: BENZONATATE 100 MG CAP PO PRN (13:07)
[2020-09-28] MEDS: cefTRIAXone SOD 2 GM in D5W MINI-BAG PLUS 50 ML IV SCH (17:58)
[2020-09-29] VITALS: O2SAT 98
[2020-09-29 01:00] VITALS: O2SAT 94
[2020-09-29 02:00] VITALS: O2SAT 96
[2020-09-29 04:00] VITALS: BP 133/53
[2020-09-29] MEDS: HEPARIN SOD (PORCINE) 5000UNITS/ML 1ML VIAL/SYRINGE SC SCH (05:57)
[2020-09-29] MEDS: ADVAIR HFA 230/21MCG INHALER INH SCH (07:45)
[2020-09-29 08:00] VITALS: BP 100/57
[2020-09-29] MEDS: MULTIVITAMINS/MINERALS THERAP 1 TAB PO SCH (08:05)
[2020-09-29] MEDS: LACTOBACILLUS ACIDOPHILUS CAP (BACID) PO SCH (08:05)
[2020-09-29] MEDS: MAGNESIUM GLUCONATE 500 MG TAB PO SCH (08:05)
[2020-09-29] MEDS: SODIUM CHLORIDE 0.9% INJ 10 ML SYR IV SCH (08:06)
[2020-09-29] MEDS: (RENVELA) SEVELAMER **CARBONate** 800 MG TAB PO SCH (08:06)
[2020-09-29 08:07] VITALS: BP 133/53
[2020-09-29] MEDS: METOPROLOL TART 12.5 MG PER 1/2 TAB PO SCH (08:07)
[2020-09-29 08:15] LABS: BASO # 0.1 10^3/uL (0.0-0.2); BASO % 0.8 % (0.0-1.0); EOS # 0.3 10^3/uL (0.0-0.5); EOS % 3.5 % (0.0-3.0); HEMATOCRIT 33.6 % (36.0-47.0); LYMPH # 1.1 10^3/uL (1.5-5.0); LYMPH % 12.4 % (24.0-44.0); MEAN CORPUSCULAR HGB CONC 29.8 g/dl (32.0-36.5); MEAN CORPUSCULAR VOLUME 100.9 fl (80.0-96.0); MONO # 1.1 10^3/uL (0.0-0.8); MONO % 12.8 % (2.0-8.0); NEUTROPHILS # 5.9 10^3/uL (1.5-8.5); PLATELET COUNT, AUTOMATED 230 10^3/uL (150-450); RED BLOOD COUNT 3.33 10^6/uL (4.00-5.40); WHITE BLOOD COUNT 8.5 10^3/uL (4.0-10.0)
[2020-09-29 08:53] LABS: ALBUMIN 2.1 GM/DL (3.2-5.2); BILIRUBIN,TOTAL 0.2 MG/DL (0.2-1.0); CALCIUM LEVEL 9.5 MG/DL (8.8-10.2); CREATININE FOR GFR 3.36 MG/DL (0.55-1.30); GLOMERULAR FILTRATION RATE 14.5 (>45); POTASSIUM SERUM 4.5 MEQ/L (3.5-5.1); TOTAL PROTEIN 6.5 GM/DL (6.4-8.2)
[2020-09-29] MEDS ORDERED: BENZ-18 PO (10:05)
[2020-09-29] MEDS ORDERED: MAGN50TA PO (10:05)
[2020-09-29] MEDS ORDERED: METO1TAB87 PO (10:05)
[2020-09-29] MEDS ORDERED: RISATAB3 PO (10:05)
--- NOTE | 2020-09-29 13:36 | IPN ---
NEPHROLOGY PROGRESS NOTE DATE: 09/28/2020 SUBJECTIVE: Patient was seen and examined at the bedside today morning. She was dialyzed yesterday, 1.5 liters of fluid was removed. However, she does report that she is still feeling shortness of breath. She was able to walk to the bathroom and back. However, she gets short of breath by walking a little in the room and she is requiring oxygen via nasal cannula at 4 liters. OBJECTIVE: VITAL SIGNS: Temperature 97.5 degrees Fahrenheit, blood pressure 119/56, pulse 99, respiratory rate 17, saturating 92% on nasal cannula at 4 liters. INTAKE AND OUTPUT: Urine output is not recorded. Ultrafiltration with hemodialysis was 1.5 liters yesterday. Weight in the bed scale is 53.9 kg.. PHYSICAL EXAMINATION: GENERAL: Patient is awake, alert, oriented times three, mild respiratory distress. laying in bed. HEAD AND NECK EXAM: Extraocular muscles intact. Pupils equally round and reactive to light. Neck is supple. She has moderately elevated jugular venous distention (JVD). CARDIOVASCULAR: S1, S2. Regular rate. No edema of the bilateral lower extremities. RESPIRATORY: Decreased breath sounds with inspiratory crackles bilaterally at the bases up to midline tones. ABDOMEN: Soft. Positive bowel sounds. Nontender. No organomegaly MUSCULOSKELETAL: No clubbing or cyanosis. Pulses are 2+. CENTRAL NERVOUS SYSTEM (ORNAMENTAL BRICK INSTALLER): No focal deficit. Power is 5/5 in all extremities. LABORATORY STUDIES: CBC showed WBC 9.2, hemoglobin 9.2, platelets 260. BMP showed sodium 139, potassium 3.8, chloride 108, bicarbonate 31, BUN 19, creatinine 4, calcium 8.7. CURRENT INPATIENT MEDICATIONS: Patient's medications were all reviewed by myself. She continues to be on intravenous (IV) ceftriaxone. No other significant change in the medications. ASSESSMENT AND PLAN: 1. Acute decompensated diastolic congestive heart failure. Patient is still volume overloaded. She was dialyzed yesterday. She will get another session of hemodialysis today and I will try to remove at least 2 liters of fluid as tolerated by her blood pressure. 2. Anemia in end-stage renal disease. Hemoglobin is 9.2, which is stable and improving. She continues to be on Aranesp with dialysis. 3. Adenocarcinoma of the lung. Currently on Keytruda. Patient's Keytruda dose was missed this time because of sepsis and Escherichia (E) coli bacteremia. Management is as per hematology/oncology as outpatient. 4. Community-acquired pneumonia. Patient is currently getting ceftriaxone. Antibiotics will be changed to oral antibiotics on discharge. DISPOSITION: Patient is not stable at this time to be discharged home. She will need another session of dialysis. She will be reevaluated tomorrow morning for clearance before discharge.
--- NOTE | 2020-09-29 16:30 | DS.PDOC ---
Discharge Summary General Date of Admission Sep 20, 2020 at 12:45 Date of Discharge 09/29/20 Discharge Summary PROCEDURES PERFORMED DURING STAY: [None]. ADMITTING DIAGNOSES: Community-acquired pneumonia Dyspnea/hypoxemia Diarrhea Sepsis/E. coli bacteremia End-stage renal disease Hyperkalemia Lung adenocarcinoma Macrocytic anemia DISCHARGE DIAGNOSES: Community-acquired pneumonia Dyspnea/hypoxemia Diarrhea Sepsis/E. coli bacteremia End-stage renal disease Hyperkalemia Lung adenocarcinoma Macrocytic anemia COMPLICATIONS/CHIEF COMPLAINT: Pneumonia. HISTORY OF PRESENT ILLNESS: Ms. Arellano is a 69-year-old female who was admitted to [facility] last evening, as she sent to the emergency room from oncology office. The patient has a history of lung cancer and has been receiving chemotherapy with Keytruda. During the week of chemotherapy, she received her dialysis on Wednesday, Wednesday and and then she gets her chemotherapy on Wednesday. This Wednesday, when she went for her chemotherapy, she was found to be hypotensive and was felt to be septic due to which she was sent to the emergency room. A CT scan of the chest was done as an outpatient prior to this, which did raised a suspicion for pneumonia. The patient's blood pressure was quite low and she has been on Levophed since yesterday. HOSPITAL COURSE: During hospital stay the following issues addressed Community-acquired pneumonia Patient completed treatment with ceftriaxone urine antigen positive for Streptococcus pneumonia Chest x-ray on 09/25/2020 showed Radiographically progressive bibasilar infil trates consistent with pneumonia. Small bilateral effusions. Dyspnea/hypoxemia Improved after dialysis Sepsis/E. coli bacteremia Resolved Most likely secondary to E. coli bacteremia, on admission patient had pyuria. Also, urine antigen positive for Streptococcus pneumonia. Patient continues to have mild leukocytosis. Leukocytosis could be attributed to lung malignancy as well ID specialist recommended to check blood culture from the port, and repeated blood culture negative Diarrhea Resolved End-stage renal disease Treated with dialysis Hyperkalemia Resolved Lung adenocarcinoma Follow-up with oncologist in the outpatient settings Macrocytic anemia B12, folate wnl There is concern for MDS, paraneoplastic syndrome secondary to lung malignancy or due to chemotherapy. Follow-up with oncologist/embedded firmware developer in the outpatient settings Hemoglobin stable Continue Aranesp per nephrology team DISCHARGE MEDICATIONS: Please see below. ALLERGIES: Please see below. PHYSICAL EXAMINATION ON DISCHARGE: VITAL SIGNS: Please see below. GENERAL APPEARANCE: NAD HEENT: no scleral icterus, plus JVD, EOMI CARDIOVASCULAR: S1S2, tachycardic with heart rate 105 LUNGS: Diminished lung sounds bilaterally ABDOMEN: soft & not tender w palpitation MUSCULOSKELETAL: no cyanosis, no swelling INTEGUMENT: no generalized pallor NEUROLOGICAL: cranial nerve function from 2-12 intact intact, follows commands, speech not dysarthric LABORATORY DATA: Please see below. IMAGING: See above PROGNOSIS: Fair ACTIVITY: [As tolerated]. DIET: Cardiac DISPOSITION: 01 Home, Self-Care. ITEMS TO FOLLOWUP ON ON OUTPATIENT: Follow-up with geospatial information scientist, PCP DISCHARGE CONDITION: [Stable]. TIME SPENT ON DISCHARGE: 40 minutes. Vital Signs/I&Os Vital Signs Date Time Temp Pulse Resp B/P (MAP) Pulse Ox O2 Delivery O2 Flow Rate FiO2 09/29/20 08:07 82 133/53 09/29/20 08:00 4.0 09/29/20 08:00 99.1 18 91 Nasal Cannula 09/27/20 14:00 40 I&O- Last 24 Hours up to 6 AM 09/29/20 06:00 Intake Total 895 ml Output Total 2000 ml Balance -1105 ml Laboratory Data Labs 24H Laboratory Tests 2 09/29/20 08:04: Immature Granulocyte % (Auto) 1.5, Neutrophils (%) (Auto) 69.0H, Lymphocytes (%) (Auto) 12.4L, Monocytes (%) (Auto) 12.8H, Eosinophils (%) (Auto) 3.5H, Basophils (%) (Auto) 0.8, Neutrophils # (Auto) 5.9, Lymphocytes # (Auto) 1.1L, Monocytes # (Auto) 1.1H, Eosinophils # (Auto) 0.3, Basophils # (Auto) 0.1, Nucleated Red Blood Cells % (auto) 0.4H, Anion Gap 7L, Glomerular Filtration Rate 14.5L, Calcium Level 9.5, Total Bilirubin 0.2, Aspartate Amino Transf (AST/SGOT) 28, Alanine Aminotransferase (ALT/SGPT) 17, Alkaline Phosphatase 74, Total Protein 6.5, Albumin 2.1L, Albumin/Globulin Ratio 0.5L CBC/BMP Laboratory Tests 09/29/20 08:04 Microbiology Microbiology 09/27/20 Blood Culture - Preliminary, Resulted No Growth after 48 hours. All Specime... 09/27/20 Blood Culture - Preliminary, Resulted No Growth after 48 hours. All Specime... 09/22/20 Urine Culture - Final, Complete 09/21/20 Blood Culture - Final, Complete NO GROWTH AFTER 5 DAYS 09/21/20 Blood Culture - Final, Complete NO GROWTH AFTER 5 DAYS 09/20/20 Gram Stain - Final, Complete 09/20/20 Sputum Culture - Final, Complete 09/20/20 Blood Culture - Final, Complete Escherichia Coli 09/20/20 Blood Culture - Final, Complete NO GROWTH AFTER 5 DAYS Discharge Medications Scheduled Cyanocobalamin (Vitamin B-12) (B-12) 1,000 Mcg Tablet.er, 1,000 MCG PO QWEEK, (Reported) Fluticasone Propion/Salmeterol (Advair Hfa 230-21 Mcg Inhaler) 12 Gm Hfa.aer.ad, 2 PUFF INH DAILY, (Reported) L.acidoph/L.bulg/B.bif/S.therm (Macrina-Bid Caplet) 1 Each Tablet, 1 EA PO DAILY Lidocaine/Prilocaine (Lidocaine-Prilocaine Cream) 2.5%/2.5% Cream..g., 1 APLCT TOP ASDIRECTED, (Reported) 1-2 HOURS BEFORE DIALYSIS Magnesium Oxide (Magnesium) 400 Mg Capsule, 400 MG PO Q2D, (Reported) Metoprolol Tartrate (Metoprolol Tartrate) 25 Mg Tablet, 12.5 MG PO BID Multivitamins (Thera M Plus Tablet) 1 Each Tablet, 1 TAB PO DAILY, (Reported) Pembrolizumab (Keytruda) 100 Mg/4 Ml Vial, 100 MG IV QMONTH, (Reported) Sevelamer Carbonate (Renvela) 800 Mg Tablet, 800 MG PO AC, (Reported) Scheduled PRN Albuterol Sulf (Albuterol Sulfate) 2.5 Mg/3 Ml Vial.neb, 2.5 MG NEB Q4H PRN for SHORTNESS OF BREATH, (Reported) Albuterol Sulfate (Proair Hfa) 8.5 Gm Hfa.aer.ad, 2 PUFF INH Q6H PRN for SHORTNESS OF BREATH, (Reported) Benzonatate (Benzonatate) 100 Mg Capsule, 100 MG PO TIDP PRN for COUGH Allergies Coded Allergies: Sulfa (Sulfonamide Antibiotics) (Verified Allergy, Intermediate, ITCHING/RASH, 03/21/20) naproxen (Verified Allergy, Intermediate, RASH/ITCHING, 03/21/20) LAURYN HARTLEY DO Sep 29, 2020 16:30
--- NOTE | 2020-09-29 21:46 | IPN ---
NEPHROLOGY PROGRESS NOTE DATE: 09/29/2020 SUBJECTIVE: Patient was seen and examined at the bedside today morning. She reports her breathing is significantly better after she got an extra session of hemodialysis yesterday, 2 liters of fluid was removed. She is able to walk around with the oxygen which is back to her daily requirement. She has oxygen at home as well and she reports that she is feeling better to go home today. OBJECTIVE: VITAL SIGNS: Temperature 99.1 degrees Fahrenheit, blood pressure 100/57, pulse 93, respiratory rate 18, saturating 91% on nasal cannula at 4 liters. INTAKE/OUTPUT: Urine output is not recorded. Ultrafiltration with hemodialysis was 2 liters. Weight in the bed scale is 51 kg. PHYSICAL EXAMINATION: GENERAL: Patient is awake, alert, oriented x3, lying in bed, in no apparent distress. HEAD/NECK: Extraocular muscles intact. Pupils equally round and reactive to light. Mucous membranes are moist. Neck is supple. Mildly elevated JVD is noted. CVS: S1, S2, regular rate. No edema of the bilateral lower extremities. RESPIRATORY: Mildly decreased breath sounds at the bases with some inspiratory crackles noted. ABDOMEN: Soft, positive bowel sounds, nontender. No organomegaly. MUSCULOSKELETAL: No clubbing or cyanosis. Pulses are 2+. CLINICAL MEDICAL TRANSCRIPTIONIST: No focal deficit. Power is 5/5 in all extremities. LABORATORY REVIEW: CBC showed WBC 8.5, hemoglobin 10, platelets 230,000. BMP shows sodium 139, potassium 4.5, chloride 107, bicarb 25, BUN 14, creatinine 3.3. MICROBIOLOGY: Repeat blood cultures from September 27 are negative. CURRENT INPATIENT MEDICATIONS: Patient's medications were all reviewed by myself. There is no significant change in the medications today as compared with yesterday. ASSESSMENT AND PLAN: 1. End-stage renal disease: Patient's regular dialysis days are Wednesday, Wednesday, Wednesday. She was emergently dialyzed yesterday for shortness of breath. Next hemodialysis will be tomorrow morning as per her regular schedule. 2. Acute decompensated diastolic congestive heart failure: Patient got 2 liters of fluid removed yesterday. When she gets dialyzed tomorrow I asked her to have the charge nurse call me so that we can adjust her dry weight at dialysis center as well. 3. Anemia and end stage renal disease: Patient was getting Aranesp. The rest of the anemia management will be done as an outpatient according to anemia protocol. 4. Adrenal carcinoma of the lung: Patient will follow-up with hematology/oncology after discharge from the hospital for her infusions. 5. Community acquired pneumonia: Patient was getting I.V. Ceftriaxone. The rest of the treatment will be done as an outpatient with oral antibiotics. DISPOSITION: Patient is optimized from nephrology standpoint to be discharged home.
== END 2020-09-29 12:29 | disposition home or self-care (01) | DRG 871 ==
LOC: M ED 09:37 → M ED INP 12:45 → ENRESERV 14:41 → M ICU 17:30 → M PCU 09-25 18:39
PROVIDERS: ADMIT Family Medicine; ATTEND Internal Medicine
PROC: 5A1D70Z Performance of Urinary Filtration, Intermittent, Less than 6 Hours Per Day (ICD-10-PCS; principal; 2020-09-24)
PROC: 30233N1 Transfusion of Nonautologous Red Blood Cells into Peripheral Vein, Percutaneous Approach (ICD-10-PCS; 2020-09-26)
DX: A41.51 Sepsis due to Escherichia coli [E. coli] (principal); J18.9 Pneumonia, unspecified organism; N18.6 End stage renal disease; R65.21 Severe sepsis with septic shock; I50.31 Acute diastolic (congestive) heart failure; C34.92 Malignant neoplasm of unspecified part of left bronchus or lung; E83.42 Hypomagnesemia; R19.7 Diarrhea, unspecified; D63.1 Anemia in chronic kidney disease; E87.5 Hyperkalemia; E87.6 Hypokalemia; D53.9 Nutritional anemia, unspecified; Z79.899 Other long term (current) drug therapy; Z98.49 Cataract extraction status, unspecified eye; Z20.822 Contact with and (suspected) exposure to COVID-19; Z88.2 Allergy status to sulfonamides; Z88.6 Allergy status to analgesic agent; Z99.2 Dependence on renal dialysis

== ENCOUNTER 2020-10-16 17:16 | Inpatient (IN) | payer MEDICARE, BC, OTHER ==
[~2020-10-16] VITALS: Ht 149.9 cm; Wt 55.5 kg
[~2020-10-16 17:16] MED LIST changes: +B-12100T2 PO; +BENZ-18 PO; +GNP250TA9 PO; +LIDO1CRE42 TOP; +MAGN400C PO; +MAGN50TA PO; +MEDR4PAK PO; +METO1TAB87 PO; +PEPC1TAB5 PO; +RISATAB3 PO; +[UNRECOGNIZED DRUG - CODE] PO
[2020-10-16] MEDS ORDERED: IPRATROPIUM 0.5MG/ALBUTEROL 2.5MG INH SOL UD 3ML (DUONEB) NEB ONE (17:55)
[2020-10-16] MEDS ORDERED: ALBUTEROL SULFATE 2.5 MG/0.5 ML INH NEB SOLN INH ONE (17:55)
[2020-10-16] MEDS ORDERED: PIPERACILLIN/TAZOBACTAM SOD 4.5 GM in D5W MINI-BAG PLUS 50 ML IV ONE (18:10)
[2020-10-16] MEDS ORDERED: methylPREDNISolone 125MG 2ML VIAL IV ONE (18:10)
[2020-10-16] MEDS ORDERED: NS 1,000 ML IV ONE (18:10)
--- NOTE | 2020-10-16 18:10 | REP ---
INDICATION: DYSPNEA/COUGH. COMPARISON: 09/25/2020 as well as other prior exams. TECHNIQUE: Single portable AP view of the chest was performed. FINDINGS: Mild patchy parenchymal infiltrative opacities in each lung base are present, and have improved since the prior study. The cardiac silhouette appears to be upper limits of normal. There is calcification of the thoracic aorta. The mediastinal silhouette is unchanged. Right central venous catheter is seen with the tip in the right atrium. IMPRESSION: Mild patchy parenchymal opacities in each lung base, improved since the prior study. <Electronically signed by Gianfranco Lacy > 10/16/20 [id number]
[2020-10-16] MEDS ORDERED: VANCOMYCIN HCL 1,000 MG, VIAL MATE ADAPTER 1 EACH in NS 250 ML IV ONE (18:15)
[2020-10-16 18:38] LABS: VENOUS BASE EXCESS 6.3 (-2.0-2.0); VENOUS HCO3 30.3 MEQ/L (23.0-27.0); VENOUS O2 SATURATION 96.1 % (60.0-80.0); VENOUS PARTIAL PRESSURE CO2 41.3 mmHg (38.0-50.0); VENOUS PARTIAL PRESSURE O2 81.6 mmHg (30.0-50.0); VENOUS PH 7.483 UNITS (7.330-7.430); VENOUS STANDARD HCO3 30.1 MEQ/L; VENOUS TOTAL CO2 31.5 MEQ/L (24.0-28.0)
[2020-10-16 18:44] LABS: BASO % 0.2 % (0.0-1.0); EOS % 0.1 % (0.0-3.0); HEMATOCRIT 31.1 % (36.0-47.0); HEMOGLOBIN 9.4 g/dl (12.0-15.5); LYMPH % 7.8 % (24.0-44.0); MEAN CORPUSCULAR HEMOGLOBIN 29.2 pg (27.0-33.0); MEAN CORPUSCULAR HGB CONC 30.2 g/dl (32.0-36.5); MEAN CORPUSCULAR VOLUME 96.6 fl (80.0-96.0); MONO # 0.8 10^3/uL (0.0-0.8); MONO % 6.4 % (2.0-8.0); NEUTROPHILS # 10.2 10^3/uL (1.5-8.5); NEUTROPHILS % 83.9 % (36.0-66.0); PLATELET COUNT, AUTOMATED 316 10^3/uL (150-450); RED BLOOD COUNT 3.22 10^6/uL (4.00-5.40); WHITE BLOOD COUNT 12.1 10^3/uL (4.0-10.0)
--- NOTE | 2020-10-16 19:24 | ECGEPIP ---
[facility] - ED Test Date: 2020-10-16 Pat Name: KECIA RUSSELL Department: Room: - Gender: Female Label Rewinder: JESUSITA : 1950 Requested By: Lily Garcia Order Number: [id number] Reading MD: Lily Garcia Measurements Intervals [place] Rate: 101 P: 77 NE: 120 QRS: 71 QRSD: 78 T: -67 QT: 412 QTc: 534 Interpretive Statements Sinus tachycardia T wave abnormality, consider anterolateral ischemia Prolonged QT Nonspecific ST T wave changes cw 09/20/[address] T wave changes new - consider ischemmia vs nonspecific CLINICAL CORRELATION ADVISED Electronically Signed on 10-16-2020 19:24:06 EDT by Lily Garcia
[2020-10-16 19:29] LABS: ALBUMIN 2.6 GM/DL (3.2-5.2); ALT/SGPT 23 U/L (12-78); BILIRUBIN,DIRECT < 0.1 MG/DL (0.0-0.2); BILIRUBIN,TOTAL 0.4 MG/DL (0.2-1.0); BLOOD UREA NITROGEN 13 MG/DL (7-18); CALCIUM LEVEL 8.8 MG/DL (8.8-10.2); CARBON DIOXIDE LEVEL 33 MEQ/L (21-32); CHLORIDE LEVEL 98 MEQ/L (98-107); CK-MB VALUE MASS < 1.0 NG/ML (<3.6); CPK CREATINE PHOSPHOKINASE 58 U/L (26-192); CREATININE FOR GFR 3.49 MG/DL (0.55-1.30); GLOMERULAR FILTRATION RATE 13.9 (>45); GLUCOSE, FASTING 124 MG/DL (70-100); MB/CK RELATIVE INDEX 1.72 (< OR =4); NT-PRO BNP 101407 PG/ML (<125); SODIUM LEVEL 138 MEQ/L (136-145); THYROID STIMULATING HORMONE 0.953 uIU/ML (0.358-3.740); THYROXINE (T4) 10.8 UG/DL (4.5-12.0); TOTAL PROTEIN 7.1 GM/DL (6.4-8.2); TROPONIN I 0.19 NG/ML (< 0.10)
[2020-10-16] MEDS ORDERED: METO1TAB87 PO (19:48)
[2020-10-16] MEDS ORDERED: MAGN400T2 PO (19:48)
[2020-10-16] MEDS ORDERED: TESS100C PO (19:48)
[2020-10-16] MEDS ORDERED: HOME MED LIST COMPLETE! XX SCH (19:50)
[2020-10-16] MEDS ORDERED: ACETAMINOPHEN TAB 650MG DOSE (2X325MG) PO PRN (20:05)
[2020-10-16] MEDS ORDERED: MAALOX 30 ML SUSP *UDC PO PRN (20:05)
[2020-10-16] MEDS ORDERED: MOM 30ML SUSPENSION UDC PO PRN (20:05)
--- NOTE | 2020-10-16 20:14 | HPEPDOC ---
[facility] Medical History & Physical Date of Admission Oct 16, 2020 Date of Service: Oct 16, 2020 History and Physical CHIEF COMPLAINT: shortness of breath HISTORY OF PRESENT ILLNESS: 69-year-old female with a past medical history of lung cancer, currently receiving Keytruda, end-stage renal disease with HD on MWF. Patient was recently admitted in September for sepsis secondary to pneumonia. Patient states that she has been having progressively worsening shortness of breath. She takes 4 L of oxygen via nasal cannula at home, found to have pulse ox is oximetry of 77% today. Contacted Dr. Birmingham, her business center manager recommended she seek assistance in the ER. Patient denies any chest pain, palpitations, headaches, subjective fevers or chills, nausea, vomiting. She has been having daily diarrhea, although only one episode per day. Patient follows with Dr. Freed, at [facility]. She was last seen in 10/15/2020. Is c omplaining of yellow tinged sputum. She was started on 10 days of Augmentin. She is planned for a PET/CT to evaluate for metastatic spread of lung cancer as well as a differential during past admission, although new focal R lung opacities thought to be 2/2 pneumonia, asymmetric lymphangitic carcinomatosis could not be ruled out. Patient to have WBC 12.1. Hgb 9.4. LA 2.5. Trop 0.19. BNP 098039. Cr 3.49. CXR showing perenchymal opacities in bilateral lung bases, which are improved since prior imaging. Dr. Birmingham was contacted by ER, recommending starting IV vanco, zosyn, solumedrol 80 mg IV TID. Patient will be admitted to hospitalist service for management of sepsis and acute hypoxic respiratory failure 2/2 COPD as well as possible pna. PAST MEDICAL HISTORY: 1. Metastatic lung adenocarcinoma, left lower lobe. 2. End-stage renal disease secondary to chemotherapy. PAST SURGICAL HISTORY: 1. Teeth extraction. 2. Cataract surgery. 3. Multiple fistula formations. 4. Tubal ligation in 1980 SOCIAL HISTORY: Patient used to work in a factory. Patient denies smoking, drinking, or illicit drug use. Patient lives at home with her . FAMILY HISTORY: Patient's father and sister both had lung cancer. Patient's brother has diabetes and patient's mother had hypertension and from a CVA ALLERGIES: Please see below. REVIEW OF SYSTEMS: 10 point review of systems conducted, rub findings are noted in HPI HOME MEDICATIONS: Please see below. PHYSICAL EXAMINATION: VITAL SIGNS: please see below General: NAD, comfortable HEENT: PERRLA, EOMI, sclerae clear Neck: supple, normal ROM, no JVD Respiratory: Reduced breath sounds bilateral lung bases. Crackles heard at the right lung base. CVS: RRR, normal S1, S2, no murmurs Abdo: soft, no masses, no hepatosplenomegaly, BS+, no rebound tenderness Extremities: no edema, pulses 2+, no cyanosis, extremities warm to touch MSK: no joint deformities, normal ROM Neuro: no focal neuro deficits, moving all 4 extremities, CN2-12 intact. Strength 5/5 in all 4 extremities. No nystagmus. Psych: calm, cooperative, AAO x 3 LABORATORY DATA: See below. IMAGING: CXR (10/16/20): Mild patchy parenchymal opacities in each lung base, improved since the prior study. CT chest wo contrast (10/16/20): 1. Moderate to severe paraseptal and centrilobular emphysematous changes demonstrated throughout both lungs. Also noted is COPD. 2. Interval development of small bilateral pleural effusions. 3. Coarse bilateral infiltrates at both lung bases, related to scarring although several new foci of dense parenchymal opacification demonstrated in the posterior lingular lobe and both lower lobes suggesting new infiltrates. 4. There is fusiform dilatation of the ascending thoracic aorta which measures 3.7 cm. maximally. The thoracic aorta is diffusely ectatic with atherosclerotic changes. There is no saccular component. 5. There is enlargement of the central pulmonary arteries, findings which can be associated with pulmonary arterial hypertension which should be correlated clinically. MICROBIOLOGY: Please see below. ASSESSMENT: : 69-year-old female with a past medical history of lung cancer, currently receiving every Keytruda, end-stage renal disease, presenting with sepsis and hypoxic respiratory failure. Started on IV vanco and zosyn. Admitted to PCU. Pulmonology service and nephrology service consulted. . PLAN: #Acute hypoxic respiratory failure possible 2/2 COPD exacerbation vs pna vs CHF - home O2 4L, reports hypoxic to 77% - on arrival to ER, 93% on RA. S/p solumedrol, albuterol, duoneb - ABG c/w respiratory alkalosis - c/w home O2 - pulmonology consult placed with Dr. Birmingham #Sepsis 2/2 possible pna - tachycardia, tachypnea, hypotension, leukocytosis with elevated LA - hypotensive after 1L NS bolus. Patient hesitant about additional IVF given ESRD - Lactic acidosis resolved. - Hypotension responded to an additional 250 cc NS bolus, 116/61. - started on vanco, zosyn - blood cultures x 2 drawn. Ordered set of cultures from port - c/w abx. Check procal, CRP - procal 6.15 #Elevated BNP - BNP ~100,000 in setting of ESRD - clinically does not appear fluid overloaded to great extent - in setting of sepsis will prioritize fluid repletion - check 2D ECHO - CT chest showing enlarged central pulmonary arteries #Elevated Troponin - patient has no chest pain - EKG showing t wave inversions in anterior leads, without ST elevation - Trop 0.19, 0.19, 0.17 - given ASA 325. Takes metoprolol at home. Give low BP hold BP meds - suspected elevation in setting of ESRD, possible fluid overload rather than ACS - d/w Dr. Adams. Obtain 2D echo. Agree with asa. No further intervention at this time. #Hypotension - initially suspected to be 2/2 sepsis - responded to IVF - BNP 100,000, LA 2.5, improved - repeat LA 3.6 - concern for cardiogenic shock in light of elevated trop, BNP, however, patient is asymptomatic without sings of poor peripheral perfusion - will obtain STAT echo - avoid fluid overload at this time. #ESRD - get HD MWF ( on chemotherapy weeks) - consulted Dr. Cerda - renal diet #Lung ca, non small cell carcinoma of L lung #Extensive pulmonary process R lung, carcinomatosis not ruled out - follow up with oncology, Dr. Freed at [facility] - PET/CT per oncology as outpatient #Ascending thoracic aortic aneurysm - 3.7 cm - monitor outpatient with vascular surgery referral. Dispo: admit to PCU. FULL CODE. DC pending clinical improvement. Vital Signs Vital Signs Date Time Temp Pulse Resp B/P (MAP) Pulse Ox O2 Delivery O2 Flow Rate FiO2 10/16/20 18:06 101 18 10/16/20 17:17 98.4 93/54 (67) 93 Room Air Laboratory Data Labs 24H Laboratory Tests 2 10/16/20 17:55: POC pH (Misc Panel) 7.506H, POC Base Excess (Misc Panel) 14.0H, POC Saturated Percent O2 (Misc) 61L, POC pO2 (Misc Panel) 29.0*L, POC pCO2 (Misc Panel) 47.2H, POC HCO3 (Misc Panel) 37.3H, POC Total CO2 (Misc Panel) 39.0H 10/16/20 18:08: Immature Granulocyte % (Auto) 1.6, Neutrophils (%) (Auto) 83.9H, Lymphocytes (%) (Auto) 7.8L, Monocytes (%) (Auto) 6.4, Eosinophils (%) (Auto) 0.1, Basophils (%) (Auto) 0.2, Neutrophils # (Auto) 10.2H, Lymphocytes # (Auto) 1.0L, Monocytes # (Auto) 0.8, Eosinophils # (Auto) 0.0, Basophils # (Auto) 0.0, Nucleated Red Blood Cells % (auto) 0.5H, Blood Gas Bicarbonate Standard 30.1, Venous Blood pH 7.483H, Venous Blood Partial Pressure CO2 41.3, Venous Blood Partial Pressure O2 81.6H, Venous Blood Total Carbon Dioxide 31.5H, Venous Blood HCO3 30.3H, Venous Blood Oxygen Saturation 96.1H, Venous Blood Base Excess 6.3H, Anion Gap 7L, Glomerular Filtration Rate 13.9L, Lactic Acid Level 2.5*H, Calcium Level 8.8, Total Bilirubin 0.4, Direct Bilirubin < 0.1, Aspartate Amino Transf (AST/SGOT) 36, Alanine Aminotransferase (ALT/SGPT) 23, Alkaline Phosphatase 86, Total Creatine Kinase 58, Creatine Kinase MB < 1.0, Creatine Kinase MB Relative Index 1.72, Troponin I 0.19H, ZU-Gte-T-Type Natriuretic Peptide 530303P, Total Protein 7.1, Albumin 2.6L, Albumin/Globulin Ratio 0.6L, Thyroid Stimulating Hormone (TSH) 0.953, Thyroxine (T4) 10.8 CBC/BMP Laboratory Tests 10/16/20 18:08 Microbiology Microbiology 10/16/20 Blood Culture, Received Pending 10/16/20 Blood Culture, Received Pending 10/16/20 Respiratory Virus Panel (PCR) (MAYDA) - Final, Complete Home Medications Scheduled Amoxicillin/Potassium Clav (Augmentin 875-125 Tablet) 1 Each Tablet, 1 TAB PO BID for bronchitis Cyanocobalamin (Vitamin B-12) (B-12) 1,000 Mcg Tablet.er, 1,000 MCG PO QWEEK SUNDAYS Famotidine (Pepcid) 20 Mg Tablet, 20 MG PO BID for ACID Fluticasone Propion/Salmeterol (Advair Hfa 230-21 Mcg Inhaler) 12 Gm Hfa.aer.ad, 2 PUFF INH DAILY Lidocaine/Prilocaine (Lidocaine-Prilocaine Cream) 2.5%/2.5% Cream..g., 1 APLCT TOP ASDIRECTED 1-2 HOURS BEFORE DIALYSIS Magnesium Oxide (Magnesium Oxide) 400 Mg Tablet, 200 MG PO DAILY Methylprednisolone (Medrol) 4 Mg Tab.ds.pk, 4 MG PO ASDIRECTED Metoprolol Tartrate (Metoprolol Tartrate) 25 Mg Tablet, 12.5 MG PO BID Multivitamins (Thera M Plus Tablet) 1 Each Tablet, 1 TAB PO DAILY Sevelamer Carbonate (Renvela) 800 Mg Tablet, 800 MG PO AC Scheduled PRN Albuterol Sulf (Albuterol Sulfate) 2.5 Mg/3 Ml Vial.neb, 2.5 MG NEB Q4H PRN for SHORTNESS OF BREATH Albuterol Sulfate (Proair Hfa) 8.5 Gm Hfa.aer.ad, 2 PUFF INH Q6H PRN for SHORTNESS OF BREATH Benzonatate (Tessalon Perle) 100 Mg Capsule, 100 MG PO TID PRN for COUGH Allergies Coded Allergies: Sulfa (Sulfonamide Antibiotics) (Verified Allergy, Intermediate, ITCHING/RASH, 03/21/20) naproxen (Verified Allergy, Intermediate, RASH/ITCHING, 03/21/20) A-FIB/CHADSVASC A-FIB History Current/History of A-Fib/PAF?: No Current PO Anticoag Therapy: No RADHA ROTH MD Oct 16, 2020 20:14
[2020-10-16 20:29] LABS: C REACTIVE PROTEIN QUANTITATIV 8.71 MG/DL (0.00-0.30)
[2020-10-16] MEDS: DOCUSATE SODIUM 100MG CAPSULE PO SCH (21:00)
[2020-10-16] MEDS: METOPROLOL TART 12.5 MG PER 1/2 TAB PO SCH (21:00)
[2020-10-16] MEDS ORDERED: ALBUTEROL SULFATE 2.5 MG/0.5 ML INH NEB SOLN NEB PRN (21:35)
[2020-10-16] MEDS ORDERED: EMLA CREAM 5GM TUBE (LIDOCAINE/PRILOCAINE) TOP PRN (21:35)
[2020-10-16] MEDS ORDERED: IPRATROPIUM 0.5MG/ALBUTEROL 2.5MG INH SOL UD 3ML (DUONEB) NEB PRN (21:35)
[2020-10-16] MEDS ORDERED: ALBUTEROL 90 MCG/ACT 8GM HFA INHALER INH PRN (21:35)
[2020-10-16] MEDS ORDERED: BENZONATATE 100 MG CAP PO PRN (21:35)
--- NOTE | 2020-10-16 21:55 | REPVR ---
PROCEDURE INFORMATION: Exam: CT Chest Without Contrast; Diagnostic Exam date and time: 10/16/2020 8:20 PM Age: 69 years old Clinical indication: Other: Hypoxia TECHNIQUE: Imaging protocol: Diagnostic computed tomography of the chest without contrast. 3D rendering (Not supervised by radiologist): MIP and/or 3D reconstructed images were created by the technologist. Radiation optimization: All CT scans at this facility use at least one of these dose optimization techniques: automated exposure control; mA and/or kV adjustment per patient size (includes targeted exams where dose is matched to clinical indication); or iterative reconstruction. COMPARISON: CT Chest without contrast 09/12/2020 11:08 AM FINDINGS: Lungs: Moderate to severe paraseptal and centrilobular emphysematous changes demonstrated throughout both lungs. Also noted is COPD. Coarse bilateral infiltrates at both lung bases, right greater than left. Findings in part related to scarring as noted previously although several new foci of dense parenchymal opacification demonstrated in the posterior lingular lobe and both lower lobes suggesting new infiltrates. Pleural spaces: Interval development of small bilateral pleural effusions. Heart: There is severe atherosclerotic calcification of the coronary arteries. Pulmonary arteries: There is enlargement of the central pulmonary arteries, findings which can be associated with pulmonary arterial hypertension which should be correlated clinically. Aorta: There is fusiform dilatation of the ascending thoracic aorta which measures 3.7 cm. maximally. The thoracic aorta is diffusely ectatic with atherosclerotic changes. There is no saccular component. Lymph nodes: Unremarkable. No enlarged lymph nodes. Gallbladder and bile ducts: Cholelithiasis. Kidneys and ureters: Bilateral nonobstructive renal calculi. Bones/joints: Unremarkable. No acute fracture. Soft tissues: Unremarkable. IMPRESSION: 1. Moderate to severe paraseptal and centrilobular emphysematous changes demonstrated throughout both lungs. Also noted is COPD. 2. Interval development of small bilateral pleural effusions. 3. Coarse bilateral infiltrates at both lung bases, related to scarring although several new foci of dense parenchymal opacification demonstrated in the posterior lingular lobe and both lower lobes suggesting new infiltrates. 4. There is fusiform dilatation of the ascending thoracic aorta which measures 3.7 cm. maximally. The thoracic aorta is diffusely ectatic with atherosclerotic changes. There is no saccular component. 5. There is enlargement of the central pulmonary arteries, findings which can be associated with pulmonary arterial hypertension which should be correlated clinically. Electronically signed by: Suresh Suazo On 10/16/2020 21:54:03 PM
[2020-10-17] VITALS (7 sets, daily range): BP systolic 89–111; BP diastolic 52–64
[2020-10-17] MEDS ORDERED: SODIUM CHLORIDE 0.9% 250ML IV ONE (03:15)
[2020-10-17] MEDS ORDERED: ASPIRIN 325 MG TAB PO ONE (05:30)
[2020-10-17] MEDS ORDERED: methylPREDNISolone 125MG 2ML VIAL IV SCH (06:00)
[2020-10-17] MEDS: PIPERACILLIN/TAZOBACTAM SOD 4.5 GM in D5W MINI-BAG PLUS 50 ML IV SCH ×2 (06:00→17:33)
[2020-10-17] MEDS ORDERED: VANCOMYCIN HCL 1,000 MG, VIAL MATE ADAPTER 1 EACH in NS 250 ML IV SCH (06:00)
[2020-10-17 06:21] LABS: BASO % 0.3 % (0.0-1.0); HEMATOCRIT 28.3 % (36.0-47.0); HEMOGLOBIN 8.3 g/dl (12.0-15.5); LYMPH # 0.8 10^3/uL (1.5-5.0); LYMPH % 6.9 % (24.0-44.0); MEAN CORPUSCULAR HGB CONC 29.3 g/dl (32.0-36.5); MONO # 0.4 10^3/uL (0.0-0.8); MONO % 3.2 % (2.0-8.0); NEUTROPHILS # 10.1 10^3/uL (1.5-8.5); NEUTROPHILS % 88.1 % (36.0-66.0); PLATELET COUNT, AUTOMATED 297 10^3/uL (150-450); RED BLOOD COUNT 2.86 10^6/uL (4.00-5.40); WHITE BLOOD COUNT 11.5 10^3/uL (4.0-10.0)
[2020-10-17 06:49] LABS: ALBUMIN 2.4 GM/DL (3.2-5.2); BILIRUBIN,TOTAL 0.3 MG/DL (0.2-1.0); CALCIUM LEVEL 8.5 MG/DL (8.8-10.2); CREATININE FOR GFR 4.78 MG/DL (0.55-1.30); GLOMERULAR FILTRATION RATE 9.7 (>45); MAGNESIUM LEVEL 2.1 MG/DL (1.8-2.4); POTASSIUM SERUM 3.8 MEQ/L (3.5-5.1); TOTAL PROTEIN 6.3 GM/DL (6.4-8.2); TROPONIN I 0.16 NG/ML (< 0.10)
[2020-10-17] MEDS ORDERED: VANCOMYCIN HCL 750 MG, VIAL MATE ADAPTER 1 EACH in NS 250 ML IV SCH (08:00)
[2020-10-17] MEDS: ADVAIR HFA 230/21MCG INHALER INH SCH (08:34)
[2020-10-17 08:37] LABS: VANCOMYCIN RANDOM 23.2 UG/ML
--- NOTE | 2020-10-17 10:36 | CCN ---
CRITICAL CARE NOTE DATE: 10/17/2020 SUBJECTIVE: I attended Jamila Arellano here in the Intensive Care Unit. Patient has been examined and chart reviewed. Patient is very well-known to me from the outpatient setting. I spoke at length with her and her on the phone yesterday prior to her admission. In essence, she was recently hospitalized with a pneumonia. She continued to feel poorly at home. She was not on antibiotics and steroids until yesterday. She still felt very poorly and had oxygen saturations in the 70s on 4 liters nasal cannula at home. Since being admitted, she was on high dose steroids as well as broad spectrum antibiotics and clearly is feeling better today. T-max overnight 99.4, blood pressure 80s to the 120s systolic, heart rate generally in the 80s, respiratory rate 16 to 18 and unlabored. She is dialysis dependent. Most recent laboratories shows white blood cell count 11.5, hemoglobin 8.3, platelets 297,000, 88% segs, no bands. Sodium 139, K 3.8, chloride 104, CO2 28, BUN 18, creatinine 4.78. Lactic acid was 1 yesterday, 3.6 today. Troponin 0.16. Random Vancomycin 23.2. OBJECTIVE: GENERAL: On exam she is awake, alert and appropriate. HEENT: Pupils reactive, sclera clear. Trachea is in the midline. CHEST: Diminished but symmetric expansion. There is clearly a pleural based rub on the right about one-third over the lower field posteriorly. There are some basilar crackles. No other convincing focal adventitious breath sounds identified. CARDIAC: Regular rhythm, no gallop Peripheral pulses are palpable. No edema. ABDOMEN: Soft with active bowel sounds, no convincing organomegaly or masses. EXTREMITIES: No cyanosis or clubbing. NEUROLOGIC: She is awake, alert and appropriate. PSYCHIATRIC : Normal mood and affect. IMPRESSION: 1. Progressive hypoxemia, multifactorial. 2. Community acquired pneumonia, question of partially treated. 3. Known metastatic lung carcinoma. 4. Endstage renal disease, dialysis dependent. 5. Underlying obstructive lung disease. RECOMMENDATIONS: At this point we will cut her steroids in half. She will continue her antibiotics for now. I have spoken with Dr. Shaffer who is her attending here in the hospital and I believe she is acceptable to go to Med/Surg floor today. I spoke at length as well with Dr. Zaida. She is due for dialysis tomorrow. She was in Keytruda, this has been held in view of her status. It is conceivable that some of her interstitial findings are on the basis of Keytruda, but at this point I am reluctant to stay that definitively in view of her presentation. At this point we will proceed as outlined above. Further recommendations will be made in the progress record as soon as new information becomes available.
[2020-10-17] MEDS: (RENVELA) SEVELAMER **CARBONate** 800 MG TAB PO SCH ×3 (10:39→16:46)
[2020-10-17] MEDS: DOCUSATE SODIUM 100MG CAPSULE PO SCH ×2 (10:40→21:04)
[2020-10-17] MEDS: METOPROLOL TART 12.5 MG PER 1/2 TAB PO SCH ×2 (10:40→21:00)
[2020-10-17] MEDS: MAGNESIUM OXIDE 400MG TAB (MAG-OX) PO SCH (11:44)
[2020-10-17] MEDS: FAMOTIDINE 20 MG TAB PO SCH (11:44)
--- NOTE | 2020-10-17 12:12 | ECGEPIP ---
[facility] Test Date: 2020-10-17 Pat Name: KECIA RUSSELL Department: Room: 01[facility] Gender: Female Other Spatial Scientist: CHECO : 1950 Requested By: RADHA ROTH Order Number: [id number] Reading MD: Elham Whyte Measurements Intervals [place] Rate: 87 P: 76 [place]: 128 QRS: 56 QRSD: 86 T: 25 QT: 464 QTc: 558 Interpretive Statements Critical Test Result: Long QTc Normal sinus rhythm T wave abnormality, consider ANTEROLATERAL NEW Prolonged QT C/W 10/16/20 Electronically Signed on 10-17-2020 12:12:06 EDT by Elham Whyte
--- NOTE | 2020-10-17 12:49 | CR ---
CONSULTATION DATE: 10/17/2020 REFERRING PHYSICIAN: RADHA ROTH MD REASON FOR CONSULTATION: To assist in the management of endstage renal disease. HISTORY OF PRESENT ILLNESS: Mrs. Arellano is a 69-year-old female with multiple chronic medical problems. She has a known history of metastatic lung adenocarcinoma, COPD with chronic hypoxemia and endstage renal disease. She was recently admitted to [facility] with sepsis and pneumonia. She was hypotensive for a while. She did complete intravenous antibiotic prior to discharge and was not discharged on any further home antibiotic. She developed shortness of breath yesterday and was felt to have infiltrate on her chest CT scan. She was admitted last evening due to hypoxemia and her oxygen went down to 77% despite being on 4 liters of oxygen. Patient was dialyzed prior to admission yesterday. PAST MEDICAL HISTORY: 1. History of metastatic adenocarcinoma of left lung. 2. Endstage renal disease. 3. COPD with chronic hypoxemia. 4. History of anemia. 5. History of congestive heart failure. 6. History of chronic hypotension. PAST SURGICAL HISTORY: 1. AV fistula surgery. 2. Cataract surgery. 3. Teeth extraction. 4. Tubal ligation. PERSONAL AND SOCIAL HISTORY: Patient lives with her . She denies any smoking, alcohol or drug use. FAMILY HISTORY: There is lung cancer in her family along with diabetes and hypertension. MEDICATIONS: Her home medications include: 1. Augmentin 875 mg b.i.d. 2. Pepcid 20 mg b.i.d. 3. Advair Discus two puffs daily. 4. Magnesium oxide 400 mg daily. 5. Methylprednisolone 4 mg along with her chemotherapy of Keytruda. 6. Multivitamin one daily. 7. Renvela 800 mg with each meal. 8. She also uses Albuterol inhaler and nebulizers. ALLERGIES: She has an allergy to sulfa and Naproxen. REVIEW OF SYSTEMS: Patient denies any fever or chills. She was getting more short of breath and hypoxemic despite 4 liters of oxygen use at home. Ears, nose and throat are unremarkable. She denies any headache. Cardiovascular system is significant for congestive heart failure and chronic hypotension. Respiratory system is significant for COPD and chronic hypoxemia with adenocarcinoma of the lung. GI system is negative for vomiting or diarrhea. system is negative for dysuria or hematuria. Musculoskeletal system is significant for chronic degenerative arthritis and back pain. Endocrine system is negative for diabetes or thyroid problems. Hematological system is significant for anemia of chronic kidney disease. She is not on long-term anticoagulation. Neurological system is negative for seizures or stroke. Skin is negative for rash or ulcers. PHYSICAL EXAMINATION: VITAL SIGNS: Temperature 98.2 degrees Fahrenheit, heart rate is 96 per minute and respiratory rate is 20 per minute. Blood pressure at present 105/59 mmHg and oxygen saturation 91% on 4 liters of oxygen. Earlier, her blood pressure was 86/54 mmHg. HEAD: Atraumatic. NECK: Supple, without JVD sitting upright. LUNGS: Diminished breath sounds and bilateral coarse crepitations. HEART: Heart sounds are regular and without a pericardial friction rub. ABDOMEN: Soft and nontender. Bowel sounds are normal. EXTREMITIES: Without any cyanosis or clubbing. NEUROLOGIC: She is awake, alert and at her baseline mentation. LABORATORY DATA: Today's labs showed a WBC count of 11.5, hemoglobin 8.3 and hematocrit 28.3. Platelets are 297,000. Blood gas last evening showed a pH of 7.48, this was a venous blood gas, pCO2 41 and pO2 81.6. Today, her sodium is 139, potassium 3.8, CO2 28, BUN 18, creatinine 4.78. Lactic acid level 3.6 and calcium 8.5. Last evening her BNP level was 101,407. Chest CT scan done in the Emergency Room last evening did show moderate to severe emphysema, small bilateral pleural effusions, coarse bilateral infiltrates at both lung bases. There was also dilatation of the ascending thoracic noted at 3.7 cm in maximum dimension. Enlargement of central pulmonary arteries due to pulmonary hypertension was noticed. PROBLEMS: 1. Endstage renal disease, patient was dialyzed prior to admission yesterday. Her electrolytes are stable and her volume status seems reasonably well compensated even though her BNP level is quite elevated. At this point I am not sure if she will be able to tolerate any fluid removal due to chronic hypotension. I will await for dialysis tomorrow. She does not want to have dialysis today anyway. 2. Hypoxemia, most likely this is multifactorial. She has pulmonary hypertension, infiltrates, atelectasis and small bilateral pleural effusions. We will try to remove as much fluid as she could tolerate. Unfortunately, she does not want to have dialysis or ultrafiltration today. 3. Anemia, her anemia has been chronic and will need close monitoring. No urgent need for a transfusion at present. 4. Pneumonia, patient has been started on steroids and antibiotics. She was given Vancomycin and also she has received Zosyn. She is being followed by Dr. [place]. Thank you for involving me in the care of Mrs. Arellano. I will follow her along with you.
[2020-10-17] MEDS: methylPREDNISolone 40MG 1ML VIAL IV SCH ×2 (13:30→21:04)
[2020-10-17] MEDS ORDERED: NS 1,000 ML IV SCH (15:50)
--- NOTE | 2020-10-17 15:59 | IPNPDOC ---
Text Note Date of Service The patient was seen on 10/17/20. NOTE Subjective: 61-year-old female with past history of lung cancer, currently rec eiving Keytruda, end-stage renal disease on hemodialysis on a Wednesday, Wednesday, Wednesday schedule. Patient was recently admitted for sepsis secondary pneumonia in September. Patient contacted her credit verification clerk as she was having worsening difficulty breathing and was found to have her pulse oximetry at 77%. Her credit verification clerk asked her to go to the emergency department the patient was admitted. Patient is feeling better today after receiving IV Solu-Medrol as well as antibiotics. Patient states that she is feeling much better. Review of systems: General: Patient denies fevers HEENT: Patient denies headaches Cardiovascular: Patient denies chest pain Respiratory: Patient reports improvement in her shortness of breath and her cough GI: Patient denies abdominal pain, nausea, vomiting, diarrhea : Patient denies increased frequency or pain with urination Extremities: Patient denies swelling or pain in extremities Neurological: Patient denies numbness or tingling in legs Physical exam: Vitals: See below General: Alert and oriented female patient with nasal cannula oxygen in place when I walked in the room. Patient not appear to be in any acute distress. HEENT: Normocephalic, atraumatic, moist mucous membranes. Neck: No lymphadenopathy or thyromegaly Cardiac: Regular rate and rhythm, no murmurs, normal S1, normal S2 Pulm: Clear to auscultation bilaterally. No wheezes, rhonchi, rales Abd: Nondistended, nontender to palpation, normal bowel sounds Ext: No edema bilateral lower extremities Labs: See below Imaging: No new imaging has been performed today. Assessment/plan: 69-year-old female who presented to the hospital with worsening shortness of breath who was found to be septic secondary to pneumonia. 1. Acute hypoxic respiratory failure possibly secondary to COPD exacerbation versus pneumonia versus CHF. Patient was hypoxic on her home O2 at 4 L. Patient was given Solu-Medrol, albuterol, DuoNeb antibiotics. ABG showed respiratory alkalosis. We will continue with her home O2. Patient's breathing is doing better and she is able to be on her regular 4 L. 2. Sepsis secondary to possible pneumonia. Patient was tachycardic, tachypneic, hypotensive, and had leukocytosis with an elevated lactic acid. She was still hypotensive after 1 L normal saline bolus. Patient's lactic acidosis initially resolved but did become worse. Patient's procalcitonin was 6.15. Continue with vancomycin and Zosyn for the time being. 3. Elevated BNP. In the setting of ESRD patient does not appear to be fluid overloaded at this time. 4. Lactic acidosis. Patient's lactic acidosis had initially resolved however, it did worsen in her last x3.9. Patient will receive a liter of IV fluids 80 cc/h with recheck to be drawn at 8 PM tonight. 5. Elevated troponin. Patient has no chest pain. EKG was showing T wave inversions in anterior leads without ST elevation. Troponin 0 0.19, 0.19, 0.17. Takes metoprolol at home. Aspirin given. Echo has been ordered. Cardiology contacted and agreed with plan of care. 6. Hypertension. Patient has had low blood pressures throughout her hospitalization last time and this time. Patient will be given a liter of fluid at 80 cc/h 7. ESRD. Patient will get dialysis tomorrow. Dr. Cerda is on consult. 8. Lung cancer, non-small cell. Patient is on Keytruda. DVT Prophylaxis: Teds and sequentials Disposition: Pending clinical improvement VS,Rhonda, I+O VSRhonda, I+O Laboratory Tests 10/16/20 18:08 10/17/20 06:07 Vital Signs Date Time Temp Pulse Resp B/P (MAP) Pulse Ox O2 Delivery O2 Flow Rate FiO2 10/17/20 12:00 98.5 100 20 95/53 (67) 90 Nasal Cannula 4.0 DEUCE HUTSON DO Oct 17, 2020 15:59
[2020-10-18] MEDS: methylPREDNISolone 40MG 1ML VIAL IV SCH ×3 (05:14→21:04)
[2020-10-18] MEDS: PIPERACILLIN/TAZOBACTAM SOD 4.5 GM in D5W MINI-BAG PLUS 50 ML IV SCH ×2 (05:14→17:39)
[2020-10-18] MEDS: (RENVELA) SEVELAMER **CARBONate** 800 MG TAB PO SCH ×3 (06:12→17:30)
[2020-10-18] MEDS: FAMOTIDINE 20 MG TAB PO SCH (06:12)
[2020-10-18] MEDS: MAGNESIUM OXIDE 400MG TAB (MAG-OX) PO SCH (06:13)
[2020-10-18] MEDS: DOCUSATE SODIUM 100MG CAPSULE PO SCH ×2 (06:13→21:04)
[2020-10-18 07:00] LABS: BASO % 0.1 % (0.0-1.0); HEMATOCRIT 29.1 % (36.0-47.0); HEMOGLOBIN 8.4 g/dl (12.0-15.5); LYMPH # 1.1 10^3/uL (1.5-5.0); LYMPH % 5.4 % (24.0-44.0); MEAN CORPUSCULAR HGB CONC 28.9 g/dl (32.0-36.5); MEAN CORPUSCULAR VOLUME 100.3 fl (80.0-96.0); MONO % 4.9 % (2.0-8.0); NEUTROPHILS # 17.6 10^3/uL (1.5-8.5); NEUTROPHILS % 87.6 % (36.0-66.0); PLATELET COUNT, AUTOMATED 301 10^3/uL (150-450); WHITE BLOOD COUNT 20.1 10^3/uL (4.0-10.0)
[2020-10-18 07:28] LABS: ALBUMIN 2.4 GM/DL (3.2-5.2); BILIRUBIN,TOTAL 0.3 MG/DL (0.2-1.0); CALCIUM LEVEL 8.7 MG/DL (8.8-10.2); CREATININE FOR GFR 6.03 MG/DL (0.55-1.30); GLOMERULAR FILTRATION RATE 7.4 (>45); MAGNESIUM LEVEL 2.3 MG/DL (1.8-2.4); POTASSIUM SERUM 3.6 MEQ/L (3.5-5.1); TOTAL PROTEIN 6.3 GM/DL (6.4-8.2); VANCOMYCIN RANDOM 19.8 UG/ML
[2020-10-18] MEDS: ADVAIR HFA 230/21MCG INHALER INH SCH (07:38)
[2020-10-18] MEDS: METOPROLOL TART 12.5 MG PER 1/2 TAB PO SCH ×2 (09:00→21:07)
--- NOTE | 2020-10-18 11:49 | IPNPDOC ---
Subjective Date Seen The patient was seen on 10/18/20. Subjective Chief Complaint/HPI Patient is complaining of inability to bring up sputum. She still admits to coughing and mild shortness of breath. She denies of fever, chills, chest pain or palpitation. She is currently in dialysis unit getting hemodialysis. Admits that her voice is raspy. General: Denies: Chills, Night Sweats, Fatigue Constitutional: Denies: Chills, Fever Eyes: Denies: Pain ENT: Denies: Dysphagia Skin: Denies: Rash Pulmonary: Reports: Dyspnea, Cough Cardiovascular: Denies: Chest Pain, Palpitations, Orthopnea Gastrointestinal: Denies: Nausea, Vomiting, Abdominal Pain, Diarrhea Neurological: Denies: Weakness, Numbness Objective Physical Examination General Exam: Positive: Alert, Cooperative, No Acute Distress Eye Exam: Positive: Sclera icteric ENT Exam: Positive: Atraumatic Neck Exam: Positive: Supple Chest Exam: Positive: Rhonchi, Wheezing Heart Exam: Positive: Rate Normal, Regular Rhythm Abdomen Exam: Positive: Normal bowel sounds, Soft; Negative: Tenderness Skin Exam: Negative: Rash Neuro Exam: Positive: Normal Speech Psych Exam: Positive: Oriented x 3 Assessment /Plan Assessment This is a 69-year-old female with past medical history of left sided non-small cell lung cancer status post chemotherapy and immunotherapy, severe COPD/emphysema, end-stage renal disease admitted to the hospital with unresolving pneumonia. 1. Hypoxic and hypercapnic respiratory failure (acute on chronic) 2. HAP 3. ESRD on hemodialysis 4. COPD exacerbation Plan/VTE VTE Prophylaxis Ordered?: Yes Plan 1. Continue with current antibiotic regimen and systemic corticosteroid should be taper over the course of 2 weeks. 2. Wean supplemental oxygen to target oxygen saturation above 88%. 3. She can probably restart her Keytruda when she is treated with antibiotic for her pneumonia. 4. Recommend speech and swallow evaluation for suspected aspiration. Disposition Anticipate discharge in a few days. VS, I&O, 24H, Fishbone Vital Signs/I&O Vital Signs Date Time Temp Pulse Resp B/P (MAP) Pulse Ox O2 Delivery O2 Flow Rate FiO2 10/17/20 22:00 96.7 96 18 95/55 (68) 96 Nasal Cannula 3.0 I&O- Last 24 Hours up to 6 AM 10/18/20 06:00 Intake Total 1820 ml Output Total 75 ml Balance 1745 ml Laboratory Data 24H LABS Laboratory Tests 2 10/17/20 11:49: Methicillin-Resist S.aureus DNA PCR NOT DETECTED 10/17/20 12:02: Lactic Acid Followup at 4 Hours 3.9*H 10/17/20 20:08: Lactic Acid Level 3.0*H 10/18/20 00:39: Lactic Acid Followup at 4 Hours 1.7 10/18/20 06:33: Immature Granulocyte % (Auto) 2.0, Neutrophils (%) (Auto) 87.6H, Lymphocytes (%) (Auto) 5.4L, Monocytes (%) (Auto) 4.9, Eosinophils (%) (Auto) 0.0, Basophils (%) (Auto) 0.1, Neutrophils # (Auto) 17.6H, Lymphocytes # (Auto) 1.1L, Monocytes # (Auto) 1.0H, Eosinophils # (Auto) 0.0, Basophils # (Auto) 0.0, Nucleated Red Blood Cells % (auto) 0.6H, Anion Gap 12, Glomerular Filtration Rate 7.4L, Calcium Level 8.7L, Magnesium Level 2.3, Total Bilirubin 0.3, Aspartate Amino Transf (AST/SGOT) 12, Alanine Aminotransferase (ALT/SGPT) 16, Alkaline Phosphatase 76, Total Protein 6.3L, Albumin 2.4L, Albumin/Globulin Ratio 0.6L, Random Vancomycin Level 19.8 CBC/BMP Laboratory Tests 10/18/20 06:33 Microbiology Microbiology 10/16/20 Blood Culture - Preliminary, Resulted No growth after 24 hours . All specim... 10/16/20 Blood Culture - Preliminary, Resulted No growth after 24 hours . All specim... 10/16/20 Blood Culture - Preliminary, Resulted No growth after 24 hours . All specim... 10/16/20 Blood Culture - Preliminary, Resulted No growth after 24 hours . All specim... 10/16/20 Respiratory Virus Panel (PCR) ([facility]) - Final, Complete YAO ALANIS MD Oct 18, 2020 11:49
[2020-10-18 14:00] VITALS: BP 118/60
--- NOTE | 2020-10-18 15:05 | IPNPDOC ---
Text Note Date of Service The patient was seen on 10/18/20. NOTE Subjective: Patient is a 69-year-old female presented to the hospital with hyp oxia and was found to have pneumonia. Patient is feeling better after receiving IV Solu-Medrol as well as antibiotics. Patient was seen today just prior to starting dialysis and says her only complaint is inability to get her sputum up. Patient is otherwise doing well today. Review of systems: General: Patient denies fevers HEENT: Patient denies headaches Cardiovascular: Patient denies chest pain Respiratory: Patient reports improvement of her shortness of breath and cough Physical exam: Vitals: See below General: Alert and oriented female patient with nasal cannula oxygen in place when I walked in the room. Patient not appear to be in any acute distress. HEENT: Normocephalic, atraumatic, moist mucous membranes. Neck: No lymphadenopathy or thyromegaly Cardiac: Regular rate and rhythm, no murmurs, normal S1, normal S2 Pulm: Fine crackles in the bases bilaterally. Scattered and expiratory wheezes. Abd: Nondistended, nontender to palpation, normal bowel sounds Ext: No edema bilateral lower extremities Labs: See below Imaging: No new imaging has been performed. Assessment/plan: 69-year-old female presented to hospital with worsening shortness of breath found to be septic secondary to pneumonia 1. Acute hypoxic respiratory failure possibly secondary to COPD exacerbation versus pneumonia versus CHF. Patient was hypoxic on her home O2 at 4 L. Patient is now on Solu-Medrol, albuterol, duo nebs, antibiotics. ABG showed respiratory alkalosis on admission. Continue with her home O2. Patient is doing better and we will continue to treat the COPD exacerbation and pneumonia. 2. Sepsis secondary to possible pneumonia. This has resolved. We will continue to monitor the patient. Patient is on vancomycin and Zosyn. 3. Elevated BNP. This is in the setting of ESRD. Patient received dialysis today. 4. Lactic acidosis. Patient received a liter of fluids yesterday at 80 cc/h and recheck of lactic acid was within normal range after the liter. 5. Elevated troponin with no chest pain. Echo has been ordered and performed and we are awaiting read. 6. Hypertension. Patient is had low blood pressure throughout her hospitalization. Continue to monitor. 7. ESRD. Got dialysis today I appreciate Dr. Cerda's help treating the patient. 8. Lung cancer, non-small cell. Can resume Keytruda after hospitalization. DVT Prophylaxis: Teds and sequentials Disposition: Pending clinical improvement VS,Rhonda, I+O VS, Rhonda, I+O Laboratory Tests 10/18/20 06:33 Vital Signs Date Time Temp Pulse Resp B/P (MAP) Pulse Ox O2 Delivery O2 Flow Rate FiO2 10/17/20 22:00 96.7 96 18 95/55 (68) 96 Nasal Cannula 3.0 I&O- Last 24 Hours up to 6 AM 10/18/20 06:00 Intake Total 1820 ml Output Total 75 ml Balance 1745 ml DEUCE HUTSON DO Oct 18, 2020 15:05
--- NOTE | 2020-10-18 15:14 | IPN ---
PROGRESS NOTE DATE: 10/18/2020 SUBJECTIVE: Mrs. Arellano is seen this morning during hemodialysis. She is feeling better and her dyspnea has improved. However, she is on 3-4 liters of oxygen. Her blood pressure has been chronically low and she is concerned about it. She denies any fevers or chills. She has no nausea or vomiting. OBJECTIVE: VITAL SIGNS: Temperature 96.7 degrees Fahrenheit, heart rate 96 per minute and respiratory rate 18 per minute. Blood pressure 85/50 mmHg and oxygen saturation 96% on 3 liters of oxygen. HEENT: Head is atraumatic. NECK: Supple and without JVD not abnormally elevated. LUNGS: Diminished breath sounds and bilateral crepitus. HEART: Heart sounds are tachycardic and irregular. ABDOMEN: Soft and nontender and bowel sounds are normal. EXTREMITIES: Without any cyanosis or clubbing. NEUROLOGIC: She is at her baseline mentation without focal deficit. Today's labs show a WBC count 20.1, hemoglobin 8.4 and hematocrit 29. Platelets 301. Sodium 142, potassium 3.6, BUN 34 and creatinine 6.0. Calcium level is 8.7. PROBLEMS: 1. End-stage renal disease. The patient is being dialyzed today and she is tolerating dialysis treatment well. Her blood pressure has been chronically low and is still at about baseline. 2. Hypokalemia. Potassium level is on the low side. We are dialyzing her with 3.0 mEq of potassium bath. She can probably have liberalized potassium in her diet. 3. Anemia. Her anemia is stable and no change since yesterday. No urgent intervention is needed. We will give her Aranesp next week if she is still in the hospital. 4. Congestive heart failure. Volume status seems reasonably well compensated. We are trying to remove about 1 liter of fluid as tolerated. Unfortunately, cannot remove fluid too aggressively due to chronic hypotension. 5. Hypotension. The patient is worried about her low blood pressure. She is on low dose of beta floresita for atrial fibrillation and rate control. She can probably benefit from midodrine if her blood pressure does not improve. I would recommend not to give her fluid boluses due to risk for hypervolemia over the weekend.
[2020-10-18] MEDS ORDERED: guaiFENesin 200 MG TAB PO PRN (20:20)
[2020-10-18 22:00] VITALS: BP 102/54
[2020-10-19] MEDS: PIPERACILLIN/TAZOBACTAM SOD 4.5 GM in D5W MINI-BAG PLUS 50 ML IV SCH (05:56)
[2020-10-19] MEDS: methylPREDNISolone 40MG 1ML VIAL IV SCH (05:56)
[2020-10-19 06:00] VITALS: BP 106/62
[2020-10-19 06:51] LABS: BASO # 0.1 10^3/uL (0.0-0.2); BASO % 0.3 % (0.0-1.0); HEMATOCRIT 29.5 % (36.0-47.0); HEMOGLOBIN 8.6 g/dl (12.0-15.5); LYMPH # 1.3 10^3/uL (1.5-5.0); LYMPH % 6.8 % (24.0-44.0); MEAN CORPUSCULAR HEMOGLOBIN 29.3 pg (27.0-33.0); MEAN CORPUSCULAR HGB CONC 29.2 g/dl (32.0-36.5); MEAN CORPUSCULAR VOLUME 100.3 fl (80.0-96.0); MONO # 1.5 10^3/uL (0.0-0.8); MONO % 7.7 % (2.0-8.0); NEUTROPHILS # 15.7 10^3/uL (1.5-8.5); PLATELET COUNT, AUTOMATED 315 10^3/uL (150-450); RED BLOOD COUNT 2.94 10^6/uL (4.00-5.40)
[2020-10-19 06:54] LABS: WHITE BLOOD COUNT 19.1 10^3/uL (4.0-10.0)
[2020-10-19] MEDS: (RENVELA) SEVELAMER **CARBONate** 800 MG TAB PO SCH ×2 (07:16→12:00)
[2020-10-19 07:27] LABS: BILIRUBIN,TOTAL 0.3 MG/DL (0.2-1.0); CALCIUM LEVEL 8.1 MG/DL (8.8-10.2); CREATININE FOR GFR 3.98 MG/DL (0.55-1.30); GLOMERULAR FILTRATION RATE 11.9 (>45); POTASSIUM SERUM 3.7 MEQ/L (3.5-5.1); TOTAL PROTEIN 5.8 GM/DL (6.4-8.2)
[2020-10-19] MEDS: ADVAIR HFA 230/21MCG INHALER INH SCH (07:59)
[2020-10-19] MEDS ORDERED: predniSONE 20 MG TAB PO SCH (09:00)
[2020-10-19] MEDS ORDERED: LevoFLOXacin 750 MG TABLET PO ONE (10:00)
[2020-10-19] MEDS: DOCUSATE SODIUM 100MG CAPSULE PO SCH (10:03)
[2020-10-19] MEDS: MAGNESIUM OXIDE 400MG TAB (MAG-OX) PO SCH (10:04)
[2020-10-19 10:05] VITALS: BP 102/54
[2020-10-19] MEDS: METOPROLOL TART 12.5 MG PER 1/2 TAB PO SCH (10:05)
[2020-10-19] MEDS: FAMOTIDINE 20 MG TAB PO SCH (10:06)
--- NOTE | 2020-10-19 10:14 | IPNPDOC ---
Subjective Date Seen The patient was seen on 10/19/20. Subjective Chief Complaint/HPI Patient was seen and examined. Patient is sleep comfortably. She denies, fever, chills, cough, shortness of breath, chest pain. General: Denies: Chills, Fatigue Constitutional: Denies: Fever Pulmonary: Denies: Dyspnea, Cough Cardiovascular: Denies: Chest Pain, Orthopnea Gastrointestinal: Denies: Nausea, Abdominal Pain Neurological: Denies: Weakness Objective Physical Examination General Exam: Positive: Alert, Cooperative, No Acute Distress Eye Exam: Positive: Sclera icteric ENT Exam: Positive: Atraumatic Neck Exam: Positive: Supple Chest Exam: Positive: Rhonchi; Negative: Wheezing Heart Exam: Positive: Rate Normal, Regular Rhythm Abdomen Exam: Positive: Normal bowel sounds, Soft; Negative: Tenderness Skin Exam: Negative: Rash Neuro Exam: Positive: Normal Speech Psych Exam: Positive: Oriented x 3 Assessment /Plan Assessment This is a 69-year-old female with past medical history of left sided non-small cell lung cancer status post chemotherapy and immunotherapy, severe COPD/emphysema, end-stage renal disease admitted to the hospital with unresolving pneumonia. 1. Hypoxic and hypercapnic respiratory failure (acute on chronic) 2. HAP 3. ESRD on hemodialysis 4. COPD exacerbation Plan/VTE VTE Prophylaxis Ordered?: Yes Plan 1. Recommend switching Abx to oral and to complete 5-7 days. Systemic corticosteroid to be taper over the course of 2 weeks. 2. Wean supplemental oxygen to target oxygen saturation above 88%. 3. She can probably restart her Keytruda when she is treated with antibiotic for her pneumonia. 4. Recommend pulmonary rehab as outpatient. Disposition DC planning. VS[facility]&O[facility] Vital Signs/I&O Vital Signs Date Time Temp Pulse Resp B/P (MAP) Pulse Ox O2 Delivery O2 Flow Rate FiO2 10/19/20 10:05 93 102/54 10/19/20 06:00 97.7 17 96 Nasal Cannula 4.0 I&O- Last 24 Hours up to 6 AM 10/19/20 06:00 Intake Total 50 ml Output Total 1000 ml Balance -950 ml Laboratory Data 24H LABS Laboratory Tests 2 10/19/20 06:39: Immature Granulocyte % (Auto) 3.2H, Neutrophils (%) (Auto) 82.0H, Lymphocytes (%) (Auto) 6.8L, Monocytes (%) (Auto) 7.7, Eosinophils (%) (Auto) 0.0, Basophils (%) (Auto) 0.3, Neutrophils # (Auto) 15.7H, Lymphocytes # (Auto) 1.3L, Monocytes # (Auto) 1.5H, Eosinophils # (Auto) 0.0, Basophils # (Auto) 0.1, Nucleated Red Blood Cells % (auto) 0.4H, Anion Gap 7L, Glomerular Filtration Rate 11.9L, Calcium Level 8.1L, Magnesium Level 2.0, Total Bilirubin 0.3, Aspartate Amino Transf (AST/SGOT) 19, Alanine Aminotransferase (ALT/SGPT) 21, Alkaline Phosphatase 93, Total Protein 5.8L, Albumin 2.0L, Albumin/Globulin Ratio 0.5L, Random Vancomycin Level 13.0 CBC/BMP Laboratory Tests 10/19/20 06:39 Microbiology Microbiology 10/16/20 Blood Culture - Preliminary, Resulted No Growth after 48 hours. All Specime... 10/16/20 Blood Culture - Preliminary, Resulted No Growth after 48 hours. All Specime... 10/16/20 Blood Culture - Preliminary, Resulted No Growth after 48 hours. All Specime... 10/16/20 Blood Culture - Preliminary, Resulted No Growth after 48 hours. All Specime... 10/16/20 Respiratory Virus Panel (PCR) ([facility]) - Final, Complete YAO ALANIS MD Oct 19, 2020 10:14
[2020-10-19] MEDS ORDERED: DARBEPOETIN 100 MCG/0.5 ML *DIALYSIS* SYRINGE (J0882) IV SCH (10:15)
[2020-10-19] MEDS ORDERED: LEVO500T3 PO (12:55)
[2020-10-19] MEDS ORDERED: PRED10TA2 PO (12:55)
--- NOTE | 2020-10-19 14:50 | DS.PDOC ---
Discharge Summary General Date of Admission Oct 16, 2020 at 20:03 Date of Discharge 10/19/2020 Primary Care Physician: Nelly Urbie MD Attending Physician: DEUCE HUTSON DO Specialist/Consultants Involve: JHONNY MARION MD @ Specialist/Consultants Involve Dr. Jackson, nephrology Dr. Birmingham, pulmonology, Dr. Peter pulmonology Discharge Summary PROCEDURES PERFORMED DURING STAY: Inpatient dialysis based on her outpatient schedule. ADMITTING DIAGNOSES: 1. Acute hypoxic respiratory failure likely secondary to COPD exacerbation versus pneumonia versus CHF 2. Sepsis secondary to possible pneumonia 3. Elevated BNP 4. Hypotension 5. ESRD 6. Lung cancer, non-small cell carcinoma the left lung 7. Ascending thoracic aortic aneurysm DISCHARGE DIAGNOSES: 1. Acute on chronic hypoxic respiratory failure, improved. 2. Sepsis secondary to pneumonia, resolved 3. Pneumonia, improved 4. Elevated BNP 5. Hypotension 6. ESRD 7. Lung cancer, non-small cell carcinoma of the left lung 8. Ascending thoracic aortic aneurysm COMPLICATIONS/CHIEF COMPLAINT: Copd With Acute Exacerbation,Dyspnea. HISTORY OF PRESENT ILLNESS: Patient is a 69-year-old female with past medical history of lung cancer, currently receiving Keytruda, end-stage renal disease on hemodialysis on a Wednesday schedule who presented to the emergency department with hypoxia. 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 Dr. Birmingham recommended that the patient presented to the emergency department and facilitated the patient to be admitted was admitted for sepsis secondary to pneumonia as well as COPD exacerbation. Patient was initially shown to have lactic acidosis which was corrected with IV fluids. Patient received IV vancomycin and Zosyn as well as Solu-Medrol 80 mg IV 3 times daily. HOSPITAL COURSE: Patient did well on her first night of hospitalization but did continue to have a lactic acidosis. Patient received 1 L of IV fluids at 80 cc/h which corrected the patient's lactic acidosis. Patient continue to get better and was transferred from the PCU to the medical surgical floor. Patient received dialysis on her second day of admission and did well. Patient did have some low blood pressures throughout her hospitalization however, this is a chronic issue. Patient does not appear fluid overloaded and had her usual dialysis treatment. Patient's steroids were weaned down. Patient's MRSA nasal swab was negative so her vancomycin was discontinued due to the high negative predictive value of a negative MRSA screen for the patient not having a MRSA pneumonia. Patient was continued on IV Zosyn overnight on the second day of hospitalization. Patient had a swallow evaluation based on recommendations of Dr. Peter from pulmonology which did not show any swallowing difficulties or concern for aspiration. On 10/19/2020, patient was feeling better. Patient was transitioned to oral levofloxacin and oral prednisone. Patient was able to walk around on 2 L of oxygen with her lowest oxygen saturation being 87%. Patient was deemed ready for discharge at this time. Patient was discharged home on 10/19/2020. DISCHARGE MEDICATIONS: Please see below. ALLERGIES: Please see below. PHYSICAL EXAMINATION ON DISCHARGE: VITAL SIGNS: Please see below. General: Alert and oriented female patient with nasal cannula oxygen in place who was sitting up in bed. Patient did not appear to be in any acute distress. HEENT: Normocephalic, atraumatic, moist mucous membranes. Neck: No lymphadenopathy or thyromegaly Cardiac: Regular rate and rhythm, no murmurs, normal S1, normal S2 Pulm: Scattered end expiratory wheezing heard throughout the lung matute Abd: Nondistended, nontender to palpation, normal bowel sounds Ext: No edema bilateral lower extremities LABORATORY DATA: Please see below. IMAGING: Chest x-ray performed on 10/16/2020 was reported to show mild patchy parenchymal opacities in each lung base, improved since the prior study. CT scan of the chest without contrast performed on 10/16/2020 was reported to show moderate to severe paraseptal and centrilobular emphysematous changes demonstrated throughout both lungs. Also noted a COPD. Interval development of small bilateral pleural effusions. Coarse bilateral infiltrates at both lung bases, related to scarring although several new foci of dense parenchymal opacification demonstrated in the posterior lingula lobe and both lower lobes suggest new infiltrates. There is fusiform dilatation of the ascending thoracic aorta which measures 3.7 cm maximally. Thoracic aorta is diffusely ectatic with arthrosclerotic changes. There is no saccular component. There is enlargement of the central pulmonary arteries, finding which can be associated pulmonary artery hypertension which should be correlated clinically. PROGNOSIS: Fair ACTIVITY: As tolerated. DIET: Renal diet DISCHARGE PLAN: Discharge home DISPOSITION: 01 Home, Self-Care. DISCHARGE INSTRUCTIONS: 1. Follow-up with your primary care provider within 3 to 5 days of discharge. 2. Follow-up with Dr. Birmingham of pulmonary next week 3. Continue dialysis on your regular schedule 4. Start taking levofloxacin 500 mg every 48 hours starting on 10/21/2020 for 12 days 5. Taper prednisone as instructed for the next 2 weeks 6. Monitor your oxygen at home and make sure you maintain an oxygen saturation between 88 and 92% on 2 to 4 L via nasal cannula 7. Return to the emergency department if symptoms worsen ITEMS TO FOLLOWUP ON ON OUTPATIENT: 1. Follow pneumonia to resolution. DISCHARGE CONDITION: Stable. TIME SPENT ON DISCHARGE: 35 minutes. Vital Signs/I&Os Vital Signs Date Time Temp Pulse Resp B/P (MAP) Pulse Ox O2 Delivery O2 Flow Rate FiO2 10/19/20 10:05 93 102/54 10/19/20 06:00 97.7 17 96 Nasal Cannula 4.0 I&O- Last 24 Hours up to 6 AM 10/19/20 06:00 Intake Total 50 ml Output Total 1000 ml Balance -950 ml Laboratory Data Labs 24H Laboratory Tests 2 10/19/20 06:39: Immature Granulocyte % (Auto) 3.2H, Neutrophils (%) (Auto) 82.0H, Lymphocytes (%) (Auto) 6.8L, Monocytes (%) (Auto) 7.7, Eosinophils (%) (Auto) 0.0, Basophils (%) (Auto) 0.3, Neutrophils # (Auto) 15.7H, Lymphocytes # (Auto) 1.3L, Monocytes # (Auto) 1.5H, Eosinophils # (Auto) 0.0, Basophils # (Auto) 0.1, Nucleated Red Blood Cells % (auto) 0.4H, Anion Gap 7L, Glomerular Filtration Rate 11.9L, Calcium Level 8.1L, Magnesium Level 2.0, Total Bilirubin 0.3, Aspartate Amino Transf (AST/SGOT) 19, Alanine Aminotransferase (ALT/SGPT) 21, Alkaline Phosphatase 93, Total Protein 5.8L, Albumin 2.0L, Albumin/Globulin Ratio 0.5L, Random Vancomycin Level 13.0 CBC/BMP Laboratory Tests 10/19/20 06:39 Microbiology Microbiology 10/16/20 Blood Culture - Preliminary, Resulted No Growth after 48 hours. All Specime... 10/16/20 Blood Culture - Preliminary, Resulted No Growth after 48 hours. All Specime... 10/16/20 Blood Culture - Preliminary, Resulted No Growth after 48 hours. All Specime... 10/16/20 Blood Culture - Preliminary, Resulted No Growth after 48 hours. All Specime... 10/16/20 Respiratory Virus Panel (PCR) ([facility]) - Final, Complete Discharge Medications Scheduled Cyanocobalamin (Vitamin B-12) (B-12) 1,000 Mcg Tablet.er, 1,000 MCG PO QWEEK, (Reported) SUNDAYS Famotidine (Pepcid) 20 Mg Tablet, 20 MG PO BID for ACID Fluticasone Propion/Salmeterol (Advair Hfa 230-21 Mcg Inhaler) 12 Gm Hfa.aer.ad, 2 PUFF INH DAILY, (Reported) Levofloxacin (Levofloxacin) 500 Mg Tablet, 500 MG PO Q48H Lidocaine/Prilocaine (Lidocaine-Prilocaine Cream) 2.5%/2.5% Cream..g., 1 APLCT TOP ASDIRECTED, (Reported) 1-2 HOURS BEFORE DIALYSIS Magnesium Oxide (Magnesium Oxide) 400 Mg Tablet, 200 MG PO DAILY, (Reported) Metoprolol Tartrate (Metoprolol Tartrate) 25 Mg Tablet, 12.5 MG PO BID, (Reported) Multivitamins (Thera M Plus Tablet) 1 Each Tablet, 1 TAB PO DAILY, (Reported) Prednisone (Prednisone) 10 Mg Tablet, 10 MG PO TAPER Take 4 tabs daily x 3 days, then 3 tabs daily x 4 days, then 2 tabs daily x 4 days, then 1 tab daily x 4 days and stop Sevelamer Carbonate (Renvela) 800 Mg Tablet, 800 MG PO AC, (Reported) Scheduled PRN Albuterol Sulf (Albuterol Sulfate) 2.5 Mg/3 Ml Vial.neb, 2.5 MG NEB Q4H PRN for SHORTNESS OF BREATH, (Reported) Albuterol Sulfate (Proair Hfa) 8.5 Gm Hfa.aer.ad, 2 PUFF INH Q6H PRN for SHORTNESS OF BREATH, (Reported) Benzonatate (Tessalon Perle) 100 Mg Capsule, 100 MG PO TID PRN for COUGH, (Reported) Allergies Coded Allergies: Sulfa (Sulfonamide Antibiotics) (Verified Allergy, Intermediate, ITCHING /RASH, 03/21/20) naproxen (Verified Allergy, Intermediate, RASH/ITCHING, 03/21/20) DEUCE HUTSON DO Oct 19, 2020 14:50
--- NOTE | 2020-10-19 20:34 | IPN ---
NEPHROLOGY PROGRESS NOTE DATE: 10/19/2020 SUBJECTIVE: Patient was seen and examined at the bedside today morning. She is afebrile and hemodynamically stable. She was dialyzed yesterday and 1 liter of fluid was removed. She reports her shortness of breath is better and back to baseline. She was breathing on 2 liters nasal cannula, which is her baseline requirement. She feels better and wants to go home. OBJECTIVE: VITAL SIGNS: Temperature 97.7 degrees Fahrenheit, blood pressure 102/54, pulse 93, respiratory rate 17, saturating 96% on nasal cannula at 2 liters. INTAKE/OUTPUT: Urine output is not recorded. Ultrafiltration with hemodialysis was 1 liter. Weight in the bed scale is 55.5 kg. PHYSICAL EXAMINATION: GENERAL: Patient is awake, alert, oriented x3, lying in bed, in no apparent distress. HEAD/NECK: Extraocular muscles intact. Pupils equally round and reactive to light. Mucous membranes are moist. She is wearing nasal cannula. Neck is supple. No JVD. CVS: S1, S2, regular rate. No edema of the bilateral lower extremities. She has a right arm AV fistula. RESPIRATORY: Chest to clear to auscultation bilaterally. Bilateral equal air entry. No rales or rhonchi. ABDOMEN: Soft, positive bowel sounds, nontender. No organomegaly. MUSCULOSKELETAL: No clubbing or cyanosis. Pulses are 2+. BOBJ DEVELOPER: No focal deficit. Power is 5/5 in all extremities. LABORATORY REVIEW: CBC showed WBC 19.1, hemoglobin 8.6, platelets 315,000. BMP shows sodium 140, potassium 3.7, chloride 108, bicarb 25, BUN 24, creatinine 3.9. Albumin 2. MICROBIOLOGY: Blood cultures are all negative. CURRENT INPATIENT MEDICATIONS: Patient's medications were all reviewed by myself. She is currently on Vancomycin and Zosyn, which have been stopped and she has been started on Levaquin. No other significant change in the medications today at this time. ASSESSMENT AND PLAN: 1. End-stage renal disease: Patient was dialyzed yesterday, she tolerated the hemodialysis procedure well. Next hemodialysis will be done as an outpatient after discharge. 2. Congestive heart failure: Volume status is better optimized, 1 liter of fluid was removed. Dry weight will be changed as an outpatient. 3. Healthcare associated pneumonia: Patient was on Vanco and Zosyn, she has been switched to Levaquin and she would go home on Levaquin dose now. 4. COPD with home oxygen dependence: Patient is back to oxygen via nasal cannula at around 3-4 liters, which is her home requirement. She will go home on the oxygen. DISPOSITION: Patient is optimized from a nephrology standpoint to be discharged home. She will be followed up as an outpatient at dialysis center.
--- NOTE | 2020-10-20 10:24 | ECHO ---
ECHOCARDIOGRAM DATE OF PROCEDURE: 10/17/2020 Age: 69 Gender: Female Height: Weight: REFERRING PHYSICIAN: Car Waldron M.D. PATIENT LOCATION: Room 3201. REASON FOR THE TESTING: Edema.. MEASUREMENTS: 2D Measurements: IVS 0.78 cm LV 3.8 cm LVPW 0.98 cm LA 3.3 cm Aorta 2.8 cm IVC 2.0 cm Doppler Measurements: Peak velocity across the aortic valve 1.3 m/sec Peak velocity across the LVOT 0.93 m/sec Mitral E 0.73 Mitral A 0.76 with a ratio of less than 1.0 Maximum tricuspid valve velocity 3.4 m/sec 2D COMMENTS: 1. Normal left ventricular size, wall thickness and normal global left ventricular systolic function. The estimated left ventricular systolic ejection fraction is 60-65%. 2. Normal left atrium. Mildly enlarged right atrium and right ventricle. 3. The atrial septum appeared to be normal without evidence of defect or shunt. 4. Normal aortic root. 5. No pericardial effusion seen. 6. Mildly calcified aortic valve with normal leaflet excursion. Normal mitral valve and tricuspid valve. The pulmonary valve and proximal pulmonary artery branches were not well visualized. 7. The inferior vena cava was mildly enlarged. Central venous pressure might be elevated. DOPPLER: It detects trace mitral regurgitation and moderate tricuspid regurgitation. The calculated pulmonary artery systolic pressure varies between 40-50 mmHg. Abnormal relaxation pattern was noted across the mitral valve leaflets as well as the mitral valve annulus consistent with features of grade 1 left ventricular diastolic dysfunction. IMPRESSION: 1. Normal global left ventricular systolic function. There are some features of grade 1 left ventricular diastolic dysfunction manifested by abnormal relaxation. 2. Aortic valve sclerosis without stenosis or regurgitation. Trace mitral regurgitation. 3. Moderate tricuspid regurgitation with moderate pulmonary hypertension and dilated right heart chambers.
[2020-10-21] MEDS ORDERED: LevoFLOXacin 500 MG TABLET PO SCH (06:00)
[2020-10-23] MEDS ORDERED: predniSONE 10 MG TAB PO SCH (09:00)
[2020-10-27] MEDS ORDERED: predniSONE 20 MG TAB PO SCH (09:00)
[2020-10-31] MEDS ORDERED: predniSONE 10 MG TAB PO SCH (09:00)
== END 2020-10-19 13:46 | disposition home or self-care (01) | DRG 871 ==
LOC: M ED 17:16 → M ED INP 20:03 → ENRESERV 10-17 06:38 → M ICU 10-17 08:53 → M MSPAV 10-17 18:52
PROVIDERS: ADMIT Family Medicine; ATTEND Family Medicine
PROC: 5A1D70Z Performance of Urinary Filtration, Intermittent, Less than 6 Hours Per Day (ICD-10-PCS; principal; 2020-10-18)
DX: A41.9 Sepsis, unspecified organism (principal); J96.21 Acute and chronic respiratory failure with hypoxia; J18.9 Pneumonia, unspecified organism; N18.6 End stage renal disease; J96.22 Acute and chronic respiratory failure with hypercapnia; J44.0 Chronic obstructive pulmonary disease with (acute) lower respiratory infection; J44.1 Chronic obstructive pulmonary disease with (acute) exacerbation; C34.32 Malignant neoplasm of lower lobe, left bronchus or lung; E87.2 Acidosis; Z99.81 Dependence on supplemental oxygen; Z98.49 Cataract extraction status, unspecified eye; I71.2 Thoracic aortic aneurysm, without rupture; Z79.899 Other long term (current) drug therapy; Z99.2 Dependence on renal dialysis; D63.1 Anemia in chronic kidney disease; E87.6 Hypokalemia

== ENCOUNTER → 2021-04-15 | Outpatient (CLI) | payer MEDICARE, BC, OTHER ==
[~2021-04-15] MED LIST changes: +LEVO500T4 PO; -LISI-898 PO; +LISI5TAB11 PO; +MAGN400T2 PO; +MIDO5TA PO; +PRED10TA2 PO; -PROC10TA4 PO; +PROC10TA5 PO; +TESS100C PO
== END ==
LOC: M RAD 10:07
PROVIDERS: ATTEND Internal Medicine Hematology & Oncology
DX: C34.90 Malignant neoplasm of unspecified part of unspecified bronchus or lung (principal)

== ENCOUNTER → 2021-08-26 | Outpatient (CLI) | payer MEDICARE, BC, OTHER ==
[~2021-08-26] MED LIST changes: +ALBU2.5V10 NEB; -ALBU83IN NEB; -D31000TA2 PO; +PRED10PA2 PO; +VITA100093 PO
== END ==
LOC: M PLAIMG 12:52
PROVIDERS: ATTEND Internal Medicine Hematology & Oncology
DX: C34.92 Malignant neoplasm of unspecified part of left bronchus or lung (principal); I25.10 Atherosclerotic heart disease of native coronary artery without angina pectoris; S22.068G Other fracture of T7-T8 thoracic vertebra, subsequent encounter for fracture with delayed healing; X58.XXXD Exposure to other specified factors, subsequent encounter

== ENCOUNTER → 2022-03-10 | Outpatient (CLI) | payer MEDICARE, BC, OTHER ==
[~2022-03-10] MED LIST changes: +LEVO1TAB39 PO; -LEVO500T4 PO
== END ==
LOC: M RAD 10:36
PROVIDERS: ATTEND Nurse Practitioner
DX: C34.90 Malignant neoplasm of unspecified part of unspecified bronchus or lung (principal)

== ENCOUNTER → 2022-06-12 | Outpatient (CLI) | payer MEDICARE, BC, OTHER ==
[~2022-06-12] MED LIST changes: +TORS100T
[2022-06-12 19:40] LABS: BASO # 0.1 10^3/uL (0.0-0.2); BASO % 0.3 % (0.0-1.0); EOS # 0.4 10^3/uL (0.0-0.5); EOS % 2.2 % (0.0-3.0); HEMOGLOBIN 11.4 g/dl (12.0-15.5); LYMPH # 2.1 10^3/uL (1.5-5.0); LYMPH % 12.7 % (24.0-44.0); MEAN CORPUSCULAR HEMOGLOBIN 31.7 pg (27.0-33.0); MEAN CORPUSCULAR VOLUME 105.6 fl (80.0-96.0); MONO % 10.5 % (2.0-8.0); NEUTROPHILS # 12.3 10^3/uL (1.5-8.5); NEUTROPHILS % 73.9 % (36.0-66.0); PLATELET COUNT, AUTOMATED 215 10^3/uL (150-450); WHITE BLOOD COUNT 16.6 10^3/uL (4.0-10.0)
[2022-06-12 20:02] LABS: BILIRUBIN,TOTAL 0.2 MG/DL (0.3-1.2); CALCIUM LEVEL 8.9 MG/DL (8.3-10.6); CREATININE FOR GFR 2.97 MG/DL (0.55-1.30); GLOMERULAR FILTRATION RATE 16.6 (>39); POTASSIUM SERUM 3.5 MMOL/L (3.5-5.1); TOTAL PROTEIN 7.4 G/DL (5.7-8.2)
[2022-06-12 20:07] LABS: MONO # 1.8 10^3/uL (0.0-0.8)
== END ==
LOC: M WUC 15:46
PROVIDERS: ATTEND Nurse Practitioner
DX: C34.90 Malignant neoplasm of unspecified part of unspecified bronchus or lung (principal)

== ENCOUNTER → 2022-06-16 | Outpatient (CLI) | payer MEDICARE, BC, OTHER ==
[~2022-06-16] MED LIST changes: +ISOVUE-370 76% 100ML VIAL As Ordered ONE
== END ==
LOC: M RAD 08:42
PROVIDERS: ATTEND Nurse Practitioner
DX: C34.90 Malignant neoplasm of unspecified part of unspecified bronchus or lung (principal)
CPT/HCPCS: 71260; Q9967

== ENCOUNTER → 2022-12-28 | Outpatient (CLI) | payer MEDICARE, BC, OTHER ==
[~2022-12-28] MED LIST changes: +ALBU8.5H INH; -ISOVUE-370 76% 100ML VIAL As Ordered ONE; -LIDO1CRE42 TOP; +LIDO30CR18 TOP; +[UNRECOGNIZED DRUG - CODE]; -[UNRECOGNIZED DRUG - CODE]
== END ==
LOC: M RAD 07:44
PROVIDERS: ATTEND Nurse Practitioner
DX: C34.90 Malignant neoplasm of unspecified part of unspecified bronchus or lung (principal)

== ENCOUNTER → 2023-06-18 | Outpatient (CLI) | payer MEDICARE, BC ==
[~2023-06-18] MED LIST changes: +SEVE800T3
== END ==
LOC: M RAD 10:37
PROVIDERS: ATTEND Nurse Practitioner
DX: C34.92 Malignant neoplasm of unspecified part of left bronchus or lung (principal); N26.1 Atrophy of kidney (terminal); J43.2 Centrilobular emphysema

== ENCOUNTER 2023-08-16 10:07 | Emergency (ER) | payer MEDICARE, BC, OTHER ==
[~2023-08-16] VITALS: Ht 149.9 cm; Wt 59.1 kg
[~2023-08-16 10:07] MED LIST changes: -TORS100T; +TORS100T PO
[2023-08-16 12:53] LABS: BASO % 0.1 % (0.0-1.0); EOS % 0.1 % (0.0-3.0); HEMATOCRIT 28.1 % (36.0-47.0); HEMOGLOBIN 8.7 g/dl (12.0-15.5); LYMPH # 0.8 10^3/uL (1.5-5.0); LYMPH % 4.9 % (24.0-44.0); MEAN CORPUSCULAR HEMOGLOBIN 31.9 pg (27.0-33.0); MEAN CORPUSCULAR VOLUME 102.9 fl (80.0-96.0); MONO # 1.5 10^3/uL (0.0-0.8); MONO % 9.5 % (2.0-8.0); NEUTROPHILS # 13.2 10^3/uL (1.5-8.5); NEUTROPHILS % 84.6 % (36.0-66.0); PLATELET COUNT, AUTOMATED 217 10^3/uL (150-450); RED BLOOD COUNT 2.73 10^6/uL (4.00-5.40); WHITE BLOOD COUNT 15.6 10^3/uL (4.0-10.0)
[2023-08-16 13:04] LABS: ALBUMIN 2.9 G/DL (3.2-5.2); ALKALINE PHOSPHATASE 101 U/L (46-116); ALT/SGPT 21 U/L (7.0-40); AST/SGOT 21 U/L (<34); BILIRUBIN,DIRECT < 0.1 MG/DL (<0.4); BILIRUBIN,TOTAL 0.3 MG/DL (0.3-1.2); BLOOD UREA NITROGEN 28 MG/DL (9-23); CALCIUM LEVEL 8.7 MG/DL (8.3-10.6); CARBON DIOXIDE LEVEL 35 MMOL/L (20-31); CHLORIDE LEVEL 97 MMOL/L (98-107); CREATININE FOR GFR 4.22 MG/DL (0.55-1.30); GLUCOSE, FASTING 107 MG/DL (74-106); POTASSIUM SERUM 3.9 MMOL/L (3.5-5.1); SODIUM LEVEL 138 MMOL/L (136-145); TOTAL PROTEIN 6.4 G/DL (5.7-8.2)
[2023-08-16] MEDS ORDERED: PRED10TA2 (14:56)
[2023-08-16] MEDS ORDERED: DOXY100C3 (14:56)
[2023-08-16] MEDS ORDERED: ONDA-83 (14:56)
[2023-08-16] MEDS ORDERED: FLUT12HF3 (14:56)
[2023-08-16] MEDS ORDERED: ISOVUE-370 76% 100ML VIAL As Ordered ONE (17:25)
[2023-08-16 17:46] LABS: CK-MB VALUE MASS 3.8 NG/ML (<3.6)
[2023-08-16 17:47] LABS: MB/CK RELATIVE INDEX 4.87 (< OR =4)
[2023-08-16] MEDS: methylPREDNISolone 125MG 2ML VIAL IV ONE (18:46)
[2023-08-16 19:00] LABS: CK-MB VALUE MASS 3.7 NG/ML (<3.6)
[2023-08-16 19:01] LABS: MB/CK RELATIVE INDEX 5.28 (< OR =4)
[2023-08-16] MEDS: IPRATROPIUM 0.5MG/ALBUTEROL 2.5MG INH SOL UD 3ML (DUONEB) NEB ONE (19:03)
[2023-08-16 19:44] VITALS: BP 113/58; TEMP 98.6; O2SAT 96
[2023-08-16 19:50] VITALS: O2SAT 82
[2023-08-16] MEDS ORDERED: ALBUTEROL SULFATE 2.5MG/0.5ML INH NEB SOLN NEB ONE (20:00)
== END 2023-08-16 20:44 | disposition left against medical advice (07) ==
LOC: M ED 10:07
DX: R06.02 Shortness of breath (principal); J44.9 Chronic obstructive pulmonary disease, unspecified; I12.9 Hypertensive chronic kidney disease with stage 1 through stage 4 chronic kidney disease, or unspecified chronic kidney disease; I45.81 Long QT syndrome; Z87.891 Personal history of nicotine dependence; F10.10 Alcohol abuse, uncomplicated; Z88.2 Allergy status to sulfonamides; Z88.8 Allergy status to other drugs, medicaments and biological substances; Z79.51 Long term (current) use of inhaled steroids; Z79.810 Long term (current) use of selective estrogen receptor modulators (SERMs); Z79.52 Long term (current) use of systemic steroids; Z79.899 Other long term (current) drug therapy; Z53.9 Procedure and treatment not carried out, unspecified reason
CPT/HCPCS: 71045; 71275; 80048; 80076; 82550; 82553; 83880; 84484; 85025; 87486; 87581; 87633; 87798; 93005; 93041; 94640; 94760; 96374; 99284; J2919; Q9967

== ENCOUNTER → 2023-10-29 | Outpatient (CLI) | payer MEDICARE, BC ==
[~2023-10-29] MED LIST changes: +DOXY100C3; +FLUT12HF3; +ONDA-83; +PRED10TA2
== END ==
LOC: M RAD 09:45
PROVIDERS: ATTEND Internal Medicine Pulmonary Disease
DX: R91.8 Other nonspecific abnormal finding of lung field (principal); J44.9 Chronic obstructive pulmonary disease, unspecified; I70.0 Atherosclerosis of aorta; I25.10 Atherosclerotic heart disease of native coronary artery without angina pectoris

== ENCOUNTER → 2023-11-26 | Outpatient (CLI) | payer MEDICARE, BC ==
[~2023-11-26] MED LIST changes: +DOXY100C3 PO; -FLUT12HF3; +FLUT12HF3 INH; +MULT1CAP3 PO; -PRED10TA2; -SEVE800T3; +SEVE800T3 PO
== END ==
LOC: M PLAIMG 10:14
PROVIDERS: ATTEND Nurse Practitioner Family
DX: L03.116 Cellulitis of left lower limb (principal)

== ENCOUNTER → 2023-11-29 | Outpatient (CLI) | payer MEDICARE, BC ==
[2023-11-29 13:27] LABS: BASO # 0.1 10^3/uL (0.0-0.2); BASO % 0.4 % (0.0-1.0); EOS # 0.2 10^3/uL (0.0-0.5); EOS % 1.6 % (0.0-3.0); HEMATOCRIT 38.8 % (36.0-47.0); HEMOGLOBIN 11.8 g/dl (12.0-15.5); LYMPH # 1.5 10^3/uL (1.5-5.0); LYMPH % 12.1 % (24.0-44.0); MEAN CORPUSCULAR HEMOGLOBIN 29.6 pg (27.0-33.0); MEAN CORPUSCULAR HGB CONC 30.4 g/dl (32.0-36.5); MEAN CORPUSCULAR VOLUME 97.5 fl (80.0-96.0); MONO % 7.8 % (2.0-8.0); NEUTROPHILS # 9.7 10^3/uL (1.5-8.5); NEUTROPHILS % 77.6 % (36.0-66.0); PLATELET COUNT, AUTOMATED 271 10^3/uL (150-450); RED BLOOD COUNT 3.98 10^6/uL (4.00-5.40); WHITE BLOOD COUNT 12.5 10^3/uL (4.0-10.0)
[2023-11-29 13:28] LABS: ALBUMIN 3.5 G/DL (3.2-5.2); BILIRUBIN,TOTAL 0.2 MG/DL (0.3-1.2); CALCIUM LEVEL 8.8 MG/DL (8.3-10.6); CREATININE FOR GFR 2.87 MG/DL (0.55-1.30); GLOMERULAR FILTRATION RATE 17.2 (>39); POTASSIUM SERUM 4.2 MMOL/L (3.5-5.1); TOTAL PROTEIN 7.4 G/DL (5.7-8.2)
== END ==
LOC: M PLALAB 11:04
PROVIDERS: ATTEND Nurse Practitioner Family
DX: M25.572 Pain in left ankle and joints of left foot (principal)

== ENCOUNTER → 2024-05-25 | Outpatient (CLI) | payer MEDICARE, BC ==
[~2024-05-25] MED LIST changes: -KEYT1INJ IV; +PEMB100V2 IV
== END ==
LOC: M RAD 11:25
PROVIDERS: ATTEND Internal Medicine Hematology & Oncology
DX: C34.90 Malignant neoplasm of unspecified part of unspecified bronchus or lung (principal)

== ENCOUNTER → 2024-11-24 | Outpatient (CLI) | payer MEDICARE, BC ==
[~2024-11-24] MED LIST changes: +SLOW1TAB3 PO; -SLOWTAB2 PO; +[UNRECOGNIZED DRUG - CODE]; -[UNRECOGNIZED DRUG - CODE]
== END ==
LOC: M RAD 10:54
PROVIDERS: ATTEND Nurse Practitioner Women's Health
DX: C34.91 Malignant neoplasm of unspecified part of right bronchus or lung (principal); J43.9 Emphysema, unspecified; R91.8 Other nonspecific abnormal finding of lung field

== ENCOUNTER → 2024-12-12 | Outpatient (CLI) | payer MEDICARE, BC | LOC: M PLARAD 10:00 | PROVIDERS: ATTEND Student in an Organized Health Care Education/Training Program | DX: C34.11 Malignant neoplasm of upper lobe, right bronchus or lung (principal); J43.9 Emphysema, unspecified | CPT/HCPCS: 78815; A9552 ==

== ENCOUNTER → 2024-12-16 | Outpatient (CLI) | payer MEDICARE, BC | LOC: M RAD 13:57 | PROVIDERS: ATTEND Student in an Organized Health Care Education/Training Program | DX: C34.90 Malignant neoplasm of unspecified part of unspecified bronchus or lung (principal) ==

== ENCOUNTER → 2024-12-20 | Outpatient (CLI) | payer MEDICARE, BC | LOC: M WUC 09:25 | PROVIDERS: ATTEND Family Medicine | DX: L03.116 Cellulitis of left lower limb (principal); M79.89 Other specified soft tissue disorders ==

== ENCOUNTER → 2025-01-04 | Outpatient (CLI) | payer MEDICARE, BC | LOC: M ONCR 07:57 | PROVIDERS: ATTEND General Practice | DX: R91.1 Solitary pulmonary nodule (principal); Z85.118 Personal history of other malignant neoplasm of bronchus and lung; J44.9 Chronic obstructive pulmonary disease, unspecified; Z79.51 Long term (current) use of inhaled steroids; Z79.899 Other long term (current) drug therapy; Z92.21 Personal history of antineoplastic chemotherapy; Z92.29 Personal history of other drug therapy; Z99.2 Dependence on renal dialysis; Z99.81 Dependence on supplemental oxygen; Z80.1 Family history of malignant neoplasm of trachea, bronchus and lung; Z82.3 Family history of stroke; Z87.891 Personal history of nicotine dependence; Z88.1 Allergy status to other antibiotic agents; Z88.2 Allergy status to sulfonamides; Z88.4 Allergy status to anesthetic agent; Z88.6 Allergy status to analgesic agent ==

== ENCOUNTER 2025-01-11 07:51 | Outpatient (RCR) | payer MEDICARE, BC | END 2025-01-12 | LOC: M ONCR 07:51 | PROVIDERS: ATTEND General Practice | DX: Z51.0 Encounter for antineoplastic radiation therapy (principal); C34.11 Malignant neoplasm of upper lobe, right bronchus or lung ==

== ENCOUNTER 2025-02-02 08:07 | Outpatient (RCR) | payer MEDICARE, BC | END 2025-02-11 | LOC: M ONCR 08:07 | PROVIDERS: ATTEND General Practice | DX: Z51.0 Encounter for antineoplastic radiation therapy (principal); C34.11 Malignant neoplasm of upper lobe, right bronchus or lung ==